=== PATIENT | female | born 1970 | race Caucasian/White ===

== ENCOUNTER → 2016-06-16 | Outpatient (REF) | payer MEDICARE, MEDICAID | END | disposition home or self-care (01) | LOC: M SFHCPLAZ 14:28 | PROVIDERS: ATTEND Internal Medicine Infectious Disease | DX: A49.02 Methicillin resistant Staphylococcus aureus infection, unspecified site (principal) | CPT/HCPCS: 87070; 87077; 87081; 87186; 87205; G0463 ==

== ENCOUNTER 2016-07-15 17:04 | Inpatient (IN) | payer MEDICARE, MEDICAID ==
[~2016-07-15] VITALS: Ht 149.9 cm; Wt 73.8 kg
[2016-07-15] MEDS ORDERED: NICOTINE 21MG/24HR 1 EA TRANSDERMAL As Ordered ONE (18:22)
[2016-07-15 19:07] LABS: AMPHETAMINES LEVEL URINE NEGATIVE (NEGATIVE); BENZODIAZEPINES URINE NEGATIVE (NEGATIVE); COCAINE METABOLITE URINE NEGATIVE (NEGATIVE); CONTROL LINE INT CTR LINE PRESENT; METHADONE URINE POSITIVE (NEGATIVE); OPIATES URINE NEGATIVE (NEGATIVE); TRICYCLIC ANTIDEPRESS URINE NEGATIVE (NEGATIVE)
[2016-07-15 19:18] LABS: MEAN CORPUSCULAR HEMOGLOBIN 26.5 pg (27.0-33.0); MEAN CORPUSCULAR HGB CONC 32.1 g/dl (32.0-36.5); MEAN CORPUSCULAR VOLUME 82.6 fl (80.0-96.0); WHITE BLOOD COUNT 12.4 K/mm3 (4.0-10.0)
[2016-07-15 19:23] LABS: ALBUMIN 3.8 GM/DL (3.2-5.2); ALBUMIN/GLOBULIN RATIO 1.12 (1.00-1.93); ALKALINE PHOSPHATASE 87 U/L (45-117); ALT/SGPT 30 U/L (12-78); ANION GAP 9 MEQ/L (8-16); AST/SGOT 15 U/L (15-37); BILIRUBIN,DIRECT 0.1 MG/DL (0.0-0.2); BILIRUBIN,TOTAL 0.4 MG/DL (0.2-1.0); BLOOD UREA NITROGEN 15 MG/DL (7-18); CALCIUM LEVEL 8.8 MG/DL (8.5-10.1); CARBON DIOXIDE LEVEL 25 MEQ/L (21-32); CHLORIDE LEVEL 108 MEQ/L (98-107); CREATININE FOR GFR 0.73 MG/DL (0.55-1.02); GLOMERULAR FILTRATION RATE > 60.0 (>58); GLUCOSE, FASTING 124 MG/DL (70-105); POTASSIUM SERUM 3.4 MEQ/L (3.5-5.1); SODIUM LEVEL 142 MEQ/L (136-145); TOTAL PROTEIN 7.2 GM/DL (6.4-8.2)
[2016-07-15 19:25] LABS: CONTROL LINE HCG INT CTR LINE PRESENT
[2016-07-15] MEDS ORDERED: METH5TA PO (19:55)
[2016-07-15] MEDS ORDERED: COLA100C PO (19:59)
[2016-07-15] MEDS ORDERED: VITA500T88 PO (19:59)
[2016-07-15] MEDS ORDERED: METO25TAB PO (19:59)
[2016-07-15] MEDS ORDERED: MELO7.5T6 PO (19:59)
[2016-07-15] MEDS ORDERED: SENN8.6T10 PO (19:59)
[2016-07-15] MEDS ORDERED: VITA200015 PO (19:59)
[2016-07-15] MEDS ORDERED: OXYB5TA PO (19:59)
[2016-07-15] MEDS ORDERED: ATOR40TA PO (19:59)
[2016-07-15] MEDS ORDERED: VITMTA PO (19:59)
[2016-07-15] MEDS ORDERED: OMEP40CA2 PO (19:59)
[2016-07-16] MEDS ORDERED: hydrOXYzine 50 MG TAB PO PRN (01:15)
[2016-07-16] MEDS ORDERED: traZODone 50 MG TAB PO PRN (01:15)
[2016-07-16] MEDS ORDERED: MOM 30ML SUSPENSION UDC PO PRN (01:15)
[2016-07-16] MEDS ORDERED: ACETAMINOPHEN TAB 650MG DOSE (2X325MG) PO PRN (01:15)
[2016-07-16] MEDS ORDERED: OMEPRAZOLE 20 MG CAP PO PRN (01:15)
[2016-07-16] MEDS ORDERED: MAALOX 30 ML SUSP *UDC PO PRN (01:15)
[2016-07-16] MEDS ORDERED: cloNIDine 0.2 MG TAB As Ordered ONE (01:26)
--- NOTE | 2016-07-16 01:33 | EDDOCDS ---
Physician Documentation [facility] Name: Ro Elizabeth Age: 45 yrs Sex: Female : 1970 Arrival Date: 07/15/2016 Time: 17:04 Bed RUST3 Private MD: Bismark Byrd Disposition: 07/15 17:55 Critical Care: Critical care not applicable. le Disposition: 07/15/16 20:27 Hospitalization ordered by Umair Gay for Inpatient Admission. Preliminary diagnosis is Bipolar disorder, current episode manic severe with psychotic features. - Bed requested for Admit. - Status is Inpatient Admission. mlc - Condition is Stable. - Problem is new. - Symptoms are unchanged. Historical: - Allergies: Augmentin (Swelling); - Home Meds: 1. Methadone 45 mg Oral once daily 2. atorvastatin 40 mg oral tab 1 tab once daily 3. meloxicam 7.5 mg oral tab 1 tab bid 4. metoprolol tartrate 25 mg Oral tab 1 tab 2 times per day (Last dose: Unknown) 5. omeprazole 40 mg Oral cpDR 1 cap prn 6. oxybutynin chloride 5 mg Oral tab 2 times per day 7. senna 8.6 mg oral cap 2 caps twice a day 8. Colace 100 mg oral cap 1 cap 2 times per day 9. Vitamin C 500 mg Oral tab daily 10. Vitamin D Oral 2000 unit daily 11. multivitamin Oral tab 1 tab daily - PMHx: Hypertension; Hypercholesterolemia; MRSA; Arthritis; - PSHx: ; cyst removed from left breast.; - Social history: Smoking status: Patient uses tobacco products, current every day smoker. No barriers to communication noted, The patient speaks fluent Nigerian. - Family history: Not pertinent. - : The pt / caregiver states he / she is not on anticoagulants. Home medication list is obtained from the patient. - Exposure Risk Screening:: None identified. Vital Signs: 17:06 BP 149 / 85 RA Sitting (auto/lg); Pulse 96; Resp 18; Temp 98.0(O); Pulse Ox 97% on R/A; rs6 Weight 76.2 kg / 167.99 lbs (M); Height 4 ft. 11 in. (149.86 cm) (R); Pain 6/10; 07/16 01:21 BP 186 / 104; Pulse 68; Resp 20; Temp 96.3; Pulse Ox 98% on R/A; Pain 0/10; mlc 07/15 17:06 Body Mass Index 33.93 (76.20 kg, 149.86 cm) rs6 MDM: 07/15 17:34 REGULAR DIET PLASTIC AMATO+DIET ordered. EDMS 18:04 Consult PFS/PSA/Supervisor Dairy Sanitation ordered. le 18:04 Consult PFS/PSA/Supervisor Dairy Sanitation: Patient's case requires discussion with on-call le Psychiatrist ordered. 18:04 PSA/PFS to call Nursing Softlines Supervisor, to enter patient data on [place] Safe Act if patient le involuntarily admitted or transferred for SI or HI ordered. 18:04 Confirm accurate psychiatric medication list and times of last dosage ordered. le 18:04 Detain Pt Until Medically/PFS Cleared ordered. le 18:04 Nicotine Patch 21 mg/24 hr 1 applic Transdermal once ordered. le 18:05 Acetaminophen Level Ordered. EDMS 18:05 Basic Metabolic Profile Ordered. EDMS 18:05 Complete Blood Count Ordered. EDMS 18:05 Drug Eval Toxicology ED Only Ordered. EDMS 18:05 Ethyl Alcohol (ethanol) Ordered. EDMS 18:05 Liver Profile Ordered. EDMS 18:05 Salicylate Level Ordered. EDMS 18:05 Thyroid Stimulating Hormone Ordered. EDMS 18:05 HCG,Serum Qualitative Ordered. EDMS 18:32 BED REQUEST+ADM ordered. EDMS 18:35 Financial registration complete. zo 18:39 [facility] [place] was scanned into [employer] and attached to record. zo 19:01 Consult PFS/PSA/Supervisor Dairy Sanitation complete. ms 19:01 Consult PFS/PSA/Supervisor Dairy Sanitation: Patient's case requires discussion with on-call ms Psychiatrist complete. 19:01 PSA/PFS to call Nursing Softlines Supervisor, to [place] data [place] if patient ms involuntarily admitted or transferred for SI or HI complete. 19:38 Acetaminophen Level Reviewed. le 19:38 Basic Metabolic Profile Reviewed. le 19:38 Complete Blood Count Reviewed. le 19:38 Drug Eval Toxicology ED Only Reviewed. le 19:38 Ethyl Alcohol (ethanol) Reviewed. le 19:38 Liver Profile Reviewed. le 19:38 Salicylate Level Reviewed. le 19:38 Thyroid Stimulating Hormone Reviewed. le 19:38 HCG,Serum Qualitative Reviewed. le 20:32 Admit to [facility]: ordered. EDMS 20:45 [facility] Legal paperwork was scanned into [employer] and attached to record. ms 22:32 T-Sheet-- Draft Copy was scanned into [employer] and attached to record. klr 07/16 01:22 REGULAR DIET ordered. EDMS 01:24 cloNIDine 0.2 mg PO once ordered. cs11 Administered Medications: 07/15 18:29 Drug: Nicotine 1 applic [nicotine 21 mg/24 hr daily transdermal patch (1 patches)] ld5 Route: Transdermal; Site: left upper arm; 07/16 01:10 Follow up: Response: No Adverse Reaction rw1 01:29 Drug: cloNIDine 0.2 mg [clonidine HCl 0.2 mg tablet (1 tabs)] Route: PO; [facility] Signatures: Dispatcher [employer] EDMS Roberto Jaye, PSA PSA ms Ezequiel, America Pandey, DIRECTOR PROCESS IMPROVEMENT Dyana Guevara RN RN Navdeep Adam, DO cs11 Anca Dao RN RN mlc Redder, Kathie klr Workman, Robert LPN rw1 Patricia Bang RN ld5 The chart was reviewed and I authenticate all verbal orders and agree with the evaluation and treatment provided.Corrections: (The following items were deleted from the chart) 07/15 17:29 17:23 Allergies: Augmentin (Swelling) [Inactive]; heidy moody Attachments: 18:39 [facility] [place] Agreement zo 22:32 T-Sheet-- Draft Copy klr MTDD
--- NOTE | 2016-07-16 01:33 | EDDOCDS ---
Nurse's Notes [facility] Name: Ro Elizabeth Age: 45 yrs Sex: Female : 1970 Arrival Date: 07/15/2016 Time: 17:04 Bed [facility]3 Private MD: Bismark Byrd Diagnosis: Bipolar disorder, current episode manic severe with psychotic features Presentation: 07/15 17:12 Presenting complaint: Presenting complaint: Patient states: they want to taper my jjr methadone and I want to stay on the same regimen, per [employer] PFS pt is delusional stating she is being taped/recorded. 17:20 Mental Health Triage Level: Level 2: recommendations from [facility] outpt. [facility] 17:26 Adult Sepsis Screening: The patient does not have new or worsening altered mentation. jjr Patient's respiratory rate is less than 22. Systolic blood pressure is greater than 100. Patient has a qSOFA score of 0- Negative Sepsis Screen. Suicide/Homicide risk assessment- The patient reports that he/she has a recent or current history of substance abuse. Status: Patient is not a career services officer or dependent. Transition of care: patient was received from [facility]. 17:26 Acuity: ROMÁN Level 3 r 17:26 Method Of Arrival: Walkin/Carried/Asstd jr Triage Assessment: 17:25 General: Appears in no apparent distress, Behavior is flight of ideas. Pain: Location: jjr thoracic area and lumbar area. HIV screening NA for this visit Offered previously. Historical: - Allergies: Augmentin (Swelling); - Home Meds: 1. Methadone 45 mg Oral once daily 2. atorvastatin 40 mg oral tab 1 tab once daily 3. meloxicam 7.5 mg oral tab 1 tab bid 4. metoprolol tartrate 25 mg Oral tab 1 tab 2 times per day (Last dose: Unknown) 5. omeprazole 40 mg Oral cpDR 1 cap prn 6. oxybutynin chloride 5 mg Oral tab 2 times per day 7. senna 8.6 mg oral cap 2 caps twice a day 8. Colace 100 mg oral cap 1 cap 2 times per day 9. Vitamin C 500 mg Oral tab daily 10. Vitamin D Oral 2000 unit daily 11. multivitamin Oral tab 1 tab daily - PMHx: Hypertension; Hypercholesterolemia; MRSA; Arthritis; - PSHx: ; cyst removed from left breast.; - Social history: Smoking status: Patient uses tobacco products, current every day smoker. No barriers to communication noted, The patient speaks fluent Botswanan. - Family history: Not pertinent. - : The pt / caregiver states he / she is not on anticoagulants. Home medication list is obtained from the patient. - Exposure Risk Screening:: None identified. Screenin/04 01:21 Screening information is obtained from the patient. Fall risk: No risks identified. mlc Assistance ADL's: requires no assistance with activities of daily living. Abuse/DV Screen: The patient / caregiver reports he/she is: not in a situation that causes fear, pain or injury. Nutritional screening: No deficits noted. Advance Directives: Currently, there is no health care proxy. home support is adequate. Assessment: 07/15 18:00 General: Pt standing at door staring out. When asked if pt needs anything, pt launches ld5 into speech about methadone detox and her MD sent her here for a detox program. Pt very talkative and difficult to get through to. 18:30 General: Pt out of room to ask what plan of care is. Security in to speak with pt at ld5 length about the process. Shortly after, pt out of room again to ask about plan. It was explained to pt again that blood work and urine had to be obtained and resulted prior to speaking with neonatal social worker. And at that time, pt would be given more information regarding POC. Pt continues to state "are you sending me to the [facility]? Just tell me if you're sending me there?" Safety maintained. Will continue to monitor. 19:00 General: Dinner tray provided. Pt hard to settle. Will continue to monitor. ld5 20:24 General: Appears in no apparent distress, comfortable, Behavior is appropriate for age, rw1 cooperative, pleasant. Pain: Denies pain. Neurological: Level of Consciousness is awake, alert, obeys commands, Oriented to person, place, time. Respiratory: Airway is patent Respiratory effort is even, unlabored. Derm: Skin is pink, warm & dry. normal. 21:18 Reassessment: Patient appears in no apparent distress at this time. awake resting on rw1 stretcher, safety maintained will monitor.. 22:29 Reassessment: Patient appears in no apparent distress at this time. awake resting on rw1 stretcher, safety maintained will monitor.. 07/16 01:21 General: Appears in no apparent distress, comfortable, Behavior is anxious, [facility] cooperative. Pain: Denies pain. Neurological: Level of Consciousness is awake, alert, Oriented to person, place, time. Respiratory: Airway is patent Respiratory effort is even, unlabored, Respiratory pattern is regular. Derm: Skin is pink, warm & dry. 01:29 Reassessment: pt medicated per order. [facility] Mental Health Eval: 07/15 19:45 Mental health consult is initiated at 19:15. Status: The patient is not a ms career services officer or dependent. [facility] Behavioral Health: The patient is not an established patient of [facility] Behavioral Health. Referral Information: Evaluation referral is generated by the patient's therapist Margarita. The patient was referred for evaluation because [facility] staff called stating pt. presented today for appointment ( Methadone clinic) and was manicy. Pt. left purse outside of treatment room because it had been bugged and also stated that people have been videotaping and recording her.. Subjective: The patients chief complaint is Pt. states she is on methadone and is concerned that she is not wanted in [place] anymore because she has been bothering people at [facility]. She reports she has been calling [facility] many times and states that they are mad at her. Pt. presents with rapid speech and flight of ideas. She reports she has been feeling depressed because she has no support system here in [place] and the only people she really knows are people with addiction issues. At [facility] today, pt stated that people had bugged her phone and cinema or theatre manager and left her purse outside of room so that no one could video or record her conversation. Pt. reports she has not been sleeping well or eating well. . Delusions are paranoid, Patient's mood is elevated, Hallucinations are denied. Pt. reports she lives by herself and at one pt. states it is good because she cannot be around anyone else because it would be bad for recovery. Pt. then states that she should not be by herself because she has no support system. Pt. states on occasion " assisted,institution and , oh my". Mental Health history: anxiety, depression, Mental Health Admissions: None. Current Outpatient Mental Health Services: Psychiatrist / Agency: Margarita. Therapist / Agency: [facility]. Current living environment is The patient currently lives alone. Patient presents to Emergency Department with the following symptoms within the past 2 weeks: anxiety, decreased appetite, labile mood, paranoia, poor concentration, sleep disturbance - insomnia. Substance abuse: Pt. states hx. of heroin, crack cocaine, alcohol, marijuana.. Mental status exam: Patients appearance is appropriate, Patient's behavior is cooperative, Speech is rapid. Affect is labile. Mood is anxious. Hallucinations are denied. Appetite is poor. Memory is fair. Energy level is normal. Content of thought is paranoid. paranoid Thought process is characterized by flight of ideas. Cognitive level is oriented to person, place, time and situation Patient's insight is fair. Judgement is fair. Rapport with interviewer is guarded. Suicidal Ideation is denied. Homicidal ideation is denied. 20:47 Disposition: Medically cleared for disposition by Navdeep Alexander DO Psychiatric Consult ms is performed by phone with Dr Umair Gay MD. [facility] Admission Criteria: The patient displays symptoms of severe psychiatric disorder resulting in disordered behavior and significant interference with his / her ability to maintain self care. Julieta. The patient's care requires a multi-modal treatment plan under close supervision and coordination due to the complexity and severity of the patient's symptoms. Legal Status: Patient's legal status will be Emergency admission: 9.39. [place] Safe Act: [place] Safe [place] is not applicable because the patient does not display any suicidal or homicidal ideations and does not pose a risk to self or others. DSM-V Differential Diagnosis: Unspecified Depressive Disorder (F32.9). 21:05 Insurance Pre-Certification: Not Required. ms Vital Signs: 17:06 BP 149 / 85 RA Sitting (auto/lg); Pulse 96; Resp 18; Temp 98.0(O); Pulse Ox 97% on R/A; rs6 Weight 76.2 kg (M); Height 4 ft. 11 in. (149.86 cm) (R); Pain 6/10; 0204 01:21 BP 186 / 104; Pulse 68; Resp 20; Temp 96.3; Pulse Ox 98% on R/A; Pain 0/10; mlc 07/15 17:06 Body Mass Index 33.93 (76.20 kg, 149.86 cm) rs6 Vitals: 07/15 17:06 Log In Time: July 15, 2016 at 17:06. rs6 ED Course: 17:06 Patient visited by Ava Godinez PCA. rs6 17:06 Bismark Byrd is Private Physician. rs6 17:06 Patient moved to Waiting rs6 17:09 Patient visited by Ava Godinez PCA. rs6 17:26 Patient moved to [facility] jjr 17:26 Triage Initiated jjr 17:33 Patient visited by Eyad Jimenez. dpm 17:51 America Hollis FNP is PHCP. le 17:55 Patient visited by America Hollis FNP. le 17:55 Patient visited by America Hollis FNP. le 18:04 Patient visited by Eyad Jimenez. dpm 18:26 Patient visited by Eyad Jimenez. dpm 18:39 [facility] Payment Agreement was scanned into [employer] and attached to record. zo 18:43 Patient visited by Eyad Jimenez. dpm 18:43 Pt greeted and oriented to ED. Patient advised of names of staff involved in care, dpm location of call davies, wait times and NPO status. Patient has correct armband on for positive identification. Placed in gown. Placed in psych safe attire. Security observing. Property removed, inventory done, secured in belongings bag- placed in locked locker. Placed in locker 9. secure belongings bag, Secure bag Number [id number], placed in ED safe. Prisca (ROSETTA) observed pt while changing. Psych Safety Check: Location: Psych Room. Visual Assessment: Cooperative. 19:00 Patient visited by Patricia Bang RN. ld5 19:01 Patient visited by Kian Ordonez. tr 19:15 Patient visited by Kian Ordonez. tr 19:29 Patient visited by Kian Ordonez. tr 19:44 Patient visited by Kian Ordonez. tr 19:59 Patient visited by Kian Ordonez. tr 20:00 Troy Crooks LPN is Primary Nurse. rw1 20:15 Patient visited by Troy Crooks LPN. rw1 20:26 Umair Gay MD is Referral Physician. le 20:27 Navdeep Alexander DO is Attending Physician. cs11 20:27 Umair Gay MD is Hospitalizing Provider. le 20:31 Patient visited by Kian Ordonez. tr 20:44 Patient visited by Kian Ordonez. tr 20:45 [facility] Legal paperwork was scanned into [employer] and attached to record. ms 21:00 Patient visited by Kian Ordonez. tr 21:16 Patient visited by Kian Ordonez. tr 21:29 Patient visited by Kian Ordonez. tr 21:46 Patient visited by Kian Ordonez. tr 22:01 Patient visited by Kian Ordonez. tr 22:15 Patient visited by Kian Ordonez. tr 22:30 Patient visited by Kian Ordonez. tr 22:32 T-Sheet-- Draft Copy was scanned into [employer] and attached to record. klr 22:49 Patient visited by Kian Ordonez. tr 23:02 Patient visited by Kian Ordonez. tr 23:36 Patient visited by Kian Ordonez. tr 23:45 Patient visited by Kian Ordonez. tr 23:58 Patient visited by Kian Ordonez. tr 07/16 00:14 Patient visited by Kian Ordonez. tr 00:48 Patient visited by Kian Ordonez. tr 00:59 Patient visited by Kian Ordonez. tr 01:16 Patient visited by Kian Ordonez. tr 01:21 The patient / caregiver is instructed regarding the plan of care and ED course. mlc 01:21 No IV's were initiated during this patient's visit. No procedures done that require mlc assistance. 01:28 Patient visited by Kian Ordonez. tr Administered Medications: 07/15 18:29 Drug: Nicotine 1 applic [nicotine 21 mg/24 hr daily transdermal patch (1 patches)] ld5 Route: Transdermal; Site: left upper arm; 07/16 01:10 Follow up: Response: No Adverse Reaction rw1 01:29 Drug: cloNIDine 0.2 mg [clonidine HCl 0.2 mg tablet (1 tabs)] Route: PO; mlc Attachments: 20:45 M[facility] Legal paperwork ms Order Results: Lab Order: Acetaminophen Level; SPEC'M 07/15/16 18:39 Test: ACETAMINOPHEN LEVEL; Value: < 2.0; Range: 10.0-30.0; Abnormal: Below low normal; Units: UG/ML; Status: F Lab Order: Basic Metabolic Profile; SPEC'M 07/15/16 18:39 Test: GLUCOSE, FASTING; Value: 124; Range: 70-105; Abnormal: Above high normal; Units: MG/DL; Status: F Test: BLOOD UREA NITROGEN; Value: 15; Range: 7-18; Units: MG/DL; Status: F Test: CREATININE FOR GFR; Value: 0.73; Range: 0.55-1.02; Units: MG/DL; Status: F Test: GLOMERULAR FILTRATION RATE; Value: > 60.0; Range: >58; Status: F Test: SODIUM LEVEL; Value: 142; Range: 136-145; Units: MEQ/L; Status: F Test: POTASSIUM SERUM; Value: 3.4; Range: 3.5-5.1; Abnormal: Below low normal; Units: MEQ/L; Status: F Test: CHLORIDE LEVEL; Value: 108; Range: 98-107; Abnormal: Above high normal; Units: MEQ/L; Status: F Test: CARBON DIOXIDE LEVEL; Value: 25; Range: 21-32; Units: MEQ/L; Status: F Test: ANION GAP; Value: 9; Range: 8-16; Units: MEQ/L; Status: F Test: CALCIUM LEVEL; Value: 8.8; Range: 8.5-10.1; Units: MG/DL; Status: F Test Note: ; Units are mL/min/1.73 m2 Chronic Kidney Disease Staging per NKF: Stage I & II GFR >=60 Normal to Mildly Decreased Stage III GFR 30-59 Moderately Decreased Stage IV GFR 15-29 Severely Decreased Stage V GFR <15 Very Little GFR Left ESRD GFR <15 on CYBER REVERSE ENGINEER Lab Order: Complete Blood Count; SPEC07/15/16 18:39 Test: WHITE BLOOD COUNT; Value: 12.4; Range: 4.0-10.0; Abnormal: Above high normal; Units: K/mm3; Status: F Test: RED BLOOD COUNT; Value: 4.82; Range: 4.00-5.40; Units: M/mm3; Status: F Test: HEMOGLOBIN; Value: 12.8; Range: 12.0-16.0; Units: g/dl; Status: F Test: HEMATOCRIT; Value: 39.9; Range: 36.0-47.0; Units: %; Status: F Test: MEAN CORPUSCULAR VOLUME; Value: 82.6; Range: 80.0-96.0; Units: fl; Status: F Test: MEAN CORPUSCULAR HEMOGLOBIN; Value: 26.5; Range: 27.0-33.0; Abnormal: Below low normal; Units: pg; Status: F Test: MEAN CORPUSCULAR HGB CONC; Value: 32.1; Range: 32.0-36.5; Units: g/dl; Status: F Test: RED CELL DISTRIBUTION WIDTH; Value: 15.0; Range: 11.5-14.5; Abnormal: Above high normal; Units: %; Status: F Test: PLATELET COUNT, AUTOMATED; Value: 291; Range: 150-450; Units: k/mm3; Status: F Lab Order: Drug Eval Toxicology ED Only; SPEC'M 07/15/16 18:39 Test: AMPHETAMINES LEVEL URINE; Value: NEGATIVE; Range: NEGATIVE; Status: F Test: BARBITURATES URINE; Value: NEGATIVE; Range: NEGATIVE; Status: F Test: BENZODIAZEPINES URINE; Value: NEGATIVE; Range: NEGATIVE; Status: F Test: CANNABINOIDS URINE; Value: NEGATIVE; Range: NEGATIVE; Status: F Test: COCAINE METABOLITE URINE; Value: NEGATIVE; Range: NEGATIVE; Status: F Test: METHADONE URINE; Value: POSITIVE; Range: NEGATIVE; Abnormal: Above high normal; Status: F Test: OPIATES URINE; Value: NEGATIVE; Range: NEGATIVE; Status: F Test: TRICYCLIC ANTIDEPRESS URINE; Value: NEGATIVE; Range: NEGATIVE; Status: F Test Note: ; ALL PRESUMPTIVE POSITIVE FINDINGS ARE UNCONFIRMED NORMAL VALUES THRESHOLD IN NG/ML AMPHETAMINES 1000 METHAMPHETAMINES 1000 BARBITURATES 300 BENZODIAZEPINES 300 CANNABINOIDS (THC) 50 COCAINE METABOLITE 300 METHADONE 300 OPIATES 300 PHENCYCLIDINE 25 TRICYCLIC ANTIDEPRESSANTS 1000 RESULTS ARE FOR MEDICAL PURPOSES ONLY. ALL URINE SPECIMENS WILL BE SAVED FOR 3 DAYS. IF CONFIRMATION OF A PRESUMPTIVE POSTIVE SCREEN RESULT IS DESIRED, CALL CHEMISTRY ([phone]) AND REQUEST URINE TO BE SENT TO REFERENCE LAB. FOR A LIST OF CLOSELY RELATED COMPOUNDS PLEASE CALL THE LAB. Lab Order: Ethyl Alcohol (ethanol); SPEC'M 07/15/16 18:39 Test: ETHYL ALCOHOL (ETHANOL); Value: 0.003; Range: 0.000-0.010; Units: %; Status: F Lab Order: Liver Profile; SPEC'M 07/15/16 18:39 Test: AST/SGOT; Value: 15; Range: 15-37; Units: U/L; Status: F Test: ALT/SGPT; Value: 30; Range: 12-78; Units: U/L; Status: F Test: ALKALINE PHOSPHATASE; Value: 87; Range: 45-117; Units: U/L; Status: F Test: BILIRUBIN,TOTAL; Value: 0.4; Range: 0.2-1.0; Units: MG/DL; Status: F Test: BILIRUBIN,DIRECT; Value: 0.1; Range: 0.0-0.2; Units: MG/DL; Status: F Test: TOTAL PROTEIN; Value: 7.2; Range: 6.4-8.2; Units: GM/DL; Status: F Test: ALBUMIN; Value: 3.8; Range: 3.2-5.2; Units: GM/DL; Status: F Test: ALBUMIN/GLOBULIN RATIO; Value: 1.12; Range: 1.00-1.93; Status: F Lab Order: Salicylate Level; SPEC' 07/15/16 18:39 Test: SALICYLATE LEVEL; Value: 5.6; Range: 5.0-30.0; Units: MG/DL; Status: F Lab Order: Thyroid Stimulating Hormone; SPEC' 07/15/16 18:39 Test: THYROID STIMULATING HORMONE; Value: 0.466; Range: 0.358-3.740; Units: uIU/ML; Status: F Lab Order: HCG,Serum Qualitative; SPEC' 07/15/16 18:39 Test: HCG, SERUM QUALITATIVE; Value: NEGATIVE; Range: NEGATIVE; Status: F Outcome: 20:26 Discharge ordered by Provider. le 20:27 Decision to Hospitalize by Provider. le 07/16 01:29 Discharge Assessment: Patient awake, alert and oriented x 3. No cognitive and/or mlc functional deficits noted. Patient verbalized understanding of disposition instructions. patient administered narcotics - no. The following High Risk Discharge criteria are identified: None. Admitted to Psych accompanied by tech, via wheelchair, with chart. No special radiology studies were completed. 01:30 Condition: good Condition: stable. Admission hand-off: Other: SKINNY Tomlin states pt can mlc come to floor at this time. . Property given to [facility] staff. 01:32 Patient left the ED. [facility] Signatures: Jaye Mejia, PSA PSA ms Mery, Kian tr Troy Crooks,OFFICER LIEUTENANT OFFICER LIEUTENANT rw1 Lauren Nieves Lisa, TIMEKEEPER SUPERVISOR TIMEKEEPER SUPERVISOR Dyana Cherry, RN RN jPatricia Zuniga RN RN ld5 Eyad Jimenez dpm Navdeep Alexander, DO cs11 Anca Dao RN RN Ava Degroot, TV PRODUCTION ASSISTANT TV PRODUCTION ASSISTANT rs6 Gabriella Salcedo Corrections: (The following items were deleted from the chart) 07/15 17:29 17:23 Allergies: Augmentin (Swelling) [Inactive]; heidy moody 17:38 17:12 Presenting complaint: heidy moody MTDD
[2016-07-16 01:42] VITALS: BP 159/96
[2016-07-16] MEDS: VITAMIN D 1,000 INTERNATIONAL UNITS TABLET PO SCH (08:16)
[2016-07-16] MEDS: ASCORBIC ACID 500 MG TAB PO SCH (08:16)
[2016-07-16] MEDS: MULTIVITAMINS/MINERALS THERAP 1 TAB PO SCH (08:16)
[2016-07-16] MEDS: MELOXICAM (MOBIC) 7.5 MG TAB PO SCH ×2 (08:16→22:45)
[2016-07-16] MEDS: oxyBUTYnin 5 MG TAB PO SCH ×2 (08:16→22:45)
[2016-07-16] MEDS: NICOTINE 21MG/24HR 1 EA TRANSDERMAL TD SCH (08:16)
[2016-07-16] MEDS: SENNA 8.6 MG TAB (SENOKOT) PO SCH ×2 (08:16→22:44)
[2016-07-16] MEDS: METOPROLOL TART 25 MG TABLET PO SCH ×2 (08:17→22:45)
[2016-07-16] MEDS: METHADONE 10 MG TAB (S0109) PO SCH (08:18)
[2016-07-16] MEDS: DIVALPROEX 250 MG TAB PO SCH ×2 (09:00→22:44)
[2016-07-16] MEDS: risperiDONE 2 MG TAB PO SCH ×2 (09:00→18:41)
[2016-07-16 18:00] VITALS: BP 113/61
[2016-07-16] MEDS ORDERED: QUEtiapine FUMARATE 100 MG TAB PO ONE (19:15)
--- NOTE | 2016-07-16 20:06 | MHHPE ---
DATE OF ADMISSION: 07/16/2016 LEGAL STATUS AT ADMISSION: 9.39 legal status. CHIEF COMPLAINT: "I don't think I'm on the right unit." HISTORY OF PRESENT ILLNESS: 45-year-old female with history of opioid dependency who was sent to our emergency department from her therapy at [facility] after she was found to be paranoid and manic. According to the chart, patient presented to her appointment at the methadone clinic at [facility] and she was manic. She was afraid that she was being videotaped and also she left her purse outside the treatment room because she believed the purse was bugged. Patient was making statements in which she believes that she is not wanted in [place] anymore because she is "bothering people." Patient had called [facility] many times before her appointment. She was displaying and flight of ideas. Patient has no support in the [facility]. Patient stated she has not been eating or sleeping well and it is documented that her mood is elevated. During the interview today, patient is unable to provide full history since she is paranoid and manic, has flight of ideas, is somewhat guarded, and jumps from subject to subject. She stated that she wants to be in a place where "I am safe." Patient has stated that she has been unable to sleep. She is highly anxious, is paranoid, with pressured speech. Patient, at this point, is an unreliable historian. PAST MEDICAL HISTORY: As stated by the chart, and the patient agreed, has been diagnosed with hypertension, hypercholesterolemia, arthritis, and methicillin-resistant Staphylococcus aureus (MRSA) status post section. PAST PSYCHIATRIC HISTORY: According to the chart, has past history of depression, anxiety, and polysubstance dependency. Has history of heroin, crack cocaine, alcohol, and marijuana. SUBSTANCE ABUSE HISTORY: As above. Patient is unable to provide full history, but reports that she is on methadone program at [facility] and, as stated above, has history of heroin, crack cocaine, alcohol, and marijuana abuse. SOCIAL HISTORY: Patient is unable to provide reliable information. She came to [facility] to be treated for her opioid dependency and has no support in [facility]. FAMILY HISTORY: Unknown and patient's information is not reliable. REVIEW OF SYSTEMS: Unable to obtain since patient is not reliable. PHYSICAL EXAMINATION: As per physician occupational therapist assistant. LABORATORY DATA AT ADMISSION: CBC showed white blood cells were 12.4, MCH of 26.5, RDW 15. CMP is unremarkable except low potassium of 3.4. test is negative. TSH within normal limits. Urine drug screen (UDS) is positive for methadone, the rest is negative. Blood alcohol level is negative. MENTAL STATUS EXAMINATION: Patient is wearing hospital pajamas. Patient is paranoid, somewhat guarded, and manic. Speech is pressured. Has fair eye contact. Mood is manic. Affect is labile, intense. Patient is oriented to time, place, person, and situation. Attention and concentration are impaired due to her manic episode and paranoia. Thought processes are tangential with flight of ideas. Does not appear to have auditory or visual hallucinations. Patient does have paranoid delusions. Patient is able to contract for safety and denies suicidal or homicidal ideation during the interview. Insight and judgment is poor. DIAGNOSES: AXIS I: Bipolar disorder, manic episode. Polysubstance dependency. AXIS II: Deferred. AXIS III: Hypertension, hypercholesterolemia, arthritis. INITIAL TREATMENT PLAN: Patient was admitted on a 9.39 legal status. Complete history could not be obtained because patient is manic and paranoid. With her permission, family will be contacted and data base will be expanded. Her medication regimen will be reviewed and changed accordingly. She will be provided with protected environment. She will be treated with individual, group, and milieu therapy. She will also receive supportive psychoeducation. Discharge planning will commence immediately. Length of stay will be between 5-7 days. Outpatient followup will be strongly recommended. The treatment plan will focus initially on iraj, altered thoughts, and substance abuse.
[2016-07-16] MEDS: QUEtiapine FUMARATE 100 MG TAB PO SCH (22:45)
[2016-07-16] MEDS: ATORVASTATIN 20 MG TAB PO SCH (22:45)
[2016-07-17 06:49] VITALS: BP 126/76
[2016-07-17 08:08] LABS: BASO % 0.4 % (0.0-1.0); EOS # 0.3 K/mm3 (0.0-0.50); EOS % 3.2 % (0.0-3.0); LARGE UNSTAINED CELL # 0.2 K/mm3 (0.0-0.4); LARGE UNSTAINED CELL % 1.9 % (0.0-4.0); LYMPH # 3.6 K/mm3 (1.5-4.5); LYMPH % 40.5 % (24.0-44.0); MEAN CORPUSCULAR HEMOGLOBIN 27.2 pg (27.0-33.0); MEAN CORPUSCULAR HGB CONC 33.1 g/dl (32.0-36.5); MEAN CORPUSCULAR VOLUME 82.3 fl (80.0-96.0); MONO # 0.4 K/mm3 (0.0-0.8); MONO % 4.4 % (0.0-5.0); NEUTROPHILS # 4.3 K/mm3 (1.8-7.7); NEUTROPHILS % 49.6 % (36.0-66.0); PLATELET COUNT, AUTOMATED 264 k/mm3 (150-450); RED CELL DISTRIBUTION WIDTH 15.5 % (11.5-14.5); WHITE BLOOD COUNT 8.6 K/mm3 (4.0-10.0)
[2016-07-17] MEDS: ASCORBIC ACID 500 MG TAB PO SCH ×2 (08:09→08:44)
[2016-07-17] MEDS: MELOXICAM (MOBIC) 7.5 MG TAB PO SCH ×3 (08:09→21:06)
[2016-07-17] MEDS: MULTIVITAMINS/MINERALS THERAP 1 TAB PO SCH ×2 (08:09→08:44)
[2016-07-17] MEDS: METOPROLOL TART 25 MG TABLET PO SCH ×3 (08:09→21:05)
[2016-07-17] MEDS: NICOTINE 21MG/24HR 1 EA TRANSDERMAL TD SCH (08:09)
[2016-07-17] MEDS: risperiDONE 2 MG TAB PO SCH ×3 (08:10→21:00)
[2016-07-17] MEDS: SENNA 8.6 MG TAB (SENOKOT) PO SCH ×3 (08:10→21:06)
[2016-07-17] MEDS: METHADONE 10 MG TAB (S0109) PO SCH (08:10)
[2016-07-17] MEDS: VITAMIN D 1,000 INTERNATIONAL UNITS TABLET PO SCH ×2 (08:10→08:45)
[2016-07-17 08:26] LABS: ANION GAP 6 MEQ/L (8-16); BLOOD UREA NITROGEN 10 MG/DL (7-18); CALCIUM LEVEL 8.8 MG/DL (8.5-10.1); CARBON DIOXIDE LEVEL 30 MEQ/L (21-32); CHLORIDE LEVEL 111 MEQ/L (98-107); CREATININE FOR GFR 0.79 MG/DL (0.55-1.02); GLOMERULAR FILTRATION RATE > 60.0 (>58); GLUCOSE, FASTING 94 MG/DL (70-105); SODIUM LEVEL 147 MEQ/L (136-145)
[2016-07-17] MEDS: oxyBUTYnin 5 MG TAB PO SCH ×2 (08:46→21:05)
[2016-07-17] MEDS: DIVALPROEX 250 MG TAB PO SCH ×2 (08:50→21:00)
[2016-07-17] MEDS ORDERED: ONDANSETRON 4 MG TAB (S0181) PO PRN (09:15)
--- NOTE | 2016-07-17 10:14 | HPE ---
DATE OF ADMISSION: 07/16/2016 HISTORY OF PRESENT ILLNESS: Please refer to the psychiatric history and evaluation for further details on this admission. This examination and history is intended for medical issues which may need treatment, followup or consultation on this 45-year-old female. ALLERGIES: - CODEINE - PROPOXYPHENE SOCIAL HISTORY: She is single. ETOH - none greater than 6 months. Smokes - 1/2 to 1 pack of cigarettes per day. Recreational drug use - she has been a heroin addict. She was in [facility]. She relapsed once on 05/18/2016. She has had none since. PAST MEDICAL HISTORY: 1. Hypercholesterolemia. 2. Hypertension. 3. Coronary artery disease. 4. History of gastroesophageal reflux disease. 5. History of arthritis. 6. History of methicillin-resistant Staphylococcus aureus (MRSA). 7. Breast cyst years ago. PRIMARY CARE PROVIDER: Dr. Byrd at [facility]. IRB COMPLIANCE COORDINATOR: Dr. Gordon. PAST SURGICAL HISTORY: 1. section. 2. Cyst removed from left breast. LABORATORY STUDIES: WBC 12.4, hemoglobin 12.8, hematocrit 39.9 and platelets 29. Sodium 142, potassium 3.4, chloride 108, CO2 20. BUN and creatinine 15 and 0.73. Urine was positive for methadone. HOME MEDICATIONS: - vitamin C 500 mg by mouth daily - Lipitor 40 mg by mouth at bedtime - vitamin D 2000 units by mouth daily - Colace 100 mg by mouth twice a day - meloxicam 7.5 mg by mouth twice a day - methadone 45 mg by mouth daily - metoprolol tartrate 25 mg by mouth twice a day - multivitamin one by mouth daily - omeprazole 20 mg by mouth daily - oxybutynin 10 mg by mouth twice a day - senna laxative 8.6 mg two by mouth twice a day REVIEW OF SYSTEMS: No complaints of headache. No blurred or double vision. No fever. No chills. No tinnitus. No hoarseness. No difficulty swallowing. No lightheadedness. No vertigo. Cardiovascular: No complaints of chest pain, shortness of breath, palpitations, or edema. Respiratory: No chronic cough. No sputum production. No hemoptysis. No orthopnea. No wheeze. GI: No nausea, vomiting or diarrhea. No hematochezia. No melena. No change in appetite or bowel habits. : No hematuria, dysuria or frequency. Musculoskeletal: No joint redness or swelling. Endocrine: No polyuria, polydipsia or polyphagia. Hematologic: No history of anemia. Neurologic: No history of seizures. No paresthesia or paralysis. Psychologic: See psychiatric history and physical. PHYSICAL EXAMINATION: 45-year-old obese female in no acute distress. Blood pressure 113/61. Pulse 81. Respirations 16. The patient is alert and oriented times three. Pupils equal and react to light. Extraocular movements intact. Cornea and sclera clear. Conjunctiva normal. No facial asymmetry. Pharynx, tongue and gums pink and moist. Tongue is midline. Neck is supple, without lymphadenopathy. No thyromegaly. No goiter. Carotids 2+, without bruit. Chest clear to auscultation, without wheeze or retraction. Heart is regular. Grade 1/6 murmur. No gallop. Abdomen benign. Bowel sounds positive. Genitourinary ()/Rectal: Not done. Extremities show equal strength. Full range of motion. No cyanosis, clubbing or edema. Peripheral pulses equal and palpable bilaterally. Skin is warm and dry. IMPRESSION AND PLAN: 1. Psychiatric. Plan per psychiatry. Continue every 2 weeks. Patient received her shot today. 2. Hypertension. Continue metoprolol. 3. Hypercholesterolemia. Continue atorvastatin and diet. 4. Constipation. Continue Colace and senna. 5. Gastroesophageal reflux disease. Continue omeprazole. 6. Patient is a recovering heroin addict, currently on methadone. Decrease as instructed by her outpatient addictions physician.
[2016-07-17 18:00] VITALS: BP 132/75
--- NOTE | 2016-07-17 19:47 | IPN ---
DATE: SUBJECTIVE: "Why are you doing this to me" OBJECTIVE: The patient continues paranoid, delusional, manic, with pressured speech. At times, she is impulsive but can be redirected. The patient is refusing to take Risperdal and Depakote. She was started at a low dosage. She accepts to take Seroquel and the methadone that has been prescribed at the methadone clinic. The patient has very little insight. MENTAL STATUS EXAMINATION: The patient is dressed in [facility]. Has poor eye contact. Speech is pressured and fast. Mood is manic. Affect is congruent with mood. The patient continues to have paranoid delusions. No evidence of hallucinations. Memory, attention and concentration are affected by her manic episode. Insight and judgment are poor. ASSESSMENT: 1. Bipolar disorder. 2. Substance dependency. PLAN: 1. Continue Risperdal 2 mg by mouth twice a day. 2. Continue Depakote 250 mg by mouth twice a day. 3. Continue Seroquel 100 mg by mouth at bedtime. 4. Continue methadone 45 mg by mouth daily. 5. Continue medication management, individual and group therapy.
[2016-07-17] MEDS: QUEtiapine FUMARATE 100 MG TAB PO SCH ×2 (21:00→22:41)
[2016-07-17] MEDS: ATORVASTATIN 20 MG TAB PO SCH (21:06)
--- NOTE | 2016-07-18 02:32 | EDDOCDS ---
Physician Documentation [facility] Name: Ro Elizabeth Age: 45 yrs Sex: Female : 1970 Arrival Date: 07/15/2016 Time: 17:04 Bed [facility] Private MD: Bismark Byrd Disposition: 07/15 17:55 Critical Care: Critical care not applicable. le Disposition: 07/15/16 20:27 Hospitalization ordered by Umair Gay for Inpatient Admission. Preliminary diagnosis is Bipolar disorder, current episode manic severe with psychotic features. - Bed requested for Admit. - Status is Inpatient Admission. mlc - Condition is Stable. - Problem is new. - Symptoms are unchanged. Historical: - Allergies: Augmentin (Swelling); - Home Meds: 1. Methadone 45 mg Oral once daily 2. atorvastatin 40 mg oral tab 1 tab once daily 3. meloxicam 7.5 mg oral tab 1 tab bid 4. metoprolol tartrate 25 mg Oral tab 1 tab 2 times per day (Last dose: Unknown) 5. omeprazole 40 mg Oral cpDR 1 cap prn 6. oxybutynin chloride 5 mg Oral tab 2 times per day 7. senna 8.6 mg oral cap 2 caps twice a day 8. Colace 100 mg oral cap 1 cap 2 times per day 9. Vitamin C 500 mg Oral tab daily 10. Vitamin D Oral 2000 unit daily 11. multivitamin Oral tab 1 tab daily - PMHx: Hypertension; Hypercholesterolemia; MRSA; Arthritis; - PSHx: ; cyst removed from left breast.; - Social history: Smoking status: Patient uses tobacco products, current every day smoker. No barriers to communication noted, The patient speaks fluent [place]. - Family history: Not pertinent. - : The pt / caregiver states he / she is not on anticoagulants. Home medication list is obtained from the patient. - Exposure Risk Screening:: None identified. Vital Signs: 17:06 BP 149 / 85 RA Sitting (auto/lg); Pulse 96; Resp 18; Temp 98.0(O); Pulse Ox 97% on R/A; rs6 Weight 76.2 kg / 167.99 lbs (M); Height 4 ft. 11 in. (149.86 cm) (R); Pain 6/10; 07/16 01:21 BP 186 / 104; Pulse 68; Resp 20; Temp 96.3; Pulse Ox 98% on R/A; Pain 0/10; mlc 07/15 17:06 Body Mass Index 33.93 (76.20 kg, 149.86 cm) rs6 MDM: 07/15 17:34 REGULAR DIET PLASTIC AMATO+DIET ordered. EDMS 18:04 Consult PFS/PSA/Sand Sifter ordered. le 18:04 Consult PFS/PSA/Sand Sifter: Patient's case requires discussion with on-call le Psychiatrist ordered. 18:04 PSA/PFS to call Nursing Pickling Tank Operator, to enter patient data on [place] Safe [place] if patient le involuntarily admitted or transferred for SI or HI ordered. 18:04 Confirm accurate psychiatric medication list and times of last dosage ordered. le 18:04 Detain Pt Until Medically/PFS Cleared ordered. le 18:04 Nicotine Patch 21 mg/24 hr 1 applic Transdermal once ordered. le 18:05 Acetaminophen Level Ordered. EDMS 18:05 Basic Metabolic Profile Ordered. EDMS 18:05 Complete Blood Count Ordered. EDMS 18:05 Drug Eval Toxicology ED Only Ordered. EDMS 18:05 Ethyl Alcohol (ethanol) Ordered. EDMS 18:05 Liver Profile Ordered. EDMS 18:05 Salicylate Level Ordered. EDMS 18:05 Thyroid Stimulating Hormone Ordered. EDMS 18:05 HCG,Serum Qualitative Ordered. EDMS 18:32 BED REQUEST+ADM ordered. EDMS 18:35 Financial registration complete. zo 18:39 [facility] [place] Payment Agreement was scanned into [employer] and attached to record. zo 19:01 Consult PFS/PSA/Sand Sifter complete. ms 19:01 Consult PFS/PSA/Sand Sifter: Patient's case requires discussion with on-call ms Psychiatrist complete. 19:01 PSA/PFS to call Nursing Pickling Tank Operator, to enter [place] data [place] if patient ms involuntarily admitted or transferred for SI or HI complete. 19:38 Acetaminophen Level Reviewed. le 19:38 Basic Metabolic Profile Reviewed. le 19:38 Complete Blood Count Reviewed. le 19:38 Drug Eval Toxicology ED Only Reviewed. le 19:38 Ethyl Alcohol (ethanol) Reviewed. le 19:38 Liver Profile Reviewed. le 19:38 Salicylate Level Reviewed. le 19:38 Thyroid Stimulating Hormone Reviewed. le 19:38 HCG,Serum Qualitative Reviewed. le 20:32 Admit to [facility]: ordered. EDMS 20:45 [facility] Legal paperwork was scanned into [employer] and attached to record. ms 22:32 T-Sheet-- Draft Copy was scanned into [employer] and attached to record. klr 07/16 01:22 REGULAR DIET ordered. EDMS 01:24 cloNIDine 0.2 mg PO once ordered. cs11 Administered Medications: 07/15 18:29 Drug: Nicotine 1 applic [nicotine 21 mg/24 hr daily transdermal patch (1 patches)] ld5 Route: Transdermal; Site: left upper arm; 07/16 01:10 Follow up: Response: No Adverse Reaction rw1 01:29 Drug: cloNIDine 0.2 mg [clonidine HCl 0.2 mg tablet (1 tabs)] Route: PO; [facility] [place] Signatures: Dispatcher [employer] EDMS Roberto Jaye, PSA PSA ms Ezequiel, America Pandey, THERMOSTATIC CONTROLS SUPERVISOR Dyana Guevara RN RN Navdeep Adam, DO cs11 Anca Dao RN RN mlc Redder, Kathie klr Workman, Robert LPN rw1 Patricia Bang RN ld5 The chart was reviewed and I authenticate all verbal orders and agree with the evaluation and treatment provided.Corrections: (The following items were deleted from the chart) 07/15 17:29 17:23 Allergies: Augmentin (Swelling) [Inactive]; heidy moody Attachments: 18:39 [facility] Payment Agreement zo 22:32 T-Sheet-- Draft Copy klr Chart Complete MTDD
--- NOTE | 2016-07-18 02:33 | EDDOCDS ---
Physician Documentation [facility] Name: Ro Elizabeth Age: 45 yrs Sex: Female : 1970 Arrival Date: 07/15/2016 Time: 17:04 Bed [facility] Private MD: Bismark Byrd Disposition: 07/15 17:55 Critical Care: Critical care not applicable. le Disposition: 07/15/16 20:27 Hospitalization ordered by Umair Gay for Inpatient Admission. Preliminary diagnosis is Bipolar disorder, current episode manic severe with psychotic features. - Bed requested for Admit. - Status is Inpatient Admission. mlc - Condition is Stable. - Problem is new. - Symptoms are unchanged. Historical: - Allergies: Augmentin (Swelling); - Home Meds: 1. Methadone 45 mg Oral once daily 2. atorvastatin 40 mg oral tab 1 tab once daily 3. meloxicam 7.5 mg oral tab 1 tab bid 4. metoprolol tartrate 25 mg Oral tab 1 tab 2 times per day (Last dose: Unknown) 5. omeprazole 40 mg Oral cpDR 1 cap prn 6. oxybutynin chloride 5 mg Oral tab 2 times per day 7. senna 8.6 mg oral cap 2 caps twice a day 8. Colace 100 mg oral cap 1 cap 2 times per day 9. Vitamin C 500 mg Oral tab daily 10. Vitamin D Oral 2000 unit daily 11. multivitamin Oral tab 1 tab daily - PMHx: Hypertension; Hypercholesterolemia; MRSA; Arthritis; - PSHx: ; cyst removed from left breast.; - Social history: Smoking status: Patient uses tobacco products, current every day smoker. No barriers to communication noted, The patient speaks fluent Maldivian. - Family history: Not pertinent. - : The pt / caregiver states he / she is not on anticoagulants. Home medication list is obtained from the patient. - Exposure Risk Screening:: None identified. Vital Signs: 17:06 BP 149 / 85 RA Sitting (auto/lg); Pulse 96; Resp 18; Temp 98.0(O); Pulse Ox 97% on R/A; rs6 Weight 76.2 kg / 167.99 lbs (M); Height 4 ft. 11 in. (149.86 cm) (R); Pain 6/10; 07/16 01:21 BP 186 / 104; Pulse 68; Resp 20; Temp 96.3; Pulse Ox 98% on R/A; Pain 0/10; mlc 07/15 17:06 Body Mass Index 33.93 (76.20 kg, 149.86 cm) rs6 MDM: 07/15 17:34 REGULAR DIET PLASTIC AMATO+DIET ordered. EDMS 18:04 Consult PFS/PSA/Finance Manager ordered. le 18:04 Consult PFS/PSA/Finance Manager: Patient's case requires discussion with on-call le Psychiatrist ordered. 18:04 PSA/PFS to call Nursing Fur Mixer, to enter [place] data [place] if patient le involuntarily admitted or transferred for SI or HI ordered. 18:04 Confirm accurate psychiatric medication list and times of last dosage ordered. le 18:04 Detain Pt Until Medically/PFS Cleared ordered. le 18:04 Nicotine Patch 21 mg/24 hr 1 applic Transdermal once ordered. le 18:05 Acetaminophen Level Ordered. EDMS 18:05 Basic Metabolic Profile Ordered. EDMS 18:05 Complete Blood Count Ordered. EDMS 18:05 Drug Eval Toxicology ED Only Ordered. EDMS 18:05 Ethyl Alcohol (ethanol) Ordered. EDMS 18:05 Liver Profile Ordered. EDMS 18:05 Salicylate Level Ordered. EDMS 18:05 Thyroid Stimulating Hormone Ordered. EDMS 18:05 HCG,Serum Qualitative Ordered. EDMS 18:32 BED REQUEST+ADM ordered. EDMS 18:35 Financial registration complete. zo 18:39 [facility] [place] Payment Agreement was scanned into [employer] and attached to record. zo 19:01 Consult PFS/PSA/Finance Manager complete. ms 19:01 Consult PFS/PSA/Finance Manager: Patient's case requires discussion with on-call ms Psychiatrist complete. 19:01 PSA/PFS to call Nursing Fur Mixer, to [place] if patient ms involuntarily admitted or transferred for SI or HI complete. 19:38 Acetaminophen Level Reviewed. le 19:38 Basic Metabolic Profile Reviewed. le 19:38 Complete Blood Count Reviewed. le 19:38 Drug Eval Toxicology ED Only Reviewed. le 19:38 Ethyl Alcohol (ethanol) Reviewed. le 19:38 Liver Profile Reviewed. le 19:38 Salicylate Level Reviewed. le 19:38 Thyroid Stimulating Hormone Reviewed. le 19:38 HCG,Serum Qualitative Reviewed. le 20:32 Admit to [facility]: ordered. EDMS 20:45 [facility] Legal paperwork was scanned into [employer] and attached to record. ms 22:32 T-Sheet-- Draft Copy was scanned into [employer] and attached to record. klr 07/16 01:22 REGULAR DIET ordered. EDMS 01:24 cloNIDine 0.2 mg PO once ordered. cs11 Administered Medications: 07/15 18:29 Drug: Nicotine 1 applic [nicotine 21 mg/24 hr daily transdermal patch (1 patches)] ld5 Route: Transdermal; Site: left upper arm; 07/16 01:10 Follow up: Response: No Adverse Reaction rw1 01:29 Drug: cloNIDine 0.2 mg [clonidine HCl 0.2 mg tablet (1 tabs)] Route: PO; [facility] [place] Signatures: Dispatcher [employer] EDMS Roberto Jaye, PSA PSA ms Ezequiel, America Pandey, BINDING FOLDER MACHINE Dyana Guevara RN RN Navdeep Adam, DO cs11 Anca Dao RN RN mlc Redder, Kathie klr Workman, Robert LPN rw1 Patricia Bang RN ld5 The chart was reviewed and I authenticate all verbal orders and agree with the evaluation and treatment provided.Corrections: (The following items were deleted from the chart) 07/15 17:29 17:23 Allergies: Augmentin (Swelling) [Inactive]; heidy moody Attachments: 18:39 [facility] Payment Agreement zo 22:32 T-Sheet-- Draft Copy klr Chart Complete MTDD
--- NOTE | 2016-07-18 02:33 | EDDOCDS ---
Nurse's Notes [facility] Name: Ro Elizabeth Age: 45 yrs Sex: Female : 1970 Arrival Date: 07/15/2016 Time: 17:04 Bed [facility] Private MD: Bismark Byrd Diagnosis: Bipolar disorder, current episode manic severe with psychotic features Presentation: 07/15 17:12 Presenting complaint: Presenting complaint: Patient states: they want to taper my jjr methadone and I want to stay on the same regimen, per [facility] PFS pt is delusional stating she is being taped/recorded. 17:20 Mental Health Triage Level: Level 2: recommendations from [facility] outpt. [facility] 17:26 Adult Sepsis Screening: The patient does not have new or worsening altered mentation. jjr Patient's respiratory rate is less than 22. Systolic blood pressure is greater than 100. Patient has a qSOFA score of 0- Negative Sepsis Screen. Suicide/Homicide risk assessment- The patient reports that he/she has a recent or current history of substance abuse. Status: Patient is not a professional services consultant or dependent. Transition of care: patient was received from [facility]. 17:26 Acuity: ROMÁN Level 3 r 17:26 Method Of Arrival: Walkin/Carried/Asstd jr Triage Assessment: 17:25 General: Appears in no apparent distress, Behavior is flight of ideas. Pain: Location: jjr thoracic area and lumbar area. HIV screening NA for this visit Offered previously. Historical: - Allergies: Augmentin (Swelling); - Home Meds: 1. Methadone 45 mg Oral once daily 2. atorvastatin 40 mg oral tab 1 tab once daily 3. meloxicam 7.5 mg oral tab 1 tab bid 4. metoprolol tartrate 25 mg Oral tab 1 tab 2 times per day (Last dose: Unknown) 5. omeprazole 40 mg Oral cpDR 1 cap prn 6. oxybutynin chloride 5 mg Oral tab 2 times per day 7. senna 8.6 mg oral cap 2 caps twice a day 8. Colace 100 mg oral cap 1 cap 2 times per day 9. Vitamin C 500 mg Oral tab daily 10. Vitamin D Oral 2000 unit daily 11. multivitamin Oral tab 1 tab daily - PMHx: Hypertension; Hypercholesterolemia; MRSA; Arthritis; - PSHx: ; cyst removed from left breast.; - Social history: Smoking status: Patient uses tobacco products, current every day smoker. No barriers to communication noted, The patient speaks fluent [place]. - Family history: Not pertinent. - : The pt / caregiver states he / she is not on anticoagulants. Home medication list is obtained from the patient. - Exposure Risk Screening:: None identified. Screenin/04 01:21 Screening information is obtained from the patient. Fall risk: No risks identified. mlc Assistance ADL's: requires no assistance with activities of daily living. Abuse/DV Screen: The patient / caregiver reports he/she is: not in a situation that causes fear, pain or injury. Nutritional screening: No deficits noted. Advance Directives: Currently, there is no health care proxy. home support is adequate. Assessment: 07/15 18:00 General: Pt standing at door staring out. When asked if pt needs anything, pt launches ld5 into speech about methadone detox and her MD sent her here for a detox program. Pt very talkative and difficult to get through to. 18:30 General: Pt out of room to ask what plan of care is. Security in to speak with pt at ld5 length about the process. Shortly after, pt out of room again to ask about plan. It was explained to pt again that blood work and urine had to be obtained and resulted prior to speaking with social science analyst. And at that time, pt would be given more information regarding POC. Pt continues to state "are you sending me to the [facility]? Just tell me if you're sending me there?" Safety maintained. Will continue to monitor. 19:00 General: Dinner tray provided. Pt hard to settle. Will continue to monitor. ld5 20:24 General: Appears in no apparent distress, comfortable, Behavior is appropriate for age, rw1 cooperative, pleasant. Pain: Denies pain. Neurological: Level of Consciousness is awake, alert, obeys commands, Oriented to person, place, time. Respiratory: Airway is patent Respiratory effort is even, unlabored. Derm: Skin is pink, warm & dry. normal. 21:18 Reassessment: Patient appears in no apparent distress at this time. awake resting on rw1 stretcher, safety maintained will monitor.. 22:29 Reassessment: Patient appears in no apparent distress at this time. awake resting on rw1 stretcher, safety maintained will monitor.. 07/16 01:21 General: Appears in no apparent distress, comfortable, Behavior is anxious, [place] cooperative. Pain: Denies pain. Neurological: Level of Consciousness is awake, alert, Oriented to person, place, time. Respiratory: Airway is patent Respiratory effort is even, unlabored, Respiratory pattern is regular. Derm: Skin is pink, warm & dry. 01:29 Reassessment: pt medicated per order. [place] Mental Health Eval: 07/15 19:45 Mental health consult is initiated at 19:15. Status: The patient is not a ms professional services consultant or dependent. [facility] Behavioral Health: The patient is not an established patient of [facility] Behavioral [facility]. Referral Information: Evaluation referral is generated by the patient's therapist Margarita. The patient was referred for evaluation because [facility] staff called stating pt. presented today for appointment ( Methadone clinic) and was manicy. Pt. left purse outside of treatment room because it had been bugged and also stated that people have been videotaping and recording her.. Subjective: The patients chief complaint is Pt. states she is on methadone and is concerned that she is not wanted in [place] anymore because she has been bothering people at [facility]. She reports she has been calling [facility] many times and states that they are mad at her. Pt. presents with rapid speech and flight of ideas. She reports she has been feeling depressed because she has no support system here in [place] and the only people she really knows are people with addiction issues. At [facility] today, pt stated that people had bugged her phone and patient access manager and left her purse outside of room so that no one could video or record her conversation. Pt. reports she has not been sleeping well or eating well. . Delusions are paranoid, Patient's mood is elevated, Hallucinations are denied. Pt. reports she lives by herself and at one pt. states it is good because she cannot be around anyone else because it would be bad for recovery. Pt. then states that she should not be by herself because she has no support system. Pt. states on occasion " nursing home,institution and , oh my". Mental Health history: anxiety, depression, Mental Health Admissions: None. Current Outpatient Mental Health Services: Psychiatrist / Agency: Margarita. Therapist / Agency: [facility]. Current living environment is The patient currently lives alone. Patient presents to Emergency Department with the following symptoms within the past 2 weeks: anxiety, decreased appetite, labile mood, paranoia, poor concentration, sleep disturbance - insomnia. Substance abuse: Pt. states hx. of heroin, crack cocaine, alcohol, marijuana.. Mental status exam: Patients appearance is appropriate, Patient's behavior is cooperative, Speech is rapid. Affect is labile. Mood is anxious. Hallucinations are denied. Appetite is poor. Memory is fair. Energy level is normal. Content of thought is paranoid. paranoid Thought process is characterized by flight of ideas. Cognitive level is oriented to person, place, time and situation Patient's insight is fair. Judgement is fair. Rapport with interviewer is guarded. Suicidal Ideation is denied. Homicidal ideation is denied. 20:47 Disposition: Medically cleared for disposition by Navdeep Alexander DO Psychiatric Consult ms is performed by phone with Dr Umair Gay MD. [facility] Admission Criteria: The patient displays symptoms of severe psychiatric disorder resulting in disordered behavior and significant interference with his / her ability to maintain self care. Julieta. The patient's care requires a multi-modal treatment plan under close supervision and coordination due to the complexity and severity of the patient's symptoms. Legal Status: Patient's legal status will be Emergency admission: 9.39. [place] Safe Act: [place] Safe Act is not applicable because the patient does not display any suicidal or homicidal ideations and does not pose a risk to self or others. DSM-V Differential Diagnosis: Unspecified Depressive Disorder (F32.9). 21:05 Insurance Pre-Certification: Not Required. ms Vital Signs: 17:06 BP 149 / 85 RA Sitting (auto/lg); Pulse 96; Resp 18; Temp 98.0(O); Pulse Ox 97% on R/A; rs6 Weight 76.2 kg (M); Height 4 ft. 11 in. (149.86 cm) (R); Pain 6/10; 0204 01:21 BP 186 / 104; Pulse 68; Resp 20; Temp 96.3; Pulse Ox 98% on R/A; Pain 0/10; mlc 07/15 17:06 Body Mass Index 33.93 (76.20 kg, 149.86 cm) rs6 Vitals: 07/15 17:06 Log In Time: July 15, 2016 at 17:06. rs6 ED Course: 17:06 Patient visited by Ava Godinez PCA. rs6 17:06 Bismark Byrd is Private Physician. rs6 17:06 Patient moved to Waiting rs6 17:09 Patient visited by Ava Godinez PCA. rs6 17:26 Patient moved to [facility] jjr 17:26 Triage Initiated jjr 17:33 Patient visited by Eyad Jimenez. dpm 17:51 America Hollis FNP is PHCP. le 17:55 Patient visited by America Hollis FNP. le 17:55 Patient visited by America Hollis FNP. le 18:04 Patient visited by Eyad Jimenez. dpm 18:26 Patient visited by Eyad Jimenez. dpm 18:39 [facility] Payment Agreement was scanned into [employer] and attached to record. zo 18:43 Patient visited by Eyad Jimenez. dpm 18:43 Pt greeted and oriented to ED. Patient advised of names of staff involved in care, dpm location of call davies, wait times and NPO status. Patient has correct armband on for positive identification. Placed in gown. Placed in psych safe attire. Security observing. Property removed, inventory done, secured in belongings bag- placed in locked locker. Placed in locker 9. secure belongings bag, Secure bag Number [id number], placed in ED safe. Prisca (ROSETTA) observed pt while changing. Psych Safety Check: Location: Psych Room. Visual Assessment: Cooperative. 19:00 Patient visited by Patricia Bang RN. ld5 19:01 Patient visited by Kian Ordonez. tr 19:15 Patient visited by Kian Ordonez. tr 19:29 Patient visited by Kian Ordonez. tr 19:44 Patient visited by Kian Ordonez. tr 19:59 Patient visited by Kian Ordonez. tr 20:00 Troy Crooks LPN is Primary Nurse. rw1 20:15 Patient visited by Troy Crooks LPN. rw1 20:26 Umair Gay MD is Referral Physician. le 20:27 Navdeep Alexander DO is Attending Physician. cs11 20:27 Umair Gay MD is Hospitalizing Provider. le 20:31 Patient visited by Kian Ordonez. tr 20:44 Patient visited by iKan Ordonez. tr 20:45 [facility] Legal paperwork was scanned into [employer] and attached to record. ms 21:00 Patient visited by Kian Ordonez. tr 21:16 Patient visited by Kian Ordonez. tr 21:29 Patient visited by Kian Ordonez. tr 21:46 Patient visited by Kian Ordonez. tr 22:01 Patient visited by Kian Ordonez. tr 22:15 Patient visited by Kian Ordonez. tr 22:30 Patient visited by Kian Ordonez. tr 22:32 T-Sheet-- Draft Copy was scanned into [employer] and attached to record. klr 22:49 Patient visited by Kian Ordonez. tr 23:02 Patient visited by Kian Ordonez. tr 23:36 Patient visited by Kian Ordonez. tr 23:45 Patient visited by Kian Ordonez. tr 23:58 Patient visited by Kian Ordonez. tr 07/16 00:14 Patient visited by Kian Ordonez. tr 00:48 Patient visited by Kian Ordonez. tr 00:59 Patient visited by Kian Ordonez. tr 01:16 Patient visited by Kian Ordonez. tr 01:21 The patient / caregiver is instructed regarding the plan of care and ED course. mlc 01:21 No IV's were initiated during this patient's visit. No procedures done that require mlc assistance. 01:28 Patient visited by Kian Ordonez. tr Administered Medications: 07/15 18:29 Drug: Nicotine 1 applic [nicotine 21 mg/24 hr daily transdermal patch (1 patches)] ld5 Route: Transdermal; Site: left upper arm; 07/16 01:10 Follow up: Response: No Adverse Reaction rw1 01:29 Drug: cloNIDine 0.2 mg [clonidine HCl 0.2 mg tablet (1 tabs)] Route: PO; mlc Attachments: 20:45 MHE Legal paperwork ms Order Results: Lab Order: Acetaminophen Level; SPEC'M 07/15/16 18:39 Test: ACETAMINOPHEN LEVEL; Value: < 2.0; Range: 10.0-30.0; Abnormal: Below low normal; Units: UG/ML; Status: F Lab Order: Basic Metabolic Profile; SPEC'M 07/15/16 18:39 Test: GLUCOSE, FASTING; Value: 124; Range: 70-105; Abnormal: Above high normal; Units: MG/DL; Status: F Test: BLOOD UREA NITROGEN; Value: 15; Range: 7-18; Units: MG/DL; Status: F Test: CREATININE FOR GFR; Value: 0.73; Range: 0.55-1.02; Units: MG/DL; Status: F Test: GLOMERULAR FILTRATION RATE; Value: > 60.0; Range: >58; Status: F Test: SODIUM LEVEL; Value: 142; Range: 136-145; Units: MEQ/L; Status: F Test: POTASSIUM SERUM; Value: 3.4; Range: 3.5-5.1; Abnormal: Below low normal; Units: MEQ/L; Status: F Test: CHLORIDE LEVEL; Value: 108; Range: 98-107; Abnormal: Above high normal; Units: MEQ/L; Status: F Test: CARBON DIOXIDE LEVEL; Value: 25; Range: 21-32; Units: MEQ/L; Status: F Test: ANION GAP; Value: 9; Range: 8-16; Units: MEQ/L; Status: F Test: CALCIUM LEVEL; Value: 8.8; Range: 8.5-10.1; Units: MG/DL; Status: F Test Note: ; Units are mL/min/1.73 m2 Chronic Kidney Disease Staging per NKF: Stage I & II GFR >=60 Normal to Mildly Decreased Stage III GFR 30-59 Moderately Decreased Stage IV GFR 15-29 Severely Decreased Stage V GFR <15 Very Little GFR Left ESRD GFR <15 on CADDY/CADDIE SUPERVISOR Lab Order: Complete Blood Count; SPEC07/15/16 18:39 Test: WHITE BLOOD COUNT; Value: 12.4; Range: 4.0-10.0; Abnormal: Above high normal; Units: K/mm3; Status: F Test: RED BLOOD COUNT; Value: 4.82; Range: 4.00-5.40; Units: M/mm3; Status: F Test: HEMOGLOBIN; Value: 12.8; Range: 12.0-16.0; Units: g/dl; Status: F Test: HEMATOCRIT; Value: 39.9; Range: 36.0-47.0; Units: %; Status: F Test: MEAN CORPUSCULAR VOLUME; Value: 82.6; Range: 80.0-96.0; Units: fl; Status: F Test: MEAN CORPUSCULAR HEMOGLOBIN; Value: 26.5; Range: 27.0-33.0; Abnormal: Below low normal; Units: pg; Status: F Test: MEAN CORPUSCULAR HGB CONC; Value: 32.1; Range: 32.0-36.5; Units: g/dl; Status: F Test: RED CELL DISTRIBUTION WIDTH; Value: 15.0; Range: 11.5-14.5; Abnormal: Above high normal; Units: %; Status: F Test: PLATELET COUNT, AUTOMATED; Value: 291; Range: 150-450; Units: k/mm3; Status: F Lab Order: Drug Eval Toxicology ED Only; SPEC'M 07/15/16 18:39 Test: AMPHETAMINES LEVEL URINE; Value: NEGATIVE; Range: NEGATIVE; Status: F Test: BARBITURATES URINE; Value: NEGATIVE; Range: NEGATIVE; Status: F Test: BENZODIAZEPINES URINE; Value: NEGATIVE; Range: NEGATIVE; Status: F Test: CANNABINOIDS URINE; Value: NEGATIVE; Range: NEGATIVE; Status: F Test: COCAINE METABOLITE URINE; Value: NEGATIVE; Range: NEGATIVE; Status: F Test: METHADONE URINE; Value: POSITIVE; Range: NEGATIVE; Abnormal: Above high normal; Status: F Test: OPIATES URINE; Value: NEGATIVE; Range: NEGATIVE; Status: F Test: TRICYCLIC ANTIDEPRESS URINE; Value: NEGATIVE; Range: NEGATIVE; Status: F Test Note: ; ALL PRESUMPTIVE POSITIVE FINDINGS ARE UNCONFIRMED NORMAL VALUES THRESHOLD IN NG/ML AMPHETAMINES 1000 METHAMPHETAMINES 1000 BARBITURATES 300 BENZODIAZEPINES 300 CANNABINOIDS (THC) 50 COCAINE METABOLITE 300 METHADONE 300 OPIATES 300 PHENCYCLIDINE 25 TRICYCLIC ANTIDEPRESSANTS 1000 RESULTS ARE FOR MEDICAL PURPOSES ONLY. ALL URINE SPECIMENS WILL BE SAVED FOR 3 DAYS. IF CONFIRMATION OF A PRESUMPTIVE POSTIVE SCREEN RESULT IS DESIRED, CALL CHEMISTRY ([phone]) AND REQUEST URINE TO BE SENT TO REFERENCE LAB. FOR A LIST OF CLOSELY RELATED COMPOUNDS PLEASE CALL THE LAB. Lab Order: Ethyl Alcohol (ethanol); SPEC'M 07/15/16 18:39 Test: ETHYL ALCOHOL (ETHANOL); Value: 0.003; Range: 0.000-0.010; Units: %; Status: F Lab Order: Liver Profile; SPEC'M 07/15/16 18:39 Test: AST/SGOT; Value: 15; Range: 15-37; Units: U/L; Status: F Test: ALT/SGPT; Value: 30; Range: 12-78; Units: U/L; Status: F Test: ALKALINE PHOSPHATASE; Value: 87; Range: 45-117; Units: U/L; Status: F Test: BILIRUBIN,TOTAL; Value: 0.4; Range: 0.2-1.0; Units: MG/DL; Status: F Test: BILIRUBIN,DIRECT; Value: 0.1; Range: 0.0-0.2; Units: MG/DL; Status: F Test: TOTAL PROTEIN; Value: 7.2; Range: 6.4-8.2; Units: GM/DL; Status: F Test: ALBUMIN; Value: 3.8; Range: 3.2-5.2; Units: GM/DL; Status: F Test: ALBUMIN/GLOBULIN RATIO; Value: 1.12; Range: 1.00-1.93; Status: F Lab Order: Salicylate Level; SPEC' 07/15/16 18:39 Test: SALICYLATE LEVEL; Value: 5.6; Range: 5.0-30.0; Units: MG/DL; Status: F Lab Order: Thyroid Stimulating Hormone; SPEC' 07/15/16 18:39 Test: THYROID STIMULATING HORMONE; Value: 0.466; Range: 0.358-3.740; Units: uIU/ML; Status: F Lab Order: HCG,Serum Qualitative; SPEC' 07/15/16 18:39 Test: HCG, SERUM QUALITATIVE; Value: NEGATIVE; Range: NEGATIVE; Status: F Outcome: 20:26 Discharge ordered by Provider. le 20:27 Decision to Hospitalize by Provider. le 07/16 01:29 Discharge Assessment: Patient awake, alert and oriented x 3. No cognitive and/or mlc functional deficits noted. Patient verbalized understanding of disposition instructions. patient administered narcotics - no. The following High Risk Discharge criteria are identified: None. Admitted to Psych accompanied by tech, via wheelchair, with chart. No special radiology studies were completed. 01:30 Condition: good Condition: stable. Admission hand-off: Other: SKINNY Tomlin states pt can mlc come to floor at this time. . Property given to [facility] staff. 01:32 Patient left the ED. [place] Signatures: Jaye Mejia, PSA PSA ms Mery, Kian tr Troy Crooks,PUBLIC HEALTH DIETITIAN PUBLIC HEALTH DIETITIAN rw1 Lauren Nieves Lisa, EVENT SERVICES MANAGER EVENT SERVICES MANAGER Dyana Cherry, RN RN jPatricia Zuniga RN RN ld5 Eyad Jimenez dpm Navdeep Alexander, DO cs11 Anca Dao RN RN Ava Degroot, POWER NUT RUNNER OPERATOR POWER NUT RUNNER OPERATOR rs6 Gabriella Salcedo Corrections: (The following items were deleted from the chart) 07/15 17:29 17:23 Allergies: Augmentin (Swelling) [Inactive]; heidy moody 17:38 17:12 Presenting complaint: heidy moody Chart Complete MTDD
[2016-07-18 06:39] VITALS: BP 159/85
[2016-07-18] MEDS: NICOTINE 21MG/24HR 1 EA TRANSDERMAL TD SCH (08:06)
[2016-07-18] MEDS: MULTIVITAMINS/MINERALS THERAP 1 TAB PO SCH (08:06)
[2016-07-18] MEDS: METOPROLOL TART 25 MG TABLET PO SCH ×2 (08:07→20:45)
[2016-07-18] MEDS: oxyBUTYnin 5 MG TAB PO SCH ×2 (08:07→20:45)
[2016-07-18] MEDS: ASCORBIC ACID 500 MG TAB PO SCH (08:07)
[2016-07-18] MEDS: VITAMIN D 1,000 INTERNATIONAL UNITS TABLET PO SCH (08:07)
[2016-07-18] MEDS: MELOXICAM (MOBIC) 7.5 MG TAB PO SCH ×2 (08:07→20:45)
[2016-07-18] MEDS: SENNA 8.6 MG TAB (SENOKOT) PO SCH ×2 (08:07→20:44)
[2016-07-18] MEDS: METHADONE 10 MG TAB (S0109) PO SCH (08:09)
[2016-07-18] MEDS: risperiDONE 2 MG TAB PO SCH ×2 (08:12→20:48)
[2016-07-18] MEDS: DIVALPROEX 250 MG TAB PO SCH ×2 (08:12→20:48)
--- NOTE | 2016-07-18 18:07 | IPNPDOC ---
[facility] Progress Note Progress Note DATE OF SERVICE: 07/18/16 Today this provider is taking over patient's care; this is my first contact with patient. Subjective: Patient reports ongoing feeling that she needs to get out of [place] as she is not wanted. Today patient expressed no paranoid ideations of being surveilled or being in danger. She is not anxious, agitated, or manic in demeanor or manner. She is not rapid in speech but is circumstantial in TP. Her thought content focuses on entering an inpatient [facility]. She reports fair sleep on current regimen. She reports decreased efficacy of Seroquel and request another sleep aid as she's experiencing intolerable weight gain on Seroquel. Patient otherwise is without issue. She denied SI/HI and AH/VH. Objective: VITAL SIGNS: See below. NEW TEST RESULTS: None CURRENT MEDICATIONS: See below. MENTAL STATUS EXAMINATION: Patient is a 45 year-old female who appears her stated age. Patient calm and cooperative in behavior. She is in NAD. Speech: Is RRR and spontaneous. Language skills are intact. Thought processes: circumstantial and tangential at times; Thought content: paranoia that she must leave the city of [place] as she is not wanted here; Description of abnormal or psychotic thoughts: today patient denies auditory hallucinations and visual hallucinations, mild paranoia expressed, no IOR, thought blocking, disorganized thought noted; Judgment: Poor to Fair; Insight: Poor; Orientation to time, place and person. Recent and remote memory: Immediate, short-term and long-term memory is intact. Attention span and concentration: Good Language: Normal. Fund of knowledge: Fair Mood: dysthymic Affect: depressed. SI denies. HI denies Assessment: Bipolar 1 disorder most recent episode manic with psychotic features Opioid use d/o, severe in partial remission Cannabis use d/o, severe in partial remission Cocaine use d/o, severe in partial remission Plan: ----- -Continue Risperdal at 2mg po BID for psychosis and mood stabilization as med is showing effectiveness. -D/C Seroquel as patient reports decreased efficacy on insomnia and patient reports intolerable s/e of excessive weight gain. -Increase Depakote from 250mg po BID to 250mg po qam and 500mg po qhs for mood stabilization. -Patient gives informed consent to start Trazodone 100mg po qhs PRN intractable insomnia. Estimated date of discharge: 07/22/16 TIME SPENT: 30 minutes. Vital Signs Vital Signs Date Time Temp Pulse Resp B/P Pulse Ox O2 Delivery O2 Flow Rate FiO2 07/18/16 08:09 18 07/18/16 08:07 82 159/85 07/18/16 06:39 96.7 07/16/16 01:42 97 Room Air Current Medications Current Medications Medications (Trade) Dose Ordered Sig/Nathan Route PRN Reason Start Time Stop Time Status Last Admin Dose Admin Acetaminophen (Tylenol Tab) 650 mg Q6HP PRN PO HEADACHE or DISCOMFORT 07/16/16 01:15 08/15/16 01:14 Al Hydrox/Mg Hydrox/Simethicone (Mylanta) 30 ml Q4HP PRN PO HEARTBURN/INDIGESTION 07/16/16 01:15 08/15/16 01:14 Ascorbic Acid (Vitamin C) 500 mg DAILY PO 07/16/16 09:00 08/15/16 08:59 07/18/16 08:07 Atorvastatin Calcium (Lipitor) 40 mg DAILY@21 PO 07/16/16 21:00 08/15/16 20:59 07/17/16 21:06 Divalproex Sodium (Depakote) 250 mg BID PO 07/16/16 09:00 08/15/16 08:59 07/16/16 22:44 Home Med (Med Rec Complete!) ASDIRECTED XX 07/15/16 20:00 07/15/16 20:09 DC Hydroxyzine HCl (Atarax) 50 mg Q6HP PRN PO ANXIETY 07/16/16 01:15 08/15/16 01:14 Magnesium Hydroxide (Milk Of Magnesia) 30 ml DAILYPRN PRN PO CONSTIPATION 07/16/16 01:15 08/15/16 01:14 Meloxicam (Mobic) 7.5 mg BID PO 07/16/16 09:00 08/15/16 08:59 07/18/16 08:07 Methadone HCl (Dolophine) 45 mg DAILY PO 07/16/16 09:00 07/23/16 08:59 07/18/16 08:09 Metoprolol Tartrate (Lopressor) 25 mg BID PO 07/16/16 09:00 08/15/16 08:59 07/18/16 08:07 Multivitamins (Theragram-M) 1 tab DAILY PO 07/16/16 09:00 08/15/16 08:59 07/18/16 08:06 Nicotine (Nicoderm Cq 21mg) 1 patch DAILY TD 07/16/16 09:00 08/15/16 08:59 07/18/16 08:06 Omeprazole (PriLOSEC) 40 mg DAILYPRN PRN PO HEARTBURN 07/16/16 01:15 08/15/16 01:14 Ondansetron HCl (Zofran) 4 mg Q6HP PRN PO NAUSEA OR VOMITING 07/17/16 09:15 08/16/16 09:14 Oxybutynin Chloride (Ditropan) 5 mg BID PO 07/16/16 09:00 08/15/16 08:59 07/18/16 08:07 Quetiapine Fumarate (SEROquel) 100 mg QHS PO 07/16/16 21:00 08/15/16 20:59 07/17/16 22:41 Risperidone (RisperDAL) 2 mg BID PO 07/16/16 09:00 08/15/16 08:59 07/16/16 18:41 Senna (Senokot) 2 tab BID PO 07/16/16 09:00 08/15/16 08:59 07/18/16 08:07 Trazodone HCl (Desyrel) 100 mg QHSP PRN PO INSOMNIA 07/16/16 01:15 07/16/16 10:01 DC Vitamin D (Vitamin D) 2,000 units DAILY PO 07/16/16 09:00 08/15/16 08:59 07/18/16 08:07 Allergies Coded Allergies: Codeine (Unverified Adverse Reaction, Mild, N/V,SWELLING,ITCH,SWEATS, ) Propoxyphene (Unverified Adverse Reaction, Mild, N/V,SWELLING,ITCH,SWEATS , 07/15/16) BERHANE BOWSER MD Jul 18, 2016 18:07 BERHANE BOWSER MD Jul 18, 2016 18:07
[2016-07-18 18:17] VITALS: BP 120/86
[2016-07-18] MEDS: ATORVASTATIN 20 MG TAB PO SCH (20:45)
[2016-07-18] MEDS: QUEtiapine FUMARATE 100 MG TAB PO SCH (21:28)
[2016-07-19 06:24] VITALS: BP 141/81
[2016-07-19] MEDS: NICOTINE 21MG/24HR 1 EA TRANSDERMAL TD SCH (08:39)
[2016-07-19] MEDS: SENNA 8.6 MG TAB (SENOKOT) PO SCH ×2 (08:40→21:07)
[2016-07-19] MEDS: METHADONE 10 MG TAB (S0109) PO SCH (08:40)
[2016-07-19] MEDS: ASCORBIC ACID 500 MG TAB PO SCH (08:40)
[2016-07-19] MEDS: VITAMIN D 1,000 INTERNATIONAL UNITS TABLET PO SCH (08:40)
[2016-07-19] MEDS: MULTIVITAMINS/MINERALS THERAP 1 TAB PO SCH (08:40)
[2016-07-19] MEDS: oxyBUTYnin 5 MG TAB PO SCH ×2 (08:40→21:06)
[2016-07-19] MEDS: METOPROLOL TART 25 MG TABLET PO SCH ×2 (08:41→21:07)
[2016-07-19] MEDS: MELOXICAM (MOBIC) 7.5 MG TAB PO SCH ×2 (08:42→21:08)
[2016-07-19] MEDS: DIVALPROEX 250 MG TAB PO SCH (08:44)
[2016-07-19] MEDS: risperiDONE 2 MG TAB PO SCH ×2 (08:45→21:00)
[2016-07-19] MEDS: DIVALPROEX 500 MG TAB PO SCH (21:00)
[2016-07-19] MEDS: ATORVASTATIN 20 MG TAB PO SCH (21:07)
[2016-07-19 21:51] VITALS: BP 130/80
[2016-07-19] MEDS: traZODone 100 MG TAB PO PRN (22:36)
--- NOTE | 2016-07-19 23:17 | IPNPDOC ---
[facility] Progress Note Progress Note DATE OF SERVICE: 07/19/16 Subjective: Patient reports ongoing feeling that she is no longer wanted in [facility]. She though does not endorse thoughts that she is being surveilled or that her belongings are bugged. Today patient expressed no paranoid ideations of being in danger. She is not anxious, agitated, or manic in demeanor or manner. She reports desire to be referred to [facility] methadone program in [facility] if she is not allowed to return to the [facility] program. She is appropriate in rate of speech, and does not demonstrate racing thought. She is no longer interested in an inpatient [facility], but does request a referral for an outpatient program. She reports fair sleep. She shows no signs of iraj or psychosis. Of note it is documented that she is medication compliant. Her intensely manic and psychotic presentation and quick resolution of symptoms points to possible substance-induced etiology. Patient otherwise is without issue. She denied SI/ HI and AH/VH. Objective: VITAL SIGNS: See below. NEW TEST RESULTS: None CURRENT MEDICATIONS: See below. MENTAL STATUS EXAMINATION: Patient is a 45 year-old female who appears her stated age. Patient calm and cooperative in behavior. She is in NAD. Speech: Is RRR and spontaneous. Language skills are intact. Thought processes: Mostly linear, circumstantial at times Thought content: Ongoing but receding expressed paranoid ideations; Description of abnormal or psychotic thoughts: today patient denies auditory hallucinations and visual hallucinations , mild paranoia expressed, no IOR, thought blocking, disorganized thought noted ; Judgment: Fair; Insight: Fair; Orientation to time, place and person. Recent and remote memory: Immediate, short-term and long-term memory is intact. Attention span and concentration: Good Language: Normal. Fund of knowledge: Fair Mood: Good Affect: Mildly anxious. SI denies. HI denies Assessment: Bipolar 1 disorder most recent episode manic with psychotic features Rule out substance-induced psychotic disorder Opioid use d/o, severe in partial remission Cannabis use d/o, severe in partial remission Cocaine use d/o, severe in partial remission Plan: ----- -Continue Risperdal at 2mg po BID for psychosis and mood stabilization. -D/C Seroquel as patient reports decreased efficacy on insomnia and patient reports intolerable s/e of excessive weight gain. -Continue Depakote at 250mg po qam and 500mg po qhs for mood stabilization. -Continue Trazodone 100mg po qhs PRN intractable insomnia. Estimated date of discharge: 07/21/16 TIME SPENT: 30 minutes. Vital Signs Vital Signs Date Time Temp Pulse Resp B/P Pulse Ox O2 Delivery O2 Flow Rate FiO2 07/19/16 21:51 97.0 64 16 130/80 07/16/16 01:42 97 Room Air Current Medications Current Medications Medications (Trade) Dose Ordered Sig/Nathan Route PRN Reason Start Time Stop Time Status Last Admin Dose Admin Acetaminophen (Tylenol Tab) 650 mg Q6HP PRN PO HEADACHE or DISCOMFORT 07/16/16 01:15 08/15/16 01:14 Al Hydrox/Mg Hydrox/Simethicone (Mylanta) 30 ml Q4HP PRN PO HEARTBURN/INDIGESTION 07/16/16 01:15 08/15/16 01:14 Ascorbic Acid (Vitamin C) 500 mg DAILY PO 07/16/16 09:00 08/15/16 08:59 07/19/16 08:40 Atorvastatin Calcium (Lipitor) 40 mg DAILY@21 PO 07/16/16 21:00 08/15/16 20:59 07/19/16 21:07 Divalproex Sodium (Depakote) 250 mg BID PO 07/16/16 09:00 07/19/16 06:11 DC 07/16/16 22:44 Divalproex Sodium (Depakote) 250 mg QAM PO 07/19/16 09:00 08/18/16 08:59 Divalproex Sodium (Depakote) 500 mg QHS PO 07/19/16 21:00 08/18/16 20:59 Home Med (Med Rec Complete!) ASDIRECTED XX 07/15/16 20:00 07/15/16 20:09 DC Hydroxyzine HCl (Atarax) 50 mg Q6HP PRN PO ANXIETY 07/16/16 01:15 08/15/16 01:14 Magnesium Hydroxide (Milk Of Magnesia) 30 ml DAILYPRN PRN PO CONSTIPATION 07/16/16 01:15 08/15/16 01:14 Meloxicam (Mobic) 7.5 mg BID PO 07/16/16 09:00 08/15/16 08:59 07/19/16 21:08 Methadone HCl (Dolophine) 45 mg DAILY PO 07/16/16 09:00 07/23/16 08:59 07/19/16 08:40 Metoprolol Tartrate (Lopressor) 25 mg BID PO 07/16/16 09:00 08/15/16 08:59 07/19/16 21:07 Multivitamins (Theragram-M) 1 tab DAILY PO 07/16/16 09:00 08/15/16 08:59 07/19/16 08:40 Nicotine (Nicoderm Cq 21mg) 1 patch DAILY TD 07/16/16 09:00 08/15/16 08:59 07/19/16 08:39 Omeprazole (PriLOSEC) 40 mg DAILYPRN PRN PO HEARTBURN 07/16/16 01:15 08/15/16 01:14 07/19/16 21:20 Ondansetron HCl (Zofran) 4 mg Q6HP PRN PO NAUSEA OR VOMITING 07/17/16 09:15 08/16/16 09:14 07/19/16 10:25 Oxybutynin Chloride (Ditropan) 5 mg BID PO 07/16/16 09:00 08/15/16 08:59 07/19/16 21:06 Quetiapine Fumarate (SEROquel) 100 mg QHS PO 07/16/16 21:00 07/19/16 06:11 DC 07/18/16 21:28 Risperidone (RisperDAL) 2 mg BID PO 07/16/16 09:00 08/15/16 08:59 07/16/16 18:41 Senna (Senokot) 2 tab BID PO 07/16/16 09:00 08/15/16 08:59 07/19/16 21:07 Trazodone HCl (Desyrel) 100 mg QHSP PRN PO INSOMNIA 07/16/16 01:15 07/16/16 10:01 DC Trazodone HCl (Desyrel) 100 mg QHSP PRN PO INSOMNIA 07/19/16 06:15 08/18/16 06:14 07/19/16 22:36 Vitamin D (Vitamin D) 2,000 units DAILY PO 07/16/16 09:00 08/15/16 08:59 07/19/16 08:40 Allergies Coded Allergies: Codeine (Unverified Adverse Reaction, Mild, N/V,SWELLING,ITCH,SWEATS, ) Propoxyphene (Unverified Adverse Reaction, Mild, N/V,SWELLING,ITCH,SWEATS , 07/15/16) BERHANE BOWSER MD Jul 19, 2016 23:17 , 07/15/16) BERHANE BOWSER MD Jul 19, 2016 23:17
[2016-07-20 06:37] VITALS: BP 148/81
[2016-07-20] MEDS: risperiDONE 2 MG TAB PO SCH ×2 (08:25→21:00)
[2016-07-20] MEDS: DIVALPROEX 250 MG TAB PO SCH (08:25)
[2016-07-20] MEDS: oxyBUTYnin 5 MG TAB PO SCH ×2 (08:31→21:02)
[2016-07-20] MEDS: MULTIVITAMINS/MINERALS THERAP 1 TAB PO SCH (08:31)
[2016-07-20] MEDS: NICOTINE 21MG/24HR 1 EA TRANSDERMAL TD SCH (08:31)
[2016-07-20] MEDS: MELOXICAM (MOBIC) 7.5 MG TAB PO SCH ×2 (08:32→21:03)
[2016-07-20] MEDS: SENNA 8.6 MG TAB (SENOKOT) PO SCH ×2 (08:32→21:02)
[2016-07-20] MEDS: VITAMIN D 1,000 INTERNATIONAL UNITS TABLET PO SCH (08:32)
[2016-07-20] MEDS: ASCORBIC ACID 500 MG TAB PO SCH (08:32)
[2016-07-20] MEDS: METOPROLOL TART 25 MG TABLET PO SCH ×2 (08:33→21:02)
[2016-07-20] MEDS: METHADONE 10 MG TAB (S0109) PO SCH (08:33)
--- NOTE | 2016-07-20 09:02 | IPNPDOC ---
[facility] Progress Note Progress Note DATE OF SERVICE: 07/20/16 Subjective: Today patient reports her mood as "good". She is brighter in affect, calm and cooperative in behavior. Today patient expressed no paranoid or persecutory ideations. She is not anxious, agitated, or manic in demeanor or manner. Of note it is documented that she is medication compliant. Her intensely manic and psychotic presentation and quick resolution of symptoms points to possible substance-induced etiology. Patient otherwise is without issue. She reports feeling comfortable with discharge to her home. She was informed that she can return to [facility] for methadone management and mental health care. She denied SI/HI and AH/VH. Objective: VITAL SIGNS: See below. NEW TEST RESULTS: None CURRENT MEDICATIONS: See below. MENTAL STATUS EXAMINATION: Patient is a 45 year-old female who appears her stated age. Patient calm and cooperative in behavior. She is in NAD. Speech: Is RRR and spontaneous. Language skills are intact. Thought processes: Mostly linear; Thought content: Ongoing but receding expressed paranoid ideations; Description of abnormal or psychotic thoughts: today patient denies auditory hallucinations and visual hallucinations, mild paranoia expressed, no IOR, thought blocking, disorganized thought noted; Judgment: Fair ; Insight: Fair; Orientation to time, place and person. Recent and remote memory : Immediate, short-term and long-term memory is intact. Attention span and concentration: Good Language: Normal. Fund of knowledge: Fair Mood: Good Affect : Mildly anxious. SI denies. HI denies Assessment: Bipolar 1 disorder most recent episode manic with psychotic features Rule out substance-induced psychotic disorder Opioid use d/o, severe in partial remission Cannabis use d/o, severe in partial remission Cocaine use d/o, severe in partial remission Plan: ----- -Continue Risperdal at 2mg po BID for psychosis and mood stabilization. -D/C Seroquel as patient reports decreased efficacy on insomnia and patient reports intolerable s/e of excessive weight gain. -Continue Depakote at 250mg po qam and 500mg po qhs for mood stabilization. -Continue Trazodone 100mg po qhs PRN intractable insomnia. TIME SPENT: [30] minutes. Vital Signs Vital Signs Date Time Temp Pulse Resp B/P Pulse Ox O2 Delivery O2 Flow Rate FiO2 07/20/16 08:33 44 141/67 07/20/16 08:33 16 07/20/16 06:37 96.5 07/16/16 01:42 97 Room Air Current Medications Current Medications Acetaminophen (Tylenol Tab) 650 mg Q6HP PRN PO HEADACHE or DISCOMFORT; Start at 01:15; Stop 08/15/16 at 01:14 Al Hydrox/Mg Hydrox/Simethicone (Mylanta) 30 ml Q4HP PRN PO HEARTBURN/ INDIGESTION; Start 07/16/16 at 01:15; Stop 08/15/16 at 01:14 Ascorbic Acid (Vitamin C) 500 mg DAILY PO Last administered on 07/20/16 08:32; Start 07/16/16 at 09:00; Stop 08/15/16 at 08:59 Atorvastatin Calcium (Lipitor) 40 mg DAILY@21 PO Last administered on 07/19/16 21:07; Start 07/16/16 at 21:00; Stop 08/15/16 at 20:59 Divalproex Sodium (Depakote) 250 mg BID PO Last administered on 07/16/16 22:44 ; Start 07/16/16 at 09:00; Stop 07/19/16 at 06:11; Status DC Divalproex Sodium (Depakote) 250 mg QAM PO ; Start 07/19/16 at 09:00; Stop at 08:59 Divalproex Sodium (Depakote) 500 mg QHS PO ; Start 07/19/16 at 21:00; Stop at 20:59 Home Med (Med Rec Complete!) ASDIRECTED XX ; Start 07/15/16 at 20:00; Stop at 20:09; Status DC Hydroxyzine HCl (Atarax) 50 mg Q6HP PRN PO ANXIETY; Start 07/16/16 at 01:15; Stop 08/15/16 at 01:14 Magnesium Hydroxide (Milk Of Magnesia) 30 ml DAILYPRN PRN PO CONSTIPATION; Start 07/16/16 at 01:15; Stop 08/15/16 at 01:14 Meloxicam (Mobic) 7.5 mg BID PO Last administered on 07/20/16 08:32; Start 07/16 at 09:00; Stop 08/15/16 at 08:59 Methadone HCl (Dolophine) 45 mg DAILY PO Last administered on 07/20/16 08:33; Start 07/16/16 at 09:00; Stop 07/23/16 at 08:59 Metoprolol Tartrate (Lopressor) 25 mg BID PO Last administered on 07/20/16 08: 33; Start 07/16/16 at 09:00; Stop 08/15/16 at 08:59 Multivitamins (Theragram-M) 1 tab DAILY PO Last administered on 07/20/16 08:31 ; Start 07/16/16 at 09:00; Stop 08/15/16 at 08:59 Nicotine (Nicoderm Cq 21mg) 1 patch DAILY TD Last administered on 07/20/16 08: 31; Start 07/16/16 at 09:00; Stop 08/15/16 at 08:59 Omeprazole (PriLOSEC) 40 mg DAILYPRN PRN PO HEARTBURN Last administered on 21:20; Start 07/16/16 at 01:15; Stop 08/15/16 at 01:14 Ondansetron HCl (Zofran) 4 mg Q6HP PRN PO NAUSEA OR VOMITING Last administered on 07/19/16 10:25; Start 07/17/16 at 09:15; Stop 08/16/16 at 09:14 Oxybutynin Chloride (Ditropan) 5 mg BID PO Last administered on 07/20/16 08:31 ; Start 07/16/16 at 09:00; Stop 08/15/16 at 08:59 Quetiapine Fumarate (SEROquel) 100 mg QHS PO Last administered on 07/18/16 21: 28; Start 07/16/16 at 21:00; Stop 07/19/16 at 06:11; Status DC Risperidone (RisperDAL) 2 mg BID PO Last administered on 07/16/16 18:41; Start 07/16/16 at 09:00; Stop 08/15/16 at 08:59 Senna (Senokot) 2 tab BID PO Last administered on 07/20/16 08:32; Start at 09:00; Stop 08/15/16 at 08:59 Trazodone HCl (Desyrel) 100 mg QHSP PRN PO INSOMNIA; Start 07/16/16 at 01:15; Stop 07/16/16 at 10:01; Status DC Trazodone HCl (Desyrel) 100 mg QHSP PRN PO INSOMNIA Last administered on 22:36; Start 07/19/16 at 06:15; Stop 08/18/16 at 06:14 Vitamin D (Vitamin D) 2,000 units DAILY PO Last administered on 07/20/16 08:32 ; Start 07/16/16 at 09:00; Stop 08/15/16 at 08:59 Allergies Coded Allergies: Codeine (Unverified Adverse Reaction, Mild, N/V,SWELLING,ITCH,SWEATS, ) Propoxyphene (Unverified Adverse Reaction, Mild, N/V,SWELLING,ITCH,SWEATS , 07/15/16) BERHANE BOWSER MD Jul 20, 2016 09:02
[2016-07-20 18:03] VITALS: BP 113/57
[2016-07-20] MEDS: DIVALPROEX 500 MG TAB PO SCH (21:00)
[2016-07-20] MEDS: ATORVASTATIN 20 MG TAB PO SCH (21:02)
[2016-07-20] MEDS: traZODone 100 MG TAB PO PRN (23:34)
[2016-07-21 06:00] VITALS: BP 152/72
[2016-07-21] MEDS: SENNA 8.6 MG TAB (SENOKOT) PO SCH (08:32)
[2016-07-21] MEDS: VITAMIN D 1,000 INTERNATIONAL UNITS TABLET PO SCH (08:32)
[2016-07-21] MEDS: MELOXICAM (MOBIC) 7.5 MG TAB PO SCH (08:32)
[2016-07-21] MEDS: ASCORBIC ACID 500 MG TAB PO SCH (08:32)
[2016-07-21] MEDS: METHADONE 10 MG TAB (S0109) PO SCH (08:32)
[2016-07-21 08:33] VITALS: BP 114/62
[2016-07-21] MEDS: oxyBUTYnin 5 MG TAB PO SCH (08:33)
[2016-07-21] MEDS: MULTIVITAMINS/MINERALS THERAP 1 TAB PO SCH (08:33)
[2016-07-21] MEDS: METOPROLOL TART 25 MG TABLET PO SCH (08:33)
[2016-07-21] MEDS: DIVALPROEX 250 MG TAB PO SCH (08:34)
[2016-07-21] MEDS: NICOTINE 21MG/24HR 1 EA TRANSDERMAL TD SCH (08:35)
[2016-07-21] MEDS: risperiDONE 2 MG TAB PO SCH (08:35)
--- NOTE | 2016-07-21 10:14 | DS.PDOC ---
[facility] Discharge Summary Discharge Summary DATE OF ADMISSION: Jul 16, 2016 at 01:42 Date of discharge: 07/21/2016 DISCHARGE DIAGNOSES: Bipolar 1 disorder most recent episode manic with psychotic features Rule out substance-induced psychotic disorder Opioid use d/o, severe in partial remission Cannabis use d/o, severe in partial remission Cocaine use d/o, severe in partial remission REASON FOR ADMISSION: HISTORY OF THE PRESENT ILLNESS: HOSPITALIZATION COURSE: Patient admitted to the inpatient mental health unit. Patient presented manic expressing multiple paranoid and persecutory ideations. Over her short admission, patient's iraj quickly resolved and the intrusiveness , frequency, and intensity of her prior expressed delusions receded and resolved . On day of discharge, patient is brighter in affect, calm and cooperative in behavior.Patient expressed no paranoid or persecutory ideations. She is not anxious, agitated, or manic in demeanor or manner. Of note it is documented that she is not medication compliant. Her intensely manic and psychotic presentation and quick resolution of symptoms points to possible substance-induced etiology. Patient otherwise is without issue. She reports feeling comfortable with discharge to her home. She was informed that she can return to [facility] for methadone management and mental health care. She denied SI/ HI and AH/VH. Sleep and appetite returned within normal limits. Outpatient mental healthcare, methadone management, and PCP follow-up appointments made by workforce planner.] MENTAL STATUS EXAMINATION on discharge: Patient is a 45 year-old female who appears her stated age. Patient calm and cooperative in behavior. She is in NAD. Speech: Is RRR and spontaneous. Language skills are intact. Thought processes: Mostly linear; Thought content: Ongoing but receding expressed paranoid ideations; Description of abnormal or psychotic thoughts: today patient denies auditory hallucinations and visual hallucinations, mild paranoia expressed, no IOR, thought blocking, disorganized thought noted; Judgment: Fair ; Insight: Fair; Orientation to time, place and person. Recent and remote memory : Immediate, short-term and long-term memory is intact. Attention span and concentration: Good Language: Normal. Fund of knowledge: Fair Mood: Good Affect : Mildly anxious. SI denies. HI denies Consultants: None Labs: Please see below MEDICATIONS ON DISCHARGE: -Risperdal at 2mg po BID for psychosis and mood stabilization. -Depakote at 250mg po qam and 500mg po qhs for mood stabilization. -Trazodone 100mg po qhs PRN intractable insomnia. PLAN/FOLLOWUP ARRANGEMENTS: Patient has mental health care, methadone management , and PCP follow-up appointments. Appointments arranged by workforce planner. The amount of time spent in the coordination of care for this patient was approximately 40 minutes. Vital Signs Vital Sign - Last 24 Hours 07/20/16 07/20/16 07/21/16 07/21/16 18:03 21:02 06:00 08:32 Temp 96.4 97.6 Pulse 60 64 Resp 18 16 16 B/P 113/57 130/75 152/72 07/21/16 08:33 Pulse 60 B/P 114/62 Medications Scheduled (Depakote) 500 Mg Tab #7 500 MG PO QHS mood stabilization Ascorbic Acid (Vitamin C) 500 Mg Tab 500 MG PO DAILY supplement (Reported) Atorvastatin Calcium (Atorvastatin Calcium) 40 Mg Tab 40 MG PO QHS lipids ( Reported) Cholecalciferol (Vitamin D) 2,000 Unit Tab 2,000 UNIT PO DAILY supplement ( Reported) Divalproex Sodium (Depakote) 250 Mg Tab #7 250 MG PO QAM mood stabilization Meloxicam (Meloxicam) 7.5 Mg Tab 7.5 MG PO BID pain (Reported) Methadone HCl (Methadone HCl) 5 Mg Tab 45 MG PO DAILY opioid use disorder ( Reported) UNABLE TO VERIFY DOSE Metoprolol Tartrate (Metoprolol Tartrate) 25 Mg Tab 25 MG PO BID Hypertension ( Reported) Multivitamins *[facility] STOCKED* (Thera M Plus *[facility] STOCKED*) 1 Tab Tab 1 TAB PO DAILY supplement (Reported) Nicotine (Nicotine Transdermal Syst) 21 Mg/24 Hr Dis #14 1 PATCH TD DAILY SMOKING CESSATION Oxybutynin Chloride (Oxybutynin Chloride) 5 Mg Tab 5 MG PO BID over active bladder (Reported) Risperidone (Risperdal) 2 Mg Tab #14 2 MG PO BID thought disorder Senna (Senna Lax) 8.6 Mg Tab 2 TAB PO BID bowel care (Reported) Scheduled PRN Omeprazole (Omeprazole) 40 Mg Cap 40 MG PO DAILY PRN PRN HEARTBURN/INDIGESTION ( Reported) Trazodone HCl (Trazodone HCl) 100 Mg Tab #7 100 MG PO QHSP PRN PRN INSOMNIA Allergies Coded Allergies: Codeine (Unverified Adverse Reaction, Mild, N/V,SWELLING,ITCH,SWEATS, ) Propoxyphene (Unverified Adverse Reaction, Mild, N/V,SWELLING,ITCH,SWEATS , 07/15/16) BERHANE BOWSER MD Jul 21, 2016 10:14 07/21/16 08:33 Pulse 60 B/P 114/62 Medications Scheduled (Depakote) 500 Mg Tab #7 500 MG PO QHS mood stabilization Ascorbic Acid (Vitamin C) 500 Mg Tab 500 MG PO DAILY supplement (Reported) Atorvastatin Calcium (Atorvastatin Calcium) 40 Mg Tab 40 MG PO QHS lipids ( Reported) Cholecalciferol (Vitamin D) 2,000 Unit Tab 2,000 UNIT PO DAILY supplement ( Reported) Divalproex Sodium (Depakote) 250 Mg Tab #7 250 MG PO QAM mood stabilization Meloxicam (Meloxicam) 7.5 Mg Tab 7.5 MG PO BID pain (Reported) Methadone HCl (Methadone HCl) 5 Mg Tab 45 MG PO DAILY opioid use disorder ( Reported) UNABLE TO VERIFY DOSE Metoprolol Tartrate (Metoprolol Tartrate) 25 Mg Tab 25 MG PO BID Hypertension ( Reported) Multivitamins *[facility] STOCKED* (Thera M Plus *[facility] STOCKED*) 1 Tab Tab 1 TAB PO DAILY supplement (Reported) Nicotine (Nicotine Transdermal Syst) 21 Mg/24 Hr Dis #14 1 PATCH TD DAILY SMOKING CESSATION Oxybutynin Chloride (Oxybutynin Chloride) 5 Mg Tab 5 MG PO BID over active bladder (Reported) Risperidone (Risperdal) 2 Mg Tab #14 2 MG PO BID thought disorder Senna (Senna Lax) 8.6 Mg Tab 2 TAB PO BID bowel care (Reported) Scheduled PRN Omeprazole (Omeprazole) 40 Mg Cap 40 MG PO DAILY PRN PRN HEARTBURN/INDIGESTION ( Reported) Trazodone HCl (Trazodone HCl) 100 Mg Tab #7 100 MG PO QHSP PRN PRN INSOMNIA Allergies Coded Allergies: Codeine (Unverified Adverse Reaction, Mild, N/V,SWELLING,ITCH,SWEATS, ) Propoxyphene (Unverified Adverse Reaction, Mild, N/V,SWELLING,ITCH,SWEATS , 07/15/16) BERHANE BOWSER MD Jul 21, 2016 10:14
[2016-07-21] MEDS ORDERED: NICO21PAT TD (10:21)
[2016-07-21] MEDS ORDERED: RISP2TAB30 PO (10:50)
[2016-07-21] MEDS ORDERED: DEPA250T32 PO (10:50)
[2016-07-21] MEDS ORDERED: TRAZ10TA PO (10:50)
[2016-07-21] MEDS ORDERED: DEPA1TAB3 PO (10:50)
== END 2016-07-21 12:00 | disposition home or self-care (01) | DRG 885 ==
LOC: M ED 17:04 → M PSY 07-16 01:42
PROVIDERS: ADMIT Psychiatry & Neurology Psychiatry; ATTEND Psychiatry & Neurology Psychiatry
DX: F31.2 Bipolar disorder, current episode manic severe with psychotic features (principal); F11.21 Opioid dependence, in remission; F12.21 Cannabis dependence, in remission; F14.21 Cocaine dependence, in remission; F19.159 Other psychoactive substance abuse with psychoactive substance-induced psychotic disorder, unspecified; K21.9 Gastro-esophageal reflux disease without esophagitis; I25.10 Atherosclerotic heart disease of native coronary artery without angina pectoris; I10 Essential (primary) hypertension; K59.00 Constipation, unspecified; F17.210 Nicotine dependence, cigarettes, uncomplicated; E78.00 Pure hypercholesterolemia, unspecified; Z91.14 Patient's other noncompliance with medication regimen; Z79.899 Other long term (current) drug therapy; Z88.5 Allergy status to narcotic agent; Z88.8 Allergy status to other drugs, medicaments and biological substances; Z86.14 Personal history of Methicillin resistant Staphylococcus aureus infection

== ENCOUNTER 2016-08-24 15:07 | Inpatient (IN) | payer MEDICARE, MEDICAID ==
[~2016-08-24] VITALS: Ht 149.9 cm; Wt 79.1 kg
[~2016-08-24 15:07] MED LIST: ATOR40TA PO; COLA100C PO; DEPA1TAB3 PO; DEPA250T32 PO; MELO7.5T6 PO; METH5TA PO; METO25TAB PO; NICO21PAT TD; OMEP40CA2 PO; OXYB5TA PO; RISP2TAB30 PO; SENN8.6T10 PO; TRAZ10TA PO; VITA200015 PO; VITA500T88 PO; VITMTA PO
[2016-08-24] MEDS ORDERED: DIPH12.527 PO (15:34)
[2016-08-24 16:59] LABS: MEAN CORPUSCULAR HEMOGLOBIN 27.5 pg (27.0-33.0); MEAN CORPUSCULAR HGB CONC 33.3 g/dl (32.0-36.5); MEAN CORPUSCULAR VOLUME 82.6 fl (80.0-96.0); RED CELL DISTRIBUTION WIDTH 14.1 % (11.5-14.5); WHITE BLOOD COUNT 13.8 K/mm3 (4.0-10.0)
[2016-08-24 17:31] LABS: CONTROL LINE HCG INT CTR LINE PRESENT
[2016-08-24 17:34] LABS: METHADONE URINE POSITIVE (NEGATIVE)
[2016-08-24 17:43] LABS: ALBUMIN 3.9 GM/DL (3.2-5.2); ALBUMIN/GLOBULIN RATIO 1.11 (1.00-1.93); ALKALINE PHOSPHATASE 76 U/L (45-117); ALT/SGPT 19 U/L (12-78); ANION GAP 8 MEQ/L (8-16); AST/SGOT 14 U/L (15-37); BILIRUBIN,DIRECT 0.1 MG/DL (0.0-0.2); BILIRUBIN,TOTAL 0.5 MG/DL (0.2-1.0); BLOOD UREA NITROGEN 7 MG/DL (7-18); CALCIUM LEVEL 8.3 MG/DL (8.5-10.1); CARBON DIOXIDE LEVEL 26 MEQ/L (21-32); CHLORIDE LEVEL 105 MEQ/L (98-107); CREATININE FOR GFR 0.75 MG/DL (0.55-1.02); GLOMERULAR FILTRATION RATE > 60.0 (>58); GLUCOSE, FASTING 101 MG/DL (70-105); POTASSIUM SERUM 3.6 MEQ/L (3.5-5.1); SODIUM LEVEL 139 MEQ/L (136-145); TOTAL PROTEIN 7.4 GM/DL (6.4-8.2)
[2016-08-24] MEDS ORDERED: OXYB5TA PO (19:06)
[2016-08-24] MEDS ORDERED: METH5TA PO (19:06)
[2016-08-24] MEDS ORDERED: ATOR40TA PO (19:06)
[2016-08-24] MEDS ORDERED: DOCU100C PO (19:06)
[2016-08-24] MEDS ORDERED: TRAZ100T4 PO (19:06)
[2016-08-24] MEDS ORDERED: MIRA33504 PO (19:06)
[2016-08-24] MEDS ORDERED: ACETAMINOPHEN TAB 650MG DOSE (2X325MG) PO PRN (21:45)
[2016-08-24] MEDS ORDERED: MAALOX 30 ML SUSP *UDC PO PRN (21:45)
[2016-08-24] MEDS ORDERED: MOM 30ML SUSPENSION UDC PO PRN (21:45)
[2016-08-24] MEDS: METOPROLOL TART 25 MG TABLET PO SCH (22:14)
[2016-08-24] MEDS: SENNA 8.6 MG TAB (SENOKOT) PO SCH (22:14)
[2016-08-24] MEDS: MELOXICAM (MOBIC) 7.5 MG TAB PO SCH (22:14)
[2016-08-24] MEDS: QUEtiapine FUMARATE 100 MG TAB PO SCH (22:14)
[2016-08-24] MEDS: DIVALPROEX 500 MG TAB PO SCH (22:14)
[2016-08-24] MEDS: ATORVASTATIN 20 MG TAB PO SCH (22:14)
[2016-08-24] MEDS: NICOTINE 21MG/24HR 1 EA TRANSDERMAL TD SCH (22:18)
[2016-08-24] MEDS: oxyBUTYnin 5 MG TAB PO SCH (22:33)
[2016-08-25 04:12] VITALS: BP 152/98
[2016-08-25 06:23] VITALS: BP 156/86
[2016-08-25] MEDS: MELOXICAM (MOBIC) 7.5 MG TAB PO SCH ×2 (08:13→20:40)
[2016-08-25] MEDS: NICOTINE 21MG/24HR 1 EA TRANSDERMAL TD SCH (08:13)
[2016-08-25] MEDS: DIVALPROEX 250 MG TAB PO SCH (08:14)
[2016-08-25] MEDS: SENNA 8.6 MG TAB (SENOKOT) PO SCH ×2 (08:14→20:40)
[2016-08-25] MEDS: oxyBUTYnin 5 MG TAB PO SCH ×2 (08:14→20:40)
[2016-08-25] MEDS: ASCORBIC ACID 250 MG TAB PO SCH (08:14)
[2016-08-25] MEDS: MULTIVITAMINS/MINERALS THERAP 1 TAB PO SCH (08:14)
[2016-08-25] MEDS: METHADONE 5 MG TAB (S0109) PO SCH (08:16)
[2016-08-25] MEDS: METOPROLOL TART 25 MG TABLET PO SCH ×2 (08:16→20:43)
[2016-08-25] MEDS: VITAMIN D 1,000 INTERNATIONAL UNITS TABLET PO SCH (08:16)
--- NOTE | 2016-08-25 11:19 | HPEPDOC ---
Medical History and Physical Date of Admission Aug 24, 2016 at 18:20 History and Physical PCP: Dr Byrd ATTENDING: Dr. Travis Napier HPI: 45yoF admitted to [facility] for unspecified mood disorder, being medically examined today. No acute medical complaints today. Denies any fevers, chills, weakness, fatigue, MCGRATH, CP, SOB, cough, palpitations, abdominal pain, N/V/D or changes in bowel or bladder habits. PMHx: Anxiety Depression Hyperlipidemia Hypertension GERD Osteoarthritis left knee History of MRSA Edentulous History of hepatitis C. S/P treatment with Dr Mauricio. Polysubstance use Tobacco use Chronic constipation OAB Insomnia PSHX: Left breast cyst removal Left groin cyst removal SOCHX: Resides in: [facility] Marital Status: Single Kids: 1 Employment: Unemployed Tobacco use: One pack per day ETOH: Denies Illicit Drugs: History of heroin, crack cocaine. IV Drug Use: History of heroin on the currently attending [facility] methadone program. Tattoos done unprofessionally: Denies FAMHX: Mother: Alive, depression, anxiety, bladder/bowel Ca. Father: Alive, cirrhosis, alcoholism. Siblings: 2 brothers Alive, anxiety, depression, alcoholism Children: Alive, well Unexpected deaths due to medical reasons: 1 sister suicide. ROS: As noted in HPI, otherwise 11pt ROS of systems reviewed and remarkable only for LMP unknown. PE: GEN: 45yoF, appears stated age. Well-nourished, well developed. No acute distress. Alert and oriented x 3. Pleasant, interactive. HEENT: Normocephalic, atraumatic. Pupils are equal, round, and reactive to light. Extraocular movements are intact. No nystagmus appreciated. Sclera are nonicteric. Conjunctiva without injection. Nose midline. Nasal turbinates without bogginess. EACs both patent BL. TMs both visualized and hernadez with good cone of light, no bulging or erythema. No facial asymmetry. Moist mucous membranes. edentulous. Pharynx pink and moist, no cobblestoning. Neck supple, trachea midline. No lymphadenopathy or thyromegaly appreciated. CHEST: Regular rate and rhythm, +S1, +S2 LUNGS: Clear to auscultation bilaterally. No wheezes, rales, or rhonchi. Breathing appears symmetric and easy. Patient is speaking in full sentences. No accessory muscle use. ABD: Round, soft, non-tender, non-distended. +Bowel sounds throughout. No rebound or guarding. No costovertebral angle tenderness. EXT: Pulses 2+ bilaterally dorsalis pedis and radial. No lower extremity edema appreciated. SKIN: [place], dry, warm. Capillary refill <2sec. No rashes. NEURO: Alert and oriented x 3. Cranial nerves III-XII are intact. No focal deficits appreciated. EKG: pending. A&P: 45yoF admitted to [facility] for unspecified mood disorder 1. Psych. Plan per Psychiatry. Obtain baseline EKG to assure the safety of psychiatric medications as they can prolong the QT interval. 2. Nicotine dependence. Patch available. 3. Hyperlipidemia. Continue Lipitor 40 mg daily 4. Follow up with PCP on discharge. 5. H/O Substance use. Per psychiatry. 6. Hypertension. Continue Lopressor 25 mg by mouth twice a day. 7. Osteoarthritis. Continue Mobic 7.5 mg by mouth twice a day. 8. Overactive bladder. Continue Ditropan 5 mg by mouth twice a day. 9. Chronic constipation. Continue senna 2 tablets by mouth twice a day. Vital Signs Vital Signs Label Value Date Time Patient Temperature 99.1 degrees F 08/25/16 0623 Temperature Source Tympanic 08/25/16 0623 Pulse 69 08/25/16 0623 Respiratory Rate 20 bpm 08/25/16 0623 Blood Pressure Assessment 156/86 (109) 08/25/16 0623 Laboratory Data Labs 24H Laboratory Tests 2 08/24/16 16:47: Acetaminophen Level 2.7L, Aspartate Amino Transf (AST/SGOT) 14L, Alanine Aminotransferase (ALT/SGPT) 19, Alkaline Phosphatase 76, Total Bilirubin 0.5, Direct Bilirubin 0.1, Albumin 3.9, Albumin/Globulin Ratio 1.11, Anion Gap 8, Calcium Level 8.3L, Ethyl Alcohol Level 0.003, Glomerular Filtration Rate > 60.0 , Human Chorionic Gonadotropin, Qual NEGATIVE, Salicylates Level 5.3, Thyroid Stimulating Hormone (TSH) 0.524, Total Protein 7.4, Urine Amphetamines Screen NEGATIVE, Urine Benzodiazepines Screen NEGATIVE, Urine Opiates Screen NEGATIVE, Urine Barbiturates Screen NEGATIVE, Urine Cannabinoids Screen NEGATIVE, Urine Cocaine Metabolite Screen NEGATIVE, Urine Methadone Screen POSITIVEH, Urine Phencyclidine Screen NEGATIVE CBC/BMP Laboratory Tests 08/24/16 16:46 Red Blood Count 5.14, Mean Corpuscular Volume 82.6, Mean Corpuscular Hemoglobin 27.5, Mean Corpuscular Hemoglobin Concent 33.3, Red Cell Distribution Width 14.1 08/24/16 16:47 Home Medications Scheduled Atorvastatin Calcium (Atorvastatin Calcium) 40 Mg Tab 40 MG PO DAILY Docusate Sodium (Docusate Sodium) 100 Mg Cap 100 MG PO BID Methadone HCl (Methadone HCl) 5 Mg Tab 40 MG PO DAILY PATIENT RECEIVES FROM METHADONE CLINIC, UNABLE TO VERIFY DOSE Oxybutynin Chloride (Oxybutynin Chloride) 5 Mg Tab 10 MG PO BID Polyethylene Glycol (Miralax) 1 Pow Pow 17 GM PO BID Scheduled PRN Trazodone HCl (Trazodone HCl) 100 Mg Tab 100 MG PO QHS PRN PRN SLEEP Allergies Coded Allergies: Codeine (Unverified Adverse Reaction, Mild, N/V,SWELLING,ITCH,SWEATS, ) Propoxyphene (Unverified Adverse Reaction, Mild, N/V,SWELLING,ITCH,SWEATS , 07/15/16) Hilda Hernandez Aug 25, 2016 11:19
[2016-08-25 18:00] VITALS: BP 163/80
--- NOTE | 2016-08-25 18:27 | HPEPDOC ---
[facility] History & Physical History and Physical DATE OF ADMISSION: Aug 24, 2016 at 18:20 LEGAL STATUS AT ADMISSION: 9.39 CHIEF COMPLAINT: "I can't believe what they did to me". HISTORY OF THE PRESENT ILLNESS: Patient is a 45-year-old woman, who was brought under and I'm 9.41 pickup order from her counselor's office [facility]. She was noted by her counselor to endorse passive suicidality and was subsequently brought to the emergency room for evaluation. In the emergency room she appeared fairly paranoid and felt that she was going to be "sent to detention for what she did" she additionally made allusions to some form of trauma with a "ceramic worker and his ". She was difficult to assess in the emergency room but was subsequently transferred to inpatient psychiatry. When the patient was met with she was fairly paranoid and it was difficult to get much information out of her. She appeared to consistently allude to some form of trauma relating to a pastern and his . However, when asked more specifically she stated she was uncomfortable and did not want to speak about it. She spoke at length that she felt as though there is people in [place] were out to do her harm and that she "couldn't control all [place]" and therefore was unsafe. She then wanting to a diatribe about wanting a hysterectomy and demanding her discharge. After some empathic listening the patient appeared more calm but ultimately to this provider being a resident physician she stated that she wanted to see only the attending physician Dr. Franks. The patient was seen earlier in the day when this provider was doing the medication information group where she appeared very paranoid about her health information and was very focused on discussing nursing staff and noticed the patient was stating that she hadn't been seen in "days" by provider. Although, she been noted to arrive the previous evening. The rest of this note was primarily derived from previous records in the chart from a July 16 admission for similar presenting problem. PAST PSYCHIATRIC HISTORY: Prior Psychiatric Disorder: Previously diagnosed as bipolar with manic episodes additionally,there appears to be mentions of depression and anxiety before this diagnosis in July 16. Outpatient Treatment: She currently sees a psychiatrist and a therapist [facility]. Suicidal/Self injurious: Per records mention of suicidal attempts or gestures in the past per the notes. Psychotropic Medication History: She appears to been tried on Depakote and a number of neuroleptics. ALLERGIES: Please see below. HOME MEDICATIONS: Per record as follows: Most recent documentation of the patient's outpatient regimen was Risperdal, Depakote and trazodone please see below for medication reconciliation PAST MEDICAL/SURGICAL HISTORY: 1. Hyperlipidemia 2. Urinary incontinence. FAMILY PSYCHIATRIC HISTORY: Unknown but patient states that her father was an alcoholic. SOCIAL HISTORY: The patient does not elaborate in great detail her current social situation but describes that she currently has no social support system here in [place]. She suggests that her biological family is not present but that she has some form adopted family. She describes the aforementioned trauma in the HPI. Is unclear she's currently employed. She describes that she currently lives alone. SUBSTANCE ABUSE HISTORY: Patient appears to be treated at [facility] substance abuse treatment for opioid dependence and appears to have been on 40 mg of methadone for quite some time. Her urine tox screen doesn't reveal any other drugs LEGAL HISTORY: Unknown. Vital Signs Date Time Temp Pulse Resp B/P Pulse Ox O2 Delivery O2 Flow Rate FiO2 08/24/16 15:23 98.5 72 16 200/105 96 Room Air LABORATORY DATA: Please see below. REVIEW OF SYSTEMS: Unable to obtain a full and complete review of symptoms due to her severely paranoid state MENTAL STATUS EXAMINATION: Patient is a 45-year old female, who is very guarded and somewhat agitated, in a chair. Speech: Is pressured, and rapid in rate, volume, and articulation, and is incoherent at times Language skills are appear grossly intact. Thought processes: Tangential and disorganized. Thought content: Perseverates on her paranoid thoughts that multitude of people are out to harm her. Abstract reasoning, and computation: Impaired. Description of associations: Loose and tangential. Description of abnormal or psychotic thoughts: Does not make any threats to herself or others. Does not appear to be responding to internal stimuli. Judgment: Poor. Insight: Poor. Orientation to alert and oriented 3. Recent and remote memory: able to assess Attention span and concentration: Poor. Language: Normal. Fund of knowledge: Fair. Mood: "How you think I feel". Affect: Dysphoric and labile. DIAGNOSES: 1. Unspecified psychotic disorder 2. History of bipolar 1 disorder. 3. Opioid Use disorder, severe, on maintenance treatment. ASSESSMENT: A 45-year-old woman with a history of substance abuse who presents for the second time in a few weeks with what appears to be an episode of paranoia associated with grandiosity and dysphoria. PROBLEM LIST: 1. Psychosis. 2. Suicidal ideation 3. Julieta. INITIAL TREATMENT PLAN: 1. Patient was admitted on a 9.39 legal status. 2. Complete history was obtained. 3. With patients permission, family will be contacted and database will be expanded. 4. Patients medication regimen will be reviewed and changed accordingly. 5. Patient will be provided with protected environment. 6. Patient will be treated with individual, group, and milieu therapies. 7. Patient will receive supportive psych-education. 8. Discharge planning will commence immediately. 9. Outpatient follow-up treatment will be strongly recommended. 10. The initial treatment plan will focus initially on: * Depression. * Risk for suicide. * Substance abuse. 11. Resume patient's home reconciled medications including methadone, atorvastatin, oxybutynin and others. Will consider placing the patient on a neuroleptic. ESTIMATED LENGTH OF STAY: 5-7 DAYS. TIME SPENT COUNSELING AND COORDINATING INITIAL CARE: 30 minutes. Medications Scheduled Atorvastatin Calcium (Atorvastatin Calcium) 40 Mg Tab 40 MG PO DAILY (Reported ) Docusate Sodium (Docusate Sodium) 100 Mg Cap 100 MG PO BID (Reported) Methadone HCl (Methadone HCl) 5 Mg Tab 40 MG PO DAILY (Reported) PATIENT RECEIVES FROM METHADONE CLINIC, UNABLE TO VERIFY DOSE Oxybutynin Chloride (Oxybutynin Chloride) 5 Mg Tab 10 MG PO BID (Reported) Polyethylene Glycol (Miralax) 1 Pow Pow 17 GM PO BID (Reported) Scheduled PRN Trazodone HCl (Trazodone HCl) 100 Mg Tab 100 MG PO QHS PRN PRN SLEEP (Reported) Allergies Coded Allergies: Codeine (Unverified Adverse Reaction, Mild, N/V,SWELLING,ITCH,SWEATS, ) Propoxyphene (Unverified Adverse Reaction, Mild, N/V,SWELLING,ITCH,SWEATS , 07/15/16) GME ATTESTATION My preceptor for this patient encounter was physically present in the building during the encounter and was fully available. As needed, all aspects of the patient interview, examination, medical decision making process, and medical care plan development were reviewed and approved by the preceptor. Preceptor is aware and concurs with the plan as stated in the body of this note and will attest to such by his/her cosignature. ELVI LIVE DO Aug 25, 2016 18:27 ELVI LIVE DO Aug 25, 2016 18:27
--- NOTE | 2016-08-25 18:44 | ECGEPIP ---
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
[2016-08-25] MEDS: ATORVASTATIN 20 MG TAB PO SCH (20:39)
[2016-08-25] MEDS: DIVALPROEX 500 MG TAB PO SCH (20:40)
[2016-08-25] MEDS: QUEtiapine FUMARATE 100 MG TAB PO SCH (20:40)
[2016-08-26] MEDS: traZODone 50 MG TAB PO PRN (01:29)
[2016-08-26 06:21] VITALS: BP 137/84
[2016-08-26] MEDS: NICOTINE 21MG/24HR 1 EA TRANSDERMAL TD SCH (08:32)
[2016-08-26] MEDS: VITAMIN D 1,000 INTERNATIONAL UNITS TABLET PO SCH (08:34)
[2016-08-26] MEDS: oxyBUTYnin 5 MG TAB PO SCH ×2 (08:34→21:16)
[2016-08-26] MEDS: DIVALPROEX 250 MG TAB PO SCH (08:34)
[2016-08-26] MEDS: METOPROLOL TART 25 MG TABLET PO SCH ×2 (08:34→21:15)
[2016-08-26] MEDS: SENNA 8.6 MG TAB (SENOKOT) PO SCH ×2 (08:34→21:16)
[2016-08-26] MEDS: MULTIVITAMINS/MINERALS THERAP 1 TAB PO SCH (08:34)
[2016-08-26] MEDS: METHADONE 5 MG TAB (S0109) PO SCH (08:35)
[2016-08-26] MEDS: MELOXICAM (MOBIC) 7.5 MG TAB PO SCH ×2 (08:35→21:16)
[2016-08-26] MEDS: ASCORBIC ACID 250 MG TAB PO SCH (08:35)
--- NOTE | 2016-08-26 17:27 | IPNPDOC ---
[facility] Progress Note Progress Note DATE OF SERVICE: 08/26/16 HISTORY: The patient was attempted to be met with today. However, she primarily desires to speak only to the attending. The attending reported that during our conversation he felt as though she was not paranoid and that she was logical about her wishes to change her current situation. She reportedly embraced a want move to [place]. She appeared yesterday to be fairly paranoid and bizarre. She reportedly spoke of difficulty finding Alcoholics Anonymous and support groups in the local [facility]. She has been noted to be somewhat guarded and suspicious with many staff members. She appears to attending groups fairly regularly and is generally amenable upon approach. VITAL SIGNS: See below. NEW TEST RESULTS: None. CURRENT MEDICATIONS: See below. MENTAL STATUS EXAMINATION: Patient is a 45-year old female, who is guarded and suspicious. Speech: Is spontaneous and fluid. Language skills are intact. Thought processes including: Coherent. Thought content: Appears to have some guarded thoughts. Description of associations: Somewhat loose. Description of abnormal or psychotic thoughts: Did not make any threats towards herself or others on the shannon. Did not appear to be responding to internal stimuli. Judgment: Limited. Insight: Limited. Orientation to alert and oriented 3. Recent and remote memory: Appears grossly intact. Attention span and concentration: Good Language: Normal. Fund of knowledge: Adequate. Mood: "Fine". Affect: Guarded and suspicious. DIAGNOSES: 1. Unspecified psychotic disorder. 2. History of depression and anxiety. 3. Opioid use disorder, severe, on maintenance treatment. ASSESSMENT: 45-year-old woman who presented with paranoid ideation and reported thoughts of self-harm. She appears resolved significantly after the restart of her home medications and a fashion that appears to suggest possible intoxication with an exotic substance abuse such as spike or spice. She reportedly has no history prior to this episode of manic episodes or bipolar disorder. MANAGEMENT PLAN: 1. Continue home medications as below 2. Continue inpatient admission for observation to ensure that the patient's paranoia and psychosis have resolved sufficiently that she is safe as an outpatient TIME SPENT: 10 minutes. Vital Signs Vital Signs Date Time Temp Pulse Resp B/P Pulse Ox O2 Delivery O2 Flow Rate FiO2 08/26/16 08:35 16 08/26/16 08:34 69 137/94 08/26/16 06:21 97.1 08/25/16 14:58 Room Air 08/24/16 19:39 98 Current Medications Current Medications Acetaminophen (Tylenol Tab) 650 mg Q6HP PRN PO HEADACHE or DISCOMFORT; Start at 21:45; Stop 09/23/16 at 21:44 Al Hydrox/Mg Hydrox/Simethicone (Mylanta) 30 ml Q4HP PRN PO HEARTBURN/ INDIGESTION; Start 08/24/16 at 21:45; Stop 09/23/16 at 21:44 Ascorbic Acid (Vitamin C) 500 mg DAILY PO Last administered on 08/26/16 08:35 ; Start 08/25/16 at 09:00; Stop 09/24/16 at 08:59 Atorvastatin Calcium (Lipitor) 40 mg QHS PO Last administered on 08/25/16 20: 39; Start 08/24/16 at 21:00; Stop 09/23/16 at 20:59 Divalproex Sodium (Depakote) 250 mg DAILY PO Last administered on 08/26/16 08: 34; Start 08/25/16 at 09:00; Stop 09/24/16 at 08:59 Divalproex Sodium (Depakote) 500 mg QHS PO Last administered on 08/25/16 20:40 ; Start 08/24/16 at 21:00; Stop 09/23/16 at 20:59 Home Med (Med Rec Complete!) ASDIRECTED XX ; Start 08/24/16 at 19:15; Stop at 19:26; Status DC Magnesium Hydroxide (Milk Of Magnesia) 30 ml DAILYPRN PRN PO CONSTIPATION; Start 08/24/16 at 21:45; Stop 09/23/16 at 21:44 Meloxicam (Mobic) 7.5 mg BID PO Last administered on 08/26/16 08:35; Start at 21:00; Stop 09/23/16 at 20:59 Methadone HCl (Dolophine) 45 mg DAILY PO Last administered on 08/26/16 08:35; Start 08/25/16 at 09:00; Stop 09/01/16 at 08:59 Metoprolol Tartrate (Lopressor) 25 mg BID PO Last administered on 08/26/16 08: 34; Start 08/24/16 at 21:00; Stop 09/23/16 at 20:59 Multivitamins (Theragram-M) 1 tab DAILY PO Last administered on 08/26/16 08:34 ; Start 08/25/16 at 09:00; Stop 09/24/16 at 08:59 Nicotine (Nicoderm Cq 21mg) 1 patch DAILY TD Last administered on 08/26/16 08: 32; Start 08/24/16 at 09:00; Stop 09/23/16 at 08:59 Oxybutynin Chloride (Ditropan) 5 mg BID PO Last administered on 08/26/16 08:34 ; Start 08/24/16 at 21:00; Stop 09/23/16 at 20:59 Quetiapine Fumarate (SEROquel) 100 mg QHS PO Last administered on 08/25/16 20: 40; Start 08/24/16 at 21:00; Stop 09/23/16 at 20:59 Senna (Senokot) 2 tab BID PO Last administered on 08/26/16 08:34; Start at 21:00; Stop 09/23/16 at 20:59 Trazodone HCl (Desyrel) 100 mg QHSP PRN PO INSOMNIA Last administered on 01:29; Start 08/24/16 at 21:45; Stop 09/23/16 at 21:44 Vitamin D (Vitamin D) 2,000 units DAILY PO Last administered on 08/26/16 08:34 ; Start 08/25/16 at 09:00; Stop 09/24/16 at 08:59 Allergies Coded Allergies: Codeine (Unverified Adverse Reaction, Mild, N/V,SWELLING,ITCH,SWEATS, ) Propoxyphene (Unverified Adverse Reaction, Mild, N/V,SWELLING,ITCH,SWEATS , 07/15/16) GME ATTESTATION My preceptor for this patient encounter was physically present in the building during the encounter and was fully available. As needed, all aspects of the patient interview, examination, medical decision making process, and medical care plan development were reviewed and approved by the preceptor. Preceptor is aware and concurs with the plan as stated in the body of this note and will attest to such by his/her cosignature. ELVI LIVE DO Aug 26, 2016 17:27
[2016-08-26 18:00] VITALS: BP 125/76
[2016-08-26] MEDS ORDERED: MIRALAX *UNIT DOSE* 17GM PACKET PO ONE (21:00)
[2016-08-26] MEDS: ATORVASTATIN 20 MG TAB PO SCH (21:16)
[2016-08-26] MEDS: DIVALPROEX 500 MG TAB PO SCH (21:16)
[2016-08-26] MEDS: QUEtiapine FUMARATE 100 MG TAB PO SCH (21:16)
[2016-08-27 06:34] VITALS: BP 135/58
[2016-08-27] MEDS: DIVALPROEX 250 MG TAB PO SCH (08:39)
[2016-08-27] MEDS: MULTIVITAMINS/MINERALS THERAP 1 TAB PO SCH (08:39)
[2016-08-27] MEDS: NICOTINE 21MG/24HR 1 EA TRANSDERMAL TD SCH (08:39)
[2016-08-27] MEDS: SENNA 8.6 MG TAB (SENOKOT) PO SCH ×2 (08:40→21:08)
[2016-08-27] MEDS: oxyBUTYnin 5 MG TAB PO SCH ×2 (08:40→21:08)
[2016-08-27] MEDS: METHADONE 5 MG TAB (S0109) PO SCH (08:40)
[2016-08-27] MEDS: MELOXICAM (MOBIC) 7.5 MG TAB PO SCH ×2 (08:40→21:08)
[2016-08-27] MEDS: METOPROLOL TART 25 MG TABLET PO SCH ×2 (08:41→21:44)
[2016-08-27] MEDS: VITAMIN D 1,000 INTERNATIONAL UNITS TABLET PO SCH (08:41)
[2016-08-27] MEDS: ASCORBIC ACID 250 MG TAB PO SCH (08:41)
[2016-08-27] MEDS: MIRALAX *UNIT DOSE* 17GM PACKET PO SCH (08:44)
[2016-08-27 18:00] VITALS: BP 143/73
[2016-08-27] MEDS: DIVALPROEX 500 MG TAB PO SCH (21:00)
[2016-08-27] MEDS: QUEtiapine FUMARATE 100 MG TAB PO SCH (21:08)
[2016-08-27] MEDS: traZODone 50 MG TAB PO PRN (21:34)
[2016-08-27] MEDS: ATORVASTATIN 20 MG TAB PO SCH (21:34)
[2016-08-28 06:42] VITALS: BP 131/82
[2016-08-28] MEDS: SENNA 8.6 MG TAB (SENOKOT) PO SCH ×2 (08:49→21:15)
[2016-08-28] MEDS: VITAMIN D 1,000 INTERNATIONAL UNITS TABLET PO SCH (08:49)
[2016-08-28] MEDS: DIVALPROEX 250 MG TAB PO SCH (08:49)
[2016-08-28] MEDS: MULTIVITAMINS/MINERALS THERAP 1 TAB PO SCH (08:49)
[2016-08-28] MEDS: NICOTINE 21MG/24HR 1 EA TRANSDERMAL TD SCH (08:49)
[2016-08-28] MEDS: oxyBUTYnin 5 MG TAB PO SCH ×2 (08:50→21:15)
[2016-08-28] MEDS: MELOXICAM (MOBIC) 7.5 MG TAB PO SCH ×2 (08:50→21:14)
[2016-08-28] MEDS: ASCORBIC ACID 250 MG TAB PO SCH (08:50)
[2016-08-28] MEDS: METOPROLOL TART 25 MG TABLET PO SCH ×2 (08:50→21:15)
[2016-08-28] MEDS: METHADONE 5 MG TAB (S0109) PO SCH (08:51)
[2016-08-28] MEDS: MIRALAX *UNIT DOSE* 17GM PACKET PO SCH (08:53)
--- NOTE | 2016-08-28 15:30 | IPN ---
DATE: 08/27/2016 Ro Elizabeth was seen by me and staff. I reviewed the notes and her statements today differed in some respects from those the previous day. At that particular time, she was guarded and suspicious with staff members and previous to that she had not been able to give details about certain events that occurred with her purler and his . However, today the patient met with us and her first statement was that she wanted a hysterectomy. She wanted it arranged during this visit. She stated she did not want any more kids. She states her 24-year-old son does not talk to her. She stated she was here because she had asked a friend in her support group for a gun. She states she goes to [facility] and she states the problem she is having with her recovery program is that she cannot get a sponsor and that it is "all the same people." In a very loosely associated confusing manner, it appeared that she felt she could not make statements without ending up here in the hospital. Staff reported her previous hospitalization included and involved significant degrees of paranoia, thinking that the staff was going to put her in care home or asking the staff to kill herself as well as references to a viral website which she again spoke about today. She stated she felt she was recovering alone. She went into some detail concerning her purler and her purler's . She states that her purler gave her a card and told her that she would be spending 25 years in care home. She also stated that he told her that she was running a prostitution ring. Her purler is named Clint. She stated that her purler's , who is also in recovery, put her on this viral website named "[email or web address]." She states the purler's also had been in care home. She denies hallucinations but she is delusional and thought disordered with loose associations and circumferential thinking. She still has some suicidal ideation. She has no homicidal ideation. She is fully oriented. Her memory is unclear on certain events. Her affect is anxious. Her mood is anxious. Her speech is rapid and somewhat thought disordered. Her eye contact is good. Her appearance is normal. Her judgment is poor. This patient is significantly paranoid, both presently and certainly by history, and she is under the treatment of Dr. Franks. I will increase her Seroquel today to 200 nightly but it is most likely that she will need an evaluation of neuroleptics for her paranoia. Previously she had been on Risperdal. IMPRESSION: 1. Paranoid disorder. 2. Polysubstance abuse.
[2016-08-28 18:00] VITALS: BP 134/79
[2016-08-28] MEDS: traZODone 50 MG TAB PO PRN (21:14)
[2016-08-28] MEDS: ATORVASTATIN 20 MG TAB PO SCH (21:15)
[2016-08-28] MEDS: DIVALPROEX 500 MG TAB PO SCH (21:15)
[2016-08-28] MEDS: QUEtiapine FUMARATE 100 MG TAB PO SCH (21:15)
--- NOTE | 2016-08-29 02:43 | IPN ---
DATE: 08/28/2016 Ms. Elizabeth was in good spirits today, but had numerous requests. She is wanting to change to Suboxone and the unit will have to get a release of information so that we can speak to her Dr. Álvarez. The patient requested shoes. The patient continues to repeat her request for hysterectomy to be setup. She requested phone numbers. She does not want to speak with her public transit bus driver and his . She has no medical concerns as of today. Her appearance was pleasant. Her eye contact was good. She did not today express any particular delusional material. She did not demonstrate any loose associations. Today, she did not express any hallucinations. Her judgment seemed reasonable today. She had no suicidal or homicidal ideation. She was fully oriented. With that being said, we did not question her in great detail about her reason for admissions, which was presented to us yesterday in a rather paranoid thought disorder manner. She stated that she has not been using her medication as prescribed and stated her previous therapist had told her she could stop her medication, which apparently she did. She is concerned that she is feeling too sedated, though she did not appear sedated, but she will be followed for that. She is presently on 750 mg of Depakote, split into 500 mg at 9 and 250 mg in the day and 200 mg of Seroquel at night. IMPRESSION: 1. Psychotic disorder. 2. Polysubstance dependence. MTDD
[2016-08-29 06:28] VITALS: BP 121/67
[2016-08-29] MEDS: MIRALAX *UNIT DOSE* 17GM PACKET PO SCH (09:00)
[2016-08-29] MEDS: SENNA 8.6 MG TAB (SENOKOT) PO SCH ×2 (09:14→20:55)
[2016-08-29] MEDS: VITAMIN D 1,000 INTERNATIONAL UNITS TABLET PO SCH (09:14)
[2016-08-29] MEDS: MELOXICAM (MOBIC) 7.5 MG TAB PO SCH ×2 (09:14→20:55)
[2016-08-29] MEDS: MULTIVITAMINS/MINERALS THERAP 1 TAB PO SCH (09:14)
[2016-08-29] MEDS: oxyBUTYnin 5 MG TAB PO SCH ×2 (09:15→20:55)
[2016-08-29] MEDS: NICOTINE 21MG/24HR 1 EA TRANSDERMAL TD SCH (09:15)
[2016-08-29] MEDS: ASCORBIC ACID 250 MG TAB PO SCH (09:15)
[2016-08-29] MEDS: METOPROLOL TART 25 MG TABLET PO SCH ×2 (09:15→20:54)
[2016-08-29] MEDS: DIVALPROEX 250 MG TAB PO SCH (09:15)
[2016-08-29] MEDS: METHADONE 5 MG TAB (S0109) PO SCH (09:16)
[2016-08-29] MEDS ORDERED: traZODone 50 MG TAB PO PRN (12:00)
[2016-08-29 18:00] VITALS: BP 134/69
--- NOTE | 2016-08-29 18:53 | IPNPDOC ---
[facility] Progress Note Progress Note DATE OF SERVICE: 08/29/16 HISTORY: The patient is met with today in her room. She additionally was seen in group today. She is able to use the group to help work through her feelings of distrust, paranoia and overall difficulties coping with a poor social support structure. She received a great amount of help from the group members and processing her emotional difficulties. She described that she was worried about going home and wanted to be switched to Suboxone as she was unhappy with her care [facility]. Reportedly she is called [facility] several times stating that she does not want her services. It was discussed with her that if she wanted to change to an new outpatient provider that that might not be possible during inpatient stay and that she might have to return to her outpatient methadone provider in order to continue to receive it. She continued to perseverate greatly on her worries of continue methadone prescribing. She was informed that methadone be unlikely to be prescribed when she leaves and she would have to have an appointment the next day in order to receive her methadone dosage. She described difficulties with meeting the requirements the [facility] program. Otherwise, the patient has been noted to be social at times and has attended groups. She has not manifested disruptive behavior on the shannon. VITAL SIGNS: See below. NEW TEST RESULTS: None. CURRENT MEDICATIONS: See below. MENTAL STATUS EXAMINATION: Patient is a 45-year old female, who is cooperative with fair hygiene. Speech: Is spontaneous and fluid with mild pressured speech. Language skills are intact. Thought processes including: Coherent. Thought content: Perseveration on methadone and Suboxone. Abstract reasoning, and computation: Intact. Description of associations: Mildly loose. Description of abnormal or psychotic thoughts: Denies any suicidal or homicidal ideation. Denies any auditory or visual hallucinations. Does not appear to be responding to internal stimuli. Does not endorse any overtly bizarre paranoid ideation. Judgment: Limited. Insight: Limited. Orientation to alert and oriented 3. Recent and remote memory: Grossly intact. Attention span and concentration: Good. Language: Normal. Fund of knowledge: Adequate. Mood: "Worried". Affect: Anxious and constricted. DIAGNOSES: 1. Unspecified psychotic disorder. 2. Unspecified depressive disorder. 3. Opioid use disorder, severe, on maintenance treatment. ASSESSMENT: A 45-year-old one with a history of depression and anxiety whom presents in a paranoid and somewhat psychotic state. She appears to be gaining more insight as time goes on and she is from her outpatient setting. 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 However, these particular drugs are unable to be tested at this time. She appears to have resolved quite quickly without any large interventions to her medication regiment. She has a noted history of noncompliance as an outpatient MANAGEMENT PLAN: 1. Continue medications as below, there had been some titration of her Seroquel and trazodone to lower doses per the attending physician. 2. Continue inpatient stay with the prospect of discharge tomorrow as she will need to be discharged the day before her outpatient appointment [facility] in order to avoid opioid withdrawal TIME SPENT: 30 minutes. Vital Signs Vital Signs Date Time Temp Pulse Resp B/P Pulse Ox O2 Delivery O2 Flow Rate FiO2 08/29/16 11:58 Room Air 08/29/16 09:16 16 08/29/16 09:15 60 123/71 08/29/16 06:28 96.5 08/28/16 06:42 97 Current Medications Current Medications Acetaminophen (Tylenol Tab) 650 mg Q6HP PRN PO HEADACHE or DISCOMFORT; Start at 21:45; Stop 09/23/16 at 21:44 Al Hydrox/Mg Hydrox/Simethicone (Mylanta) 30 ml Q4HP PRN PO HEARTBURN/ INDIGESTION; Start 08/24/16 at 21:45; Stop 09/23/16 at 21:44 Ascorbic Acid (Vitamin C) 500 mg DAILY PO Last administered on 08/29/16 09:15 ; Start 08/25/16 at 09:00; Stop 09/24/16 at 08:59 Atorvastatin Calcium (Lipitor) 40 mg QHS PO Last administered on 08/28/16 21: 15; Start 08/24/16 at 21:00; Stop 09/23/16 at 20:59 Divalproex Sodium (Depakote) 250 mg DAILY PO Last administered on 08/29/16 09: 15; Start 08/25/16 at 09:00; Stop 09/24/16 at 08:59 Divalproex Sodium (Depakote) 500 mg QHS PO Last administered on 08/28/16 21:15 ; Start 08/24/16 at 21:00; Stop 09/23/16 at 20:59 Home Med (Med Rec Complete!) ASDIRECTED XX ; Start 08/24/16 at 19:15; Stop at 19:26; Status DC Magnesium Hydroxide (Milk Of Magnesia) 30 ml DAILYPRN PRN PO CONSTIPATION; Start 08/24/16 at 21:45; Stop 09/23/16 at 21:44 Meloxicam (Mobic) 7.5 mg BID PO Last administered on 08/29/16 09:14; Start at 21:00; Stop 09/23/16 at 20:59 Methadone HCl (Dolophine) 45 mg DAILY PO Last administered on 08/29/16 09:16; Start 08/25/16 at 09:00; Stop 09/01/16 at 08:59 Metoprolol Tartrate (Lopressor) 25 mg BID PO Last administered on 08/29/16 09: 15; Start 08/24/16 at 21:00; Stop 09/23/16 at 20:59 Multivitamins (Theragram-M) 1 tab DAILY PO Last administered on 08/29/16 09:14 ; Start 08/25/16 at 09:00; Stop 09/24/16 at 08:59 Nicotine (Nicoderm Cq 21mg) 1 patch DAILY TD Last administered on 08/29/16 09: 15; Start 08/24/16 at 09:00; Stop 09/23/16 at 08:59 Oxybutynin Chloride (Ditropan) 5 mg BID PO Last administered on 08/29/16 09:15 ; Start 08/24/16 at 21:00; Stop 09/23/16 at 20:59 Polyethylene Glycol (Miralax) 1 pkt DAILY PO ; Start 08/27/16 at 09:00; Stop at 08:59 Quetiapine Fumarate (SEROquel) 100 mg QHS PO Last administered on 08/26/16 21: 16; Start 08/24/16 at 21:00; Stop 08/27/16 at 10:45; Status DC Quetiapine Fumarate (SEROquel) 150 mg QHS PO ; Start 08/29/16 at 21:00; Stop 4/ 19/17 at 20:59 Quetiapine Fumarate (SEROquel) 200 mg QHS PO Last administered on 08/28/16 21: 15; Start 08/27/16 at 21:00; Stop 08/29/16 at 11:54; Status DC Senna (Senokot) 2 tab BID PO Last administered on 08/29/16 09:14; Start at 21:00; Stop 09/23/16 at 20:59 Trazodone HCl (Desyrel) 50 mg QHSP PRN PO INSOMNIA; Start 08/29/16 at 12:00; Stop 09/28/16 at 11:59 Trazodone HCl (Desyrel) 100 mg QHSP PRN PO INSOMNIA Last administered on 21:14; Start 08/24/16 at 21:45; Stop 08/29/16 at 11:54; Status DC Vitamin D (Vitamin D) 2,000 units DAILY PO Last administered on 08/29/16 09:14 ; Start 08/25/16 at 09:00; Stop 09/24/16 at 08:59 Allergies Coded Allergies: Codeine (Unverified Adverse Reaction, Mild, N/V,SWELLING,ITCH,SWEATS, ) Propoxyphene (Unverified Adverse Reaction, Mild, N/V,SWELLING,ITCH,SWEATS , 07/15/16) GME ATTESTATION My preceptor for this patient encounter was physically present in the building during the encounter and was fully available. As needed, all aspects of the patient interview, examination, medical decision making process, and medical care plan development were reviewed and approved by the preceptor. Preceptor is aware and concurs with the plan as stated in the body of this note and will attest to such by his/her cosignature. ELVI LIVE DO Aug 29, 2016 18:52
[2016-08-29] MEDS: ATORVASTATIN 20 MG TAB PO SCH (20:55)
[2016-08-29] MEDS: DIVALPROEX 500 MG TAB PO SCH (20:55)
[2016-08-29] MEDS ORDERED: QUEtiapine FUMARATE 50 MG TAB PO SCH (21:00)
[2016-08-30 06:28] VITALS: BP 162/88
[2016-08-30] MEDS ORDERED: NICO21PAT TD (08:27)
[2016-08-30] MEDS: MIRALAX *UNIT DOSE* 17GM PACKET PO SCH (09:00)
[2016-08-30] MEDS: NICOTINE 21MG/24HR 1 EA TRANSDERMAL TD SCH (09:00)
[2016-08-30] MEDS: oxyBUTYnin 5 MG TAB PO SCH (09:36)
[2016-08-30] MEDS: SENNA 8.6 MG TAB (SENOKOT) PO SCH (09:36)
[2016-08-30] MEDS: VITAMIN D 1,000 INTERNATIONAL UNITS TABLET PO SCH (09:36)
[2016-08-30] MEDS: DIVALPROEX 250 MG TAB PO SCH (09:36)
[2016-08-30] MEDS: MELOXICAM (MOBIC) 7.5 MG TAB PO SCH (09:36)
[2016-08-30] MEDS: MULTIVITAMINS/MINERALS THERAP 1 TAB PO SCH (09:36)
[2016-08-30] MEDS: ASCORBIC ACID 250 MG TAB PO SCH (09:36)
[2016-08-30 09:38] VITALS: BP 135/80
[2016-08-30] MEDS: METHADONE 5 MG TAB (S0109) PO SCH (09:38)
[2016-08-30] MEDS: METOPROLOL TART 25 MG TABLET PO SCH (09:38)
[2016-08-30] MEDS ORDERED: MULT1TAB10 PO (13:32)
[2016-08-30] MEDS ORDERED: VITA500C24 PO (13:32)
[2016-08-30] MEDS ORDERED: VITA200015 PO (13:35)
[2016-08-30] MEDS ORDERED: SENO8.6T2 PO (13:35)
[2016-08-30] MEDS ORDERED: QUET5TAB PO (14:00)
[2016-08-30] MEDS ORDERED: TRAZO50TA PO (14:00)
[2016-08-30] MEDS ORDERED: MOBI7.5T10 PO (14:04)
[2016-08-30] MEDS ORDERED: DEPA1TAB3 PO (14:04)
[2016-08-30] MEDS ORDERED: ditropan PO (14:04)
[2016-08-30] MEDS ORDERED: DEPA250T32 PO (14:04)
--- NOTE | 2016-08-30 18:30 | DS.PDOC ---
[facility] Discharge Summary Discharge Summary DATE OF ADMISSION: Aug 24, 2016 at 18:20 DATE OF DISCHARGE: Aug 30, 2016 at 14:00 DISCHARGE DIAGNOSES: 1. Unspecified psychosis, concern for substance-induced. 2. Unspecified depression. 3. Opioid use disorder, severe, on maintenance treatment. REASON FOR ADMISSION: Patient was admitted due to concerns that she was suicidal during an counseling appointment at [facility]. When she presented she appeared to be fairly paranoid and distorted. She had little memory of first of her interactions during that day. However, over time she appeared to gain more insight. She presented previously in a fairly distorted state but subsequently resolved. CONSULTANTS INVOLVED: None TREATMENT AND PROGRESS ON THE UNIT : The patient was admitted from the emergency room to the inpatient psychiatric unit. When she was first met with she appeared be fairly paranoid and bizarre. However, over the next evening she appeared to stabilize quite a bit and was noted to be much more amenable and logical. She then after vehemently requesting discharge. To want to stay and engaged in group therapy. She appeared to get some benefit out of the group therapy her home medications were primarily continue without any alterations. Towards the end of her stay her Seroquel and trazodone were lowered slightly as she was noting heavy sedation. She did want to speak about attempted to switch her methadone to Suboxone. However, she was told that the methadone taper likely need to be done as an outpatient and that Suboxone makes started as an inpatient be unreasonable. She was amenable to returning to [facility] in order to continue her methadone taper despite having reservations about continuing with [facility]. She described that she was interested in going to another [facility] and moving out of [facility] as she felt as though a voice teacher and his were speaking poorly of her and that this gave her great distress. This paranoid thought did appear to continue during her admission despite overall improvement. DISCHARGE ASSESSMENT: A 45-year-old female with no history of bipolar disorder who presents for the second time in several months with an episode of paranoia and distortion. She appears to spontaneously resolved with resumption of her home medications. Concern for substance-induced such as exotic stimulants could be a concern as the patient is regularly urine tested due to her methadone treatment. The patient appears to be primarily interested in changing to Suboxone rather than methadone. MENTAL STATUS EXAMINATION: General: Well groomed well kempt Speech: Spontaneous and fluid Thought processes: Linear and logical Thought content: Some worry about methadone maintenance Abstract reasoning, and computation: Intact Description of associations: Intact Description of abnormal or psychotic thoughts:Denies any suicidal or homicidal ideation. Denies any auditory or visual hallucinations. Does not appear to be responding to internal stimuli. Does not appear to be endorsing any bizarre or paranoid ideation.. Judgment: Fair Insight: Poor Orientation: Alert and orientated 3 Recent and remote memory: Grossly intact Attention span and concentration: Intact Fund of knowledge: Adequate Mood: "Better" Affect: Euthymic with a full range PLAN/FOLLOWUP ARRANGEMENTS: The patient was arranged to follow-up at [facility] for methadone maintenance and she was arranged have an appointment the next day in order to receive her dose of methadone. She additionally do not requesting refills her medications as she felt as though the policy of seven-day prescriptions with 4 refills was too expensive for her. She described that she would attempt to see her family nurse practitioner in order to receive month- long prescriptions. The amount of time spent in the coordination of care for this patient was approximately 30 minutes. Vital Signs Vital Sign - Last 24 Hours 08/29/16 08/30/16 08/30/16 08/30/16 20:54 06:28 09:38 09:38 Temp 98.2 Pulse 65 65 78 Resp 18 18 B/P 165/91 162/88 135/80 Medications Scheduled (Depakote) 500 Mg Tab 500 MG PO QHS MOOD (Reported) ([ditropan]) 5 MG PO BID bladder spasms (Reported) Ascorbic Acid (Vitamin C) 500 Mg Cap 500 MG PO DAILY Supplement (Reported) Atorvastatin Calcium (Atorvastatin Calcium) 40 Mg Tab 40 MG PO DAILY cholesterol (Reported) Cholecalciferol (Vitamin D) 2,000 Unit Tab 2,000 UNIT PO DAILY supplement ( Reported) Divalproex Sodium (Depakote) 250 Mg Tab 250 MG PO DAILY MOOD (Reported) Meloxicam (Mobic) 7.5 Mg Tab #30 7.5 MG PO BID PAIN (Reported) WITH FOOD Methadone HCl (Methadone HCl) 5 Mg Tab 40 MG PO DAILY Addiction (Reported) Multivitamins (Multivitamin Adults) 1 Tab Tab 1 TAB PO DAILY Supplement ( Reported) Nicotine (Nicotine Transdermal Syst) 21 Mg/24 Hr Dis #14 1 PATCH TD DAILY SMOKING CESSATION Polyethylene Glycol (Miralax) 1 Pow Pow 17 GM PO BID constipation (Reported) Quetiapine Fumerate (Quetiapine Fumarate) 50 Mg Tab #21 150 MG PO QHS bipolar insomnia Senna (Senokot) 8.6 Mg Tab 2 TAB PO BID Constipation (Reported) Scheduled PRN Trazodone HCl (Trazodone HCl) 50 Mg Tab #7 50 MG PO QHSP PRN PRN INSOMNIA Allergies Coded Allergies: Codeine (Unverified Adverse Reaction, Mild, N/V,SWELLING,ITCH,SWEATS, ) Propoxyphene (Unverified Adverse Reaction, Mild, N/V,SWELLING,ITCH,SWEATS , 07/15/16) GME ATTESTATION My preceptor for this patient encounter was physically present in the building during the encounter and was fully available. As needed, all aspects of the patient interview, examination, medical decision making process, and medical care plan development were reviewed and approved by the preceptor. Preceptor is aware and concurs with the plan as stated in the body of this note and will attest to such by his/her cosignature. ELVI LIVE DO Aug 30, 2016 18:30
== END 2016-08-30 14:00 | disposition home or self-care (01) | DRG 885 ==
LOC: M ED 16:38 → M ED INP 18:20 → M PSY 20:10
PROVIDERS: ADMIT Psychiatry & Neurology Child & Adolescent Psychiatry; ATTEND Internal Medicine Addiction Medicine
DX: F29 Unspecified psychosis not due to a substance or known physiological condition (principal); F11.259 Opioid dependence with opioid-induced psychotic disorder, unspecified; F32.9 Major depressive disorder, single episode, unspecified; E78.5 Hyperlipidemia, unspecified; I10 Essential (primary) hypertension; K21.9 Gastro-esophageal reflux disease without esophagitis; M17.11 Unilateral primary osteoarthritis, right knee; N32.81 Overactive bladder; F17.210 Nicotine dependence, cigarettes, uncomplicated; K59.00 Constipation, unspecified; G47.00 Insomnia, unspecified; Z86.14 Personal history of Methicillin resistant Staphylococcus aureus infection; Z81.8 Family history of other mental and behavioral disorders; Z81.1 Family history of alcohol abuse and dependence; Z88.8 Allergy status to other drugs, medicaments and biological substances; Z88.5 Allergy status to narcotic agent; Z79.899 Other long term (current) drug therapy

== ENCOUNTER 2016-10-03 12:09 | Inpatient (IN) | payer MEDICARE, MEDICAID ==
[~2016-10-03] VITALS: Ht 157.5 cm; Wt 76.5 kg
[2016-10-03] VITALS (21 sets, daily range): BP systolic 120–209; BP diastolic 73–104; O2SAT 97
[~2016-10-03 12:09] MED LIST changes: -COLA100C PO; +COLA100C3 PO; +DIPH12.527 PO; +DOCU100C PO; +MIRA33504 PO; +MOBI7.5T10 PO; +MULT1TAB10 PO; +QUET5TAB PO; +SENO8.6T2 PO; +TRAZ100T4 PO; +TRAZO50TA PO; +VITA500C24 PO; +ditropan PO
[2016-10-03] MEDS ORDERED: NS 1,000 ML IV ONE (12:15)
[2016-10-03] MEDS ORDERED: METO12TA PO (12:28)
[2016-10-03] MEDS ORDERED: NIGH25TA11 PO (12:28)
[2016-10-03] MEDS ORDERED: COLA100C3 PO ×2 (12:28→15:18)
[2016-10-03] MEDS ORDERED: ONDA1TAB15 PO (12:28)
[2016-10-03] MEDS ORDERED: OMEP40CA2 PO ×2 (12:28→15:18)
[2016-10-03] MEDS ORDERED: VALA500T PO (12:28)
[2016-10-03] MEDS ORDERED: NALOXONE INJ 2 MG/2 ML SYRINGE (J2310) ONE (12:30)
[2016-10-03 12:39] LABS: ABG BASE EXCESS 3.4 (-2.0-2.0); ABG HCO3 27.6 MEQ/L (22.0-26.0); ABG PARTIAL PRESSURE CO2 40.5 mmHg (35.0-45.0); ABG STANDARD HCO3 27.4 MEQ/L (22.0-26.0); ABG TOTAL CO2 28.8 MEQ/L (22.0-29.0); ABG pH (ARTERIAL) 7.451 UNITS (7.350-7.450)
[2016-10-03] MEDS ORDERED: GLUCAGON FOR INJ 1 MG VIAL (J1610) IM STA (13:09)
[2016-10-03 13:51] LABS: METHADONE URINE POSITIVE (NEGATIVE)
[2016-10-03 14:25] LABS: CONTROL LINE HCG INT CTR LINE PRESENT
[2016-10-03 14:29] LABS: BASO % 0.7 % (0.0-1.0); EOS # 0.4 K/mm3 (0.0-0.50); EOS % 6.3 % (0.0-3.0); LARGE UNSTAINED CELL # 0.2 K/mm3 (0.0-0.4); LARGE UNSTAINED CELL % 3.1 % (0.0-4.0); LYMPH # 2.9 K/mm3 (1.5-4.5); LYMPH % 46.8 % (24.0-44.0); MEAN CORPUSCULAR HGB CONC 33.5 g/dl (32.0-36.5); MEAN CORPUSCULAR VOLUME 83.6 fl (80.0-96.0); MONO # 0.3 K/mm3 (0.0-0.8); MONO % 4.8 % (0.0-5.0); NEUTROPHILS # 2.2 K/mm3 (1.8-7.7); NEUTROPHILS % 38.4 % (36.0-66.0); PLATELET COUNT, AUTOMATED 191 k/mm3 (150-450); RED CELL DISTRIBUTION WIDTH 13.9 % (11.5-14.5); WHITE BLOOD COUNT 5.7 K/mm3 (4.0-10.0)
[2016-10-03 14:41] LABS: ALBUMIN 3.2 GM/DL (3.2-5.2); ALBUMIN/GLOBULIN RATIO 0.97 (1.00-1.93); ALKALINE PHOSPHATASE 56 U/L (45-117); ALT/SGPT 19 U/L (12-78); ANION GAP 10 MEQ/L (8-16); AST/SGOT 13 U/L (15-37); BILIRUBIN,DIRECT < 0.1 MG/DL (0.0-0.2); BILIRUBIN,TOTAL 0.3 MG/DL (0.2-1.0); BLOOD UREA NITROGEN 16 MG/DL (7-18); CARBON DIOXIDE LEVEL 25 MEQ/L (21-32); CHLORIDE LEVEL 111 MEQ/L (98-107); GLOMERULAR FILTRATION RATE > 60.0 (>58); GLUCOSE, FASTING 108 MG/DL (70-105); POTASSIUM SERUM 3.2 MEQ/L (3.5-5.1); SODIUM LEVEL 146 MEQ/L (136-145); TOTAL PROTEIN 6.5 GM/DL (6.4-8.2)
[2016-10-03] MEDS ORDERED: PROPOFOL 1,000 MG in APPROPRIATE DILUENT 1 EA IV SCH (15:15)
[2016-10-03] MEDS ORDERED: DIVA500T3 PO (15:18)
[2016-10-03] MEDS ORDERED: DIPH50CA PO (15:18)
[2016-10-03] MEDS ORDERED: TRAZ50TA4 PO (15:18)
[2016-10-03] MEDS ORDERED: OXYB5TA PO (15:18)
[2016-10-03] MEDS ORDERED: ZOFR20TA PO (15:18)
[2016-10-03] MEDS ORDERED: METO25TAB PO (15:18)
[2016-10-03] MEDS ORDERED: SERO50TA PO (15:18)
[2016-10-03] MEDS ORDERED: ATOR40TA PO (15:18)
[2016-10-03] MEDS ORDERED: DIVA250T PO (15:18)
[2016-10-03] MEDS ORDERED: MELO7.5T6 PO (15:18)
[2016-10-03] MEDS ORDERED: PATIENT COMMENT (15:21)
--- NOTE | 2016-10-03 15:51 | REP ---
CHEST: AP view of the chest is performed. An endotracheal tube is seen with the tip in the right mainstem bronchus. There is volume loss of the left lung. The study is otherwise unremarkable. Signed by Brian Reyes MD 10/03/2016 08:12 P
--- NOTE | 2016-10-03 15:53 | REP ---
PORTABLE CHEST: AP portable view of the chest is performed and compared to prior exam this same day. Endotracheal tube is seen. The tip is in the right mainstem bronchus, slightly more proximal to its position on the prior study earlier today. There is better ventilation of the left lung. No infiltrate is seen. Cardiomediastinal silhouette is otherwise unremarkable. Signed by Brian Reyes MD 10/03/2016 08:12 P
[2016-10-03] MEDS ORDERED: SUCCINYLCHOLINE INJ 200 MG/10 ML VIAL (J0330) IV STA (16:00)
[2016-10-03] MEDS ORDERED: CHARCOAL ACTIVATED LIQUID 25 GM/120 ML BTL NG ONE (16:00)
[2016-10-03] MEDS ORDERED: LIDOCAINE 2% INJ 100 MG/5 ML SYRINGE IV STA (16:00)
[2016-10-03] MEDS ORDERED: ETOMIDATE INJ 20MG/10ML VIAL IV STA (16:00)
[2016-10-03] MEDS: NS 1,000 ML IV SCH ×3 (16:02→21:00)
[2016-10-03] MEDS: IPRATROPIUM 0.5MG/ALBUTEROL 2.5MG INH SOL UD 3ML (DUONEB)(J7620) NEB SCH ×2 (16:46→19:32)
[2016-10-03 16:49] LABS: ABG BASE EXCESS -0.3 (-2.0-2.0); ABG HCO3 23.1 MEQ/L (22.0-26.0); ABG PARTIAL PRESSURE CO2 33.9 mmHg (35.0-45.0); ABG PARTIAL PRESSURE O2 107.4 mmHg (75.0-100.0); ABG STANDARD HCO3 24.2 MEQ/L (22.0-26.0); ABG TOTAL CO2 24.1 MEQ/L (22.0-29.0); ABG pH (ARTERIAL) 7.451 UNITS (7.350-7.450)
[2016-10-03] MEDS ORDERED: LACTULOSE 20 GM/30 ML SYRUP UD PR ONE (17:00)
--- NOTE | 2016-10-03 17:30 | HPE ---
DATE OF ADMISSION: 10/03/2016 The patient is a 45-year-old female presenting to the emergency room (ER) for overdose. She is found in the ER intubated with history of overdose on Depakote. 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 Upon arrival patient was brought in by EMS. Lethargic on arrival. Blood gas was pH 7.451, CO2 40.5, HCO3 27.6, O2 sat 96.3%. Patient was intubated in the ER and orogastric tube was inserted. Poison control was contacted. The patient is currently intubated and unable to provide history at this time. History is obtained from past medical history records. PAST MEDICAL HISTORY: From previous records includes, unobtainable from patient: 1. Anxiety. 2. Depression. 3. Hyperlipidemia. 4. Hypertension. 5. Gastroesophageal reflux disease (GERD). 6. Osteoarthritis. 7. History of hepatitis C. 8. Tobacco use. 9. Polysubstance abuse. PAST SURGICAL HISTORY: Obtained from past history, unobtainable from patient: 1. (C) section. 2. Cyst removal. SOCIAL HISTORY: According to past records, the patient is single and lives in [place]. She smokes a pack of cigarettes a day. FAMILY HISTORY: Unobtainable. REVIEW OF SYSTEMS: Unobtainable. MEDICATIONS: Vitamin C, atorvastatin, vitamin D, Depakote, diphenhydramine, Colace, multivitamin, Mobic, methadone, metoprolol, nicotine, omeprazole, ondansetron, MiraLAX, quetiapine, Senokot, trazodone, valacyclovir, and Ditropan. PHYSICAL EXAMINATION: VITAL SIGNS: On admission, temperature 95.6, pulse 58, respiratory rate 16, blood pressure 101/58, pulse oximetry 94%. GENERAL: The patient is a 45-year-old female that is currently intubated. Comatose. Unresponsive to painful stimuli. HEENT: Normocephalic, atraumatic. Moist mucous membranes. Trachea is midline. Patient is currently intubated. Cuff is inflated. CHEST: Regular rate and rhythm. Normal S1, S2. No clicks, rubs, gallops, or murmurs. PMI is nondisplaced. LUNGS: Clear to auscultation bilaterally. No wheezes, rales, or rhonchi. No dull ness to percussion. ABDOMEN: Round, soft, nondistended. Bowel sounds heard to auscultation. No mass or hernia. No hepatosplenomegaly. EXTREMITIES: Radial pulse 2/4. No cyanosis, clubbing or edema. SKIN: Bruise left upper extremity. No rashes or jaundice Neurologic: no myoclonus or posturing.no seizure activity, no purposeful movements however patient did receive propofoL (turned off 2 hours ago). Pupils are reactive to light. EKG shows sinus rhythm. LABORATORY DATA: Blood gas shows pH 7.451, pCO2 33.9, bicarbonate 23.1, O2 saturation 97.8. Ammonia 200. Sodium 146, potassium 3.2, chloride 111, CO2 25, BUN 16, creatinine 0.70, fasting glucose 108. White blood cell count 5.7, hemoglobin 13.3, hematocrit 39.8, platelets 191. Initial chest radiograph shows intubation tube in right mainstem bronchus. Following chest radiograph shows intubation tube pulled back with ventilation to both lungs, unremarkable. TOXICOLOGY: The patient is positive for urine methadone, urine benzodiazepines, and valproic acid level of 480. ASSESSMENT AND PLAN: 1. Respiratory failure from drug overdose. The patient is currently at high risk for liver failure due to overdose on Depakote, currently checking laboratories for ammonia level and liver function tests. The patient is currently intubated. The patient is being prescribed L-Carnitine to help prevent liver damage from Depakote and also currently giving the patient activated charcoal per recommendation from Poison Control. L-Carnitine is being given 6 grams IV and then will be given 1.2 grams IV every four hours. Activated charcoal is currently being given every four hours 25 grams per poison controls' recommendations. Other medications are potentially implicated with this overdose, besides the valproic acid. Therefore in addition, ammonia and liver profile will be checked daily as well as EKG. Due to high ammonia level of 200, the patient is being started on lactulose suppositories. Fluids are currently potassium chloride at 100 mL per hour. Patient will receive a central line to help facilitate medications delivery. Time spent on patient care was roughly one hour. My preceptor for this patient encounter was Dr. Yann Deluca. The preceptor was physically present in the room during the encounter and was fully available as needed. All aspects of the patient interview, examination, medical decision making process, and medical care plan development were reviewed and approved by the preceptor. The preceptor is aware and concurs with the plan as stated in the body of this note and will attest to such by his/her co-signature. I,Yann Deluca, was resent at the bedside to provide this patient with critical care. I adjusted mechanical ventilation and provided recommendations as to medical therapy. She had access to a number of medications. The greatest concern is that of Depakote given the elevated level. Therapy has been provided as above along with activated charcoal. We will continue to closely monitor cardiac and neurologic status. Patient is at high risk for seizure and liver failure. Edited: connor 10/10/2016 0720 MTDD
[2016-10-03] MEDS: KCL 10MEQ IN 100ML SWI (KRUN) 10 MEQ in APPROPRIATE DILUENT 1 EA IV SCH ×4 (18:00→19:59)
[2016-10-03] MEDS ORDERED: METAL LOCK LOOP XX ONE (18:31)
[2016-10-03] MEDS: CHLORHEXIDINE GLUCONATE 0.12 % 15ML UDC (PERIDEX ORAL RINSE) MT SCH (19:59)
[2016-10-03] MEDS: CHARCOAL ACTIVATED LIQUID 25 GM/120 ML BTL NG SCH (19:59)
[2016-10-03] MEDS ORDERED: LEVOCARNITINE IV ONE (20:00)
[2016-10-03] MEDS ORDERED: NS IV ONE (20:00)
--- NOTE | 2016-10-03 20:39 | ECGEPIP ---
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
--- NOTE | 2016-10-03 21:01 | REP ---
PORTABLE CHEST: AP portable view of the chest is performed. Comparison made with prior exams of the same day. Endotracheal tube is in good position. Nasogastric tube traverses into the stomach. Right central venous catheter is seen with the tip in the superior vena cava. I suspect mild patchy atelectasis or infiltrate in the left lung base in the retrocardiac region. Cardiac silhouette is mildly prominent. Signed by Brian Reyes MD 10/04/2016 05:22 P
[2016-10-03] MEDS ORDERED: GLUCAGON FOR INJ 1 MG VIAL (J1610) IV STA (22:20)
[2016-10-04] VITALS (31 sets, daily range): BP systolic 134–201; BP diastolic 63–95; O2SAT 98
[2016-10-04] MEDS: CHARCOAL ACTIVATED LIQUID 25 GM/120 ML BTL NG SCH ×3 (00:56→08:05)
[2016-10-04] MEDS: NS IV SCH ×3 (01:02→08:45)
[2016-10-04] MEDS: LEVOCARNITINE IV SCH ×3 (01:02→08:45)
[2016-10-04] MEDS: MIDAZOLAM INJ 2 MG/2 ML VIAL (J2250) IV PRN ×5 (01:52→20:14)
[2016-10-04] MEDS ORDERED: GLUCAGON FOR INJ 1 MG VIAL (J1610) IV STA (03:32)
[2016-10-04] MEDS: METOCLOPRAMIDE INJ 10MG/2ML VIAL (J2765) IV SCH ×4 (04:12→22:24)
[2016-10-04] MEDS: NITROGLYCERIN 2% OINT 1 GM *U/D* PKT TOP SCH ×4 (04:13→22:24)
[2016-10-04] MEDS ORDERED: SODIUM CHLORIDE 0.9% INJ 10 ML SYR IV PRN (04:45)
[2016-10-04] MEDS ORDERED: SLF 3 ML SYR IV PRN (04:45)
[2016-10-04] MEDS: SLF 3 ML SYR IV SCH ×3 (05:21→22:00)
[2016-10-04] MEDS: SODIUM CHLORIDE 0.9% INJ 10 ML SYR IV SCH ×3 (05:21→22:00)
[2016-10-04 05:37] LABS: ABG PARTIAL PRESSURE CO2 27.4 mmHg (35.0-45.0); ABG PARTIAL PRESSURE O2 77.4 mmHg (75.0-100.0); ABG STANDARD HCO3 23.6 MEQ/L (22.0-26.0); ABG TOTAL CO2 21.8 MEQ/L (22.0-29.0); ABG pH (ARTERIAL) 7.502 UNITS (7.350-7.450)
--- NOTE | 2016-10-04 05:42 | RO ---
DATE OF PROCEDURE: 10/03/2016 PREOPERATIVE DIAGNOSIS: Lack of venous access. POSTOPERATIVE DIAGNOSIS: Lack of venous access. PROCEDURE PERFORMED: Urgent central line placement via right subclavian site. SURGEON: Travis Barlow DO MANAGER PERFORMANCE IMPROVEMENT: ANESTHESIA: DESCRIPTION OF PROCEDURE NOTE: The patient was seen in the intensive care unit, critically ill, intubated, mechanically ventilated with insufficient venous access for life-saving medications. The skin overlying the right subclavian vein was prepped with Chloraprep, draped in sterile fashion. A 25-gauge needle was used to raise a skin wheal with 1% lidocaine. Thereafter, a 17-gauge introducer needle was placed in through the skin and into the right subclavian venous system. A vascular tip guidewire was advanced. The needle was removed out through the skin. A small incision was made adjacent to the guidewire and a triple-lumen catheter placed over the guidewire to a distance of 16 cm. The catheter was sewn in place. A sterile dressing was applied, and a postprocedural chest x-ray is pending. There were no apparent complications.
[2016-10-04 05:47] LABS: MEAN CORPUSCULAR HEMOGLOBIN 28.6 pg (27.0-33.0); MEAN CORPUSCULAR HGB CONC 34.3 g/dl (32.0-36.5); MEAN CORPUSCULAR VOLUME 83.3 fl (80.0-96.0); RED CELL DISTRIBUTION WIDTH 14.2 % (11.5-14.5); WHITE BLOOD COUNT 13.5 K/mm3 (4.0-10.0)
[2016-10-04 06:15] LABS: ALBUMIN/GLOBULIN RATIO 1.03 (1.00-1.93); ALKALINE PHOSPHATASE 51 U/L (45-117); ALT/SGPT 17 U/L (12-78); ANION GAP 8 MEQ/L (8-16); AST/SGOT 12 U/L (15-37); BILIRUBIN,DIRECT 0.1 MG/DL (0.0-0.2); BILIRUBIN,TOTAL 0.4 MG/DL (0.2-1.0); BLOOD UREA NITROGEN 9 MG/DL (7-18); CARBON DIOXIDE LEVEL 24 MEQ/L (21-32); CHLORIDE LEVEL 113 MEQ/L (98-107); CREATININE FOR GFR 0.71 MG/DL (0.55-1.02); GLOMERULAR FILTRATION RATE > 60.0 (>58); GLUCOSE, FASTING 133 MG/DL (70-105); SODIUM LEVEL 145 MEQ/L (136-145); TOTAL PROTEIN 5.9 GM/DL (6.4-8.2)
[2016-10-04] MEDS: NS 1,000 ML IV SCH ×2 (06:44→17:12)
[2016-10-04] MEDS: IPRATROPIUM 0.5MG/ALBUTEROL 2.5MG INH SOL UD 3ML (DUONEB)(J7620) NEB SCH ×4 (07:40→19:20)
[2016-10-04] MEDS: CHLORHEXIDINE GLUCONATE 0.12 % 15ML UDC (PERIDEX ORAL RINSE) MT SCH ×2 (08:04→20:13)
[2016-10-04] MEDS: PANTOPRAZOLE 40MG INJ (PROTONIX) (C9113) IV SCH (08:06)
[2016-10-04] MEDS: ENOXAPARIN 40 MG/0.4 ML SYRINGE (J1650) SC SCH (08:06)
[2016-10-04] MEDS ORDERED: ETOMIDATE INJ 20MG/10ML VIAL ONE (08:16)
[2016-10-04] MEDS ORDERED: SUCCINYLCHOLINE 100 MG/5 ML SYRINGE (J0330) ONE (08:16)
[2016-10-04] MEDS ORDERED: LIDOCAINE 2% INJ 100 MG/5 ML SYRINGE ONE (08:16)
--- NOTE | 2016-10-04 09:13 | ECGEPIP ---
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
--- NOTE | 2016-10-04 09:24 | REP ---
Portable chest: Comparisons 10/03/2016. The endotracheal tube remains in satisfactory location with the tip at the level of the aortic arch, unchanged. The nasogastric tube terminates in the abdominal left upper quadrant satisfactory location, unchanged. The right subclavian central venous catheter terminates in the right atrium in satisfactory location, unchanged. Lung willis are clear. Cardiac size is magnified by portable positioning. The hazel, mediastinum, and bony thorax are unremarkable. Signed by Brian Kong MD 10/04/2016 09:15 A
--- NOTE | 2016-10-04 11:02 | CCN ---
DATE: 10/04/2016 CRITICAL CARE NOTE The patient is seen in the intensive care unit intubated, mechanically ventilated, critically ill. Through the night, her heart rate became quite slow, but responded to Glucagon. We have continued activated charcoal, lactulose and levocarnitine for Depakote. At bedside, she is ill appearing. Endotracheal tube is in good position, as is an orogastric tube. Pupils respond to light. Oral mucosa is pink. Neck is supple. No meningismus. Heart sounds are regular, without appreciable murmur. Her breath sounds are mildly diminished in the bases. Otherwise clear. Abdomen is soft. Bowel sounds right lower quadrant. Extremities with no significant edema. Diagnostic Studies: Chest imaging shows tubes and lines in good position. Her sodium is 145, potassium 3.0, chloride 113, CO2 24, BUN 9, creatinine 0.71, glucose 133. White cell count is 13.5, hemoglobin 11.6, hematocrit 33.9 and platelet count 191,000. AST is 12, ALT 17, albumin 3, ammonia down to 35. Depakote level is down from 480 to 69. Arterial blood gases were performed on mechanical ventilatory support with pH of 7.50, pCO2 27, pO2 77. The primary problem requiring critical attention is polysubstance overdose. Depakote levels are improving, as is the serum ammonia. Will discontinue levocarnitine, charcoal and lactulose. Beta durga overdose is suspected as a portion of the problem and episodes of bradycardia have required Glucagon injection. Will continue close monitoring. Respiratory failure. Will continue with mechanical ventilatory support. Change mode to IMV and reduce sedation. Toxic metabolic encephalopathy. The patient is less impaired today, but encephalopathy persist, likely related to polysubstance overdose. Deep vein thrombosis (DVT) prophylaxis is being addressed with subcutaneous heparin. Ulcer prophylaxis is being addressed with Protonix. Glycemic control is acceptable. Will continue close monitoring of fingersticks. The patient's condition remains critical. Prognosis is guarded. Intensive care unit care (ICU) care is appropriate. 1 hour and 15 minutes was spent in the provision of bedside critical care, exclusive of procedure time.
[2016-10-04] MEDS: PROPOFOL 1,000 MG in APPROPRIATE DILUENT 1 EA IV SCH ×3 (12:35→23:47)
[2016-10-04 16:05] LABS: ABG BASE EXCESS -3.3 (-2.0-2.0); ABG HCO3 19.4 MEQ/L (22.0-26.0); ABG PARTIAL PRESSURE CO2 27.8 mmHg (35.0-45.0); ABG PARTIAL PRESSURE O2 74.2 mmHg (75.0-100.0); ABG STANDARD HCO3 21.7 MEQ/L (22.0-26.0); ABG TOTAL CO2 20.2 MEQ/L (22.0-29.0); ABG pH (ARTERIAL) 7.461 UNITS (7.350-7.450)
[2016-10-04 16:39] LABS: ALBUMIN 2.9 GM/DL (3.2-5.2); ANION GAP 8 MEQ/L (8-16); BLOOD UREA NITROGEN 8 MG/DL (7-18); CALCIUM LEVEL 7.3 MG/DL (8.5-10.1); CARBON DIOXIDE LEVEL 25 MEQ/L (21-32); CHLORIDE LEVEL 113 MEQ/L (98-107); CREATININE FOR GFR 0.63 MG/DL (0.55-1.02); GLOMERULAR FILTRATION RATE > 60.0 (>58); GLUCOSE, FASTING 96 MG/DL (70-105); PHOSPHORUS LEVEL 3.3 MG/DL (2.5-4.9); POTASSIUM SERUM 2.9 MEQ/L (3.5-5.1); SODIUM LEVEL 146 MEQ/L (136-145)
[2016-10-04] MEDS: KCL 20MEQ IN D5/0.45NS 1000ML 1,000 ML IV SCH (17:33)
[2016-10-04] MEDS ORDERED: SODIUM CHLORIDE 0.9% 1000 ML IV ONE (18:00)
[2016-10-04] MEDS ORDERED: NS 500 ML IV ONE (18:15)
[2016-10-05] VITALS (20 sets, daily range): BP systolic 137–197; BP diastolic 70–110; O2SAT 98
[2016-10-05] MEDS: KCL 20MEQ IN D5/0.45NS 1000ML 1,000 ML IV SCH ×2 (03:30→14:03)
[2016-10-05] MEDS: PROPOFOL 1,000 MG in APPROPRIATE DILUENT 1 EA IV SCH (04:08)
[2016-10-05] MEDS: METOCLOPRAMIDE INJ 10MG/2ML VIAL (J2765) IV SCH ×3 (04:26→15:55)
[2016-10-05] MEDS: NITROGLYCERIN 2% OINT 1 GM *U/D* PKT TOP SCH ×4 (04:27→21:24)
[2016-10-05 05:48] LABS: ABG BASE EXCESS 1.7 (-2.0-2.0); ABG HCO3 23.7 MEQ/L (22.0-26.0); ABG PARTIAL PRESSURE CO2 29.5 mmHg (35.0-45.0); ABG PARTIAL PRESSURE O2 92.5 mmHg (75.0-100.0); ABG TOTAL CO2 24.6 MEQ/L (22.0-29.0); ABG pH (ARTERIAL) 7.523 UNITS (7.350-7.450)
[2016-10-05] MEDS: SODIUM CHLORIDE 0.9% INJ 10 ML SYR IV SCH ×3 (06:07→21:24)
[2016-10-05 06:22] LABS: MEAN CORPUSCULAR HEMOGLOBIN 27.7 pg (27.0-33.0); MEAN CORPUSCULAR HGB CONC 33.2 g/dl (32.0-36.5); MEAN CORPUSCULAR VOLUME 83.3 fl (80.0-96.0); RED CELL DISTRIBUTION WIDTH 14.2 % (11.5-14.5); WHITE BLOOD COUNT 9.8 K/mm3 (4.0-10.0)
[2016-10-05 06:43] LABS: ALBUMIN 2.9 GM/DL (3.2-5.2); ALKALINE PHOSPHATASE 50 U/L (45-117); ALT/SGPT 15 U/L (12-78); ANION GAP 9 MEQ/L (8-16); AST/SGOT 9 U/L (15-37); BILIRUBIN,DIRECT 0.1 MG/DL (0.0-0.2); BILIRUBIN,TOTAL 0.4 MG/DL (0.2-1.0); BLOOD UREA NITROGEN 4 MG/DL (7-18); CALCIUM LEVEL 7.7 MG/DL (8.5-10.1); CARBON DIOXIDE LEVEL 26 MEQ/L (21-32); CHLORIDE LEVEL 108 MEQ/L (98-107); CREATININE FOR GFR 0.55 MG/DL (0.55-1.02); GLOMERULAR FILTRATION RATE > 60.0 (>58); GLUCOSE, FASTING 136 MG/DL (70-105); POTASSIUM SERUM 3.3 MEQ/L (3.5-5.1); SODIUM LEVEL 143 MEQ/L (136-145); TOTAL PROTEIN 5.8 GM/DL (6.4-8.2)
[2016-10-05] MEDS: IPRATROPIUM 0.5MG/ALBUTEROL 2.5MG INH SOL UD 3ML (DUONEB)(J7620) NEB SCH ×3 (07:04→15:19)
--- NOTE | 2016-10-05 07:18 | ECGEPIP ---
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
--- NOTE | 2016-10-05 07:32 | ECGEPIP ---
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
[2016-10-05] MEDS: ENOXAPARIN 40 MG/0.4 ML SYRINGE (J1650) SC SCH (08:39)
[2016-10-05] MEDS: PANTOPRAZOLE 40MG INJ (PROTONIX) (C9113) IV SCH (08:39)
--- NOTE | 2016-10-05 09:24 | REP ---
Portable chest, single AP view, the patient semi upright: Comparison is 10/04/2016. The taken to remains in satisfactory location, terminating at the level of the aortic arch. The nasogastric remain in satisfactory location, terminating in the abdominal left upper quadrant. The right subclavian central venous catheter remains in satisfactory location, terminating in the superior vena cava. Lung willis are clear. Cardiac size is magnified by AP positioning. Impression: There is no interval change. Signed by Brian Kong MD 10/05/2016 09:15 A
--- NOTE | 2016-10-05 10:49 | CCN ---
DATE OF SERVICE: 10/05/2016 The patient is seen in the intensive care unit intubated, mechanically ventilated, critically ill. Through the night, we were able to wean her sedation. She is more responsive this morning. Temperature is 99, maximum temperature (Tmax) over the past 24 hours 100.9, pulse rate 86, respirations 25, blood pressure 189/93. Intake and output (I and O) for the past 24 hours 3565 in, 1830 out. She is awake and responsive, following commands. Oral mucosa is pink. Endotracheal tube and nasogastric tubes are in good position. Neck is supple. Heart sounds regular without appreciable murmur. Breath sounds diminished but clear, mildly coarse in the bases. Abdomen is soft. Bowel sounds right lower quadrant. Extremities: Show no significant edema. DIAGNOSTIC STUDIES: Chest imaging was reviewed. There are no new infiltrates. Endotracheal tube (ET) tube is in good position. Sodium is 143, potassium 3.3, chloride 108, CO2 26, BUN 4, creatinine 0.5, glucose 136. White cell count is 9.8, hemoglobin 11.3, hematocrit 33.9, platelet count 164. pH 7.52, PCO2 is 29, pO2 92. Valproic acid is down to 36. Ammonia is down to 21, AST is 9, ALT 15. The primary problem requiring critical attention is acute respiratory failure. Will check ventilator mechanics and wean and extubate today. Multisubstance overdose. Levels are improving. We will consult psychiatry to address her psychiatric conditions. Fluid and electrolytes are improved today. Will continue with intravenous (IV) fluids until she is able to take orally. Deep venous thrombosis (DVT) and ulcer prophylaxis are in place. Glycemic control is acceptable. The patient's condition remains critical. 58 minutes was spent in the provision of bedside critical care and coordination, exclusive of procedure time.
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
[2016-10-06] VITALS (8 sets, daily range): BP systolic 147–181; BP diastolic 70–99
[2016-10-06] MEDS: KCL 20MEQ IN D5/0.45NS 1000ML 1,000 ML IV SCH ×2 (00:06→08:31)
[2016-10-06] MEDS: NITROGLYCERIN 2% OINT 1 GM *U/D* PKT TOP SCH ×5 (04:32→21:21)
[2016-10-06 05:26] LABS: MEAN CORPUSCULAR HEMOGLOBIN 27.6 pg (27.0-33.0); MEAN CORPUSCULAR HGB CONC 33.4 g/dl (32.0-36.5); MEAN CORPUSCULAR VOLUME 82.7 fl (80.0-96.0); RED CELL DISTRIBUTION WIDTH 13.9 % (11.5-14.5); WHITE BLOOD COUNT 9.5 K/mm3 (4.0-10.0)
[2016-10-06 05:35] LABS: ALBUMIN 2.9 GM/DL (3.2-5.2); ALBUMIN/GLOBULIN RATIO 0.91 (1.00-1.93); ALKALINE PHOSPHATASE 51 U/L (45-117); ALT/SGPT 16 U/L (12-78); ANION GAP 8 MEQ/L (8-16); AST/SGOT 9 U/L (15-37); BILIRUBIN,DIRECT 0.2 MG/DL (0.0-0.2); BILIRUBIN,TOTAL 0.5 MG/DL (0.2-1.0); BLOOD UREA NITROGEN 3 MG/DL (7-18); CALCIUM LEVEL 7.7 MG/DL (8.5-10.1); CARBON DIOXIDE LEVEL 29 MEQ/L (21-32); CHLORIDE LEVEL 108 MEQ/L (98-107); CREATININE FOR GFR 0.45 MG/DL (0.55-1.02); GLOMERULAR FILTRATION RATE > 60.0 (>58); GLUCOSE, FASTING 121 MG/DL (70-105); POTASSIUM SERUM 3.2 MEQ/L (3.5-5.1); SODIUM LEVEL 145 MEQ/L (136-145); TOTAL PROTEIN 6.1 GM/DL (6.4-8.2)
[2016-10-06] MEDS: SODIUM CHLORIDE 0.9% INJ 10 ML SYR IV SCH (06:35)
[2016-10-06] MEDS: ENOXAPARIN 40 MG/0.4 ML SYRINGE (J1650) SC SCH (08:50)
--- NOTE | 2016-10-06 12:50 | IPNPDOC ---
[facility] Progress Note Progress Note DATE OF SERVICE: 10/06/16 HISTORY: The patient is met with today in her room with the sitter present. She described that she felt that this provider "lied" but was unable to describe any specifics in regards to this. She then asked where she would be going. She described she wanted a "mental health video editing intern", but when told as to why she would want one she was unable to describe. Her thoughts appeared to be rambling and disorganized. Feels that this provider is lying about his name, but is unable to recollect what this provider is other than the name provided ( ). VITAL SIGNS: See below. NEW TEST RESULTS: see below, hypocalcemia remains CURRENT MEDICATIONS: See below. MENTAL STATUS EXAMINATION: GEN: Disheveled Speech: monotone and more sparse than yesterday Language skills are impaired Thought processes including: disorganized Thought content: paranoid thoughts. Abstract reasoning, and computation: impaired. Description of associations: loose Description of abnormal or psychotic thoughts: refuses to answer most questions on specifics Judgment: poor Insight: poor Orientation: Alert, orientated x2, unable to test finer cognition Recent and remote memory: impaired, some confabulation Attention span and concentration: impaired Language: poor Fund of knowledge: poor Mood: "fine". Affect: flat. DIAGNOSES: 1. Encephalopathy 2. polysubstance use disorder, serve ASSESSMENT: Some improvement, however, still suffering from delirium from OD of Depakote Recs: 1. Delirium -1:1 sitter for wandering and safety -Haldol for agitation, anxiety - Hypocalcemia not yet resolved, can cause metabolic delirium -not yet at base line mental state as observed by this provider from previous admission 2. Polysubstance use -patient suspected to be using exotic intoxicants in the past, could form the nedus for overdose -EEG would rule out complex intoxication (ie spike/spice/karom induced metabolic encephalopathy), could be useful in this situation as a normal EEG would sensitive for this condition. 3. Revisit -planned revisit tomorrow to monitor progress -patient refuses to answer questions, if this is maintained in the absence of delirium, at baseline mental state then an admission could be warranted, however she is currently not yet in a state to determine this. TIME SPENT: 15 minutes. Vital Signs Vital Signs Date Time Temp Pulse Resp B/P (MAP) Pulse Ox O2 Delivery O2 Flow Rate FiO2 10/06/16 09:00 72 162/92 (115) 10/06/16 08:00 98.9 18 Room Air 10/06/16 06:00 94 10/05/16 12:00 1.0 10/05/16 10:00 28 Laboratory Data 24H Labs Laboratory Tests 2 10/05/16 17:49: Bedside Glucose (Misc Panel) 150H 10/06/16 05:11: Anion Gap 8, Glomerular Filtration Rate > 60.0, Blood Urea Nitrogen 3L, Creatinine 0.45L, Sodium Level 145, Potassium Level 3.2L, Chloride Level 108H, Carbon Dioxide Level 29, Calcium Level 7.7L, Aspartate Amino Transf (AST/SGOT) 9L, Alanine Aminotransferase (ALT/SGPT) 16, Alkaline Phosphatase 51, Total Bilirubin 0.5, Direct Bilirubin 0.2, Total Protein 6.1L, Albumin 2.9L, Ammonia 22, Albumin/Globulin Ratio 0.91L CBC/BMP Laboratory Tests 10/06/16 05:11 Red Blood Count 4.13, Mean Corpuscular Volume 82.7, Mean Corpuscular Hemoglobin 27.6, Mean Corpuscular Hemoglobin Concent 33.4, Red Cell Distribution Width 13.9 , Calcium Level 7.7 L, Aspartate Amino Transf (AST/SGOT) 9 L, Alanine Aminotransferase (ALT/SGPT) 16, Alkaline Phosphatase 51, Total Bilirubin 0.5, Direct Bilirubin 0.2, Total Protein 6.1 L, Albumin 2.9 L Current Medications Current Medications Albuterol/ Ipratropium (Duoneb (Ipr 0.5mg/Alb 2.5mg)) 3 ml RQID NEB Last administered on 10/05/16 15:19; Start 10/03/16 at 16:00; Stop 10/05/16 at 19:37 ; Status DC Charcoal (Actidose-Aqua) 25 gm Q4H NG Last administered on 10/04/16 08:05; Start 10/03/16 at 20:00; Stop 10/04/16 at 08:48; Status DC Chlorhexidine Gluconate (Peridex Oral Rinse) SWAB/BRUSH ORAL CAVITY BID MT Last administered on 10/04/16 20:13; Start 10/03/16 at 21:00; Stop 10/05/16 at 08:37; Status DC Enoxaparin Sodium (Lovenox) 40 mg DAILY SC Last administered on 10/06/16 08:50 ; Start 10/04/16 at 09:00; Stop 10/09/16 at 08:59 Etomidate (Amidate) 20 mg STAT STAT IV Last administered on 10/03/16 14:53; Start 10/03/16 at 16:00; Stop 10/03/16 at 16:03; Status DC Glucagon (Glucagon) 1 mg STAT STAT IM Last administered on 10/03/16 13:09; Start 10/03/16 at 13:09; Stop 10/03/16 at 13:10; Status DC Glucagon (Glucagon) 5 mg STAT STAT IV Last administered on 10/03/16 23:07; Start 10/03/16 at 22:20; Stop 10/03/16 at 22:21; Status DC Glucagon (Glucagon) 5 mg STAT STAT IV Last administered on 10/04/16 04:14; Start 10/04/16 at 03:32; Stop 10/04/16 at 03:36; Status DC Heparin Sodium (Heparin Lock Flush 10units/ml) 10 units ASDIRECTED PRN IV SEE LABEL COMMENTS; Start 10/04/16 at 04:45; Stop 10/06/16 at 11:33; Status DC Heparin Sodium (Heparin Lock Flush 10units/ml) 10 units HLF IV Last administered on 10/06/16 06:34; Start 10/04/16 at 06:00; Stop 10/06/16 at 11:33 ; Status DC Home Med (Med Rec Complete!) ASDIRECTED XX ; Start 10/03/16 at 15:30; Stop at 15:30; Status DC Levocarnitine 1200 mg/Sodium Chloride 256 ml @ 512 mls/hr Q4H IV Last administered on 10/04/16 04:12; Start 10/04/16 at 00:00; Stop 10/04/16 at 08:50 ; Status DC Lidocaine HCl (Lidocaine 2% Iv Syringe) 5 ml STAT STAT IV Last administered on 10/03/16 14:52; Start 10/03/16 at 16:00; Stop 10/03/16 at 16:03; Status DC Metoclopramide HCl (REGLAN INJection) 5 mg Q6H IV Last administered on 15:55; Start 10/04/16 at 04:00; Stop 10/05/16 at 19:37; Status DC Midazolam HCl (Versed) 2 mg Q15MP PRN IV ANXIETY Last administered on 20:14; Start 10/03/16 at 19:45; Stop 10/05/16 at 08:37; Status DC Nitroglycerin (Nitrobid 2%) 1 INCH FIRST DOSE NOW H... Q6H TOP Last administered on 10/06/16 08:51; Start 10/04/16 at 04:00; Stop 11/03/16 at 03:59 Pantoprazole Sodium (Protonix) 40 mg DAILY IV Last administered on 10/05/16 08 :39; Start 10/04/16 at 09:00; Stop 10/05/16 at 19:37; Status DC Potassium Chloride 10 meq/ IV Miscellaneous Supplies 100 ml @ 100 mls/hr 1T@18, 19 IV Last administered on 10/03/16 19:59; Start 10/03/16 at 18:00; Stop 10/03 at 23:59; Status DC Potassium Chloride/Dextrose/ Sod Cl 1,000 ml @ 100 mls/hr Q10H IV Last administered on 10/06/16 08:31; Start 10/04/16 at 17:30; Stop 10/06/16 at 11:33 ; Status DC Propofol 1000 mg/ IV Miscellaneous Supplies 100 ml @ 11.86 mls/ hr Q8H26M IV Last administered on 10/03/16 15:17; Start 10/03/16 at 15:15; Stop 10/03/16 at 16:20; Status DC Propofol 1000 mg/ IV Miscellaneous Supplies 100 ml @ 0 mls/hr Q0M IV Last administered on 10/04/16 23:47; Start 10/03/16 at 16:04; Stop 10/05/16 at 08:37 ; Status DC Sodium Chloride 1,000 ml @ 100 mls/hr Q10H IV Last administered on 10/03/16 18:45; Start 10/03/16 at 15:30; Stop 10/03/16 at 19:52; Status DC Sodium Chloride 1,000 ml @ 100 mls/hr Q10H IV Last administered on 10/04/16 17:12; Start 10/03/16 at 21:00; Stop 10/04/16 at 17:18; Status DC Sodium Chloride (Saline Lock Flush) 2 ml ASDIRECTED PRN IV SEE LABEL COMMENTS; Start 10/04/16 at 04:45; Stop 11/03/16 at 04:44; Status Cancel Sodium Chloride (Saline Lock Flush) 2 ml SLF IV Last administered on 10/04/16 14:19; Start 10/04/16 at 06:00; Stop 10/05/16 at 05:50; Status DC Sodium Chloride (Saline Lock Flush) 10 ml ASDIRECTED PRN IV SEE LABEL COMMENTS ; Start 10/04/16 at 04:45; Stop 10/06/16 at 11:33; Status DC Sodium Chloride (Saline Lock Flush) 10 ml SLF IV Last administered on 06:35; Start 10/04/16 at 06:00; Stop 10/06/16 at 11:33; Status DC Succinylcholine Chloride (Quelicin) 100 mg STAT STAT IV Last administered on 14:55; Start 10/03/16 at 16:00; Stop 10/03/16 at 16:03; Status DC Allergies Coded Allergies: Codeine (Unverified Adverse Reaction, Mild, N/V,SWELLING,ITCH,SWEATS, 2) Propoxyphene (Unverified Adverse Reaction, Mild, N/V,SWELLING,ITCH,SWEATS , 07/15/16) GME ATTESTATION My preceptor for this patient encounter was physically present in the building during the encounter and was fully available. As needed, all aspects of the patient interview, examination, medical decision making process, and medical care plan development were reviewed and approved by the preceptor. Preceptor is aware and concurs with the plan as stated in the body of this note and will attest to such by his/her cosignature. ELVI LIVE DO Oct 06, 2016 12:50
[2016-10-06] MEDS: HALOPERIDOL 2 MG TAB PO PRN ×2 (18:20→22:26)
[2016-10-06] MEDS ORDERED: traZODone 50 MG TAB PO SCH (21:00)
[2016-10-06] MEDS: METHADONE 10 MG TAB (S0109) PO SCH (21:20)
[2016-10-06] MEDS: CHLORASEPTIC SPRAY MT PRN (22:23)
[2016-10-07] MEDS: CHLORASEPTIC SPRAY MT PRN (02:09)
[2016-10-07] MEDS: METHADONE 10 MG TAB (S0109) PO SCH ×2 (05:02→13:13)
[2016-10-07] MEDS: NITROGLYCERIN 2% OINT 1 GM *U/D* PKT TOP SCH (05:07)
[2016-10-07 06:00] VITALS: BP 158/92
[2016-10-07 06:25] LABS: MEAN CORPUSCULAR HEMOGLOBIN 29.9 pg (27.0-33.0); MEAN CORPUSCULAR HGB CONC 34.9 g/dl (32.0-36.5); MEAN CORPUSCULAR VOLUME 85.7 fl (80.0-96.0); RED CELL DISTRIBUTION WIDTH 14.1 % (11.5-14.5); WHITE BLOOD COUNT 9.5 K/mm3 (4.0-10.0)
[2016-10-07 06:49] LABS: ALBUMIN 2.9 GM/DL (3.2-5.2); ALBUMIN/GLOBULIN RATIO 0.94 (1.00-1.93); ALKALINE PHOSPHATASE 50 U/L (45-117); ALT/SGPT 23 U/L (12-78); ANION GAP 9 MEQ/L (8-16); AST/SGOT 17 U/L (15-37); BILIRUBIN,DIRECT 0.1 MG/DL (0.0-0.2); BILIRUBIN,TOTAL 0.3 MG/DL (0.2-1.0); BLOOD UREA NITROGEN 10 MG/DL (7-18); CALCIUM LEVEL 8.4 MG/DL (8.5-10.1); CARBON DIOXIDE LEVEL 27 MEQ/L (21-32); CHLORIDE LEVEL 109 MEQ/L (98-107); CREATININE FOR GFR 0.53 MG/DL (0.55-1.02); GLOMERULAR FILTRATION RATE > 60.0 (>58); GLUCOSE, FASTING 112 MG/DL (70-105); POTASSIUM SERUM 3.5 MEQ/L (3.5-5.1); SODIUM LEVEL 145 MEQ/L (136-145)
[2016-10-07] MEDS ORDERED: DOXYCYCLINE HYCLATE 100 MG TAB PO SCH (09:00)
[2016-10-07] MEDS ORDERED: METOPROLOL TART 25 MG TABLET PO SCH (09:00)
[2016-10-07 09:10] VITALS: BP 158/92
[2016-10-07] MEDS: ENOXAPARIN 40 MG/0.4 ML SYRINGE (J1650) SC SCH (09:15)
[2016-10-07] MEDS ORDERED: ONDANSETRON 4 MG TAB (S0181) PO PRN (12:00)
[2016-10-07] MEDS ORDERED: ONDANSETRON 4 MG TAB (S0181) PO SCH (12:00)
--- NOTE | 2016-10-07 12:17 | IPNPDOC ---
[facility] Progress Note Progress Note DATE OF SERVICE: 10/07/16 HISTORY: Patient is seen again today, she is more cognitively clear but remains severely paranoid. In the first interaction when her provider described a medical issue that she needed to have addressed she lashed out and stated she didn't want anyone to "know anything". When told that information needed to be shared among team members she continued to verbally lash out. She was informed that she had the right not to speak to the psychiatry team but then we would have to proceed from assumption in the chart. She then spoke more but was fairly odd and bizarre describing that she had in fact taken an overdose of Depakote but had done it because she felt that her it security consultant was going to place a "federal charge" for prostitution. She appeared to be unamenable to any logical discourse and subsequently ended the interview after she felt that any gentle discussion about her thought process was "mind games". VITAL SIGNS: See below. NEW TEST RESULTS: labs appear to be normalizing CURRENT MEDICATIONS: See below. MENTAL STATUS EXAMINATION: Patient is a disheveled, but dressed in a sweater Speech: Is rambling, pressured . Language skills are poor, with neologisms Thought processes including: perseveration on paranoid delusions Thought content: filled with a sense of paranoid about all aspects of her care, and feels that she is going to be imprisoned for wrong doing. Abstract reasoning, and computation: impaired, concrete thinking Description of associations: loose Description of abnormal or psychotic thoughts: paranoid delusions of being arrested and prosecuted Judgment: poor Insight: poor Orientation: appears to be alert and aware of her surroundings but doesn't wish to answer any "mind games" Recent and remote memory: more intact, remembers how she came to the hospital and the events of the last few days Attention span and concentration: improved, she is able to hold a conversation and focus on it well enough to relay a decent amount of information Language: normal Fund of knowledge: poor Mood: "I don't like you". Affect: tearful, dysthymic DIAGNOSES: 1. Unspecified psychotic disorder Rule of drug induced with concerns in the past of Kartom use 2. Polysubstance use disorder, severe, in controlled setting ASSESSMENT: more cognitively clear but appears to be suffering from severe paranoia, she is not stable psychaitrically to be returned home and will need inpatient care for further eval and management Recs 1. DCS completed, no beds on [facility] at this time, PFS for floor alerted to look for bed placement 2. Methadone can be continued as the cognitive clearing appears to be progressing despite its use at this time. 3. Haldol for Anxiety and agitation, benzos of limited value 4. Please do not resume home psychiatric medications, especially Depakote given the effects on her liver, she still appears per lab work to have low synthetic ability. 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 5. Agree with Dr. Salas check of prolactin, in the light of antipsychotic outpatient medicines (Seroquel). Communicated recs to Dr. Salas TIME SPENT: 30 minutes. Vital Signs Vital Signs Date Time Temp Pulse Resp B/P (MAP) Pulse Ox O2 Delivery O2 Flow Rate FiO2 10/07/16 09:10 61 158/92 10/07/16 06:00 97.3 19 96 Room Air 10/05/16 12:00 1.0 10/05/16 10:00 28 Laboratory Data 24H Labs Laboratory Tests 2 10/07/16 06:06: Anion Gap 9, Glomerular Filtration Rate > 60.0, Blood Urea Nitrogen 10#, Creatinine 0.53L, Sodium Level 145, Potassium Level 3.5, Chloride Level 109H, Carbon Dioxide Level 27, Calcium Level 8.4L, Aspartate Amino Transf (AST/SGOT) 17, Alanine Aminotransferase (ALT/SGPT) 23, Alkaline Phosphatase 50, Total Bilirubin 0.3, Direct Bilirubin 0.1, Total Protein 6.0L, Albumin 2.9L, Ammonia 34H, Albumin/Globulin Ratio 0.94L, Hepatitis C Antibody Index > 11.0H, HIV Antigen/Antibody Combo Qual NEGATIVE CBC/BMP Laboratory Tests 10/07/16 06:06 Red Blood Count 3.94 L, Mean Corpuscular Volume 85.7, Mean Corpuscular Hemoglobin 29.9, Mean Corpuscular Hemoglobin Concent 34.9, Red Cell Distribution Width 14.1, Calcium Level 8.4 L, Aspartate Amino Transf (AST/SGOT) 17, Alanine Aminotransferase (ALT/SGPT) 23, Alkaline Phosphatase 50, Total Bilirubin 0.3, Direct Bilirubin 0.1, Total Protein 6.0 L, Albumin 2.9 L Current Medications Current Medications Albuterol/ Ipratropium (Duoneb (Ipr 0.5mg/Alb 2.5mg)) 3 ml RQID NEB Last administered on 10/05/16 15:19; Start 10/03/16 at 16:00; Stop 10/05/16 at 19:37 ; Status DC Charcoal (Actidose-Aqua) 25 gm Q4H NG Last administered on 10/04/16 08:05; Start 10/03/16 at 20:00; Stop 10/04/16 at 08:48; Status DC Chlorhexidine Gluconate (Peridex Oral Rinse) SWAB/BRUSH ORAL CAVITY BID MT Last administered on 10/04/16 20:13; Start 10/03/16 at 21:00; Stop 10/05/16 at 08:37; Status DC Doxycycline Hyclate (Vibramycin) 100 mg BID PO ; Start 10/07/16 at 09:00; Stop 10/14/16 at 08:59 Enoxaparin Sodium (Lovenox) 40 mg DAILY SC Last administered on 10/07/16 09:15 ; Start 10/04/16 at 09:00; Stop 10/09/16 at 08:59 Etomidate (Amidate) 20 mg STAT STAT IV Last administered on 10/03/16 14:53; Start 10/03/16 at 16:00; Stop 10/03/16 at 16:03; Status DC Glucagon (Glucagon) 1 mg STAT STAT IM Last administered on 10/03/16 13:09; Start 10/03/16 at 13:09; Stop 10/03/16 at 13:10; Status DC Glucagon (Glucagon) 5 mg STAT STAT IV Last administered on 10/03/16 23:07; Start 10/03/16 at 22:20; Stop 10/03/16 at 22:21; Status DC Glucagon (Glucagon) 5 mg STAT STAT IV Last administered on 10/04/16 04:14; Start 10/04/16 at 03:32; Stop 10/04/16 at 03:36; Status DC Haloperidol (Haldol) 2 mg Q4HP PRN PO AGITATION Last administered on 10/06/16 22:26; Start 10/06/16 at 17:00; Stop 11/05/16 at 16:59 Heparin Sodium (Heparin Lock Flush 10units/ml) 10 units ASDIRECTED PRN IV SEE LABEL COMMENTS; Start 10/04/16 at 04:45; Stop 10/06/16 at 11:33; Status DC Heparin Sodium (Heparin Lock Flush 10units/ml) 10 units HLF IV Last administered on 10/06/16 06:34; Start 10/04/16 at 06:00; Stop 10/06/16 at 11:33 ; Status DC Home Med (Med Rec Complete!) ASDIRECTED XX ; Start 10/03/16 at 15:30; Stop at 15:30; Status DC Levocarnitine 1200 mg/Sodium Chloride 256 ml @ 512 mls/hr Q4H IV Last administered on 10/04/16 04:12; Start 10/04/16 at 00:00; Stop 10/04/16 at 08:50 ; Status DC Lidocaine HCl (Lidocaine 2% Iv Syringe) 5 ml STAT STAT IV Last administered on 10/03/16 14:52; Start 10/03/16 at 16:00; Stop 10/03/16 at 16:03; Status DC Methadone HCl (Dolophine) 10 mg Q8H PO Last administered on 10/07/16 05:02; Start 10/06/16 at 22:00; Stop 10/13/16 at 21:59 Metoclopramide HCl (REGLAN INJection) 5 mg Q6H IV Last administered on 15:55; Start 10/04/16 at 04:00; Stop 10/05/16 at 19:37; Status DC Metoprolol Tartrate (Lopressor) 25 mg BID PO Last administered on 10/07/16 09: 10; Start 10/07/16 at 09:00; Stop 11/06/16 at 08:59 Midazolam HCl (Versed) 2 mg Q15MP PRN IV ANXIETY Last administered on 20:14; Start 10/03/16 at 19:45; Stop 10/05/16 at 08:37; Status DC Nitroglycerin (Nitrobid 2%) 1 INCH FIRST DOSE NOW H... Q6H TOP Last administered on 10/07/16 05:07; Start 10/04/16 at 04:00; Stop 10/07/16 at 05:35 ; Status DC Ondansetron HCl (Zofran) 4 mg Q6H PO ; Start 10/07/16 at 12:00; Stop 10/07/16 at 12:01; Status DC Ondansetron HCl (Zofran) 4 mg Q6HP PRN PO NAUSEA; Start 10/07/16 at 12:00; Stop 11/06/16 at 11:59 Pantoprazole Sodium (Protonix) 40 mg DAILY IV Last administered on 10/05/16 08 :39; Start 10/04/16 at 09:00; Stop 10/05/16 at 19:37; Status DC Phenol (Chloraseptic (Cepacol)) 5 spray Q2HP PRN MT SORE THROAT Last administered on 10/07/16 02:09; Start 10/06/16 at 21:00; Stop 11/05/16 at 20:59 Potassium Chloride 10 meq/ IV Miscellaneous Supplies 100 ml @ 100 mls/hr 1T@18, 19 IV Last administered on 10/03/16 19:59; Start 10/03/16 at 18:00; Stop 10/03 at 23:59; Status DC Potassium Chloride/Dextrose/ Sod Cl 1,000 ml @ 100 mls/hr Q10H IV Last administered on 10/06/16 08:31; Start 10/04/16 at 17:30; Stop 10/06/16 at 11:33 ; Status DC Propofol 1000 mg/ IV Miscellaneous Supplies 100 ml @ 11.86 mls/ hr Q8H26M IV Last administered on 10/03/16 15:17; Start 10/03/16 at 15:15; Stop 10/03/16 at 16:20; Status DC Propofol 1000 mg/ IV Miscellaneous Supplies 100 ml @ 0 mls/hr Q0M IV Last administered on 10/04/16 23:47; Start 10/03/16 at 16:04; Stop 10/05/16 at 08:37 ; Status DC Sodium Chloride 1,000 ml @ 100 mls/hr Q10H IV Last administered on 10/03/16 18:45; Start 10/03/16 at 15:30; Stop 10/03/16 at 19:52; Status DC Sodium Chloride 1,000 ml @ 100 mls/hr Q10H IV Last administered on 10/04/16 17:12; Start 10/03/16 at 21:00; Stop 10/04/16 at 17:18; Status DC Sodium Chloride (Saline Lock Flush) 2 ml ASDIRECTED PRN IV SEE LABEL COMMENTS; Start 10/04/16 at 04:45; Stop 11/03/16 at 04:44; Status Cancel Sodium Chloride (Saline Lock Flush) 2 ml SLF IV Last administered on 10/04/16 14:19; Start 10/04/16 at 06:00; Stop 10/05/16 at 05:50; Status DC Sodium Chloride (Saline Lock Flush) 10 ml ASDIRECTED PRN IV SEE LABEL COMMENTS ; Start 10/04/16 at 04:45; Stop 10/06/16 at 11:33; Status DC Sodium Chloride (Saline Lock Flush) 10 ml SLF IV Last administered on 06:35; Start 10/04/16 at 06:00; Stop 10/06/16 at 11:33; Status DC Succinylcholine Chloride (Quelicin) 100 mg STAT STAT IV Last administered on 14:55; Start 10/03/16 at 16:00; Stop 10/03/16 at 16:03; Status DC Trazodone HCl (Desyrel) 50 mg QHS PO Last administered on 10/07/16 00:31; Start 10/06/16 at 21:00; Stop 11/05/16 at 20:59 Allergies Coded Allergies: Codeine (Unverified Adverse Reaction, Mild, N/V,SWELLING,ITCH,SWEATS, ) Propoxyphene (Unverified Adverse Reaction, Mild, N/V,SWELLING,ITCH,SWEATS , 07/15/16) GME ATTESTATION My preceptor for this patient encounter was physically present in the building during the encounter and was fully available. As needed, all aspects of the patient interview, examination, medical decision making process, and medical care plan development were reviewed and approved by the preceptor. Preceptor is aware and concurs with the plan as stated in the body of this note and will attest to such by his/her cosignature. ELVI LIVE DO Oct 07, 2016 12:17
[2016-10-07] MEDS ORDERED: DOXY10CA PO (13:43)
[2016-10-07] MEDS ORDERED: CHLORSP MT (13:43)
--- NOTE | 2016-10-07 14:10 | DSES ---
DATE OF ADMISSION: 10/03/2016 DATE OF DISCHARGE: PRIMARY CARE PROVIDER: None listed. CONSULTANTS: Dr. Perez and Dr. Barlow PROCEDURES: None. COMPLICATIONS: None. ADMISSION/DISCHARGE DIAGNOSES: 1. Acute respiratory failure secondary to intentional drug overdose. 2. Intentional drug overdose with suicide attempt. 3. Anxiety and depression. 4. Polysubstance abuse. 5. Tobacco use. 6. History of hepatitis C. 7. Gastroesophageal reflux disease (GERD). 8. Hypertension. 9. Hyperlipidemia. 10. Osteoarthritis. BRIEF HOSPITAL COURSE: 45-year-old female who presented to the emergency department on 10/03/2016 for acute intentional overdose. She was intubated in the emergency department and had been noted to have overdosed intentionally on Depakote. 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 She was brought in by emergency medical services (EMS). She was lethargic on arrival. She was not able to protect her airway and was intubated. Orogastric tube was inserted and Poison Control was contacted. The patient, after 48 to 72 hours, was able to be weaned off of the ventilator. She was evaluated by psychiatry, who recommended monitoring her on the medical floor for another 24 hours due to her metabolic encephalopathy and if she was medically cleared at that point they would like to have her transferred to inpatient mental health unit. For further information regarding intake physical, laboratories, diagnostics refer to the history and physical, as well as consultation notes by psychiatry. Today, she does appear to be at baseline, although she does have some paranoia that is noted and some anxiety and slight agitation. OBJECTIVE: Temperature 97.3, pulse 61, respiratory rate 19, blood pressure 150/92, SpO2 is 96% on room air. GENERAL: The patient appears to be in no acute distress. She is alert. She does appear to be anxious. She does have some flight of ideas. HEENT: Unremarkable. LUNGS: Clear. HEART: Regular rate and rhythm. She is complaining of some bilateral nipple discharge and is able to produce minimal amount of some darkish material. She does have a history of methicillin resistant Staphylococcus aureus (MRSA) infection in the past that she states that she has seen Dr. Mauricio for. Otherwise, no visible lesions. ABDOMEN: Unremarkable. EXTREMITIES: Lower extremities with no edema and no calf tenderness. LABORATORY DATA: White count is 9.5, hemoglobin is 11.8, platelets 249,000. Sodium is 145, potassium 3.5, chloride 109, bicarbonate 27, anion gap 9, BUN 10, creatinine 0.53, glucose 112, total bilirubin 0.3, direct bilirubin 0.1, AST 17, ALT 23, alkaline phosphatase 50, albumin 2.9, PTH 36.8, and prolactin level was 22. TSH on arrival was 0.502. Urine culture is negative. Her last chest x-ray on 10/05/2016 did not show any cardiopulmonary process. 12-lead EKG done on 10/05/2016 showed sinus rhythm. Nonspecific T wave abnormality. No significant change from prior tracings. DISCHARGE CONDITION: Good. DISPOSITION: Discharge to inpatient mental health unit. DISCHARGE MEDICATIONS: - doxycycline 100 mg twice a day for 7 days for nipple irritation and possible skin infection - Phenol for sore throat - Lipitor 40 mg daily - Colace 100 mg twice a day - Meloxicam 7.5 mg twice a day - methadone 40 mg daily and 25 mg twice a day for chronic pain syndrome - omeprazole 40 mg twice a day - Zofran ODT 4 mg every 4 hours as needed for nausea - oxybutynin chloride 10 mg twice a day - trazodone 50 mg at night DISCHARGE INSTRUCTIONS: Discharge to inpatient mental health unit. Continue with activity as tolerated, regular diet. We will have her complete 7 days of doxycycline due to the nipple discharge, which she may have a secondary skin infection. This should cover for MRSA as well. She should followup outpatient with her primary care provider and should have a mammogram at some point as well. We will defer antipsychotics to psychiatry; however, I do wonder if some of her nipple drainage may be secondary to dopaminergic effects of her psychotropic drugs. At any rate, she will need outpatient followup as outlined, as well as psychiatric followup. Discharge took 35 minutes.
== END 2016-10-07 14:25 | DRG 917 ==
LOC: EDUNIT# 12:09 → EDBD 12:09 → M ED 13:17 → M ED INP 16:04 → M ICU 17:50 → M MSPAV 10-06 11:31
PROVIDERS: ADMIT Internal Medicine Pulmonary Disease; ATTEND Hospitalist
PROC: 5A1945Z Respiratory Ventilation, 24-96 Consecutive Hours (ICD-10-PCS; principal; 2016-10-03)
PROC: 02HV33Z Insertion of Infusion Device into Superior Vena Cava, Percutaneous Approach (ICD-10-PCS; 2016-10-03)
DX: T42.6X2A Poisoning by other antiepileptic and sedative-hypnotic drugs, intentional self-harm, initial encounter (principal); G93.41 Metabolic encephalopathy; J96.01 Acute respiratory failure with hypoxia; K21.9 Gastro-esophageal reflux disease without esophagitis; I10 Essential (primary) hypertension; E78.5 Hyperlipidemia, unspecified; E55.9 Vitamin D deficiency, unspecified; F29 Unspecified psychosis not due to a substance or known physiological condition; M19.90 Unspecified osteoarthritis, unspecified site; F19.14 Other psychoactive substance abuse with psychoactive substance-induced mood disorder; F41.9 Anxiety disorder, unspecified; F17.210 Nicotine dependence, cigarettes, uncomplicated; F32.9 Major depressive disorder, single episode, unspecified; Z91.5 Personal history of self-harm; Z86.14 Personal history of Methicillin resistant Staphylococcus aureus infection; Z79.899 Other long term (current) drug therapy

== ENCOUNTER 2016-10-07 14:50 | Inpatient (IN) | payer MEDICARE, MEDICAID ==
[~2016-10-07] VITALS: Ht 152.4 cm; Wt 77.2 kg
[2016-10-07] MEDS: NICOTINE 21MG/24HR 1 EA TRANSDERMAL TD SCH ×2 (09:00→18:44)
[~2016-10-07 14:50] MED LIST changes: +CHLORSP MT; +DIPH50CA PO; +DIVA250T PO; +DIVA500T3 PO; +DOXY10CA PO; +METO12TA PO; +NIGH25TA11 PO; +ONDA1TAB15 PO; +PATIENT COMMENT; +SERO50TA PO; +TRAZ50TA4 PO; +VALA500T PO; +ZOFR20TA PO
[2016-10-07 15:13] VITALS: BP 141/68
[2016-10-07] MEDS: clonazePAM 1 MG TAB PO SCH ×2 (16:00→20:13)
[2016-10-07] MEDS ORDERED: traZODone 50 MG TAB PO PRN (16:30)
[2016-10-07] MEDS ORDERED: MOM 30ML SUSPENSION UDC PO PRN (16:30)
[2016-10-07] MEDS ORDERED: CHLORASEPTIC SPRAY MT PRN (16:30)
[2016-10-07] MEDS ORDERED: MAALOX 30 ML SUSP *UDC PO PRN (16:30)
[2016-10-07] MEDS: MELOXICAM (MOBIC) 7.5 MG TAB PO SCH (20:09)
[2016-10-07] MEDS: DOXYCYCLINE HYCLATE 100 MG TAB PO SCH (20:09)
[2016-10-07] MEDS: METOPROLOL TART 25 MG TABLET PO SCH (20:12)
[2016-10-07] MEDS: DOCUSATE SODIUM 100 MG CAP PO SCH (20:12)
[2016-10-07] MEDS: QUEtiapine FUMARATE **XR** 200MG TABLET PO SCH (20:12)
[2016-10-07] MEDS: oxyBUTYnin 5 MG TAB PO SCH (20:13)
[2016-10-07] MEDS: OMEPRAZOLE 20 MG CAP PO SCH (20:13)
[2016-10-07] MEDS: traZODone 50 MG TAB PO PRN (20:18)
[2016-10-08 06:29] VITALS: BP 141/68
[2016-10-08] MEDS: DOCUSATE SODIUM 100 MG CAP PO SCH ×2 (07:51→21:29)
[2016-10-08] MEDS: ATORVASTATIN 20 MG TAB PO SCH (07:51)
[2016-10-08] MEDS: NICOTINE 21MG/24HR 1 EA TRANSDERMAL TD SCH (07:51)
[2016-10-08] MEDS: MELOXICAM (MOBIC) 7.5 MG TAB PO SCH ×2 (07:52→21:28)
[2016-10-08] MEDS: OMEPRAZOLE 20 MG CAP PO SCH ×2 (07:52→21:29)
[2016-10-08] MEDS: clonazePAM 1 MG TAB PO SCH ×3 (07:52→21:28)
[2016-10-08] MEDS: METOPROLOL TART 25 MG TABLET PO SCH ×2 (07:52→21:28)
[2016-10-08] MEDS: oxyBUTYnin 5 MG TAB PO SCH ×2 (07:52→21:28)
[2016-10-08] MEDS: DOXYCYCLINE HYCLATE 100 MG TAB PO SCH ×2 (07:52→21:29)
[2016-10-08] MEDS ORDERED: METHADONE 10 MG TAB (S0109) PO SCH (09:00)
[2016-10-08] MEDS ORDERED: HALOPERIDOL 10 MG TAB PO STA (09:20)
[2016-10-08] MEDS ORDERED: diphenhydrAMINE 50 MG CAP PO STA (09:20)
[2016-10-08] MEDS ORDERED: LORazepam 2 MG TAB PO STA (09:20)
[2016-10-08] MEDS ORDERED: HALOPERIDOL 5 MG TAB PO STA (10:37)
--- NOTE | 2016-10-08 15:05 | MHHPE ---
DATE OF ADMISSION: 10/07/2016 Information comes from previous admission and the patient. On 10/07/2016, the patient tells me that she overdosed on Depakote. She had bee on the medical floor. She stated, "You guys are trying to make me believe the system." The patient states, "I should have stayed on Klonopin, I should have stayed with Dr. Dye. I have to get money so I can see Dr. Dye." "My nerves are so bad, heroin is bad for me, methadone is bad for me. I do best on Klonopin, Seroquel, and trazodone." "Dr. العراقي in the past put me on Depakote." History from previous admission: This 45-year-old woman was brought from her counselor's office in [facility] on 08/14/2016 endorsing passive suicidality and was brought to the emergency room for evaluation. In the emergency room, she appeared fairly paranoid and felt that she was going to be sent to [facility] for what she did. She additionally made allusions to some form of trauma with a die maker bench stamping and his . She was difficult to assess in the emergency room, but was subsequently transferred to inpatient psychiatry. When the patient was met with, she was fairly paranoid. It was difficult to get much information out of her. She continued to allude to trauma relating to a die maker bench stamping and his . However, when asked more specifically, she stated that she was uncomfortable and did not want speak about it. She spoke at length that she felt that there were people in [place] who were out to do her harm and that she could not control all of [place] and therefore was unsafe. She went into a diatribe about wanting a hysterectomy and demanding her discharge. After some listening, the patient appeared more calm, but ultimately she only wanted to see Dr. Franks, her attending physician, rather than the resident physician. PAST PSYCHIATRIC HISTORY: Previously diagnosed with bipolar disorder with manic episodes. Mentions depression and anxiety. Outpatient treatment: Presently was seeing a therapist at [facility] and was in rehabilitation. Injurious behavior per record. Mention of suicide attempts with gestures in the past per notes. PAST MEDICATION HISTORY: The patient was tried on Depakote and other neuroleptics. Home medications in the past have also been Risperdal, Depakote and trazodone. PAST MEDICAL HISTORY: Hyperlipidemia and urinary incontinence. FAMILY PSYCHIATRIC HISTORY: Unknown. SOCIAL HISTORY: She does not elaborate about her current social situation. SUBSTANCE ABUSE HISTORY: The patient appears to be treated in [facility]. Progress notes from my contact with the patient of 08/28/2016 and 08/29/2016 stated the following: At that particular time, the patient was guarded and suspicious with staff members and was unable to give details about certain events that occurred between her die maker bench stamping and his . I met with her and her first statement was that she wanted a hysterectomy. She wanted it arranged during this visit. She stated that she did not want any more kids. She stated that she had a 24-year-old son who did not talk to her. She stated she was here because she asked a friend in a support group for a gun. This was again a note from 08/27/2016. In a very loosely associated and confusing manner she made significant statements of paranoia, thinking the staff was going to put her care home and asked the staff to kill herself, as well as references to viral website. She went into her story about her die maker bench stamping and her die maker bench stamping's with her die maker bench stamping having told her that she would be spending 25 years in care home and that he told her that she was a running a prostitution ring. Please refer to note of 08/27/2016. At that time, I stated that the patient was significantly paranoid and was under the treatment of Dr. Franks. I increased her Seroquel to 200 and noted that she had previously been on Risperdal. On 08/29/2016, she was in good spirits but had numerous requests. On that date she did not seem to be expressing any hallucinations or delusions. Discharge note at that time by Dr. Davis stated that the patient was on Seroquel 150 mg, Senokot, polyethylene glycol, nicotine, multivitamin, methadone 40 mg, Depakote 250 mg daily and 500 mg at night. At that time, her discharge assessment was that she was a 45-year-old female with an episode of paranoia and distortion and some concern that substance abuse could be a concern. At that time, the patient was interested in changing to Suboxone rather than methadone. DIAGNOSIS: Bipolar disorder with psychotic features.
[2016-10-08 18:00] VITALS: BP 148/71
[2016-10-08] MEDS: ONDANSETRON 4 MG TAB (S0181) PO PRN (21:27)
[2016-10-08] MEDS: QUEtiapine FUMARATE **XR** 200MG TABLET PO SCH (21:29)
[2016-10-08] MEDS: traZODone 50 MG TAB PO PRN (22:40)
[2016-10-09] MEDS: ONDANSETRON 4 MG TAB (S0181) PO PRN ×2 (02:01→15:25)
[2016-10-09] MEDS: HALOPERIDOL 2 MG TAB PO PRN (02:01)
[2016-10-09] MEDS ORDERED: LORazepam 1 MG TAB PO ONE (02:45)
[2016-10-09 06:58] VITALS: BP 182/92
[2016-10-09] MEDS: DOXYCYCLINE HYCLATE 100 MG TAB PO SCH ×2 (08:35→20:35)
[2016-10-09] MEDS: DOCUSATE SODIUM 100 MG CAP PO SCH ×2 (08:35→20:34)
[2016-10-09] MEDS: oxyBUTYnin 5 MG TAB PO SCH ×2 (08:35→20:34)
[2016-10-09] MEDS: clonazePAM 1 MG TAB PO SCH ×3 (08:35→20:34)
[2016-10-09] MEDS: METOPROLOL TART 25 MG TABLET PO SCH ×2 (08:40→20:35)
[2016-10-09] MEDS: ATORVASTATIN 20 MG TAB PO SCH (08:41)
[2016-10-09] MEDS: OMEPRAZOLE 20 MG CAP PO SCH ×2 (08:41→20:34)
[2016-10-09] MEDS: NICOTINE 21MG/24HR 1 EA TRANSDERMAL TD SCH (08:41)
[2016-10-09] MEDS: MELOXICAM (MOBIC) 7.5 MG TAB PO SCH ×2 (08:41→20:35)
[2016-10-09] MEDS ORDERED: QUEtiapine FUMARATE 200 MG TAB PO SCH (09:00)
--- NOTE | 2016-10-09 09:08 | IPN ---
DATE: 10/08/2016 Ro Elizabeth was extremely agitated today with staff and patients. Became explosive and irritable and required to be coded and placed in a separate room. She was given a stat dose of Haldol 10 mg orally at 9:20 and an addition 5 mg at 10:37. She was given 2 mg of lorazepam. Her explosiveness appeared irrational and paranoid. Speech was loud. Thought process was illogical. No loose associations. Apparent paranoid psychotic thoughts. Poor judgment and insight. Fully oriented. Recent and remote memory intact. Attention and concentration fair. No disturbance of language. Full fund of knowledge. Mood explosive. Affect congruent. Diagnosis: Schizophrenia/ Drug Abuse MTDD
[2016-10-09] MEDS: QUEtiapine FUMARATE 50 MG TAB PO SCH (15:24)
[2016-10-09 18:00] VITALS: BP 171/103
--- NOTE | 2016-10-09 19:03 | IPN ---
DATE: 10/09/2016 Ro Elizabeth was in conflict with other patients yesterday, name-calling and aggression, and had to be placed in her own room. She is presently on a one-to-one. She received lorazepam 1 mg, Haldol 5 mg and Benadryl 50 mg. I have increased her Seroquel to 150 mg three times a day and 200 mg at night. She is presently denying hallucinations, delusions, obsessions, compulsions or phobias. She has apologized for her behavior yesterday, and is presently denying any hallucinations, delusions, obsessions, compulsions and phobias. Her speech is somewhat rapid. Thought processes seems logical at this time. There are no loose associations. Judgment and insight somewhat improved over yesterday. She is fully oriented. Recent and remote memory intact. Attention and concentration are normal. No disturbances of language. Full fund of knowledge. Mood is fair. Affect is neutral. The patient is requesting to get out of her room. Based on yesterday's behavior and difficulties, I will discuss this with nursing staff. IMPRESSION: Bipolar disorder with psychotic features.
[2016-10-09] MEDS: QUEtiapine FUMARATE **XR** 200MG TABLET PO SCH (20:34)
[2016-10-09] MEDS: traZODone 50 MG TAB PO PRN (20:36)
[2016-10-10 06:21] VITALS: BP 155/97
[2016-10-10] MEDS: HALOPERIDOL 2 MG TAB PO PRN (06:34)
[2016-10-10] MEDS: ACETAMINOPHEN TAB 650MG DOSE (2X325MG) PO PRN (06:35)
--- NOTE | 2016-10-10 08:34 | HPE ---
DATE OF ADMISSION: 10/07/2016 HISTORY OF PRESENT ILLNESS: Please refer to the psychiatric history and evaluation for further details on this admission. This examination and history is intended for medical issues which may need treatment, followup or consultation on this 45-year-old female who was transferred from the ICU after having been treated and stabilized for an overdose of Depakote requiring intubation. SOCIAL HISTORY: She is single. She lives in [place]. She smokes one pack of cigarettes per day. ETOH - None. Illicit drugs: She has a history of use of heroin and crack cocaine. She has attended the [facility] methadone program. PAST MEDICAL HISTORY: Anxiety. Depression. Hyperlipidemia. Hypertension. Gastroesophageal reflux disease. Arthritis. History of methicillin resistant Staphylococcus aureus (MRSA). History of hepatitis C, status post treatment with Dr. Mauricio. Polysubstance abuse. Tobacco use. Chronic constipation. Overactive bladder. Insomnia. Chronic back pain. PAST SURGICAL HISTORY: . Left breast cyst removal. Left groin cyst removal. FAMILY HISTORY: Noncontributory. REVIEW OF SYSTEMS: No complaint of headache. No blurred or double vision. No fever. No chills. No tinnitus. No hoarseness. She is complained of some slight sore throat. No difficulty swallowing. Breast, no masses. Cardiovascular: No complaints of chest pain, shortness of breath, palpitations or edema. Respiratory: No cough. No sputum production. No hemoptysis. No orthopnea. No wheeze. GI: She has a history of gastroesophageal reflux disease, currently stable. History of hepatitis C. No complaints of abdominal pain. No hematochezia. No melena. No change in appetite or bowel habits. : No hematuria, dysuria or frequency. Musculoskeletal: She has a history of chronic back pain. No joint redness or swelling. Endocrine: She has a history of hyperlipidemia. No polyuria, polydipsia or polyphagia. Hematological: No history of anemia. Neurological: No history of anxiety. She has a history of suicidal ideation. PHYSICAL EXAMINATION: 45-year-old cooperative female in no acute distress. Vital signs stable. Height 60 inches, weight 77.2 kilograms, body mass index (BMI) 33.2. Blood pressure 150/87, pulse 70, respirations 20, temperature 98.8. The patient is alert and oriented times three, agitated. Upset over being in the hospital still. Pupils equal and reactive to light. Extraocular movements intact. Pharynx, tongue, and gums pink and moist. Tongue is midline. Neck is supple, without lymphadenopathy. No thyromegaly. No goiter Chest has decreased breath sounds, especially on the left. Heart is regular without murmur or gallop. Abdomen is soft, nontender. No masses, pulsations or bruits. No organomegaly. Bowel sounds positive. /Rectal: Not done. Extremities show cyanosis, clubbing or edema. Some slight bruising at the antecubital area left antecubital space. Peripheral pulses equal and palpable bilaterally. Skin is warm and dry. IMPRESSION AND PLAN: 1. Psychiatric - plan per psychiatry. 2. Will continue her metoprolol. 3. Methadone clinic as an outpatient. 4. Gastroesophageal reflux disease: Continue omeprazole. 5. Continue followup with primary care for following her cholesterol. Jerrell the wardsperson was present during the examination. DEREK
[2016-10-10] MEDS: NICOTINE 21MG/24HR 1 EA TRANSDERMAL TD SCH (09:00)
[2016-10-10] MEDS: QUEtiapine FUMARATE 50 MG TAB PO SCH (09:22)
[2016-10-10] MEDS: oxyBUTYnin 5 MG TAB PO SCH ×2 (09:22→20:59)
[2016-10-10] MEDS: DOCUSATE SODIUM 100 MG CAP PO SCH ×2 (09:22→20:57)
[2016-10-10] MEDS: DOXYCYCLINE HYCLATE 100 MG TAB PO SCH ×2 (09:22→20:53)
[2016-10-10] MEDS: OMEPRAZOLE 20 MG CAP PO SCH ×2 (09:23→20:53)
[2016-10-10] MEDS: clonazePAM 1 MG TAB PO SCH ×3 (09:23→20:57)
[2016-10-10] MEDS: ATORVASTATIN 20 MG TAB PO SCH (09:23)
[2016-10-10] MEDS: MELOXICAM (MOBIC) 7.5 MG TAB PO SCH ×2 (09:23→20:55)
[2016-10-10] MEDS: METOPROLOL TART 25 MG TABLET PO SCH ×2 (09:24→20:56)
[2016-10-10] MEDS: LISINOPRIL 5 MG TAB PO SCH (09:25)
--- NOTE | 2016-10-10 14:36 | IPNPDOC ---
[facility] Progress Note Progress Note DATE OF SERVICE: 10/10/16 HISTORY: Day 4 of admission. Pt has been assigned to blurb writer's care. VITAL SIGNS: See below. NEW TEST RESULTS: toxicology screen, other labs CURRENT MEDICATIONS: See below. MENTAL STATUS EXAMINATION: Patient is a 45-year old female, who appears younger than given age. Pt is verbally overproductive, dressed in hospital attire, hygiene is good. Speech: Is intrusive, loud, hostile at times. Spontaneous for sure. Language skills are intact Thought processes including: no obsessions, compulsions or hallucinations. However it appears the pt is very delusional regarding the behavior of her health club manager and his . She is tangential and circumstantial. Thought content: "My health club manager has told me there is a warrant out for my arrest for running a prostitution ring. They have put naked photos of me on the internet. My life is ruined".Abstract reasoning, and computation: good. Description of associations: fair. Description of abnormal or psychotic thoughts: "they have accused me of illegal taping and wire tapping, they have told everyone I'm Schizophrenic. They have accused me of bringing in heroine". Judgment:poor Insight: poor Orientation: well oriented in all spheres. Recent and remote memory: good. Attention span and concentration: fair, pt got up and went to the phone right in the middle of our conversation Fund of knowledge: full. Mood:angry Affect: hyper. DIAGNOSES: 1. substance induced mood disorder 2. r/o schizophrenia. 3. r/o bipolar disorder ASSESSMENT:Pt is on the methadone program at [facility] for opiate abuse. She was admitted on a very high dose of clonazepam 3mg tid. She asked to have her seroquel changed to only nighttime dosing as she is too groggy during the day time. She states she woul dlike a little methadone at bedtime as she is withdrawing from it and it makes her cranky and uncomfortable. She states she wants to resume suboxone with Dr. Montero rather than return to [facility]. She says the health club manager's works at [facility]. She also claims the health club manager works for the [employer] department. She also requested discharge as it is the beginning of the month and she has things to do. then she states she is moving as the [employer] is across the street and she salmeron snot feel comfortable living there any longer. Pt admits to loss of interest in many things she once enjoyed. MANAGEMENT PLAN: Clonazepam was reduced from 3 mg tid to 1 mg tid but pt was very dissatisfied with that much of reduction. Agreed to make Clonazepam 2 mg tid available for her which made her more at ease. also added 1 dose of Methadone at hs as she requested and will evaluate that tomorrow. Pt will be scheduled for outpatient follow up upon leaving the unit. TIME SPENT: 30 minutes. Vital Signs Vital Signs Date Time Temp Pulse Resp B/P (MAP) Pulse Ox O2 Delivery O2 Flow Rate FiO2 10/10/16 09:24 70 140/90 10/10/16 06:21 98.2 16 Room Air 10/07/16 15:13 93 Current Medications Current Medications Acetaminophen (Tylenol Tab) 650 mg Q6HP PRN PO PAIN / FEVER Last administered on 10/10/16 06:35; Start 10/10/16 at 05:15; Stop 11/09/16 at 05:14 Al Hydrox/Mg Hydrox/Simethicone (Mylanta) 30 ml Q4HP PRN PO HEARTBURN/ INDIGESTION; Start 10/07/16 at 16:30; Stop 11/06/16 at 16:29 Atorvastatin Calcium (Lipitor) 40 mg DAILY PO Last administered on 10/10/16 09: 23; Start 10/08/16 at 09:00; Stop 11/07/16 at 08:59 Clonazepam (KlonoPIN) 1 mg TID PO ; Start 10/10/16 at 16:00; Stop 10/17/16 at 15: 59 Clonazepam (KlonoPIN) 2 mg TID PO Last administered on 10/07/16 20:13; Start 10/07/16 at 16:00; Stop 10/08/16 at 07:39; Status DC Clonazepam (KlonoPIN) 3 mg TID PO Last administered on 10/10/16 09:23; Start at 09:00; Stop 10/10/16 at 12:20; Status DC Diphenhydramine HCl (Benadryl) 50 mg STAT STAT PO Last administered on 09:31; Start 10/08/16 at 09:20; Stop 10/08/16 at 09:22; Status DC Docusate Sodium (Colace) 100 mg BID PO Last administered on 10/10/16 09:22; Start 10/07/16 at 21:00; Stop 11/06/16 at 20:59 Doxycycline Hyclate (Vibramycin) 100 mg BID PO Last administered on 10/10/16 09 :22; Start 10/07/16 at 21:00; Stop 10/13/16 at 21:01 Haloperidol (Haldol) 2 mg Q6HP PRN PO AGITATION Last administered on 10/10/16 06:34; Start 10/07/16 at 16:30; Stop 11/06/16 at 16:29 Haloperidol (Haldol) 5 mg STAT STAT PO Last administered on 10/08/16 11:00; Start 10/08/16 at 10:37; Stop 10/08/16 at 10:38; Status DC Haloperidol (Haldol) 10 mg STAT STAT PO Last administered on 10/08/16 09:31; Start 10/08/16 at 09:20; Stop 10/08/16 at 09:22; Status DC Lisinopril (Prinivil) 5 mg DAILY PO Last administered on 10/10/16 09:25; Start 10/10/16 at 09:00; Stop 11/09/16 at 08:59 Lorazepam (Ativan) 2 mg STAT STAT PO Last administered on 10/08/16 09:31; Start 10/08/16 at 09:20; Stop 10/08/16 at 09:22; Status DC Magnesium Hydroxide (Milk Of Magnesia) 30 ml DAILYPRN PRN PO CONSTIPATION; Start 10/07/16 at 16:30; Stop 11/06/16 at 16:29 Meloxicam (Mobic) 7.5 mg BID PO Last administered on 10/10/16 09:23; Start at 21:00; Stop 11/06/16 at 20:59 Methadone HCl (Dolophine) 40 mg DAILY PO ; Start 10/08/16 at 09:00; Stop at 08:59; Status Cancel Metoprolol Tartrate (Lopressor) 25 mg BID PO Last administered on 10/10/16 09: 24; Start 10/07/16 at 21:00; Stop 11/06/16 at 20:59 Nicotine (Nicoderm Cq 21mg) 1 patch DAILY TD Last administered on 10/09/16 08: 41; Start 10/07/16 at 09:00; Stop 11/06/16 at 08:59 Omeprazole (PriLOSEC) 40 mg BID PO Last administered on 10/10/16 09:23; Start 10/07/16 at 21:00; Stop 11/06/16 at 20:59 Ondansetron HCl (Zofran) 4 mg Q4HP PRN PO NAUSEA Last administered on 15:25; Start 10/07/16 at 16:45; Stop 11/06/16 at 16:44 Oxybutynin Chloride (Ditropan) 10 mg BID PO Last administered on 10/10/16 09:22 ; Start 10/07/16 at 21:00; Stop 11/06/16 at 20:59 Phenol (Chloraseptic (Cepacol)) 5 spray Q2HP PRN MT SORE THROAT; Start at 16:30; Stop 10/14/16 at 16:29 Quetiapine Fumarate (SEROquel XR) 200 mg QHS PO Last administered on 20:34; Start 10/07/16 at 21:00; Stop 10/10/16 at 12:01; Status DC Quetiapine Fumarate (SEROquel XR) 300 mg QHS PO ; Start 10/10/16 at 21:00; Stop 11/09/16 at 20:59 Quetiapine Fumarate (SEROquel) 150 mg BID@0900,1500 PO Last administered on 08:41; Start 10/09/16 at 09:00; Stop 10/09/16 at 14:35; Status DC Quetiapine Fumarate (SEROquel) 150 mg BID@0900,1500 PO Last administered on 10/10 09:22; Start 10/09/16 at 15:00; Stop 10/10/16 at 12:01; Status DC Trazodone HCl (Desyrel) 50 mg QHSP PRN PO INSOMNIA; Start 10/07/16 at 16:30; Stop 10/07/16 at 17:57; Status DC Trazodone HCl (Desyrel) 100 mg QHSP PRN PO INSOMNIA Last administered on t 20:36; Start 10/07/16 at 18:00; Stop 11/06/16 at 17:59 Allergies Coded Allergies: Codeine (Unverified Adverse Reaction, Mild, N/V,SWELLING,ITCH,SWEATS, ) Propoxyphene (Unverified Adverse Reaction, Mild, N/V,SWELLING,ITCH,SWEATS , 07/15/16) Jaye Davenport October 10, 2016 14:36
[2016-10-10] MEDS ORDERED: clonazePAM 1 MG TAB PO SCH (16:00)
[2016-10-10 18:00] VITALS: BP 136/88
[2016-10-10] MEDS: traZODone 50 MG TAB PO PRN (20:57)
[2016-10-10] MEDS: QUEtiapine 300 MG XR TABLET(SEROQUEL XR) PO SCH (20:57)
[2016-10-10] MEDS ORDERED: METHADONE 10 MG TAB (S0109) PO ONE (21:00)
[2016-10-11 06:16] VITALS: BP 138/78
[2016-10-11] MEDS: DOCUSATE SODIUM 100 MG CAP PO SCH ×2 (08:23→20:16)
[2016-10-11] MEDS: ATORVASTATIN 20 MG TAB PO SCH (08:24)
[2016-10-11] MEDS: OMEPRAZOLE 20 MG CAP PO SCH ×2 (08:24→20:17)
[2016-10-11] MEDS: LISINOPRIL 5 MG TAB PO SCH (08:24)
[2016-10-11] MEDS: clonazePAM 1 MG TAB PO SCH ×3 (08:24→20:18)
[2016-10-11] MEDS: MELOXICAM (MOBIC) 7.5 MG TAB PO SCH ×2 (08:24→20:17)
[2016-10-11] MEDS: METOPROLOL TART 25 MG TABLET PO SCH ×2 (08:24→20:18)
[2016-10-11] MEDS: DOXYCYCLINE HYCLATE 100 MG TAB PO SCH ×2 (08:24→20:17)
[2016-10-11] MEDS: NICOTINE 21MG/24HR 1 EA TRANSDERMAL TD SCH (08:25)
[2016-10-11] MEDS: oxyBUTYnin 5 MG TAB PO SCH ×2 (08:25→20:18)
[2016-10-11] MEDS ORDERED: HALOPERIDOL 10 MG TAB PO STA (13:56)
[2016-10-11] MEDS ORDERED: LORazepam 2 MG/ML VIAL (J2060) IM STA (13:59)
[2016-10-11] MEDS ORDERED: diphenhydrAMINE INJ 50MG/ML VIAL (J1200) IM ONE (14:00)
[2016-10-11] MEDS ORDERED: HALOPERIDOL 5 MG/ML VIAL (J1630) IM PRN (14:00)
--- NOTE | 2016-10-11 14:51 | IPNPDOC ---
[facility] Progress Note Progress Note DATE OF SERVICE: 10/11/16 HISTORY: . VITAL SIGNS: See below. NEW TEST RESULTS: . CURRENT MEDICATIONS: See below. MENTAL STATUS EXAMINATION: Patient is a 45-year old female, who is wearing hospital garb, hygiene is acceptable, loud and anxious. Speech: Is cursing Language skills are intact Thought processes including: fear, suspicion, delusions Thought content: asking God to take her, demand discharge, asking for more medication. Abstract reasoning, and computation: poor Description of associations: uncooperative Description of abnormal or psychotic thoughts: sexual preoccupations at time, making obscene comments and remarks, does not appear to be reality based, delusions regarding treatment, statements of suicide, threats to harm to others. Judgment: poor Insight: poor Orientation: to person, place and situation Recent and remote memory: impaired Attention span and concentration: impaired Fund of knowledge: impaired Mood: hostile, angry. Affect: agitated, aggressive, anxious DIAGNOSES: 1. substance induce mood disorder 2. r/o schizophrenia 3. r/o bipolar disorder I ASSESSMENT:met with pt in the morning who reported feeling much better after receiving methadone last night. Stated she did not want anymore methadone. Explained it was a one time order. pt stated she would go to treatment but is worried about getting clothes from her apartment. Options discussed to facilitate this. Nothing satisfied her. pt became very agitated and agressive iin the afternoon, threatening to harm self and others. demanding to leave. Yelling at staff. requested an injection in the afternoon to help her calm down which was administered. Pt remains very tangential, thoughts are scattered and illogical. does not make sense some of the time. crying and asking God to take her. Says she does not have the will to fight it anymore. MANAGEMENT PLAN: Transfer to [facility] not possible due to insurance. May be able to transfer her to [facility]. trying to get information regarding the clonazepam taper for them to accept her. their med nurse is to call us back. In the mean time pt required/requested IM Haldol,ativan and benadryl for calming. TIME SPENT: 40 minutes. Vital Signs Vital Signs Date Time Temp Pulse Resp B/P (MAP) Pulse Ox O2 Delivery O2 Flow Rate FiO2 10/11/16 08:24 125/78 10/11/16 08:24 89 5/2/17 06:16 97.8 18 Room Air 10/07/16 15:13 93 Current Medications Current Medications Acetaminophen (Tylenol Tab) 650 mg Q6HP PRN PO PAIN / FEVER Last administered on 10/10/16 06:35; Start 10/10/16 at 05:15; Stop 11/09/16 at 05:14 Al Hydrox/Mg Hydrox/Simethicone (Mylanta) 30 ml Q4HP PRN PO HEARTBURN/ INDIGESTION; Start 10/07/16 at 16:30; Stop 11/06/16 at 16:29 Atorvastatin Calcium (Lipitor) 40 mg DAILY PO Last administered on 10/11/16 08: 24; Start 10/08/16 at 09:00; Stop 11/07/16 at 08:59 Clonazepam (KlonoPIN) 1 mg TID PO Last administered on 10/10/16 15:50; Start at 16:00; Stop 10/10/16 at 16:00; Status DC Clonazepam (KlonoPIN) 2 mg TID PO Last administered on 10/07/16 20:13; Start 10/07/16 at 16:00; Stop 10/08/16 at 07:39; Status DC Clonazepam (KlonoPIN) 2 mg TID PO Last administered on 10/11/16 08:24; Start at 16:00; Stop 10/17/16 at 15:59 Clonazepam (KlonoPIN) 3 mg TID PO Last administered on 10/10/16 09:23; Start at 09:00; Stop 10/10/16 at 12:20; Status DC Diphenhydramine HCl (Benadryl) 50 mg STAT STAT PO Last administered on 09:31; Start 10/08/16 at 09:20; Stop 10/08/16 at 09:22; Status DC Docusate Sodium (Colace) 100 mg BID PO Last administered on 10/11/16 08:23; Start 10/07/16 at 21:00; Stop 11/06/16 at 20:59 Doxycycline Hyclate (Vibramycin) 100 mg BID PO Last administered on 10/11/16 08 :24; Start 10/07/16 at 21:00; Stop 10/13/16 at 21:01 Haloperidol (Haldol) 2 mg Q6HP PRN PO AGITATION Last administered on 10/10/16 06:34; Start 10/07/16 at 16:30; Stop 11/06/16 at 16:29 Haloperidol (Haldol) 5 mg STAT STAT PO Last administered on 10/08/16 11:00; Start 10/08/16 at 10:37; Stop 10/08/16 at 10:38; Status DC Haloperidol (Haldol) 10 mg Q8HP PRN IM AGITATION Last administered on 10/11/16 14:18; Start 10/11/16 at 14:00; Stop 10/11/16 at 14:36; Status DC Haloperidol (Haldol) 10 mg STAT STAT PO Last administered on 10/08/16 09:31; Start 10/08/16 at 09:20; Stop 10/08/16 at 09:22; Status DC Haloperidol (Haldol) 10 mg STAT STAT PO ; Start 10/11/16 at 13:56; Stop 10/11/16 at 13:59; Status DC Lisinopril (Prinivil) 5 mg DAILY PO Last administered on 10/11/16 08:24; Start 10/10/16 at 09:00; Stop 11/09/16 at 08:59 Lorazepam (Ativan) 2 mg STAT STAT IM Last administered on 10/11/16 14:18; Start 10/11/16 at 13:59; Stop 10/11/16 at 14:00; Status DC Lorazepam (Ativan) 2 mg STAT STAT PO Last administered on 10/08/16 09:31; Start 10/08/16 at 09:20; Stop 10/08/16 at 09:22; Status DC Magnesium Hydroxide (Milk Of Magnesia) 30 ml DAILYPRN PRN PO CONSTIPATION; Start 10/07/16 at 16:30; Stop 11/06/16 at 16:29 Meloxicam (Mobic) 7.5 mg BID PO Last administered on 10/11/16 08:24; Start at 21:00; Stop 11/06/16 at 20:59 Methadone HCl (Dolophine) 40 mg DAILY PO ; Start 10/08/16 at 09:00; Stop at 08:59; Status Cancel Metoprolol Tartrate (Lopressor) 25 mg BID PO Last administered on 10/11/16 08: 24; Start 10/07/16 at 21:00; Stop 11/06/16 at 20:59 Nicotine (Nicoderm Cq 21mg) 1 patch DAILY TD Last administered on 10/11/16 08: 25; Start 10/07/16 at 09:00; Stop 11/06/16 at 08:59 Omeprazole (PriLOSEC) 40 mg BID PO Last administered on 10/11/16 08:24; Start 10/07/16 at 21:00; Stop 11/06/16 at 20:59 Ondansetron HCl (Zofran) 4 mg Q4HP PRN PO NAUSEA Last administered on 15:25; Start 10/07/16 at 16:45; Stop 11/06/16 at 16:44 Oxybutynin Chloride (Ditropan) 10 mg BID PO Last administered on 10/11/16 08:25 ; Start 10/07/16 at 21:00; Stop 11/06/16 at 20:59 Phenol (Chloraseptic (Cepacol)) 5 spray Q2HP PRN MT SORE THROAT Last administered on 10/10/16 20:58; Start 10/07/16 at 16:30; Stop 10/14/16 at 16:29 Quetiapine Fumarate (SEROquel XR) 200 mg QHS PO Last administered on 20:34; Start 10/07/16 at 21:00; Stop 10/10/16 at 12:01; Status DC Quetiapine Fumarate (SEROquel XR) 300 mg QHS PO Last administered on 20:57; Start 10/10/16 at 21:00; Stop 11/09/16 at 20:59 Quetiapine Fumarate (SEROquel) 150 mg BID@0900,1500 PO Last administered on 08:41; Start 10/09/16 at 09:00; Stop 10/09/16 at 14:35; Status DC Quetiapine Fumarate (SEROquel) 150 mg BID@0900,1500 PO Last administered on 10/10 09:22; Start 10/09/16 at 15:00; Stop 10/10/16 at 12:01; Status DC Trazodone HCl (Desyrel) 50 mg QHSP PRN PO INSOMNIA; Start 10/07/16 at 16:30; Stop 10/07/16 at 17:57; Status DC Trazodone HCl (Desyrel) 100 mg QHSP PRN PO INSOMNIA Last administered on 20:57; Start 10/07/16 at 18:00; Stop 11/06/16 at 17:59 Allergies Coded Allergies: Codeine (Unverified Adverse Reaction, Mild, N/V,SWELLING,ITCH,SWEATS, ) Propoxyphene (Unverified Adverse Reaction, Mild, N/V,SWELLING,ITCH,SWEATS , 07/15/16) Jaye Davenport October 11, 2016 14:51
[2016-10-11 18:00] VITALS: BP 128/88
[2016-10-11] MEDS: traZODone 50 MG TAB PO PRN (20:16)
[2016-10-11] MEDS: QUEtiapine 300 MG XR TABLET(SEROQUEL XR) PO SCH (20:17)
[2016-10-12] MEDS: ONDANSETRON 4 MG TAB (S0181) PO PRN (00:11)
[2016-10-12] MEDS: ACETAMINOPHEN TAB 650MG DOSE (2X325MG) PO PRN (04:31)
[2016-10-12 06:26] VITALS: BP 148/92
[2016-10-12] MEDS: DOXYCYCLINE HYCLATE 100 MG TAB PO SCH ×2 (08:31→20:53)
[2016-10-12] MEDS: MELOXICAM (MOBIC) 7.5 MG TAB PO SCH ×2 (08:31→20:53)
[2016-10-12] MEDS: clonazePAM 1 MG TAB PO SCH ×3 (08:31→20:53)
[2016-10-12] MEDS: OMEPRAZOLE 20 MG CAP PO SCH ×2 (08:31→20:56)
[2016-10-12] MEDS: oxyBUTYnin 5 MG TAB PO SCH ×2 (08:31→20:57)
[2016-10-12] MEDS: ATORVASTATIN 20 MG TAB PO SCH (08:31)
[2016-10-12] MEDS: METOPROLOL TART 25 MG TABLET PO SCH ×2 (08:31→20:53)
[2016-10-12] MEDS: DOCUSATE SODIUM 100 MG CAP PO SCH ×2 (08:31→20:52)
[2016-10-12] MEDS: METHADONE 10 MG TAB (S0109) PO SCH ×2 (08:32→20:52)
[2016-10-12] MEDS: LISINOPRIL 5 MG TAB PO SCH (08:33)
[2016-10-12] MEDS: NICOTINE 21MG/24HR 1 EA TRANSDERMAL TD SCH (08:33)
--- NOTE | 2016-10-12 12:03 | IPNPDOC ---
[facility] Progress Note Progress Note DATE OF SERVICE: 10/12/16 HISTORY: Day 4 of admission VITAL SIGNS: See below. NEW TEST RESULTS: CURRENT MEDICATIONS: See below. MENTAL STATUS EXAMINATION: Patient is a 45-year old female, who is being treated for depression following an overdose on depakote. Dressed in hospital attire, appears tired, limited eye contact. Speech: Is fluent, spontaneous. Language skills are good Thought processes including: goal directed Thought content: "I could kiss you" Abstract reasoning, and computation: fair. Description of associations: good. Description of abnormal or psychotic thoughts: . Judgment: poor Insight:fair. Orientation: well oriented in all spheres. Recent and remote memory: impaired Attention span and concentration: limited Fund of knowledge: impaired Mood: "tired" Affect: congruent DIAGNOSES: 1. substance induced mood disorder 2. r/o schizophrenia 3. r/o bipolar disorder 4. nicotine dependence 5. sedative, hypnotic and opiate dependence ASSESSMENT:Pt reports poor sleep last night despite IM injections and other meds. C/o back pain as well. Pt states she needs to pay her rent today. She is willing to attend treatment program in [place] at [facility] for methadone maintenance. Was informed they anticipate having a bed next week. MANAGEMENT PLAN: allow pt to attend groups today. She agrees to be calm and to follow the rules so she is not disturbing others. She agrees not to threaten staff. Awaiting work for [facility] about need for BNZ taper. Pt is willing to undergo this if necessary for admission. Pt was prescribed Methadone 10 mg bid today per her request. yesterday she told us she did not want anymore. Attempted to address labs (low H& H and elevated WBC's). Was told nothing would be done about it at these levels. Will continue to monitor. TIME SPENT: 30 minutes. Vital Signs Vital Signs Date Time Temp Pulse Resp B/P (MAP) Pulse Ox O2 Delivery O2 Flow Rate FiO2 10/12/16 08:32 16 10/12/16 08:31 124 129/83 10/12/16 06:26 99.7 Room Air 10/07/16 15:13 93 Current Medications Current Medications Acetaminophen (Tylenol Tab) 650 mg Q6HP PRN PO PAIN / FEVER Last administered on 10/12/16t 04:31; Start 10/10/16 at 05:15; Stop 11/09/16 at 05:14 Al Hydrox/Mg Hydrox/Simethicone (Mylanta) 30 ml Q4HP PRN PO HEARTBURN/ INDIGESTION; Start 10/07/16 at 16:30; Stop 11/06/16 at 16:29 Atorvastatin Calcium (Lipitor) 40 mg DAILY PO Last administered on 10/12/16 08: 31; Start 10/08/16 at 09:00; Stop 11/07/16 at 08:59 Clonazepam (KlonoPIN) 1 mg TID PO Last administered on 10/10/16 15:50; Start at 16:00; Stop 10/10/16 at 16:00; Status DC Clonazepam (KlonoPIN) 2 mg TID PO Last administered on 10/07/16 20:13; Start 10/07/16 at 16:00; Stop 10/08/16 at 07:39; Status DC Clonazepam (KlonoPIN) 2 mg TID PO Last administered on 10/12/16 08:31; Start at 16:00; Stop 10/17/16 at 15:59 Clonazepam (KlonoPIN) 3 mg TID PO Last administered on 10/10/16 09:23; Start at 09:00; Stop 10/10/16 at 12:20; Status DC Diphenhydramine HCl (Benadryl) 50 mg STAT STAT PO Last administered on 09:31; Start 10/08/16 at 09:20; Stop 10/08/16 at 09:22; Status DC Docusate Sodium (Colace) 100 mg BID PO Last administered on 10/12/16 08:31; Start 10/07/16 at 21:00; Stop 11/06/16 at 20:59 Doxycycline Hyclate (Vibramycin) 100 mg BID PO Last administered on 10/12/16 08 :31; Start 10/07/16 at 21:00; Stop 10/13/16 at 21:01 Haloperidol (Haldol) 2 mg Q6HP PRN PO AGITATION Last administered on 10/10/16 06:34; Start 10/07/16 at 16:30; Stop 11/06/16 at 16:29 Haloperidol (Haldol) 5 mg STAT STAT PO Last administered on 10/08/16 11:00; Start 10/08/16 at 10:37; Stop 10/08/16 at 10:38; Status DC Haloperidol (Haldol) 10 mg Q8HP PRN IM AGITATION Last administered on 10/11/16 14:18; Start 10/11/16 at 14:00; Stop 10/11/16 at 14:36; Status DC Haloperidol (Haldol) 10 mg STAT STAT PO Last administered on 10/08/16 09:31; Start 10/08/16 at 09:20; Stop 10/08/16 at 09:22; Status DC Haloperidol (Haldol) 10 mg STAT STAT PO ; Start 10/11/16 at 13:56; Stop 10/11/16 at 13:59; Status DC Lisinopril (Prinivil) 5 mg DAILY PO Last administered on 10/12/16 08:33; Start 10/10/16 at 09:00; Stop 11/09/16 at 08:59 Lorazepam (Ativan) 2 mg STAT STAT IM Last administered on 10/11/16 14:18; Start 10/11/16 at 13:59; Stop 10/11/16 at 14:00; Status DC Lorazepam (Ativan) 2 mg STAT STAT PO Last administered on 10/08/16 09:31; Start 10/08/16 at 09:20; Stop 10/08/16 at 09:22; Status DC Magnesium Hydroxide (Milk Of Magnesia) 30 ml DAILYPRN PRN PO CONSTIPATION; Start 10/07/16 at 16:30; Stop 11/06/16 at 16:29 Meloxicam (Mobic) 7.5 mg BID PO Last administered on 10/12/16 08:31; Start at 21:00; Stop 11/06/16 at 20:59 Methadone HCl (Dolophine) 10 mg BID PO Last administered on 10/12/16 08:32; Start 10/12/16 at 09:00; Stop 10/19/16 at 08:59 Methadone HCl (Dolophine) 40 mg DAILY PO ; Start 10/08/16 at 09:00; Stop at 08:59; Status Cancel Metoprolol Tartrate (Lopressor) 25 mg BID PO Last administered on 10/12/16 08: 31; Start 10/07/16 at 21:00; Stop 11/06/16 at 20:59 Nicotine (Nicoderm Cq 21mg) 1 patch DAILY TD Last administered on 10/12/16 08: 33; Start 10/07/16 at 09:00; Stop 11/06/16 at 08:59 Omeprazole (PriLOSEC) 40 mg BID PO Last administered on 10/12/16 08:31; Start 10/07/16 at 21:00; Stop 11/06/16 at 20:59 Ondansetron HCl (Zofran) 4 mg Q4HP PRN PO NAUSEA Last administered on 10/12/16 00:11; Start 10/07/16 at 16:45; Stop 11/06/16 at 16:44 Oxybutynin Chloride (Ditropan) 10 mg BID PO Last administered on 10/12/16 08:31 ; Start 10/07/16 at 21:00; Stop 11/06/16 at 20:59 Phenol (Chloraseptic (Cepacol)) 5 spray Q2HP PRN MT SORE THROAT Last administered on 10/10/16 20:58; Start 10/07/16 at 16:30; Stop 10/14/16 at 16:29 Quetiapine Fumarate (SEROquel XR) 200 mg QHS PO Last administered on 20:34; Start 10/07/16 at 21:00; Stop 10/10/16 at 12:01; Status DC Quetiapine Fumarate (SEROquel XR) 300 mg QHS PO Last administered on 20:17; Start 10/10/16 at 21:00; Stop 11/09/16 at 20:59 Quetiapine Fumarate (SEROquel) 150 mg BID@0900,1500 PO Last administered on 08:41; Start 10/09/16 at 09:00; Stop 10/09/16 at 14:35; Status DC Quetiapine Fumarate (SEROquel) 150 mg BID@0900,1500 PO Last administered on 10/10 09:22; Start 10/09/16 at 15:00; Stop 10/10/16 at 12:01; Status DC Trazodone HCl (Desyrel) 50 mg QHSP PRN PO INSOMNIA; Start 10/07/16 at 16:30; Stop 10/07/16 at 17:57; Status DC Trazodone HCl (Desyrel) 100 mg QHSP PRN PO INSOMNIA Last administered on t 20:16; Start 10/07/16 at 18:00; Stop 11/06/16 at 17:59 Allergies Coded Allergies: Codeine (Unverified Adverse Reaction, Mild, N/V,SWELLING,ITCH,SWEATS, ) Propoxyphene (Unverified Adverse Reaction, Mild, N/V,SWELLING,ITCH,SWEATS , 07/15/16) Jaye Davenport October 12, 2016 12:03
[2016-10-12] MEDS ORDERED: HALOPERIDOL 5 MG/ML VIAL (J1630) IM ONE (14:00)
[2016-10-12 18:00] VITALS: BP 103/70
[2016-10-12] MEDS: traZODone 50 MG TAB PO PRN (20:53)
[2016-10-12] MEDS: QUEtiapine 300 MG XR TABLET(SEROQUEL XR) PO SCH (20:57)
[2016-10-13 06:38] VITALS: BP 118/63
[2016-10-13 07:14] LABS: MEAN CORPUSCULAR HGB CONC 35.1 g/dl (32.0-36.5); MEAN CORPUSCULAR VOLUME 82.8 fl (80.0-96.0); RED CELL DISTRIBUTION WIDTH 14.2 % (11.5-14.5); WHITE BLOOD COUNT 10.6 K/mm3 (4.0-10.0)
[2016-10-13 07:28] LABS: ANION GAP 9 MEQ/L (8-16); BLOOD UREA NITROGEN 29 MG/DL (7-18); CALCIUM LEVEL 8.3 MG/DL (8.5-10.1); CARBON DIOXIDE LEVEL 26 MEQ/L (21-32); CHLORIDE LEVEL 104 MEQ/L (98-107); CREATININE FOR GFR 0.68 MG/DL (0.55-1.02); GLOMERULAR FILTRATION RATE > 60.0 (>58); GLUCOSE, FASTING 102 MG/DL (70-105); POTASSIUM SERUM 3.7 MEQ/L (3.5-5.1); SODIUM LEVEL 139 MEQ/L (136-145)
[2016-10-13] MEDS: oxyBUTYnin 5 MG TAB PO SCH ×2 (09:49→20:44)
[2016-10-13] MEDS: ATORVASTATIN 20 MG TAB PO SCH (09:49)
[2016-10-13] MEDS: OMEPRAZOLE 20 MG CAP PO SCH ×2 (09:49→20:41)
[2016-10-13] MEDS: METOPROLOL TART 25 MG TABLET PO SCH ×2 (09:49→20:43)
[2016-10-13] MEDS: MELOXICAM (MOBIC) 7.5 MG TAB PO SCH ×2 (09:49→20:41)
[2016-10-13] MEDS: DOXYCYCLINE HYCLATE 100 MG TAB PO SCH ×2 (09:49→20:44)
[2016-10-13] MEDS: LISINOPRIL 5 MG TAB PO SCH (09:49)
[2016-10-13] MEDS: NICOTINE 21MG/24HR 1 EA TRANSDERMAL TD SCH (09:50)
[2016-10-13] MEDS: DOCUSATE SODIUM 100 MG CAP PO SCH ×2 (09:50→20:44)
[2016-10-13] MEDS: clonazePAM 1 MG TAB PO SCH ×2 (09:50→20:43)
[2016-10-13] MEDS: METHADONE 10 MG TAB (S0109) PO SCH (09:50)
--- NOTE | 2016-10-13 17:03 | IPNPDOC ---
[facility] Progress Note Progress Note DATE OF SERVICE: 10/13/16 HISTORY: Day 5 of admission VITAL SIGNS: See below. NEW TEST RESULTS: na CURRENT MEDICATIONS: See below. MENTAL STATUS EXAMINATION: Patient is a 45 year old female, who is wearing hospital pj's, sweater, good hygiene and good eye contact. Speech: Is rapid, slightly pressured and loud. Language skills are intact Thought processes including: preoccupations with persecutory delusions regarding color stripper and his Thought content: discharge, money, new treatment facility. Abstract reasoning, and computation: fair. Description of associations: good. Description of abnormal or psychotic thoughts: delusions and grandiosity are present at times. denies hallucinations, denies suicidal thoughts. Judgment: fair Insight: good Orientation: well oriented with help Recent and remote memory: impaired by delusions Attention span and concentration: fair Fund of knowledge: impaired Mood: anxious Affect: congruent DIAGNOSES: 1. substance induced mood disorder with iraj and psychosis 2. sedative, hypnotic and opiate abuse 3. r/o bipolar disorder ASSESSMENT:Ro is anticipating discharge tomorrow to prepare for her admission to the inpatient program with [facility] for suboxone treatment. She has been willing to stop methadone and to taper off clonazepam. She remains hyperverbal, with delusions of persecution by her cheondoism. She is a very likeable person who hopes that this time she will be successful with her substance abuse treatment. She has a supportive Aunt in [facility] and has frequent contact with her and her mother. Ro has been dealing with methadone withdrawal and benzo tapering this admission. She is very worried about her debit card and paying her bills so she does not get evicted. She believes her card is home. We are discharging her so she can attend to these things while she waits for a bed at [facility]. She knows it will be hard but she feels she can remain free of illict substances and BNZ while she is between treatment facilities. She knows the transportation number to transport her to [facility] when she is contacted for admission. MANAGEMENT PLAN: monitor ongoing taper off clonazepam, monitor response to depakote, ensure safety, provide support. Discharge planned for tomorrow. She is fragile but feels she can do what needs to be done and still get admitted hopefully next week (mid week) in [place]. Her family is aware of her plans. TIME SPENT: 15 minutes. Vital Signs Vital Signs Date Time Temp Pulse Resp B/P (MAP) Pulse Ox O2 Delivery O2 Flow Rate FiO2 10/13/16 09:50 18 10/13/16 09:49 135/80 10/13/16 09:49 80 10/13/16 06:38 96.9 10/12/16 06:26 Room Air 10/07/16 15:13 93 Laboratory Data 24H Labs Laboratory Tests 2 10/13/16 06:46: Anion Gap 9, Glomerular Filtration Rate > 60.0, Blood Urea Nitrogen 29H, Creatinine 0.68, Sodium Level 139, Potassium Level 3.7, Chloride Level 104, Carbon Dioxide Level 26, Calcium Level 8.3L CBC/BMP Laboratory Tests 10/13/16 06:46 Red Blood Count 4.23, Mean Corpuscular Volume 82.8, Mean Corpuscular Hemoglobin 29.0, Mean Corpuscular Hemoglobin Concent 35.1, Red Cell Distribution Width 14.2 , Calcium Level 8.3 L Current Medications Current Medications Acetaminophen (Tylenol Tab) 650 mg Q6HP PRN PO PAIN / FEVER Last administered on 10/12/16 04:31; Start 10/10/16 at 05:15; Stop 11/09/16 at 05:14 Al Hydrox/Mg Hydrox/Simethicone (Mylanta) 30 ml Q4HP PRN PO HEARTBURN/ INDIGESTION; Start 10/07/16 at 16:30; Stop 11/06/16 at 16:29 Atorvastatin Calcium (Lipitor) 40 mg DAILY PO Last administered on 10/13/16 09: 49; Start 10/08/16 at 09:00; Stop 11/07/16 at 08:59 Clonazepam (KlonoPIN) 1 mg BID PO ; Start 10/13/16 at 21:00; Stop 10/14/16 at 20: 59 Clonazepam (KlonoPIN) 1 mg TID PO Last administered on 10/10/16 15:50; Start at 16:00; Stop 10/10/16 at 16:00; Status DC Clonazepam (KlonoPIN) 2 mg TID PO Last administered on 10/07/16 20:13; Start 10/07/16 at 16:00; Stop 10/08/16 at 07:39; Status DC Clonazepam (KlonoPIN) 2 mg TID PO Last administered on 10/13/16 09:50; Start at 16:00; Stop 10/13/16 at 10:31; Status DC Clonazepam (KlonoPIN) 3 mg TID PO Last administered on 10/10/16 09:23; Start at 09:00; Stop 10/10/16 at 12:20; Status DC Diphenhydramine HCl (Benadryl) 50 mg STAT STAT PO Last administered on 09:31; Start 10/08/16 at 09:20; Stop 10/08/16 at 09:22; Status DC Docusate Sodium (Colace) 100 mg BID PO Last administered on 10/13/16 09:50; Start 10/07/16 at 21:00; Stop 11/06/16 at 20:59 Doxycycline Hyclate (Vibramycin) 100 mg BID PO Last administered on 10/13/16 09 :49; Start 10/07/16 at 21:00; Stop 10/13/16 at 21:01 Haloperidol (Haldol) 2 mg Q6HP PRN PO AGITATION Last administered on 10/10/16 06:34; Start 10/07/16 at 16:30; Stop 11/06/16 at 16:29 Haloperidol (Haldol) 5 mg STAT STAT PO Last administered on 10/08/16 11:00; Start 10/08/16 at 10:37; Stop 10/08/16 at 10:38; Status DC Haloperidol (Haldol) 10 mg Q8HP PRN IM AGITATION Last administered on 10/11/16 14:18; Start 10/11/16 at 14:00; Stop 10/11/16 at 14:36; Status DC Haloperidol (Haldol) 10 mg STAT STAT PO Last administered on 10/08/16 09:31; Start 10/08/16 at 09:20; Stop 10/08/16 at 09:22; Status DC Haloperidol (Haldol) 10 mg STAT STAT PO ; Start 10/11/16 at 13:56; Stop 10/11/16 at 13:59; Status DC Lisinopril (Prinivil) 5 mg DAILY PO Last administered on 10/13/16 09:49; Start 10/10/16 at 09:00; Stop 11/09/16 at 08:59 Lorazepam (Ativan) 2 mg STAT STAT IM Last administered on 10/11/16 14:18; Start 10/11/16 at 13:59; Stop 10/11/16 at 14:00; Status DC Lorazepam (Ativan) 2 mg STAT STAT PO Last administered on 10/08/16 09:31; Start 10/08/16 at 09:20; Stop 10/08/16 at 09:22; Status DC Magnesium Hydroxide (Milk Of Magnesia) 30 ml DAILYPRN PRN PO CONSTIPATION; Start 10/07/16 at 16:30; Stop 11/06/16 at 16:29 Meloxicam (Mobic) 7.5 mg BID PO Last administered on 10/13/16 09:49; Start at 21:00; Stop 11/06/16 at 20:59 Methadone HCl (Dolophine) 10 mg BID PO Last administered on 10/13/16 09:50; Start 10/12/16 at 09:00; Stop 10/13/16 at 10:32; Status DC Methadone HCl (Dolophine) 40 mg DAILY PO ; Start 10/08/16 at 09:00; Stop at 08:59; Status Cancel Metoprolol Tartrate (Lopressor) 25 mg BID PO Last administered on 10/13/16 09: 49; Start 10/07/16 at 21:00; Stop 11/06/16 at 20:59 Nicotine (Nicoderm Cq 21mg) 1 patch DAILY TD Last administered on 10/13/16 09: 50; Start 10/07/16 at 09:00; Stop 11/06/16 at 08:59 Omeprazole (PriLOSEC) 40 mg BID PO Last administered on 10/13/16 09:49; Start 10/07/16 at 21:00; Stop 11/06/16 at 20:59 Ondansetron HCl (Zofran) 4 mg Q4HP PRN PO NAUSEA Last administered on 10/12/16 00:11; Start 10/07/16 at 16:45; Stop 11/06/16 at 16:44 Oxybutynin Chloride (Ditropan) 10 mg BID PO Last administered on 10/13/16 09:49 ; Start 10/07/16 at 21:00; Stop 11/06/16 at 20:59 Phenol (Chloraseptic (Cepacol)) 5 spray Q2HP PRN MT SORE THROAT Last administered on 10/10/16 20:58; Start 10/07/16 at 16:30; Stop 10/14/16 at 16:29 Quetiapine Fumarate (SEROquel XR) 200 mg QHS PO Last administered on 20:34; Start 10/07/16 at 21:00; Stop 10/10/16 at 12:01; Status DC Quetiapine Fumarate (SEROquel XR) 300 mg QHS PO Last administered on 20:57; Start 10/10/16 at 21:00; Stop 11/09/16 at 20:59 Quetiapine Fumarate (SEROquel) 150 mg BID@0900,1500 PO Last administered on 08:41; Start 10/09/16 at 09:00; Stop 10/09/16 at 14:35; Status DC Quetiapine Fumarate (SEROquel) 150 mg BID@0900,1500 PO Last administered on 10/10 09:22; Start 10/09/16 at 15:00; Stop 10/10/16 at 12:01; Status DC Trazodone HCl (Desyrel) 50 mg QHSP PRN PO INSOMNIA; Start 10/07/16 at 16:30; Stop 10/07/16 at 17:57; Status DC Trazodone HCl (Desyrel) 100 mg QHSP PRN PO INSOMNIA Last administered on 20:53; Start 10/07/16 at 18:00; Stop 11/06/16 at 17:59 Allergies Coded Allergies: Codeine (Unverified Adverse Reaction, Mild, N/V,SWELLING,ITCH,SWEATS, 2) Propoxyphene (Unverified Adverse Reaction, Mild, N/V,SWELLING,ITCH,SWEATS , 07/15/16) Jaye Davenport October 13, 2016 17:03
[2016-10-13 18:00] VITALS: BP 114/62
[2016-10-13] MEDS: QUEtiapine 300 MG XR TABLET(SEROQUEL XR) PO SCH (20:43)
[2016-10-14 06:32] VITALS: BP 121/59
[2016-10-14 08:52] VITALS: BP 126/74
[2016-10-14] MEDS: LISINOPRIL 5 MG TAB PO SCH (08:52)
[2016-10-14] MEDS: clonazePAM 1 MG TAB PO SCH (08:52)
[2016-10-14] MEDS: NICOTINE 21MG/24HR 1 EA TRANSDERMAL TD SCH (08:53)
[2016-10-14] MEDS: ATORVASTATIN 20 MG TAB PO SCH (08:53)
[2016-10-14] MEDS: MELOXICAM (MOBIC) 7.5 MG TAB PO SCH (08:53)
[2016-10-14] MEDS: OMEPRAZOLE 20 MG CAP PO SCH (08:53)
[2016-10-14] MEDS: METOPROLOL TART 25 MG TABLET PO SCH (08:53)
[2016-10-14] MEDS: oxyBUTYnin 5 MG TAB PO SCH (08:53)
[2016-10-14] MEDS: DOCUSATE SODIUM 100 MG CAP PO SCH (08:53)
[2016-10-14] MEDS ORDERED: EFFE75CA75 PO (09:13)
[2016-10-14] MEDS ORDERED: QUET30XR PO (09:13)
[2016-10-14] MEDS ORDERED: TRAZO50TA PO (09:13)
--- NOTE | 2016-10-14 14:09 | MHDSPDOC ---
[facility] Discharge Summary Discharge Summary DATE OF ADMISSION: Oct 07, 2016 at 14:50 DATE OF DISCHARGE: October 14, 2016 at 10:00 DISCHARGE DIAGNOSES: 1. substance induced mood disorder 2. r/o bipolar I disorder REASON FOR ADMISSION: Pt overdosed on Depakote one of her prescribed outpatient medications. She had persecutory delusions regarding the mailhouse operator at her confucianist and his . She claimed he was part of the police force and had accused her of running a prostitution ring. She stated the was affiliated with [facility] where pt participates in the methadone tx program. She stated both people were telling the hinduism that she was "schizophrenic". She was admitted with paranoia, suspicion and impaired perceptions. She spent 4 days in ICU to recover from the Depakote overdose. The medical staff was very suspicious that the patient had used Kardom or some other synthetic or exotic medication that does not appear on urine drug testing because her mental status was so far from baseline and very bizarre. She was incoherent in her expression of thought and very illogical when she arrived on the [facility]. She denies psychotic processes of auditory or visual hallucinations. She denied the use of drugs or synthetic drugs stating that her drug of choice was heroin or cocaine and she had not done either of these drugs in 6 months. Pt had been treated on the [facility] in the past and was in outpatient mental health treatment with Dr. Escamilla previously. She carries a diagnosis of Bipolar I disorder with psychotic symptoms. Most recently she has been treated at [facility] for opiate addiction and prescribed methadone which has helped her remain drug free. She lives alone in an apartment across from the [employer] where the mailhouse operator and work that she is complaining about. She made many different allegations about them. She has a Aunt in [place] who is supportive. She is estranged from her 24 yo son. Her mother has contact with her and lives locally. She has friends in the community. Pt has not worked for several years and receives SSDI and medicaid. On the unit her Seroquel XR was adjusted to 300 mg and she took trazodone prn for insomnia. She had difficulty coming off the methadone so several doses were made available to her for comfort. She was on a very high dose of clonazepam on admission which was deemed unsafe for her. She agreed to a gradual taper. Discharge planning was instrumental in finding an inpatient treatment program for her which was at the patients request. She wants to be drug free but is afraid of her ability to be successful with this. She was encouraged to try and she was put on the list at the [facility] in [place]. Pt needs clean clothes and to pay her bills before going away for treatment. Even though she is not fully stable she was permitted to leave to prepare for long-term tx. Her discharge meds are effexor er 75 mg once daily, seroquel xr 300 mg at hs and trazodone 50 mg prn for insomnia. She will only receive a 7 day supply of medication at a time. She is to participate in a phone screening interview with the [facility] at 1 p.m. today. Her friend is picking her up and taking her to her house to make sure Ro is safe over the weekend. Ro will also be able to go to her apartment to get her debit card, laundry and other essentials. CONSULTANTS INVOLVED: na TREATMENT AND PROGRESS ON THE UNIT : Pt was treated for manic-like symptoms, alcides , foi and mood stabilization while on the unit. Her thought process became clearer and she was much more coherent and logical at discharge. She was not fully stable and the preference would have been to do a bed to bed transfer to the [facility] but the patient insisted she had to go home first. Her main concern appeared to be paying her rent and other bills and getting clothes for herself. She gave her word she would not use drugs while out of the hospital. Pt cannot be relied upon to tell the truth based on her history. HOSPITAL COURSE: in order for Ms. Elizabeth to be accepted at the [facility], she has to be benzo free and methadone free. She agreed to not taking any more methadone on the unit and she had a quick taper off of clonazepam. She tolerated it but was still highly anxious, verbally over-productive with pressured speech. Initially pt was highly agitated, uncooperative and assaultive on the unit requiring agitation medications and 1:1 observation after becoming hostile and threatening to others. After one night of methadone she was more composed but still needed IM agitation meds on a second day when she insisted it was the only way she would calm down. IM meds were effective and pt did not require any further injections. She was held back from groups on Monday because her participation over the weekend was very disruptive to the other pts and the staff trying to maintain order in the group. On Monday she was better and was permitted to participate and no further c/o disruption were heard. Pt mood was labile at times especially when thoughts were centered on past experiences. She demonstrated a range of affect. DISCHARGE ASSESSMENT: Pt states she is prepared to attend the suboxone program at [facility] in [place]. Says she is looking forward to it. Intends to remain with a friend over the weekend for her own safety and security. She is expecting the [facility] to call her this afternoon. She knows the transportation number for medicaid so she can arrange her ride to [place]. Her discharge meds were sent to her pharmacy. Effexor was not started on the unit but pt had taken it before and agreed to taking 75 mg as an outpt along with the seroquel xr. MENTAL STATUS EXAMINATION ON DISCHARGE: Patient is a 45-year old female, who is dressed in street clothes waiting for her staff to help with discharge. She is anxious but in control. Responds well to redirection. Speech is spontaneous Language skills are good. Thought processes including: improving, no IOR or FOI, continues to believe the mailhouse operator and his mean her harm. Thought content: "I am de-saved and Artemio is de-glorified" because of what she believes happened to her. Abstract reasoning, and computation: good. Description of associations: good Description of abnormal or psychotic thoughts: denies both si and hi. Persecutory delusions persist but are not as prominent. Judgment: fair Insight:fair. Orientation to person, place, time and situation. Recent and remote memory: impaired in some areas. intact in others. Attention span and concentration: varies Fund of knowledge: full. Mood: anxious Affect: congruent MEDICATIONS ON DISCHARGE: - effexor er for depression/anxiety - seroquel XR for depression, improved thought process, mood stabilization - trazodone for insomnia. PLAN/FOLLOWUP ARRANGEMENTS: Participate in phone call with [facility] at 1 p.m. today, arrange for transportation to [place] when notified a bed is ready, complete the treatment program and resume outpatient treatment at [facility] mental health services with . Dr. Montero can provide suboxone treatment if pt returns to [place]. Pt is unsure she will remain in [place]. She has talked about moving to [place] or [place]. The amount of time spent in the coordination of care for this patient was approximately 30 minutes. Vital Signs/I&Os Vital Signs Date Time Temp Pulse Resp B/P (MAP) Pulse Ox O2 Delivery O2 Flow Rate FiO2 10/14/16 08:53 88 10/14/16 08:52 126/74 10/14/16 06:32 98.8 18 10/12/16 06:26 Room Air Medications Scheduled Atorvastatin Calcium (Atorvastatin Calcium) 40 Mg Tab, 40 MG PO DAILY, (Reported ) Docusate Sodium (Colace) 100 Mg Cap, 100 MG PO BID, (Reported) Doxycycline Hyclate (Doxycycline Hyclate) 100 Mg Tab, 100 MG PO BID for 7 Days Meloxicam (Meloxicam) 7.5 Mg Tab, 7.5 MG PO BID, (Reported) Metoprolol Tartrate (Metoprolol Tartrate) 25 Mg Tab, 25 MG PO BID, (Reported) Omeprazole (Omeprazole) 40 Mg Cap, 40 MG PO BID, (Reported) Oxybutynin Chloride (Oxybutynin Chloride) 5 Mg Tab, 10 MG PO BID, (Reported) Quetiapine Fumarate (Seroquel Xr) 300 Mg Mario, 300 MG PO QHS for MOOD for 7 Days, #7 take with dinner in the evening. Venlafaxine Hydrochloride (Effexor Xr) 75 Mg Cap, 75 MG PO DAILY for DEPRESSION for 7 Days Scheduled PRN Ondansetron HCl (Zofran) 4 Mg Tab, 4 MG PO Q4H PRN for NAUSEA OR VOMITING, ( Reported) Phenol (Sore Throat [place]) 1.4 % Spr, 5 SPRAY MT Q2HP PRN for SORE THROAT for 7 Days Trazodone HCl (Trazodone HCl) 50 Mg Tab, 100 MG PO QHSP PRN for INSOMNIA for 7 Days, #7 don't take if you don't need it for sleep Miscellaneous Medications [Patient Comment] , (Reported) UNABLE TO SPEAK TO PATIENT ABOUT HER MEDICATIONS, HAD A BAG OF MEDICATIONS WITH HER, MED REC COMPILED BASED ON BOTTLES Allergies Coded Allergies: Codeine (Unverified Adverse Reaction, Mild, N/V,SWELLING,ITCH,SWEATS, ) Propoxyphene (Unverified Adverse Reaction, Mild, N/V,SWELLING,ITCH,SWEATS , 07/15/16) Jaye Davenport October 14, 2016 14:09
== END 2016-10-14 10:00 | disposition home or self-care (01) | DRG 897 ==
LOC: M PSY 14:50
PROVIDERS: ADMIT Psychiatry & Neurology Psychiatry; ATTEND Psychiatry & Neurology Child & Adolescent Psychiatry
DX: F13.259 Sedative, hypnotic or anxiolytic dependence with sedative, hypnotic or anxiolytic-induced psychotic disorder, unspecified (principal); F31.5 Bipolar disorder, current episode depressed, severe, with psychotic features; F11.20 Opioid dependence, uncomplicated; F17.210 Nicotine dependence, cigarettes, uncomplicated; E78.5 Hyperlipidemia, unspecified; I10 Essential (primary) hypertension; K21.9 Gastro-esophageal reflux disease without esophagitis; K59.00 Constipation, unspecified; N32.81 Overactive bladder; G47.00 Insomnia, unspecified; M54.5 Low back pain; Z91.5 Personal history of self-harm

== ENCOUNTER 2016-11-30 23:56 | Inpatient (IN) | payer MEDICARE, MEDICAID ==
[~2016-11-30] VITALS: Ht 149.9 cm; Wt 88.6 kg
[~2016-11-30 23:56] MED LIST changes: -ATOR40TA PO; +ATOR40TA75 PO; -COLA100C3 PO; +COLA100C5 PO; -DOCU100C PO; +DOCU100C16 PO; +DOXY100T2 PO; -DOXY10CA PO; +EFFE75CA75 PO; -MELO7.5T6 PO; +MELO7.5T7 PO; -METO12TA PO; +METO1TAB87 PO; +METO25TA4 PO; -METO25TAB PO; +MOBI4TAB PO; -MOBI7.5T10 PO; -ONDA1TAB15 PO; +ONDA4TAB5 PO; -OXYB5TA PO; +OXYB5TAB10 PO; +QUET30XR PO; -RISP2TAB30 PO; +RISP2TAB32 PO; +SENN1TAB10 PO; -SENN8.6T10 PO; -SENO8.6T2 PO; +SENO8.6T5 PO; +TRAZ-136 PO; -TRAZ100T4 PO; +TRAZ50TA11 PO; -TRAZ50TA4 PO; -VALA500T PO; +VALA500T2 PO
[2016-12-01] MEDS ORDERED: TRIA1CR TOP (00:12)
[2016-12-01] MEDS ORDERED: DEPA250T32 PO (01:23)
[2016-12-01] MEDS ORDERED: ATOR1TAB19 PO (01:23)
[2016-12-01] MEDS ORDERED: TRAZ50TA11 PO (01:23)
[2016-12-01] MEDS ORDERED: CLON-412 PO (01:23)
[2016-12-01] MEDS ORDERED: QUET1TAB10 PO (01:23)
[2016-12-01] MEDS ORDERED: DEPA1TAB3 PO (01:23)
[2016-12-01] MEDS ORDERED: TRIA25CR TOP (01:23)
[2016-12-01] MEDS ORDERED: METO-346 PO (01:23)
[2016-12-01] MEDS ORDERED: MIRA33504 PO (01:23)
[2016-12-01 01:41] LABS: MEAN CORPUSCULAR HEMOGLOBIN 28.7 pg (27.0-33.0); MEAN CORPUSCULAR HGB CONC 32.6 g/dl (32.0-36.5); MEAN CORPUSCULAR VOLUME 87.9 fl (80.0-96.0); RED CELL DISTRIBUTION WIDTH 14.5 % (11.5-14.5); WHITE BLOOD COUNT 11.5 K/mm3 (4.0-10.0)
[2016-12-01 01:57] LABS: METHADONE URINE POSITIVE (NEGATIVE)
[2016-12-01 02:09] LABS: ALBUMIN 3.4 GM/DL (3.2-5.2); ALBUMIN/GLOBULIN RATIO 0.94 (1.00-1.93); ALKALINE PHOSPHATASE 65 U/L (45-117); ALT/SGPT 31 U/L (12-78); ANION GAP 8 MEQ/L (8-16); AST/SGOT 29 U/L (15-37); BILIRUBIN,DIRECT 0.1 MG/DL (0.0-0.2); BILIRUBIN,TOTAL 0.5 MG/DL (0.2-1.0); BLOOD UREA NITROGEN 18 MG/DL (7-18); CALCIUM LEVEL 8.6 MG/DL (8.5-10.1); CARBON DIOXIDE LEVEL 25 MEQ/L (21-32); CHLORIDE LEVEL 107 MEQ/L (98-107); GLOMERULAR FILTRATION RATE > 60.0 (>58); GLUCOSE, FASTING 104 MG/DL (70-105); POTASSIUM SERUM 3.7 MEQ/L (3.5-5.1); SODIUM LEVEL 140 MEQ/L (136-145)
[2016-12-01] MEDS ORDERED: MAALOX 30 ML SUSP *UDC PO PRN (03:30)
[2016-12-01] MEDS ORDERED: MOM 30ML SUSPENSION UDC PO PRN (03:30)
[2016-12-01] MEDS ORDERED: QUEtiapine FUMARATE 100 MG TAB PO PRN (03:30)
[2016-12-01 04:47] VITALS: BP 138/78
--- NOTE | 2016-12-01 09:38 | HPEPDOC ---
Medical History and Physical Date of Admission Dec 01, 2016 at 03:27 History and Physical PCP: Dr Byrd ATTENDING: Dr. Travis Napier HPI: 45yoF admitted to [facility] for unspecified depressive disorder being medically examined today. Patient is very anxious during exam and has a difficult time providing history. She is trying to find her dentures. She states she was cleaning with Clorox and has a rash on her hands bilaterally related to allergy. She usually uses triamcinolone cream for this. Denies any fevers, chills, weakness, fatigue, MCGRATH, CP, SOB, cough, palpitations, abdominal pain, N/V /D or changes in bowel or bladder habits. PMHx: Anxiety Depression Hyperlipidemia Hypertension GERD Osteoarthritis left knee History of MRSA Edentulous History of hepatitis C. S/P treatment with Dr Mauriico. Polysubstance use Tobacco use Chronic constipation OAB Insomnia PSHX: Left breast cyst removal Left groin cyst removal SOCHX: Resides in: [facility] Marital Status: Single Kids: 1 Employment: Unemployed Tobacco use: One pack per day ETOH: Denies Illicit Drugs: History of heroin, crack cocaine. IV Drug Use: History of heroin on the currently attending [facility] methadone program. Tattoos done unprofessionally: Denies FAMHX: Mother: Alive, depression, anxiety, bladder/bowel Ca. Father: Alive, cirrhosis, alcoholism. Siblings: 2 brothers Alive, anxiety, depression, alcoholism Children: Alive, well Unexpected deaths due to medical reasons: 1 sister suicide. ROS: As noted in HPI, otherwise 11pt ROS of systems reviewed and remarkable only for LMP 11/29/16. PE: GEN: 45yoF, appears stated age. Well-nourished, well developed. No acute distress. Alert and oriented x 3. Pleasant, interactive. HEENT: Normocephalic, atraumatic. Pupils are equal, round, and reactive to light. Extraocular movements are intact. No nystagmus appreciated. Sclera are nonicteric. Conjunctiva without injection. Nose midline. Nasal turbinates without bogginess. EACs both patent BL. TMs both visualized and hernadez with good cone of light, no bulging or erythema. No facial asymmetry. Moist mucous membranes. edentulous. Pharynx pink and moist, no cobblestoning. Neck supple, trachea midline. No lymphadenopathy or thyromegaly appreciated. CHEST: Regular rate and rhythm, +S1, +S2 LUNGS: Clear to auscultation bilaterally. No wheezes, rales, or rhonchi. Breathing appears symmetric and easy. Patient is speaking in full sentences. No accessory muscle use. ABD: Round, soft, non-tender, non-distended. +Bowel sounds throughout. No rebound or guarding. No costovertebral angle tenderness. EXT: Pulses 2+ bilaterally dorsalis pedis and radial. No lower extremity edema appreciated. SKIN: [place], dry, warm. Capillary refill <2sec. mild erythematous rash is noted on the hands bilaterally. NEURO: Alert and oriented x 3. Cranial nerves III-XII are intact. No focal deficits appreciated. EKG: pending. A&P: 45yoF admitted to [facility] for unspecified depressive disorder 1. Psych. Plan per Psychiatry. Obtain baseline EKG to assure the safety of psychiatric medications as they can prolong the QT interval. 2. Nicotine dependence. Patch available. 3. Hyperlipidemia. Continue Lipitor 10 mg daily 4. Follow up with PCP on discharge. 5. H/O Substance use. Per psychiatry. 6. Hypertension. Continue Lopressor 25 mg by mouth twice a day. 7. Osteoarthritis. Continue Mobic 7.5 mg by mouth twice a day. 8. Overactive bladder. Continue Ditropan 5 mg by mouth twice a day. 9. Chronic constipation. Continue MiraLAX daily as needed. 10. Allergic dermatitis. Apply triamcinolone cream to hands bilaterally twice a day as needed. 11. Leukocytosis. Patient is asymptomatic. Afebrile. Recheck CBC. 12. GERD. Continue Prilosec 40 mg daily. 13. Radha BABB present throughout exam. Vital Signs Vital Signs Date Time Temp Pulse Resp B/P (MAP) Pulse Ox O2 Delivery O2 Flow Rate FiO2 12/01/16 04:47 97.4 69 18 138/78 (98) 12/01/16 02:14 97 Room Air Laboratory Data Labs 24H Laboratory Tests 2 12/01/16 00:04: Urine Amphetamines Screen NEGATIVE, Urine Benzodiazepines Screen NEGATIVE, Urine Opiates Screen NEGATIVE, Urine Methadone Screen POSITIVEH, Urine Barbiturates Screen NEGATIVE, Urine Phencyclidine Screen NEGATIVE, Urine Cocaine Metabolite Screen NEGATIVE, Urine Cannabinoids Screen NEGATIVE 12/01/16 01:26: Anion Gap 8, Glomerular Filtration Rate > 60.0, Calcium Level 8.6, Aspartate Amino Transf (AST/SGOT) 29, Alanine Aminotransferase (ALT/SGPT) 31, Alkaline Phosphatase 65, Total Bilirubin 0.5, Direct Bilirubin 0.1, Total Protein 7.0, Albumin 3.4, Albumin/Globulin Ratio 0.94L, Thyroid Stimulating Hormone (TSH) 1.070, Salicylates Level 3.1L, Acetaminophen Level < 2.0L, Ethyl Alcohol Level < 0.003 CBC/BMP Laboratory Tests 12/01/16 01:26 Red Blood Count 4.34, Mean Corpuscular Volume 87.9, Mean Corpuscular Hemoglobin 28.7, Mean Corpuscular Hemoglobin Concent 32.6, Red Cell Distribution Width 14.5 Home Medications Scheduled (Depakote) 500 Mg Tab, 1,000 MG PO QHS Atorvastatin Calcium (Atorvastatin Calcium) 10 Mg Tab, 10 MG PO QHS Clonidine Hydrochloride (Clonidine HCl) 0.1 Mg Tab, 0.1 MG PO BID Divalproex Sodium (Depakote) 250 Mg Tab, 250 MG PO DAILY Meloxicam (Meloxicam) 7.5 Mg Tab, 7.5 MG PO BID Metoprolol Tartrate (Metoprolol Tartrate) 12.5 Mg Halftab, 12.5 MG PO BID Omeprazole (Omeprazole) 40 Mg Cap, 40 MG PO BID Oxybutynin Chloride (Oxybutynin Chloride) 5 Mg Tab, 5 MG PO BID Quetiapine Fumerate (Quetiapine Fumarate) 300 Mg Tab, 300 MG PO QHS Trazodone HCl (Trazodone HCl) 50 Mg Tab, 50 MG PO QHS Triamcinolone Acet (Triamcinolone Acetonide 0.1% Crm) 1 Dose/15 Gm Cr, 1 UNIT TOP BID Triamcinolone Acet (Triamcinolone Acetonide 0.025% Crm) 1 Dose/80 Gm Cream, 1 DOSE TOP BID PLACES ON HANDS AND FEET Venlafaxine Hydrochloride (Effexor Xr) 75 Mg Cap, 75 MG PO DAILY for DEPRESSION Scheduled PRN Polyethylene Glycol (Miralax) 1 Pow Pow, 17 GM PO DAILY PRN for CONSTIPATION Trazodone HCl (Trazodone HCl) 50 Mg Tab, 100 MG PO QHSP PRN for INSOMNIA don't take if you don't need it for sleep Miscellaneous Medications [Patient Comment] UNABLE TO SPEAK TO PATIENT ABOUT HER MEDICATIONS, HAD A BAG OF MEDICATIONS WITH HER, MED REC COMPILED BASED ON BOTTLES Allergies Coded Allergies: Codeine (Unverified Adverse Reaction, Mild, N/V,SWELLING,ITCH,SWEATS, ) Propoxyphene (Unverified Adverse Reaction, Mild, N/V,SWELLING,ITCH,SWEATS , 07/15/16) Hilda Hernandez Dec 01, 2016 09:38
[2016-12-01 10:15] LABS: CONTROL LINE HCG INT CTR LINE PRESENT
[2016-12-01] MEDS: MELOXICAM (MOBIC) 7.5 MG TAB PO SCH ×2 (10:52→21:00)
[2016-12-01] MEDS: OMEPRAZOLE 20 MG CAP PO SCH ×2 (10:52→21:00)
[2016-12-01] MEDS: oxyBUTYnin 5 MG TAB PO SCH ×2 (10:54→21:00)
[2016-12-01] MEDS: METOPROLOL TART 12.5 MG PER 1/2 TAB PO SCH ×2 (10:54→21:01)
[2016-12-01] MEDS: TRIAMCINOLONE ACETONIDE 0.025 % 80 GM CREAM TOP PRN ×2 (14:41→21:02)
[2016-12-01 18:00] VITALS: BP 118/71
[2016-12-01] MEDS ORDERED: OLANZapine ORAL DISINTEGRATING TAB 5MG PO PRN (18:00)
[2016-12-01] MEDS ORDERED: traZODone 50 MG TAB PO PRN (19:45)
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
[2016-12-01] MEDS: DIVALPROEX 500MG *ER* TAB PO SCH (21:00)
[2016-12-01] MEDS: ATORVASTATIN 10 MG TAB PO SCH (21:00)
[2016-12-01] MEDS: QUEtiapine FUMARATE 100 MG TAB PO SCH (21:01)
--- NOTE | 2016-12-02 00:47 | ECGEPIP ---
Stationary ECG Study [facility] Test Date: 2016-12-01 Pat Name: МАРИЯ CALVILLO Department: Room: [place] [address] Gender: F Corporate Development Officer: KATERINA : 1970 Requested By: Hilda Hernandez Order Number: [id number] Reading MD: Gonzalo Lewis Measurements Intervals [place] Rate: 70 P: 11 OR: 160 QRS: 38 QRSD: 94 T: 41 QT: 366 QTc: 395 Interpretive Statements SINUS RHYTHM MINIMAL ST ELEVATION NOTED, SECONDARY TO EARLY REPOLARIZATION LAST TRACING ON 10/05/2016 AT 7:33:10, NO SIGNIFICANT CHANGES Electronically Signed On 12-02-2016 0:47:18 EDT by Gonzalo Lewis
[2016-12-02] MEDS: OLANZapine ORAL DISINTEGRATING TAB 5MG PO PRN ×4 (02:36→21:09)
[2016-12-02 06:40] VITALS: BP 173/86
[2016-12-02 07:46] LABS: MEAN CORPUSCULAR HEMOGLOBIN 29.6 pg (27.0-33.0); RED CELL DISTRIBUTION WIDTH 14.7 % (11.5-14.5); WHITE BLOOD COUNT 7.4 K/mm3 (4.0-10.0)
[2016-12-02] MEDS: DIVALPROEX 500MG *ER* TAB PO SCH ×2 (08:44→21:08)
[2016-12-02] MEDS: oxyBUTYnin 5 MG TAB PO SCH ×2 (08:44→21:08)
[2016-12-02] MEDS: OMEPRAZOLE 20 MG CAP PO SCH ×2 (08:44→21:09)
[2016-12-02] MEDS: MELOXICAM (MOBIC) 7.5 MG TAB PO SCH ×2 (08:44→21:08)
[2016-12-02] MEDS: TRIAMCINOLONE ACETONIDE 0.025 % 80 GM CREAM TOP PRN (08:44)
[2016-12-02] MEDS: METOPROLOL TART 12.5 MG PER 1/2 TAB PO SCH ×2 (08:49→21:10)
--- NOTE | 2016-12-02 09:10 | MHIPNPDOC ---
[facility] Progress Note Progress Note DATE OF SERVICE: 12/02/16 HISTORY OF THE PRESENT ILLNESS: Patient is a 45-year-old female who indicated admission she was recently discharged from 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 Patient was discharged last month from [facility] inpatient treatment, has had multiple other psychiatric admissions, notes she was also hospitalized at [facility], [place] since last [facility] hospitalization. New Media Strategist met with patient today to assess treatment progress on inpatient unit. Patient is engageable, states she slept well last night, contrary to EMR, informs service writer her medications are "screwed up," notes she was prescribed Haldol PRN during recent [facility] hospitalization, however, notes she also experienced "restless legs" while taking Haldol. Patient was reminded she has PRN medication available to her and was informed by clonidine has been added to address symptoms of anxiety/elevated blood pressure/symptoms of withdrawal should she be experiencing them, patient is suspected of recent kratom abuse. Patient states she is taking her medication, she denies medication side effects and is aware that fundraising coordinator continues to attempt to get discharge information from [facility]. Patient endorses symptoms of anxiety and depression, denies suicidal and homicidal ideation, denies auditory or visual hallucinations, and denies urge to engage in self-injurious behavior. Patient continues to experience delusional thinking and paranoia, remains tangential, makes reference to believing her air traffic supervisor is attempting to have her arrested for running a prostitution ring, that she is being watched, and that unit staff are trying to deceive her. Patient is able however, to focus on discussion pertaining to discharge. Patient expresses clear desire to be discharged to a [facility] program, verbalizes awareness that she needs inpatient treatment for both mental health and substance abuse issues. Patient indicates she is eating and states her energy level is stable. Patient denies experiencing physical pain at time of interaction and presents with no signs of acute distress. VITALS: See below NEW TEST RESULTS: 12/02/16 lab results indicated low RBC, Hgb, HCT, and elevated RDW MEDICAL/SURGICAL HISTORY: Hyperlipidemia, hypertension, GERD, osteoarthritis left knee, history of MRSA, edentulous, history of hep C, status post treatment , chronic constipation, OAB, eczema to hands. Patient denies history of seizure or head injury. Surgical history includes , left breast cyst removal, left groin cyst removal. Labs on admission indicated low AGR and elevated WBCs, leukocytosis, patient is afebrile and asymptomatic, PA is aware. HCG negative UDS positive for methadone 12/01/16 EKG sinus rhythm minimal ST elevation noted, secondary to early repolarization last tracing on 10/05/16, no significant changes Head CT pending Depakote level pending MENTAL STATUS EXAMINATION: General appearance: Patient is a 45-year old female, who is irritable but cooperative, makes limited eye contact, appears less disheveled, is dressed in hospital clothing, ambulates with steady gait, and appears stated age. Speech: Pressured, rapid, tangential, coherent. Thought processes: Logical at times, illogical at other times, tangential, paranoid, perseverative, disorganized. Thought content: Irrational at times, logical at times, tangential, paranoid, persecutory delusions, is tangential, distorted Abstract reasoning and computation: Impaired. Description of associations: Intact at times, at other times loose, tangential. Description of abnormal or psychotic thoughts: Denies suicidal or homicidal ideation, denies auditory or visual hallucinations, may be responding to internal stimuli, endorses bizarre and paranoid ideation, denies preoccupation with violence. Judgment: Poor. Insight: Poor. Orientation: A and O 3. Recent and remote memory: Impaired. Attention span and concentration: Impaired. Fund of knowledge: Requires further evaluation. Mood: "Well, okay, I guess." Patient appears anxious, somewhat depressed, irritable, mood lability noted Affect: Blunted DIAGNOSES: Unspecified psychosis disorder, opioid use disorder, polysubstance use disorder, rule out bipolar disorder with psychotic features, mixed, rule out substance-induced mood disorder, rule out borderline personality disorder ASSESSMENT: Patient is adjusting to unit, has been able to maintain behavioral control, is visible and has been able to attend groups without being disruptive , is generally cooperative. At time of admission patient denied medication noncompliance, however, was evasive and provided contradictory information regarding her medications and how often she was taking them. Patient has been restarted on medication regimen verified by RN for medication reconciliation purposes. tissue coordinator continues to attempt to access treatment information from [facility], the last inpatient treatment entity, and [facility], the last place patient states she received outpatient treatment. Patient denies medication side effects, is aware she has Zydis and clonidine PRNs available to her if needed. Patient continues to express desire and motivation for entering inpatient [facility] treatment program. Patient denies current suicidal or homicidal ideation and is able to verbalize awareness of how to access supportive services on unit if needed. Will monitor patient's response to medication regimen restart and will evaluate need for dosing adjustments. Will continue to evaluate patient safety, resolution of suicidal ideation, paranoia, and delusional thinking, mood lability, and discharge/ transfer readiness. tissue coordinator will continue to pursue information from recent providers for continuity care. Patient states today when prepared for discharge she would like to transfer to an inpatient [facility] program. MANAGEMENT PLAN: Continue Seroquel 300 mg po q hs and evaluate change to XR/ dose increase. Continue Depakote ER 500 mg po BID and evaluate dose increased post follow-up lab work scheduled for 12/07/15. Continue trazodone 50 mg po q hs PRN insomnia, Zydis 5 mg po q 4 hours PRN anxiety/agitation. Initiate clonidine 0.1 mg po q 8 hours PRN increased B/P/withdrawal symptoms Depakote level ordered for 12/02/16, Depakote level and liver profile ordered for 12/06/[address] ordered to rule out organic cause to alteration in mental status Maintain safety precautions Patient to attend groups and participate in unit programming to develop coping strategies Engage patient in discharge planning process and arrange meeting with support system to ensure safe discharge planning when appropriate Patient to follow up with PCM upon discharge TIME SPENT: 35 minutes Vital Signs Vital Signs Date Time Temp Pulse Resp B/P (MAP) Pulse Ox O2 Delivery O2 Flow Rate FiO2 12/02/16 08:49 76 173/86 12/02/16 06:40 98.2 18 12/01/16 02:14 97 Room Air Laboratory Data CBC/BMP Laboratory Tests 12/02/16 07:22 Red Blood Count 3.91 L, Mean Corpuscular Volume 87.0, Mean Corpuscular Hemoglobin 29.6, Mean Corpuscular Hemoglobin Concent 34.0, Red Cell Distribution Width 14.7 H Current Medications Current Medications Acetaminophen (Tylenol Tab) 650 mg Q6HP PRN PO HEADACHE or DISCOMFORT; Start at 03:30; Stop 12/31/16 at 03:29 Al Hydrox/Mg Hydrox/Simethicone (Mylanta) 30 ml Q4HP PRN PO HEARTBURN/ INDIGESTION; Start 12/01/16 at 03:30; Stop 12/31/16 at 03:29 Atorvastatin Calcium (Lipitor) 10 mg QHS PO Last administered on 12/01/16 21: 00; Start 12/01/16 at 21:00; Stop 12/31/16 at 20:59 Divalproex Sodium (Depakote Er) 500 mg BID PO Last administered on 12/02/16 08 :44; Start 12/01/16 at 21:00; Stop 12/31/16 at 20:59 Home Med (Med Rec Complete!) ASDIRECTED XX ; Start 12/01/16 at 01:30; Stop at 01:36; Status DC Magnesium Hydroxide (Milk Of Magnesia) 30 ml DAILYPRN PRN PO CONSTIPATION; Start 12/01/16 at 03:30; Stop 12/31/16 at 03:29 Meloxicam (Mobic) 7.5 mg BID PO Last administered on 12/02/16 08:44; Start at 09:00; Stop 12/31/16 at 08:59 Metoprolol Tartrate (Lopressor) 12.5 mg BID PO Last administered on 12/02/16 08:49; Start 12/01/16 at 09:00; Stop 12/31/16 at 08:59 Olanzapine (ZyPREXA ZYDIS) 5 mg Q4HP PRN PO ANXIETY/AGITATION Last administered on 12/02/16 08:44; Start 12/01/16 at 19:45; Stop 12/31/16 at 19:44 Olanzapine (ZyPREXA ZYDIS) 10 mg Q4HP PRN PO ANXIETY/AGITATION; Start 12/01 at 18:00; Stop 12/01/16 at 19:38; Status DC Omeprazole (PriLOSEC) 40 mg BID PO Last administered on 12/02/16 08:44; Start 12/01/16 at 09:00; Stop 12/31/16 at 08:59 Oxybutynin Chloride (Ditropan) 5 mg BID PO Last administered on 12/02/16 08:44 ; Start 12/01/16 at 09:00; Stop 12/31/16 at 08:59 Polyethylene Glycol (Miralax) 1 pkt DAILY PRN PO CONSTIPATION; Start 12/01/16 at 09:00; Stop 12/31/16 at 08:59 Quetiapine Fumarate (SEROquel) 100 mg QHSP PRN PO INSOMNIA; Start 12/01/16 at 03:30; Stop 12/01/16 at 19:19; Status DC Quetiapine Fumarate (SEROquel) 300 mg QHS PO Last administered on 12/01/16 21: 01; Start 12/01/16 at 21:00; Stop 12/31/16 at 03:29 Trazodone HCl (Desyrel) 50 mg QHSP PRN PO INSOMNIA Last administered on 21:00; Start 12/01/16 at 19:45; Stop 12/31/16 at 19:44 Triamcinolone Acetonide (Kenalog 0.025% Cream) 1 dose BID PRN TOP REDNESS/ IRRITATION Last administered on 12/02/16 08:44; Start 12/01/16 at 09:00; Stop 12/31/16 at 08:59 Allergies Coded Allergies: Codeine (Unverified Adverse Reaction, Mild, N/V,SWELLING,ITCH,SWEATS, 2/) Propoxyphene (Unverified Adverse Reaction, Mild, N/V,SWELLING,ITCH,SWEATS , 2/08/26) Chichi Schultz Dec 02, 2016 09:10
[2016-12-02] MEDS: cloNIDine 0.1 MG TAB PO PRN (11:50)
--- NOTE | 2016-12-02 12:27 | REP ---
REASON: Altered mental status. PRIORS: 01/03/2009 which was normal. TECHNIQUE: 4.5 mm contiguous transaxial sections were obtained from the skull base to the cerebral convexities with thin cuts through the posterior fossa without the administration of intravenous contrast. FINDINGS: The ventricles and sulci are consistent with the patient's age. There are no extra-axial fluid collections. There is no mass effect. The deep cerebral white matter is consistent with the patient's age. The orbital and petrous structures , cerebellopontine angles, and posterior fossa are unremarkable. The sella turcica, cavernous, and paracavernous structures are essentially unremarkable. The visualized portions of the paranasal sinuses and mastoid air cells are clear. Images of the skull base show no gross abnormality. IMPRESSION: Essentially unremarkable CT examination of the brain. Signed by Tavo Archuleta DO 12/02/2016 01:42 P
[2016-12-02 13:04] VITALS: BP 164/89
[2016-12-02 18:00] VITALS: BP 128/76
[2016-12-02] MEDS: ATORVASTATIN 10 MG TAB PO SCH (21:08)
[2016-12-02] MEDS: QUEtiapine FUMARATE 100 MG TAB PO SCH (21:09)
[2016-12-03 06:00] VITALS: BP 131/65
[2016-12-03] MEDS: DIVALPROEX 500MG *ER* TAB PO SCH ×2 (08:57→20:33)
[2016-12-03] MEDS: oxyBUTYnin 5 MG TAB PO SCH ×2 (08:58→20:39)
[2016-12-03] MEDS: OMEPRAZOLE 20 MG CAP PO SCH ×2 (08:58→20:33)
[2016-12-03] MEDS: cloNIDine 0.1 MG TAB PO PRN (08:58)
[2016-12-03] MEDS: MELOXICAM (MOBIC) 7.5 MG TAB PO SCH ×2 (08:58→20:33)
[2016-12-03] MEDS: METOPROLOL TART 12.5 MG PER 1/2 TAB PO SCH ×2 (08:59→20:39)
[2016-12-03] MEDS: TRIAMCINOLONE ACETONIDE 0.025 % 80 GM CREAM TOP PRN ×2 (08:59→20:29)
[2016-12-03 09:02] VITALS: BP 156/91
[2016-12-03] MEDS: OLANZapine ORAL DISINTEGRATING TAB 5MG PO PRN ×2 (09:12→20:35)
[2016-12-03 18:00] VITALS: BP 151/83
[2016-12-03] MEDS: QUEtiapine FUMARATE 100 MG TAB PO SCH (20:33)
[2016-12-03] MEDS: ATORVASTATIN 10 MG TAB PO SCH (20:33)
[2016-12-03] MEDS: MIRALAX *UNIT DOSE* 17GM PACKET PO PRN (20:58)
[2016-12-04 06:00] VITALS: BP 142/90
[2016-12-04] MEDS: oxyBUTYnin 5 MG TAB PO SCH ×2 (08:30→21:01)
[2016-12-04] MEDS: OMEPRAZOLE 20 MG CAP PO SCH ×2 (08:30→21:00)
[2016-12-04] MEDS: DIVALPROEX 500MG *ER* TAB PO SCH ×2 (08:30→21:01)
[2016-12-04] MEDS: MELOXICAM (MOBIC) 7.5 MG TAB PO SCH ×2 (08:30→21:01)
[2016-12-04] MEDS: MIRALAX *UNIT DOSE* 17GM PACKET PO PRN ×2 (08:30→21:09)
[2016-12-04] MEDS: METOPROLOL TART 12.5 MG PER 1/2 TAB PO SCH ×2 (08:31→21:05)
[2016-12-04] MEDS: TRIAMCINOLONE ACETONIDE 0.025 % 80 GM CREAM TOP PRN (08:31)
[2016-12-04] MEDS: OLANZapine ORAL DISINTEGRATING TAB 5MG PO PRN ×2 (08:31→21:09)
--- NOTE | 2016-12-04 11:00 | IPN ---
DATE: 12/03/2016 Evaluated 45-year-old female with longstanding history of psychiatric hospitalizations. She has a diagnosis of unspecified psychotic disorder, opioid use disorder, polysubstance use disorder, rule out bipolar disorder with psychotic features, mixed, rule out substance-induced mood disorder, rule out borderline personality disorder. SUBJECTIVE: The patient says that she came to the emergency room at [facility] because she was having suicidal ideations. She reports feeling very anxious and depressed, although she denies suicidal ideation. She states that she wishes that her medications were more effective. She mentioned that she had recently met with her security control assessor who told her that she was probably going to be arrested after she left the hospital. She reports this causes her a lot of anxiety and she is trying to block those thoughts away but it is not possible for her to forget that she might be arrested. MENTAL STATUS EXAMINATION: The patient was alert, oriented times three, cooperative with interview, with good eye contact and dressed in hospital clothes. Her speech was normal. Her thought process was linear, logical mostly all the time. 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 Abstract reasoning and computation are poor because the patient cannot really concentrate at this time due to altered mental status. Description of associations: They are not loose but she is tangential. Description of abnormal or psychotic thoughts: She denies suicidal or homicidal ideation. Denies auditory or visual hallucination. She reports that she is going to go to halfway and this medical writer is not sure if these are delusions or if this is based on reality. About a month ago when this medical writer and a colleague went to evaluate her on the medical floor, she also endorsed that upon discharge she was going to be arrested. Although at that time, she said that she was going to be arrested for a different reason, not for running a prostitution ring. Her insight and judgment are very poor. Her recent and remote memory are impaired due to her altered mental status. Her fund of knowledge is poor at this time. Her mood is "I think I could be better." Affect is constricted. The patient is still stable, seems to be very anxious and preoccupied about being arrested. She has had multiple hospitalizations at [facility] and she continues to return after she has been discharged, mostly because she has medication compliance problems and because of her polysubstance use disorder. MANAGEMENT PLAN: She will continue taking Seroquel 300 mg by mouth at bedtime. She will continue on Depakote ER 500 mg by mouth twice a day. We will continue on trazodone 50 mg by mouth at bedtime as needed for insomnia, Zydis 5 mg by mouth every four hours as needed for anxiety and agitation. She will continue on clonidine 0.1 mg by mouth every eight hours as needed for withdrawals. The patient is still unstable and delusional. We will follow her up closely tomorrow 12/04/2016 and we will adjust medications if needed.
[2016-12-04] MEDS: cloNIDine 0.1 MG TAB PO PRN (14:59)
[2016-12-04] MEDS: ATORVASTATIN 10 MG TAB PO SCH (21:00)
[2016-12-04] MEDS: QUEtiapine FUMARATE 100 MG TAB PO SCH (21:01)
[2016-12-05 06:32] VITALS: BP 144/92
[2016-12-05] MEDS: oxyBUTYnin 5 MG TAB PO SCH ×2 (08:29→20:58)
[2016-12-05] MEDS: OMEPRAZOLE 20 MG CAP PO SCH ×2 (08:29→20:58)
[2016-12-05] MEDS: DIVALPROEX 500MG *ER* TAB PO SCH ×2 (08:30→20:57)
[2016-12-05] MEDS: MELOXICAM (MOBIC) 7.5 MG TAB PO SCH ×2 (08:30→20:58)
[2016-12-05] MEDS: METOPROLOL TART 12.5 MG PER 1/2 TAB PO SCH ×2 (08:30→20:58)
--- NOTE | 2016-12-05 09:02 | MHIPNPDOC ---
[facility] Progress Note Progress Note DATE OF SERVICE: 12/05/16 HISTORY OF THE PRESENT ILLNESS: Patient is a 45-year-old female who indicated admission she was recently discharged from [facility], indicates she brought herself to the emergency room due to experiencing suicidal ideation , paranoia, delusional thinking and racing thoughts. While in the emergency room patient expressed suicidal ideation stating "I know it's coming," though she denied having plan or intent. Patient was discharged last month from [facility] inpatient treatment, has had multiple other psychiatric admissions, notes she was also hospitalized at [facility] since last [facility] hospitalization. Diesel Retrofit Installer met with patient today to assess treatment progress on inpatient unit. Patient is more engageable today, less paranoid and tangential. Patient rates current anxiety level of 2/10, depression/10, states she is feeling "better, calmer, " denies suicidal and homicidal ideation, denies auditory or visual hallucinations, denies urge to engage in self-injurious behavior. Patient indicates she feels her thinking is "clear," remains fixated on police the melt room operator is attempting to have her arrested but is more easily redirected. Patient has been utilizing clonidine approximately 1 time per day PRN to address symptoms of anxiety/elevated blood pressure/symptoms of withdrawal, notes medication is effective. Patient appears to be beginning to respond well to Depakote and Seroquel restart, indicates she is medication compliant and denies medication side effects. Patient states today she is willing to sign an SIMON's for [facility] and [facility]. Patient remains able to focus well on discharge, today makes request to meet with contract administration coordinator for assistance in completion of paperwork for [employer] housing, reiterates today she would like to discharge to a [facility] program, continues to verbalize insight with regard to need for inpatient treatment for both mental health and substance abuse issues. Patient describes sleep as "better and good," indicates she is eating well, states her energy level is stable, and exhibits improvement to energy level and concentration and focus. Patient denies experiencing physical pain at time of interaction and presents with no signs of acute distress. VITALS: See below NEW TEST RESULTS: 12/02/16 lab results indicated low RBC, Hgb, HCT, and elevated RDW MEDICAL/SURGICAL HISTORY: Hyperlipidemia, hypertension, GERD, osteoarthritis left knee, history of MRSA, edentulous, history of hep C, status post treatment , chronic constipation, OAB, eczema to hands. Patient denies history of seizure or head injury. Surgical history includes , left breast cyst removal, left groin cyst removal. Labs on admission indicated low AGR and elevated WBCs, leukocytosis, patient is afebrile and asymptomatic, PA is aware. HCG negative UDS positive for methadone, suspected use of kratom 12/01/16 EKG sinus rhythm minimal ST elevation noted, secondary to early repolarization last tracing on 10/05/16, no significant changes. Clinical consultation sought, follow-up with outpatient provider 12/02/[address]able CT examination of the brain. 12/02/16 Depakote level 56.8 MENTAL STATUS EXAMINATION: General appearance: Patient is a 45-year old female, who is noticeably less irritable today, cooperative, makes improved eye contact, displays adequate personal hygiene and is dressed in own clothing, ambulates with steady gait, and appears stated age. Speech: Noticeably less pressured, normal volume, normal rhythm less tangential , more spontaneous, coherent. Thought processes: Predominantly logical, less tangential, less paranoid, less disorganized Thought content: Predominantly rational, remains irrational at times, less tangential and less paranoid, maintains persecutory delusions, fixated on police the melt room operator is attempting to have her arrested Abstract reasoning and computation: Impaired, some improvement noted. Description of associations: Intact at times, at other times loose, noticeably less tangential tangential. Description of abnormal or psychotic thoughts: Denies suicidal or homicidal ideation, denies auditory or visual hallucinations, may be responding to internal stimuli, endorses bizarre and paranoid ideation, denies preoccupation with violence. Judgment: Poor, some improvement noted Insight: Poor, some improvement noted Orientation: A and O 3. Recent and remote memory: Impaired. Attention span and concentration: Impaired. Fund of knowledge: Impaired. Mood: "Well, okay, I guess." Patient appears anxious, somewhat depressed, irritable, mood lability noted Affect: Blunted but brightens at times, congruent with mood DIAGNOSES: Unspecified psychotic disorder, opioid use disorder, polysubstance use disorder, rule out bipolar disorder with psychotic features, mixed, rule out substance-induced mood disorder, rule out borderline personality disorder ASSESSMENT: Patient is adjusting to unit, has been able to maintain behavioral control, is visible and has been able to attend groups without being disruptive , is generally cooperative. At time of admission patient denied medication noncompliance, however, was evasive and provided contradictory information regarding her medications and how often she was taking them. Patient has been restarted on medication regimen verified by RN for medication reconciliation purposes, appears to be responding positively, and denies medication side effects. release coordinator continues to attempt to access treatment information from [facility], the last inpatient treatment entity, and [facility], the last place patient states she received outpatient treatment. Patient has declined to sign an ROIs, indicates today she is willing to zhang permission to communicate with previous providers. Patient denies medication side effects, continues to utilize Zydia and clonidine PRNs with good effect. Patient continues to express desire and motivation for entering inpatient [facility] treatment program. Patient denies current suicidal or homicidal ideation and is able to verbalize awareness of how to access supportive services on unit if needed. Will continue to monitor patient's response to medication regimen restart and will monitor need for dosing adjustments. Will continue to evaluate patient safety, resolution of suicidal ideation, paranoia, and delusional thinking, mood lability, and discharge/transfer readiness. release coordinator will continue to pursue information from recent providers for continuity care as allowed by patient. Patient states today when prepared for discharge she would like to transfer to an inpatient [facility] program. MANAGEMENT PLAN: Continue Seroquel 300 mg po q hs and evaluate change to XR/ dose increase. Continue Depakote ER 500 mg po BID and evaluate dose increased post follow-up lab work scheduled for 12/07/15. Continue trazodone 50 mg po q hs PRN insomnia, Zydis 5 mg po q 4 hours PRN anxiety/agitation. Initiate clonidine 0.1 mg po q 8 hours PRN increased B/P/withdrawal symptoms Depakote level and liver profile ordered for 12/06/16 Maintain safety precautions Patient to attend groups and participate in unit programming to develop coping strategies Engage patient in discharge planning process and arrange meeting with support system to ensure safe discharge planning when appropriate Patient to follow up with PCM upon discharge TIME SPENT: 35 minutes Vital Signs Vital Signs Date Time Temp Pulse Resp B/P (MAP) Pulse Ox O2 Delivery O2 Flow Rate FiO2 12/05/16 08:30 88 139/82 12/05/16 06:32 97.9 20 12/01/16 02:14 97 Room Air Current Medications Current Medications Acetaminophen (Tylenol Tab) 650 mg Q6HP PRN PO HEADACHE or DISCOMFORT; Start at 03:30; Stop 12/31/16 at 03:29 Al Hydrox/Mg Hydrox/Simethicone (Mylanta) 30 ml Q4HP PRN PO HEARTBURN/ INDIGESTION; Start 12/01/16 at 03:30; Stop 12/31/16 at 03:29 Atorvastatin Calcium (Lipitor) 10 mg QHS PO Last administered on 12/04/16 21: 00; Start 12/01/16 at 21:00; Stop 12/31/16 at 20:59 Clonidine HCl (Catapres) 0.1 mg Q8H PRN PO HIGH BLOOD PRESSURE AND OPIATE WITHDRAWALS Last administered on 12/04/16 14:59; Start 12/02/16 at 11:00; Stop 01/01/17 at 10:59 Divalproex Sodium (Depakote Er) 500 mg BID PO Last administered on 12/05/16 08 :30; Start 12/01/16 at 21:00; Stop 12/31/16 at 20:59 Home Med (Med Rec Complete!) ASDIRECTED XX ; Start 12/01/16 at 01:30; Stop at 01:36; Status DC Magnesium Hydroxide (Milk Of Magnesia) 30 ml DAILYPRN PRN PO CONSTIPATION; Start 12/01/16 at 03:30; Stop 12/31/16 at 03:29 Meloxicam (Mobic) 7.5 mg BID PO Last administered on 12/05/16 08:30; Start at 09:00; Stop 12/31/16 at 08:59 Metoprolol Tartrate (Lopressor) 12.5 mg BID PO Last administered on 12/05/16 08:30; Start 12/01/16 at 09:00; Stop 12/31/16 at 08:59 Olanzapine (ZyPREXA ZYDIS) 5 mg Q4HP PRN PO ANXIETY/AGITATION Last administered on 12/04/16 21:09; Start 12/01/16 at 19:45; Stop 12/31/16 at 19:44 Olanzapine (ZyPREXA ZYDIS) 10 mg Q4HP PRN PO ANXIETY/AGITATION; Start 12/01 at 18:00; Stop 12/01/16 at 19:38; Status DC Omeprazole (PriLOSEC) 40 mg BID PO Last administered on 12/05/16 08:29; Start 12/01/16 at 09:00; Stop 12/31/16 at 08:59 Oxybutynin Chloride (Ditropan) 5 mg BID PO Last administered on 12/05/16 08:29 ; Start 12/01/16 at 09:00; Stop 12/31/16 at 08:59 Polyethylene Glycol (Miralax) 1 pkt DAILY PRN PO CONSTIPATION Last administered on 12/04/16 21:09; Start 12/01/16 at 09:00; Stop 12/31/16 at 08:59 Quetiapine Fumarate (SEROquel) 100 mg QHSP PRN PO INSOMNIA; Start 12/01/16 at 03:30; Stop 12/01/16 at 19:19; Status DC Quetiapine Fumarate (SEROquel) 300 mg QHS PO Last administered on 12/04/16 21: 01; Start 12/01/16 at 21:00; Stop 12/31/16 at 03:29 Trazodone HCl (Desyrel) 50 mg QHSP PRN PO INSOMNIA Last administered on 21:00; Start 12/01/16 at 19:45; Stop 12/31/16 at 19:44 Triamcinolone Acetonide (Kenalog 0.025% Cream) 1 dose BID PRN TOP REDNESS/ IRRITATION Last administered on 12/04/16 08:31; Start 12/01/16 at 09:00; Stop 12/31/16 at 08:59 Allergies Coded Allergies: Codeine (Unverified Adverse Reaction, Mild, N/V,SWELLING,ITCH,SWEATS, 2/3/ ) Propoxyphene (Unverified Adverse Reaction, Mild, N/V,SWELLING,ITCH,SWEATS , 2/3/) Chichi Schultz Dec 05, 2016 09:02
[2016-12-05] MEDS: TRIAMCINOLONE ACETONIDE 0.025 % 80 GM CREAM TOP PRN ×2 (09:15→20:59)
[2016-12-05] MEDS: cloNIDine 0.1 MG TAB PO PRN (11:12)
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
[2016-12-05 18:34] VITALS: BP 138/84
[2016-12-05] MEDS: ATORVASTATIN 10 MG TAB PO SCH (20:58)
[2016-12-05] MEDS: QUEtiapine FUMARATE 100 MG TAB PO SCH (20:58)
[2016-12-06 06:28] VITALS: BP 159/78
[2016-12-06 08:14] LABS: ALBUMIN 3.3 GM/DL (3.2-5.2); ALKALINE PHOSPHATASE 58 U/L (45-117); ALT/SGPT 20 U/L (12-78); AST/SGOT 9 U/L (15-37); BILIRUBIN,DIRECT < 0.1 MG/DL (0.0-0.2); BILIRUBIN,TOTAL 0.3 MG/DL (0.2-1.0); TOTAL PROTEIN 6.6 GM/DL (6.4-8.2)
[2016-12-06] MEDS: OMEPRAZOLE 20 MG CAP PO SCH ×2 (08:55→21:48)
[2016-12-06] MEDS: MELOXICAM (MOBIC) 7.5 MG TAB PO SCH ×2 (08:55→21:48)
[2016-12-06] MEDS: METOPROLOL TART 12.5 MG PER 1/2 TAB PO SCH ×2 (08:55→21:48)
[2016-12-06] MEDS: DIVALPROEX 500MG *ER* TAB PO SCH ×2 (08:55→21:48)
[2016-12-06] MEDS: oxyBUTYnin 5 MG TAB PO SCH ×2 (08:55→21:48)
[2016-12-06] MEDS: TRIAMCINOLONE ACETONIDE 0.025 % 80 GM CREAM TOP PRN (08:56)
[2016-12-06] MEDS: OLANZapine ORAL DISINTEGRATING TAB 5MG PO PRN (15:32)
--- NOTE | 2016-12-06 18:17 | MHIPNPDOC ---
[facility] Progress Note Progress Note DATE OF SERVICE: 12/06/16 HISTORY OF THE PRESENT ILLNESS: Patient is a 45-year-old female who indicated admission she was recently discharged from [facility], indicates she brought herself to the emergency room due to experiencing suicidal ideation , paranoia, delusional thinking and racing thoughts. While in the emergency room patient expressed suicidal ideation stating "I know it's coming," though she denied having plan or intent. Patient was discharged last month from [facility] inpatient treatment, has had multiple other psychiatric admissions, notes she was also hospitalized at [facility] since last [facility] hospitalization. [employer]ola Man met with patient today to assess treatment progress on inpatient unit. Patient remains more engageable, is less irritable, continues to exhibit symptoms of paranoia, is less tangential. 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 Patient reiterates today she feels her thinking is clear, however, remains fixated on delusional belief system, is generally redirectable. She makes requests for clonidine to be prescribed as it was at time of last discharge from the hospital (BID) to address symptoms of anxiety and withdrawal, indicates she is agreeable to Seroquel dose increase in effort to further reduce symptoms of delusional thinking. Patient indicates Depakote at current dose is effective in helping to stabilize mood, reports medication side effect of dry mouth and strategies to mitigate side effects were discussed with patient who indicates side effect is manageable. Patient states she has been medication compliant and denies all other medication side effects. Patient makes requests for discharge tomorrow, was receptive to being informed that she is not yet stabilized on medications and, due to patient now stating she will not attend inpatient substance abuse treatment, outpatient services will need to be arranged to ensure substance abuse and ongoing behavioral health treatment. Patient indicates she continues to sleep well, states appetite and energy level are stable, and exhibits improvement to energy level and concentration and focus. Patient denies experiencing physical pain at time of interaction and presents with no signs of acute distress. Addendum: Patient agreed to sign an ROIs to request background information from [facility] which was received today. Patient was discharged on 11/08/16 from [facility] after an attempted overdose on Depakote and benzodiazepines, was treated for acute toxic encephalopathy. 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 Nursing has been asked to ensure the PA as evaluated patient and lab results MEDICAL/SURGICAL HISTORY: Hyperlipidemia, hypertension, GERD, osteoarthritis left knee, history of MRSA, edentulous, history of hep C, status post treatment , chronic constipation, OAB, eczema to hands. Patient denies history of seizure or head injury. Surgical history includes , left breast cyst removal, left groin cyst removal. Labs on admission indicated low AGR and elevated WBCs, leukocytosis, patient is afebrile and asymptomatic, PA is aware. HCG negative UDS positive for methadone, suspected use of kratom 12/01/16 EKG sinus rhythm minimal ST elevation noted, secondary to early repolarization last tracing on 10/05/16, no significant changes. Clinical consultation sought, follow-up with outpatient provider 12/02/[address]able CT examination of the brain. 12/02/16 Depakote level 56.8 12/06/16 Depakote level 88. 7 MENTAL STATUS EXAMINATION: General appearance: Patient is a 45-year old female, who is less irritable today , cooperative, makes improved eye contact, displays adequate personal hygiene and is dressed in own clothing, ambulates with steady gait, and appears stated age. Speech: Less pressured, normal volume, normal rhythm, less tangential, more spontaneous, coherent. Thought processes: Predominantly logical, less tangential, remains paranoid, less disorganized Thought content: Predominantly rational, remains irrational at times, less tangential, remains paranoid, mildly grandiose, maintains persecutory delusions , fixated on the belief that director of diagnostic imaging is attempting to have her arrested Abstract reasoning and computation: Impaired, some improvement noted. Description of associations: Intact at times, at other times loose, noticeably less tangential Description of abnormal or psychotic thoughts: Denies suicidal or homicidal ideation, denies auditory or visual hallucinations, does not appear to be responding to internal stimuli, endorses bizarre and paranoid ideation, denies preoccupation with violence. Judgment: Poor, some improvement noted Insight: Poor, some improvement noted Orientation: A and O 3. Recent and remote memory: Impaired. Attention span and concentration: Impaired. Fund of knowledge: Impaired. Mood: "Okay, but I feel better if I was being discharged today." Patient appears anxious, somewhat depressed, less mood lability noted Affect: Blunted but brightens at times, congruent with mood DIAGNOSES: Unspecified psychotic disorder, opioid use disorder, polysubstance use disorder, rule out bipolar disorder with psychotic features, mixed, rule out depressive disorder with psychotic features, rule out substance-induced mood disorder, rule out borderline personality disorder ASSESSMENT: Patient is adjusting to unit, has been able to maintain behavioral control, is visible and has been able to attend groups without being disruptive , is cooperative with staff. At time of admission patient denied medication noncompliance, however, was evasive and provided contradictory information regarding her medications and how often she was taking them. Patient has been restarted on medication regimen verified by RN for medication reconciliation purposes, appears to be responding positively, and denies medication side effects. Discharge medication information was received from [facility] today, assistance coordinator continues to attempt to access outpatient treatment information from [facility]. Patient is requesting to have clonidine changed to BID dosing and is agreeable to Seroquel dose increase in effort to reduce symptoms of psychosis. Patient denies intolerable medication side effects, continues to utilize Zydis PRN with good effect. Patient denies current suicidal or homicidal ideation and is able to verbalize awareness of how to access supportive services on unit if needed. Will continue to monitor patient's response to medication regimen restart and will monitor need for further dosing adjustments. Will continue to evaluate patient safety, resolution of suicidal ideation, paranoia, and delusional thinking, mood lability, and discharge/transfer readiness. transaction coordinator will continue to pursue information from recent providers for continuity care as allowed by patient. Patient today indicates she no longer wants to go to inpatient [facility] treatment program, is also refusing case management services, indicates she is on list for methadone program and now wants to attend outpatient [facility] program and receive medication management services through [facility]. Patient states today when prepared for discharge she would like to transfer to an inpatient [facility] program. MANAGEMENT PLAN: Increase Seroquel to 200 mg po BID. change clonidine 0.1 mg po to BID. Continue Depakote ER 500 mg po BID, trazodone 50 mg po q hs PRN insomnia , Zydis 5 mg po q 4 hours PRN anxiety/agitation. Repeat Depakote level ordered for 12/09/16 Maintain safety precautions Patient to attend groups and participate in unit programming to develop coping strategies Engage patient in discharge planning process and arrange meeting with support system to ensure safe discharge planning when appropriate Patient to follow up with PCM upon discharge TIME SPENT: 35 minutes Vital Signs Vital Signs Date Time Temp Pulse Resp B/P (MAP) Pulse Ox O2 Delivery O2 Flow Rate FiO2 12/06/16 08:55 80 138/82 12/06/16 06:28 98.1 18 12/01/16 02:14 97 Room Air Laboratory Data 24H Labs Laboratory Tests 2 12/06/16 07:29: Aspartate Amino Transf (AST/SGOT) 9L, Alanine Aminotransferase (ALT/SGPT) 20, Alkaline Phosphatase 58, Total Bilirubin 0.3, Direct Bilirubin < 0.1, Total Protein 6.6, Albumin 3.3, Albumin/Globulin Ratio 1.00, Valproic Acid (Depakene) Level 88.7 Current Medications Current Medications Acetaminophen (Tylenol Tab) 650 mg Q6HP PRN PO HEADACHE or DISCOMFORT; Start at 03:30; Stop 12/31/16 at 03:29 Al Hydrox/Mg Hydrox/Simethicone (Mylanta) 30 ml Q4HP PRN PO HEARTBURN/ INDIGESTION; Start 12/01/16 at 03:30; Stop 12/31/16 at 03:29 Atorvastatin Calcium (Lipitor) 10 mg QHS PO Last administered on 12/05/16t 20: 58; Start 12/01/16 at 21:00; Stop 12/31/16 at 20:59 Clonidine HCl (Catapres) 0.1 mg BID PO ; Start 12/06/16 at 21:00; Stop 01/05/17 at 20:59 Clonidine HCl (Catapres) 0.1 mg Q8H PRN PO HIGH BLOOD PRESSURE AND OPIATE WITHDRAWALS Last administered on 12/05/16 11:12; Start 12/02/16 at 11:00; Stop 12/06/16 at 15:35; Status DC Divalproex Sodium (Depakote Er) 500 mg BID PO Last administered on 12/06/16 08 :55; Start 12/01/16 at 21:00; Stop 12/31/16 at 20:59 Home Med (Med Rec Complete!) ASDIRECTED XX ; Start 12/01/16 at 01:30; Stop at 01:36; Status DC Magnesium Hydroxide (Milk Of Magnesia) 30 ml DAILYPRN PRN PO CONSTIPATION; Start 12/01/16 at 03:30; Stop 12/31/16 at 03:29 Meloxicam (Mobic) 7.5 mg BID PO Last administered on 12/06/16 08:55; Start at 09:00; Stop 12/31/16 at 08:59 Metoprolol Tartrate (Lopressor) 12.5 mg BID PO Last administered on 12/06/16 08:55; Start 12/01/16 at 09:00; Stop 12/31/16 at 08:59 Olanzapine (ZyPREXA ZYDIS) 5 mg Q4HP PRN PO ANXIETY/AGITATION Last administered on 12/06/16 15:32; Start 12/01/16 at 19:45; Stop 12/31/16 at 19:44 Olanzapine (ZyPREXA ZYDIS) 10 mg Q4HP PRN PO ANXIETY/AGITATION; Start 12/01 at 18:00; Stop 12/01/16 at 19:38; Status DC Omeprazole (PriLOSEC) 40 mg BID PO Last administered on 12/06/16 08:55; Start 12/01/16 at 09:00; Stop 12/31/16 at 08:59 Oxybutynin Chloride (Ditropan) 5 mg BID PO Last administered on 12/06/16 08:55 ; Start 12/01/16 at 09:00; Stop 12/31/16 at 08:59 Polyethylene Glycol (Miralax) 1 pkt DAILY PRN PO CONSTIPATION Last administered on 12/04/16 21:09; Start 12/01/16 at 09:00; Stop 12/31/16 at 08:59 Quetiapine Fumarate (SEROquel) 100 mg QHSP PRN PO INSOMNIA; Start 12/01/16 at 03:30; Stop 12/01/16 at 19:19; Status DC Quetiapine Fumarate (SEROquel) 200 mg BID PO ; Start 12/06/16 at 21:00; Stop at 03:29 Quetiapine Fumarate (SEROquel) 300 mg QHS PO Last administered on 12/05/16 20: 58; Start 12/01/16 at 21:00; Stop 12/06/16 at 17:37; Status DC Trazodone HCl (Desyrel) 50 mg QHSP PRN PO INSOMNIA Last administered on 21:00; Start 12/01/16 at 19:45; Stop 12/31/16 at 19:44 Triamcinolone Acetonide (Kenalog 0.025% Cream) 1 dose BID PRN TOP REDNESS/ IRRITATION Last administered on 12/06/16 08:56; Start 12/01/16 at 09:00; Stop 12/31/16 at 08:59 Allergies Coded Allergies: Codeine (Unverified Adverse Reaction, Mild, N/V,SWELLING,ITCH,SWEATS, 2/3/ ) Propoxyphene (Unverified Adverse Reaction, Mild, N/V,SWELLING,ITCH,SWEATS , 2/3/) Chichi Schultz Dec 06, 2016 18:17
[2016-12-06 18:22] VITALS: BP 140/74
[2016-12-06] MEDS: ATORVASTATIN 10 MG TAB PO SCH (21:48)
[2016-12-06] MEDS: cloNIDine 0.1 MG TAB PO SCH (21:49)
[2016-12-06] MEDS: QUEtiapine FUMARATE 200 MG TAB PO SCH (22:15)
[2016-12-07 06:31] VITALS: BP 150/85
[2016-12-07] MEDS: DIVALPROEX 500MG *ER* TAB PO SCH ×2 (08:32→21:28)
[2016-12-07] MEDS: MELOXICAM (MOBIC) 7.5 MG TAB PO SCH ×2 (08:32→21:28)
[2016-12-07] MEDS: oxyBUTYnin 5 MG TAB PO SCH ×2 (08:32→21:30)
[2016-12-07] MEDS: METOPROLOL TART 12.5 MG PER 1/2 TAB PO SCH ×2 (08:32→21:30)
[2016-12-07] MEDS: OMEPRAZOLE 20 MG CAP PO SCH ×2 (08:32→21:28)
[2016-12-07] MEDS: cloNIDine 0.1 MG TAB PO SCH ×2 (08:32→21:28)
[2016-12-07] MEDS: QUEtiapine FUMARATE 200 MG TAB PO SCH (08:34)
[2016-12-07] MEDS ORDERED: **PENDING PPD ENTRY XX SCH (09:00)
--- NOTE | 2016-12-07 09:13 | MHIPNPDOC ---
[facility] Progress Note Progress Note DATE OF SERVICE: 12/07/16 HISTORY OF THE PRESENT ILLNESS: Patient is a 45-year-old female who indicated admission she was recently discharged from [facility], indicates she brought herself to the emergency room due to experiencing suicidal ideation , paranoia, delusional thinking and racing thoughts. While in the emergency room patient expressed suicidal ideation stating "I know it's coming," though she denied having plan or intent. Patient was discharged last month from [facility] inpatient treatment, has had multiple other psychiatric admissions, notes she was also hospitalized at [facility] since last [facility] hospitalization. Vice President Marketing & Development met with patient today to assess treatment progress on inpatient unit. Patient refused to take a.m. dose of Seroquel this morning and states to contract writer , "I'm not going to take any Seroquel in the morning, it will slow me down." Patient is irritable but engageable, continues to exhibit symptoms of paranoia, is less tangential. 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 Vice President Marketing & Development informed patient that [facility] is evaluating whether they feel they can take her back into their program and that they have indicated they do not feel she is appropriate for group therapy setting. Patient became argumentative, admitted that she had made second overdose attempt just prior to being admitted to [facility], is able to verbalize understanding of provider concerns due to multiple recent psychiatric admissions and 2 recent overdose attempts. Patient rates current anxiety level as 2/10, depression 3/10, denies suicidal or homicidal ideation, denies auditory or visual hallucinations, denies urge to engage in self- injurious behavior. Patient denies need for Seroquel dose increase but is agreeable to taking Seroquel XR at night, indicates she will not consider taking Seroquel during the day in effort to address symptoms of psychosis. Patient last utilized zydis PRN yesterday, has not been utilizing trazodone for sleep. Patient indicates balance of medication regimen remains effective and she denies medication side effects, including symptoms of dry mouth reported yesterday. Patient indicates she is been sleeping adequately, reports improvement to energy level, concentration and focus, states appetite has improved. Patient makes requests for discharge tomorrow, is aware she has meeting scheduled today at 13:00 with friend, is currently declining inpatient psychiatric/substance abuse treatment and states she wants to participate in [facility] outpatient treatment. Patient denies experiencing physical pain at time of interaction and presents with no signs of acute distress. Patient is today agreeing to sign an SIMON to permit communication with her son. Addendum: Patient agreed to sign an ROIs to request background information from [facility] which was received 12/06/16. Patient was discharged on 11/08/16 from [facility] after an attempted overdose on Depakote and benzodiazepines, was treated for acute toxic encephalopathy. When patient was released from [facility] she was discharged on the following medication regimen: BuSpar 5 mg 3 times a day - patient indicates medication was ineffective Clonidine 0.1 mg twice a day - patient indicates medication was effective Depakote 500 mg twice a day - patient indicates was effective Seroquel 300 mg at night - patient states medication was effective Trazodone 50 mg at night - patient states medication was effective Patient informs contract writer she has also taken hydroxyzine in the past with poor effect VITALS: See below NEW TEST RESULTS: 12/02/16 lab results indicated low RBC, Hgb, HCT, and elevated RDW. Nursing has been asked to ensure the PA as evaluated patient and lab results MEDICAL/SURGICAL HISTORY: Hyperlipidemia, hypertension, GERD, osteoarthritis left knee, history of MRSA, edentulous, history of hep C, status post treatment , chronic constipation, OAB, eczema to hands. Patient denies history of seizure or head injury. Surgical history includes , left breast cyst removal, left groin cyst removal. Labs on admission indicated low AGR and elevated WBCs, leukocytosis, patient is afebrile and asymptomatic, PA is aware. HCG negative UDS positive for methadone, suspected use of kratom 12/01/16 EKG sinus rhythm minimal ST elevation noted, secondary to early repolarization last tracing on 10/05/16, no significant changes. Clinical consultation sought, follow-up with outpatient provider 12/02/[address]able CT examination of the brain. 12/02/16 Depakote level 56.8 12/06/16 Depakote level 88. 7 MENTAL STATUS EXAMINATION: General appearance: Patient is a 45-year old female, who is irritable today, cooperative, makes improved eye contact, displays adequate personal hygiene and is dressed in own clothing, ambulates with steady gait, and appears stated age. Speech: Less pressured, normal volume, normal rhythm, less tangential, more spontaneous, coherent. Thought processes: Predominantly logical, less tangential, remains paranoid, less disorganized Thought content: Predominantly rational, remains irrational at times, less tangential, remains paranoid, mildly grandiose, maintains persecutory delusions , fixated on the belief that distribution center associate is attempting to have her arrested Abstract reasoning and computation: Impaired, some improvement noted. Description of associations: Intact at times, at other times loose, noticeably less tangential Description of abnormal or psychotic thoughts: Denies suicidal or homicidal ideation, denies auditory or visual hallucinations, does not appear to be responding to internal stimuli, endorses bizarre and paranoid ideation, denies preoccupation with violence. Judgment: Poor, some improvement noted Insight: Poor, some improvement noted Orientation: A and O 3. Recent and remote memory: Impaired. Attention span and concentration: Impaired. Fund of knowledge: Impaired. Mood: "Okay, but I I want to be discharged tomorrow to go to outpatient treatment, I don't want to go to inpatient treatment, I have things to do." Patient appears anxious, less depressed, some mood lability noted Affect: Blunted, no brightening today, congruent with mood DIAGNOSES: Unspecified psychotic disorder, opioid use disorder, polysubstance use disorder, rule out bipolar disorder with psychotic features, mixed, rule out depressive disorder with psychotic features, rule out substance-induced mood disorder, rule out borderline personality disorder ASSESSMENT: Patient continues to adjust to unit, has been able to maintain behavioral control, is visible and has been able to attend groups without being disruptive, is cooperative with staff. Patient and contract writer spoke at length today regarding [facility] informing business support coordinator that they will be evaluating whether patient can return for treatment, have indicated they do not feel she is appropriate for AIP program. Patient refused to take her a.m. Seroquel dose this morning but has agreed to take increased hs dose of Seroquel XR in effort to more effectively address symptoms of psychosis. Patient appears to be responding positively to medication regimen and denies medication side effects. Patient denies current suicidal or homicidal ideation and is able to verbalize awareness of how to access supportive services on unit if needed. Will continue to monitor patient's response to medication regimen restart and will monitor need for further dosing adjustments. Will continue to evaluate patient safety, resolution of suicidal ideation, paranoia, and delusional thinking, mood lability, and discharge/transfer readiness. patient resource coordinator will continue to work with patient on discharge options. Patient reiterates today that she is no longer willing to go to inpatient [place] treatment program, is also refusing case management services, indicates she is on list for methadone program and now wants to attend outpatient [facility] program and receive medication management services through [facility]. [facility] process initiated date of entry due to patient's history of 2 recent overdoses on prescribed medications, substance abuse, multiple psychiatric hospitalizations, and refusal to participate in inpatient treatment. MANAGEMENT PLAN: Change Seroquel to XR 400 mg po hs. Continue clonidine 0.1 mg po to BID, Depakote ER 500 mg po BID, Zydis 5 mg po q 4 hours PRN anxiety/ agitation. Repeat Depakote level ordered for 12/09/16 Maintain safety precautions Patient to attend groups and participate in unit programming to develop coping strategies Engage patient in discharge planning process and arrange meeting with support system to ensure safe discharge planning when appropriate Patient to follow up with PCM upon discharge TIME SPENT: 35 minutes Vital Signs Vital Signs Vital Signs Date Time Temp Pulse Resp B/P (MAP) Pulse Ox O2 Delivery O2 Flow Rate FiO2 12/07/16 08:32 140/90 12/07/16 08:32 62 12/07/16 06:31 96.7 18 12/01/16 02:14 97 Room Air Current Medications Current Medications Acetaminophen (Tylenol Tab) 650 mg Q6HP PRN PO HEADACHE or DISCOMFORT; Start at 03:30; Stop 12/31/16 at 03:29 Al Hydrox/Mg Hydrox/Simethicone (Mylanta) 30 ml Q4HP PRN PO HEARTBURN/ INDIGESTION; Start 12/01/16 at 03:30; Stop 12/31/16 at 03:29 Atorvastatin Calcium (Lipitor) 10 mg QHS PO Last administered on 12/06/16t 21: 48; Start 12/01/16 at 21:00; Stop 12/31/16 at 20:59 Clonidine HCl (Catapres) 0.1 mg BID PO Last administered on 12/07/16 08:32; Start 12/06/16 at 21:00; Stop 01/05/17 at 20:59 Clonidine HCl (Catapres) 0.1 mg Q8H PRN PO HIGH BLOOD PRESSURE AND OPIATE WITHDRAWALS Last administered on 12/05/16 11:12; Start 12/02/16 at 11:00; Stop 12/06/16 at 15:35; Status DC Divalproex Sodium (Depakote Er) 500 mg BID PO Last administered on 12/07/16 08 :32; Start 12/01/16 at 21:00; Stop 12/31/16 at 20:59 Home Med (Med Rec Complete!) ASDIRECTED XX ; Start 12/01/16 at 01:30; Stop at 01:36; Status DC Magnesium Hydroxide (Milk Of Magnesia) 30 ml DAILYPRN PRN PO CONSTIPATION; Start 12/01/16 at 03:30; Stop 12/31/16 at 03:29 Meloxicam (Mobic) 7.5 mg BID PO Last administered on 12/07/16 08:32; Start at 09:00; Stop 12/31/16 at 08:59 Metoprolol Tartrate (Lopressor) 12.5 mg BID PO Last administered on 12/07/16 08:32; Start 12/01/16 at 09:00; Stop 12/31/16 at 08:59 Olanzapine (ZyPREXA ZYDIS) 5 mg Q4HP PRN PO ANXIETY/AGITATION Last administered on 12/06/16 15:32; Start 12/01/16 at 19:45; Stop 12/31/16 at 19:44 Olanzapine (ZyPREXA ZYDIS) 10 mg Q4HP PRN PO ANXIETY/AGITATION; Start 12/01 at 18:00; Stop 12/01/16 at 19:38; Status DC Omeprazole (PriLOSEC) 40 mg BID PO Last administered on 12/07/16 08:32; Start 12/01/16 at 09:00; Stop 12/31/16 at 08:59 Oxybutynin Chloride (Ditropan) 5 mg BID PO Last administered on 12/07/16 08:32 ; Start 12/01/16 at 09:00; Stop 12/31/16 at 08:59 Polyethylene Glycol (Miralax) 1 pkt DAILY PRN PO CONSTIPATION Last administered on 12/04/16 21:09; Start 12/01/16 at 09:00; Stop 12/31/16 at 08:59 Quetiapine Fumarate (SEROquel) 100 mg QHSP PRN PO INSOMNIA; Start 12/01/16 at 03:30; Stop 12/01/16 at 19:19; Status DC Quetiapine Fumarate (SEROquel) 200 mg BID PO Last administered on 12/06/16 22: 15; Start 12/06/16 at 21:00; Stop 12/31/16 at 03:29 Quetiapine Fumarate (SEROquel) 300 mg QHS PO Last administered on 12/05/16 20: 58; Start 12/01/16 at 21:00; Stop 12/06/16 at 17:37; Status DC Trazodone HCl (Desyrel) 50 mg QHSP PRN PO INSOMNIA Last administered on 21:00; Start 12/01/16 at 19:45; Stop 12/31/16 at 19:44 Triamcinolone Acetonide (Kenalog 0.025% Cream) 1 dose BID PRN TOP REDNESS/ IRRITATION Last administered on 12/06/16 08:56; Start 12/01/16 at 09:00; Stop 12/31/16 at 08:59 Allergies Coded Allergies: Codeine (Unverified Adverse Reaction, Mild, N/V,SWELLING,ITCH,SWEATS, 2/3/ ) Propoxyphene (Unverified Adverse Reaction, Mild, N/V,SWELLING,ITCH,SWEATS , 2/3/) Chichi Schultz Dec 07, 2016 09:13
[2016-12-07] MEDS ORDERED: TUBERCULIN PPD 5 UNITS/0.1 ML ID SCH (13:00)
[2016-12-07 18:17] VITALS: BP 134/67
[2016-12-07] MEDS: ATORVASTATIN 10 MG TAB PO SCH (21:28)
[2016-12-07] MEDS: QUEtiapine FUMARATE **XR** 200MG TABLET PO SCH (21:29)
[2016-12-08 06:51] VITALS: BP 139/73
[2016-12-08] MEDS: MELOXICAM (MOBIC) 7.5 MG TAB PO SCH ×2 (08:29→21:55)
[2016-12-08] MEDS: OMEPRAZOLE 20 MG CAP PO SCH ×2 (08:29→21:55)
[2016-12-08] MEDS: DIVALPROEX 500MG *ER* TAB PO SCH ×2 (08:30→21:55)
[2016-12-08] MEDS: oxyBUTYnin 5 MG TAB PO SCH ×2 (08:30→21:55)
[2016-12-08] MEDS: METOPROLOL TART 12.5 MG PER 1/2 TAB PO SCH ×2 (08:31→21:55)
[2016-12-08] MEDS: TRIAMCINOLONE ACETONIDE 0.025 % 80 GM CREAM TOP PRN (08:31)
[2016-12-08] MEDS: cloNIDine 0.1 MG TAB PO SCH ×2 (08:31→21:55)
--- NOTE | 2016-12-08 08:58 | MHIPNPDOC ---
[facility] Progress Note Progress Note DATE OF SERVICE: 12/08/16 HISTORY OF THE PRESENT ILLNESS: Patient is a 45-year-old female who indicated admission she was recently discharged from [facility], indicates she brought herself to the emergency room due to experiencing suicidal ideation , paranoia, delusional thinking and racing thoughts. While in the emergency room patient expressed suicidal ideation stating "I know it's coming," though she denied having plan or intent. Patient was discharged last month from [facility] inpatient treatment, has had multiple other psychiatric admissions, notes she was also hospitalized at [facility] since last [facility] hospitalization. Ham Rolling Machine Operator met with patient today to assess treatment progress on inpatient unit. Patient was medication compliant last night and took increased dose of Seroquel , reiterates she will not take Seroquel during the day and notes she will likely not be medication compliant after discharge. Patient states, "I have heroin cravings, I always end up using if I'm not in a controlled environment and I know it's can happen again." Ham Rolling Machine Operator again attempted to discuss inpatient treatment for patient who continues to state she does not want to go to inpatient treatment, wants to discharge to home noting, "I have too many things to do and I have bills to pay, I just want to be in an outpatient methadone program." In effort to encourage inpatient treatment, content writer attempted to discuss patient's history of failure to show up at outpatient treatment and failure to be medication compliant, patient responded by blaming previous providers and outpatient programs, and began speaking over content writer, disagreeing, then changing the subject and noting, "I don't feel like discussing this anymore." Patient continues to make reference to belief that people are conspiring against her and that she has "charges out against me for 25 years to life." Patient expresses insight today related to need to participate in substance abuse treatment and inability to remain drug-free when living in community. Patient confirms multiple recent suicide attempts and multiple recent psychiatric hospitalizations, however, minimizes events and declines to talk with content writer regarding the subject. Patient is aware that [facility] is currently evaluating whether they accept her back into their program and they have indicated they do not feel she is appropriate for the group therapy setting , therefore making the AIP not an option. Patient rates current anxiety level as 3/10, depression 2/10, denies suicidal or homicidal ideation, denies auditory or visual hallucinations, denies urge to engage in self-injurious behavior. Patient indicates current medication regimen is helping to control symptoms of anxiety, depression, and psychosis, expresses concerns about feeling "overmedicated, I fell asleep in group yesterday morning," she was reminded that yesterday morning she refused to take her morning medication dose and had taken a smaller dose of Seroquel the night before in preparation for changing dosing to BID. Patient denies feeling overly medicated or sedated this morning, was reminded that last night her Seroquel dose was increased; patient does not appear sedated. Patient expresses concerns related to "I'm eating more and I'm gaining weight," attributes to medications, then states, "Well, maybe it's not the medication so much causing me to eat, maybe I'm just bored." Patient informs content writer she has a history of fluctuating weight which preexists psychotropic medication trials. Ham Rolling Machine Operator provided education on portion control and other ways to mitigate symptoms of weight gain, also recommended labs to be completed on fasting cholesterol and A1c to evaluate appropriateness of addition of metformin. Patient refused labs but agreed to allow to have them completed with next Depakote drawn, however, informed content writer that she will be permitting the addition of no more medications. Patient describes sleep as " very good," reports general improvement to energy level, and notes concentration and energy levels have improved. Patient denies experiencing physical pain at time of interaction and presents with no signs of acute distress. Patient is today agreeing to sign an SIMON to permit communication with her son. Addendum: Patient agreed to sign ROIs to request background information from [facility] which was received 12/06/16. Patient was discharged on 11/08/16 from [facility] after an attempted overdose on Depakote and benzodiazepines, was treated for acute toxic encephalopathy. When patient was released from [facility] she was discharged on the following medication regimen: BuSpar 5 mg 3 times a day - patient indicates medication was ineffective Clonidine 0.1 mg twice a day - patient indicates medication was effective Depakote 500 mg twice a day - patient indicates was effective Seroquel 300 mg at night - patient states medication was effective Trazodone 50 mg at night - patient states medication was effective Patient informs content writer she has also taken hydroxyzine in the past with poor effect VITALS: See below NEW TEST RESULTS: 12/02/16 lab results indicated low RBC, Hgb, HCT, and elevated RDW. Nursing has been asked to ensure the PA as evaluated patient and lab results MEDICAL/SURGICAL HISTORY: Hyperlipidemia, hypertension, GERD, osteoarthritis left knee, history of MRSA, edentulous, history of hep C, status post treatment , chronic constipation, OAB, eczema to hands. Patient denies history of seizure or head injury. Surgical history includes , left breast cyst removal, left groin cyst removal. Labs on admission indicated low AGR and elevated WBCs, leukocytosis, patient is afebrile and asymptomatic, PA is aware. HCG negative UDS positive for methadone, suspected use of kratom 12/01/16 EKG sinus rhythm minimal ST elevation noted, secondary to early repolarization last tracing on 10/05/16, no significant changes. Clinical consultation sought, follow-up with outpatient provider 12/02/[address]able CT examination of the brain. 12/02/16 Depakote level 56.8 12/06/16 Depakote level 88. 7 MENTAL STATUS EXAMINATION: General appearance: Patient is a 45-year old female, who is irritable today, cooperative, makes improved eye contact, displays adequate personal hygiene and is dressed in own clothing, ambulates with steady gait, and appears stated age. Speech: Less pressured, normal volume, normal rhythm, less tangential, more spontaneous, coherent. Thought processes: Predominantly logical, less tangential, remains paranoid, less disorganized Thought content: Predominantly rational, remains irrational at times, less tangential, appears less paranoid today, less grandiose, maintains persecutory delusions, fixated on the belief that photolithographic stripper is attempting to have her arrested but delusions are noticeably less intrusive and less firmly held Abstract reasoning and computation: Impaired, some improvement noted. Description of associations: Intact at times, at other times loose, noticeably less tangential Description of abnormal or psychotic thoughts: Denies suicidal or homicidal ideation, denies auditory or visual hallucinations, does not appear to be responding to internal stimuli, endorses bizarre and paranoid ideation, denies preoccupation with violence. Judgment: Poor, some improvement noted Insight: Poor, some improvement noted Orientation: A and O 3. Recent and remote memory: Impaired. Attention span and concentration: Impaired. Fund of knowledge: Impaired. Mood: "Okay, but I want to go to a methadone maintenance program, not to inpatient treatment." Patient appears less anxious, less depressed, some mood lability noted Affect: Blunted, brightens at times, congruent with mood DIAGNOSES: Unspecified psychotic disorder, opioid use disorder, polysubstance use disorder, rule out bipolar disorder with psychotic features, mixed, rule out depressive disorder with psychotic features, rule out substance-induced mood disorder, rule out borderline personality disorder ASSESSMENT: Patient continues to adjust to unit, has been able to maintain behavioral control, is visible and has been able to attend groups without being disruptive, is cooperative with staff. Patient and content writer spoke at length today regarding [facility] informing educational resource coordinator that they will be evaluating whether patient can return for treatment, have indicated they do not feel she is appropriate for AIP program. Patient has been medication compliant last night and this morning and appears to be responding positively to medication regimen and denies medication side effects. Patient denies current suicidal or homicidal ideation and is able to verbalize awareness of how to access supportive services on unit if needed. Will continue to monitor patient's response to medication regimen restart and will monitor need for further dosing adjustments. Will continue to evaluate patient safety, resolution of suicidal ideation, paranoia, and delusional thinking, mood lability, and discharge/ transfer readiness. sales service coordinator will continue to work with patient on discharge options. Patient reiterates today that she is no longer willing to go to inpatient treatment program, is also refusing case management services, indicates she is on list for methadone program and [facility] and receive medication management services through [facility]. [facility] process has been initiated due to patient's history of two recent overdoses on prescribed medications, substance abuse, multiple psychiatric hospitalizations, failure to show up for/comply with outpatient substance abuse treatment, and refusal to participate in inpatient treatment. MANAGEMENT PLAN: Continue Seroquel XR 400 mg po hs, clonidine 0.1 mg po to BID, Depakote ER 500 mg po BID, and Zydis 5 mg po q 4 hours PRN anxiety/agitation. Repeat Depakote level ordered for 12/11/16, also evaluate fasting cholesterol and A1c Maintain safety precautions Patient to attend groups and participate in unit programming to develop coping strategies Engage patient in discharge planning process and arrange meeting with support system to ensure safe discharge planning when appropriate Patient to follow up with PCM to address recent EKG results and any other health concerns upon discharge TIME SPENT: 35 minutes Vital Signs Vital Signs Date Time Temp Pulse Resp B/P (MAP) Pulse Ox O2 Delivery O2 Flow Rate FiO2 12/08/16 08:31 139/73 12/08/16 08:31 75 12/08/16 06:51 98.2 20 Current Medications Current Medications Acetaminophen (Tylenol Tab) 650 mg Q6HP PRN PO HEADACHE or DISCOMFORT; Start at 03:30; Stop 12/31/16 at 03:29 Al Hydrox/Mg Hydrox/Simethicone (Mylanta) 30 ml Q4HP PRN PO HEARTBURN/ INDIGESTION; Start 12/01/16 at 03:30; Stop 12/31/16 at 03:29 Atorvastatin Calcium (Lipitor) 10 mg QHS PO Last administered on 12/07/16 21: 28; Start 12/01/16 at 21:00; Stop 12/31/16 at 20:59 Clonidine HCl (Catapres) 0.1 mg BID PO Last administered on 12/08/16 08:31; Start 12/06/16 at 21:00; Stop 01/05/17 at 20:59 Clonidine HCl (Catapres) 0.1 mg Q8H PRN PO HIGH BLOOD PRESSURE AND OPIATE WITHDRAWALS Last administered on 12/05/16 11:12; Start 12/02/16 at 11:00; Stop 12/06/16 at 15:35; Status DC Divalproex Sodium (Depakote Er) 500 mg BID PO Last administered on 12/08/16 08 :30; Start 12/01/16 at 21:00; Stop 12/31/16 at 20:59 Home Med (Med Rec Complete!) ASDIRECTED XX ; Start 12/01/16 at 01:30; Stop at 01:36; Status DC Magnesium Hydroxide (Milk Of Magnesia) 30 ml DAILYPRN PRN PO CONSTIPATION; Start 12/01/16 at 03:30; Stop 12/31/16 at 03:29 Meloxicam (Mobic) 7.5 mg BID PO Last administered on 12/08/16 08:29; Start at 09:00; Stop 12/31/16 at 08:59 Metoprolol Tartrate (Lopressor) 12.5 mg BID PO Last administered on 12/08/16 08:31; Start 12/01/16 at 09:00; Stop 12/31/16 at 08:59 Non-Formulary Medication ( See Comment Field Below ) SEE COMMENTS SECTION 1T @10 XX ; Start 12/09/16 at 10:00; Stop 12/09/16 at 10:00; Status DC Non-Formulary Medication ( See Comment Field Below ) SEE LABEL COMMENTS DAILY XX ; Start 12/07/16 at 09:00; Stop 12/07/16 at 11:51; Status DC Non-Formulary Medication ( See Comment Field Below ) SEE LABEL COMMENTS SECTION 1T@10 XX ; Start 12/09/16 at 13:00; Stop 12/09/16 at 13:01 Olanzapine (ZyPREXA ZYDIS) 5 mg Q4HP PRN PO ANXIETY/AGITATION Last administered on 12/06/16 15:32; Start 12/01/16 at 19:45; Stop 12/31/16 at 19:44 Olanzapine (ZyPREXA ZYDIS) 10 mg Q4HP PRN PO ANXIETY/AGITATION; Start 12/01 at 18:00; Stop 12/01/16 at 19:38; Status DC Omeprazole (PriLOSEC) 40 mg BID PO Last administered on 12/08/16 08:29; Start 12/01/16 at 09:00; Stop 12/31/16 at 08:59 Oxybutynin Chloride (Ditropan) 5 mg BID PO Last administered on 12/08/16 08:30 ; Start 12/01/16 at 09:00; Stop 12/31/16 at 08:59 Polyethylene Glycol (Miralax) 1 pkt DAILY PRN PO CONSTIPATION Last administered on 12/04/16 21:09; Start 12/01/16 at 09:00; Stop 12/31/16 at 08:59 Quetiapine Fumarate (SEROquel XR) 400 mg QHS PO Last administered on 21:29; Start 12/07/16 at 21:00; Stop 01/06/17 at 20:59 Quetiapine Fumarate (SEROquel) 100 mg QHSP PRN PO INSOMNIA; Start 12/01/16 at 03:30; Stop 12/01/16 at 19:19; Status DC Quetiapine Fumarate (SEROquel) 200 mg BID PO Last administered on 12/06/16 22: 15; Start 12/06/16 at 21:00; Stop 12/07/16 at 17:39; Status DC Quetiapine Fumarate (SEROquel) 300 mg QHS PO Last administered on 12/05/16 20: 58; Start 12/01/16 at 21:00; Stop 12/06/16 at 17:37; Status DC Trazodone HCl (Desyrel) 50 mg QHSP PRN PO INSOMNIA Last administered on 21:00; Start 12/01/16 at 19:45; Stop 12/07/16 at 17:39; Status DC Triamcinolone Acetonide (Kenalog 0.025% Cream) 1 dose BID PRN TOP REDNESS/ IRRITATION Last administered on 12/08/16 08:31; Start 12/01/16 at 09:00; Stop 12/31/16 at 08:59 Tuberculin PPD (Aplisol, Ppd) 5 units 1T@10 ID Last administered on 12/07/16 12:59; Start 12/07/16 at 13:00; Stop 12/07/16 at 13:01; Status DC Allergies Coded Allergies: Codeine (Unverified Adverse Reaction, Mild, N/V,SWELLING,ITCH,SWEATS, 2/3/ ) Propoxyphene (Unverified Adverse Reaction, Mild, N/V,SWELLING,ITCH,SWEATS , 2) Chichi Schultz Dec 08, 2016 08:58
[2016-12-08] MEDS ORDERED: TUBERCULIN PPD 5 UNITS/0.1 ML ID ONE (10:00)
[2016-12-08 18:00] VITALS: BP 150/76
[2016-12-08] MEDS: ATORVASTATIN 10 MG TAB PO SCH (21:55)
[2016-12-08] MEDS: QUEtiapine FUMARATE **XR** 200MG TABLET PO SCH (21:56)
[2016-12-09 06:00] VITALS: BP 133/65
--- NOTE | 2016-12-09 08:18 | MHIPNPDOC ---
[facility] Progress Note Progress Note DATE OF SERVICE: 12/09/16 HISTORY OF THE PRESENT ILLNESS: Patient is a 45-year-old female who indicated admission she was recently discharged from [facility], indicates she brought herself to the emergency room due to experiencing suicidal ideation , paranoia, delusional thinking and racing thoughts. While in the emergency room patient expressed suicidal ideation stating "I know it's coming," though she denied having plan or intent. Patient was discharged last month from [facility] inpatient treatment, has had multiple other psychiatric admissions, notes she was also hospitalized at [facility] since last [facility] hospitalization. Jack Setter met with patient today to assess treatment progress on inpatient unit. Patient was medication compliant again last night, again states she will not take daytime Seroquel, indicates she is experiencing symptoms of sedation due to Seroquel XR, indicates symptoms are manageable and verbalizes understanding of symptoms generally remit. Patient again indicates she does not want to go to inpatient treatment and music writer and patient again discussed patient's history of failure to show up at outpatient treatment and failure to be medication compliant, 2 recent overdoses on prescribed medications, presenting to treatment under the influence/actively withdrawing from substance abuse, multiple recent hospitalizations, and patient's own report of inability to control drug use if not in a "controlled setting." Patient is more receptive to inpatient treatment today, states she will consider if she is allowed to take care of bills and get clothing first. Patient makes minimal reference today to believe that people are conspiring against her and believes that she has "charges out against me for 25 years to life." Patient continues to express insight today related to need to participate in substance abuse treatment and inability to remain drug-free when living in community. Patient confirms multiple recent suicide attempts and multiple recent psychiatric hospitalizations, however, continues to minimize events. Patient remains aware that [facility] is currently evaluating whether they accept her back into their program and they have indicated they do not feel she is appropriate for the group therapy setting, therefore making the AIP not an option. Patient rates current anxiety level as 3/10, depression 2/10, denies suicidal or homicidal ideation, denies auditory or visual hallucinations, denies urge to engage in self-injurious behavior. Patient indicates current medication regimen is helping to control symptoms of anxiety, depression, and psychosis, reports side effect of fatigue but no longer believe she is overmedicated, is today agreeable to lab work to evaluate addition of metformin stating, "I know I should take a look at that, my doctor told me I was prediabetic." Patient is aware labs at been scheduled for 12/11/16. Patient indicates sleep remains "good, " reports general improvement to energy level, and notes concentration and energy levels have improved. Patient denies experiencing physical pain at time of interaction and presents with no signs of acute distress. Addendum: Patient agreed to sign ROIs to request background information from [facility] which was received 12/06/16. Patient was discharged on 11/08/16 from [facility] after an attempted overdose on Depakote and benzodiazepines, was treated for acute toxic encephalopathy. When patient was released from [facility] she was discharged on the following medication regimen: BuSpar 5 mg 3 times a day - patient indicates medication was ineffective Clonidine 0.1 mg twice a day - patient indicates medication was effective Depakote 500 mg twice a day - patient indicates was effective Seroquel 300 mg at night - patient states medication was effective Trazodone 50 mg at night - patient states medication was effective Patient informs music writer she has also taken hydroxyzine in the past with poor effect VITALS: See below. Elevated this a.m. but within normal range on follow up, nursing has been asked to monitor and to have PA evaluate if elevated. Patient placed on vitals QID. NEW TEST RESULTS: 12/02/16 lab results indicated low RBC, Hgb, HCT, and elevated RDW. Nursing has been asked to ensure the PA as evaluated patient and lab results MEDICAL/SURGICAL HISTORY: Hyperlipidemia, hypertension, GERD, osteoarthritis left knee, history of MRSA, edentulous, history of hep C, status post treatment , chronic constipation, OAB, eczema to hands. Patient denies history of seizure or head injury. Surgical history includes , left breast cyst removal, left groin cyst removal. Labs on admission indicated low AGR and elevated WBCs, leukocytosis, patient is afebrile and asymptomatic, PA is aware. HCG negative. Patient does not utilize control and has been educated on potential risks of psychotropic medications to unborn child should she become while taking psychotropic medications. Patient has been strongly encouraged to utilize control regularly when sexually active, patient has verbalized understanding. UDS positive for methadone, suspected use of kratom 12/01/16 EKG sinus rhythm minimal ST elevation noted, secondary to early repolarization last tracing on 10/05/16, no significant changes. Patient is asymptomatic, clinical consultation sought with recommendation made for follow- up with outpatient provider 12/02/[address] un[address]able CT examination of the brain. 12/02/16 Depakote level 56.8 12/06/16 Depakote level 88. 7 MENTAL STATUS EXAMINATION: General appearance: Patient is a 45-year old female, who is less irritable today , generally cooperative, makes improved eye contact, displays adequate personal hygiene and is dressed in own clothing, ambulates with steady gait, and appears stated age. Speech: Less pressured, normal volume, normal rhythm, less tangential, more spontaneous, coherent. Thought processes: Predominantly logical, less tangential, remains paranoid, less disorganized Thought content: Predominantly rational, remains irrational at times, less tangential, appears less paranoid today, less grandiose, maintains persecutory delusions, fixated on the belief that gun mechanic is attempting to have her arrested but delusions are noticeably less intrusive and less firmly held Abstract reasoning and computation: Impaired, some improvement noted. Description of associations: Intact at times, at other times loose, noticeably less tangential Description of abnormal or psychotic thoughts: Denies suicidal or homicidal ideation, denies auditory or visual hallucinations, does not appear to be responding to internal stimuli, endorses bizarre and paranoid ideation, denies preoccupation with violence. Judgment: Poor, some improvement noted Insight: Poor, some improvement noted Orientation: A and O 3. Recent and remote memory: Impaired, some improvement noted. Attention span and concentration: Impaired, some improvement noted Fund of knowledge: Impaired. Mood: "I'm okay but I'm only to go to inpatient treatment if I can pay my bills and get some close before I go, but I'll go." Patient appears less anxious, less depressed, less mood lability noted Affect: Blunted, brightens at times, congruent with mood DIAGNOSES: Unspecified psychotic disorder, opioid use disorder, polysubstance use disorder, rule out bipolar disorder with psychotic features, mixed, rule out depressive disorder with psychotic features, rule out substance-induced mood disorder, rule out borderline personality disorder ASSESSMENT: Patient continues to adjust to unit, has been able to maintain behavioral control, is visible and has been able to attend groups without being disruptive, is cooperative with staff. Patient and music writer spoke at length today regarding [facility] informing milieu coordinator that they will be evaluating whether patient can return for treatment, have indicated they do not feel she is appropriate for [facility] program. Patient has been medication compliant, appears to be responding positively to medication regimen and denies medication side effects, has not needed to utilize Zyprexa PRN 2 days. Patient denies current suicidal or homicidal ideation and is able to verbalize awareness of how to access supportive services on unit if needed. Will continue to monitor patient' s response to medication regimen and will monitor need for further dosing adjustments. Will continue to evaluate patient safety, resolution of suicidal ideation, paranoia, and delusional thinking, mood lability, and discharge/ transfer readiness. continuous improvement coordinator will continue to work with patient on discharge/transfer to inpatient substance abuse and/or long-term psychiatric treatment. Patient indicates today she is willing to go to inpatient treatment program, continues to refuse case management services, indicates she is on list for methadone program and wants to attend outpatient [facility] AIP program and receive medication management services through [facility]. 2PC process has been initiated due to patient's history of two recent overdoses on prescribed medications, substance abuse, multiple psychiatric hospitalizations, failure to show up for/comply with outpatient substance abuse treatment, and refusal to participate in inpatient treatment. MANAGEMENT PLAN: Continue Seroquel XR 400 mg po hs, clonidine 0.1 mg po to BID, Depakote ER 500 mg po BID, and Zydis 5 mg po q 4 hours PRN anxiety/agitation. Repeat Depakote level ordered for 12/11/16, also evaluate fasting cholesterol and A1c. Patient is aware of impending labs and has agreed to allow lab draw Vitals QID Maintain safety precautions Patient to attend groups and participate in unit programming to develop coping strategies Engage patient in discharge planning process and arrange meeting with support system to ensure safe discharge planning when appropriate Patient to follow up with PCM to address recent EKG results and any other health concerns upon discharge TIME SPENT: 35 minutes Vital Signs Vital Signs Date Time Temp Pulse Resp B/P (MAP) Pulse Ox O2 Delivery O2 Flow Rate FiO2 12/09/16 06:00 97.9 65 18 133/65 (87) Current Medications Current Medications Acetaminophen (Tylenol Tab) 650 mg Q6HP PRN PO HEADACHE or DISCOMFORT; Start at 03:30; Stop 12/31/16 at 03:29 Al Hydrox/Mg Hydrox/Simethicone (Mylanta) 30 ml Q4HP PRN PO HEARTBURN/ INDIGESTION; Start 12/01/16 at 03:30; Stop 12/31/16 at 03:29 Atorvastatin Calcium (Lipitor) 10 mg QHS PO Last administered on 12/08/16 21: 55; Start 12/01/16 at 21:00; Stop 12/31/16 at 20:59 Clonidine HCl (Catapres) 0.1 mg BID PO Last administered on 12/08/16 21:55; Start 12/06/16 at 21:00; Stop 01/05/17 at 20:59 Clonidine HCl (Catapres) 0.1 mg Q8H PRN PO HIGH BLOOD PRESSURE AND OPIATE WITHDRAWALS Last administered on 12/05/16 11:12; Start 12/02/16 at 11:00; Stop 12/06/16 at 15:35; Status DC Divalproex Sodium (Depakote Er) 500 mg BID PO Last administered on 12/08/16 21 :55; Start 12/01/16 at 21:00; Stop 12/31/16 at 20:59 Home Med (Med Rec Complete!) ASDIRECTED XX ; Start 12/01/16 at 01:30; Stop at 01:36; Status DC Magnesium Hydroxide (Milk Of Magnesia) 30 ml DAILYPRN PRN PO CONSTIPATION; Start 12/01/16 at 03:30; Stop 12/31/16 at 03:29 Meloxicam (Mobic) 7.5 mg BID PO Last administered on 12/08/16 21:55; Start at 09:00; Stop 12/31/16 at 08:59 Metoprolol Tartrate (Lopressor) 12.5 mg BID PO Last administered on 12/08/16 21:55; Start 12/01/16 at 09:00; Stop 12/31/16 at 08:59 Non-Formulary Medication ( See Comment Field Below ) SEE COMMENTS SECTION 1T @10 XX ; Start 12/09/16 at 10:00; Stop 12/09/16 at 10:00; Status DC Non-Formulary Medication ( See Comment Field Below ) SEE LABEL COMMENTS DAILY XX ; Start 12/07/16 at 09:00; Stop 12/07/16 at 11:51; Status DC Non-Formulary Medication ( See Comment Field Below ) SEE LABEL COMMENTS SECTION 1T@10 XX ; Start 12/09/16 at 13:00; Stop 12/09/16 at 13:01 Olanzapine (ZyPREXA ZYDIS) 5 mg Q4HP PRN PO ANXIETY/AGITATION Last administered on 12/06/16 15:32; Start 12/01/16 at 19:45; Stop 12/31/16 at 19:44 Olanzapine (ZyPREXA ZYDIS) 10 mg Q4HP PRN PO ANXIETY/AGITATION; Start 12/01 at 18:00; Stop 12/01/16 at 19:38; Status DC Omeprazole (PriLOSEC) 40 mg BID PO Last administered on 12/08/16 21:55; Start 12/01/16 at 09:00; Stop 12/31/16 at 08:59 Oxybutynin Chloride (Ditropan) 5 mg BID PO Last administered on 12/08/16 21:55 ; Start 12/01/16 at 09:00; Stop 12/31/16 at 08:59 Polyethylene Glycol (Miralax) 1 pkt DAILY PRN PO CONSTIPATION Last administered on 12/04/16 21:09; Start 12/01/16 at 09:00; Stop 12/31/16 at 08:59 Quetiapine Fumarate (SEROquel XR) 400 mg QHS PO Last administered on 21:56; Start 12/07/16 at 21:00; Stop 01/06/17 at 20:59 Quetiapine Fumarate (SEROquel) 100 mg QHSP PRN PO INSOMNIA; Start 12/01/16 at 03:30; Stop 12/01/16 at 19:19; Status DC Quetiapine Fumarate (SEROquel) 200 mg BID PO Last administered on 12/06/16 22: 15; Start 12/06/16 at 21:00; Stop 12/07/16 at 17:39; Status DC Quetiapine Fumarate (SEROquel) 300 mg QHS PO Last administered on 12/05/16 20: 58; Start 12/01/16 at 21:00; Stop 12/06/16 at 17:37; Status DC Trazodone HCl (Desyrel) 50 mg QHSP PRN PO INSOMNIA Last administered on 21:00; Start 12/01/16 at 19:45; Stop 12/07/16 at 17:39; Status DC Triamcinolone Acetonide (Kenalog 0.025% Cream) 1 dose BID PRN TOP REDNESS/ IRRITATION Last administered on 12/08/16 08:31; Start 12/01/16 at 09:00; Stop 12/31/16 at 08:59 Tuberculin PPD (Aplisol, Ppd) 5 units 1T@10 ID Last administered on 12/07/16 12:59; Start 12/07/16 at 13:00; Stop 12/07/16 at 13:01; Status DC Allergies Coded Allergies: Codeine (Unverified Adverse Reaction, Mild, N/V,SWELLING,ITCH,SWEATS, 2) Propoxyphene (Unverified Adverse Reaction, Mild, N/V,SWELLING,ITCH,SWEATS , 2) Chichi Schultz Dec 09, 2016 08:17
[2016-12-09] MEDS: oxyBUTYnin 5 MG TAB PO SCH ×2 (09:12→20:59)
[2016-12-09] MEDS: cloNIDine 0.1 MG TAB PO SCH ×2 (09:12→20:59)
[2016-12-09] MEDS: DIVALPROEX 500MG *ER* TAB PO SCH ×2 (09:12→20:59)
[2016-12-09] MEDS: MELOXICAM (MOBIC) 7.5 MG TAB PO SCH ×2 (09:12→20:59)
[2016-12-09] MEDS: METOPROLOL TART 12.5 MG PER 1/2 TAB PO SCH ×2 (09:12→21:00)
[2016-12-09] MEDS: OMEPRAZOLE 20 MG CAP PO SCH ×2 (09:12→20:59)
[2016-12-09] MEDS ORDERED: PPD DOCUMENTATION ENTRY MISC XX SCH ×2 (10:00→13:00)
[2016-12-09 12:43] VITALS: BP 118/68
[2016-12-09 18:30] VITALS: BP 128/69
[2016-12-09] MEDS: ATORVASTATIN 10 MG TAB PO SCH (20:59)
[2016-12-09] MEDS: QUEtiapine FUMARATE **XR** 200MG TABLET PO SCH (20:59)
[2016-12-10 06:25] VITALS: BP 136/72
[2016-12-10] MEDS: cloNIDine 0.1 MG TAB PO SCH ×2 (08:36→21:24)
[2016-12-10] MEDS: DIVALPROEX 500MG *ER* TAB PO SCH ×2 (08:36→21:25)
[2016-12-10] MEDS: METOPROLOL TART 12.5 MG PER 1/2 TAB PO SCH ×2 (08:36→21:25)
[2016-12-10] MEDS: oxyBUTYnin 5 MG TAB PO SCH ×2 (08:36→21:25)
[2016-12-10] MEDS: OMEPRAZOLE 20 MG CAP PO SCH ×2 (08:36→21:24)
[2016-12-10] MEDS: MELOXICAM (MOBIC) 7.5 MG TAB PO SCH ×2 (08:36→21:25)
[2016-12-10 12:07] VITALS: BP 132/63
[2016-12-10 18:00] VITALS: BP 135/71
[2016-12-10] MEDS: ATORVASTATIN 10 MG TAB PO SCH (21:24)
[2016-12-10] MEDS: QUEtiapine FUMARATE **XR** 200MG TABLET PO SCH (21:25)
[2016-12-11 06:12] VITALS: BP 132/82
[2016-12-11] MEDS: DIVALPROEX 500MG *ER* TAB PO SCH ×2 (08:40→20:27)
[2016-12-11] MEDS: cloNIDine 0.1 MG TAB PO SCH ×2 (08:40→20:28)
[2016-12-11] MEDS: METOPROLOL TART 12.5 MG PER 1/2 TAB PO SCH ×2 (08:40→20:29)
[2016-12-11] MEDS: MELOXICAM (MOBIC) 7.5 MG TAB PO SCH ×2 (08:40→20:28)
[2016-12-11] MEDS: oxyBUTYnin 5 MG TAB PO SCH ×2 (08:40→20:29)
[2016-12-11] MEDS: OMEPRAZOLE 20 MG CAP PO SCH ×2 (08:40→20:27)
[2016-12-11 11:57] VITALS: BP 133/81
[2016-12-11 18:44] VITALS: BP 140/76
[2016-12-11] MEDS: ATORVASTATIN 10 MG TAB PO SCH (20:28)
[2016-12-11] MEDS: QUEtiapine FUMARATE **XR** 200MG TABLET PO SCH (21:51)
[2016-12-12 06:33] VITALS: BP 168/79
[2016-12-12] MEDS: oxyBUTYnin 5 MG TAB PO SCH ×2 (08:29→21:17)
[2016-12-12] MEDS: MELOXICAM (MOBIC) 7.5 MG TAB PO SCH ×2 (08:29→21:18)
[2016-12-12] MEDS: METOPROLOL TART 12.5 MG PER 1/2 TAB PO SCH ×2 (08:29→21:18)
[2016-12-12] MEDS: DIVALPROEX 500MG *ER* TAB PO SCH ×2 (08:30→21:19)
[2016-12-12] MEDS: cloNIDine 0.1 MG TAB PO SCH ×2 (08:30→21:19)
[2016-12-12] MEDS: OMEPRAZOLE 20 MG CAP PO SCH ×2 (08:30→21:18)
--- NOTE | 2016-12-12 09:05 | MHIPNPDOC ---
[facility] Progress Note Progress Note DATE OF SERVICE: 12/12/16 HISTORY OF THE PRESENT ILLNESS: Patient is a 45-year-old female who indicated admission she was recently discharged from [facility], indicates she brought herself to the emergency room due to experiencing suicidal ideation , paranoia, delusional thinking and racing thoughts. While in the emergency room patient expressed suicidal ideation stating "I know it's coming," though she denied having plan or intent. Patient was discharged last month from [facility] inpatient treatment, has had multiple other psychiatric admissions, notes she was also hospitalized at [facility] since last [facility] hospitalization. Iron Erector met with patient today to assess treatment progress on inpatient unit. Patient remains medication compliant, reiterates she will not take daytime Seroquel, indicates she is experiencing symptoms of sedation but attributes to not sleeping well last night. Patient states she did not sleep well last night due to"worrying about my bills and debit card, not because of the medication, usually I've been sleeping fine." Patient today is agreeable to going to inpatient/SHELL treatment, verbalizes insight into degree of substance abuse and inability to cease substance abuse in outpatient environment noting, "I've lost a lot of due to my drug use, knowing trying to focus on recovery." Patient makes minimal reference today to belief that people are conspiring against her, notes she now doubts that she has charges against her, indicated patient scheduling coordinator. Fight online and states she feels comfortable with knowing that there are no pending charges. Patient was informed that [facility] has determined she may not return for outpatient group therapy/substance abuse this time Patient rates current anxiety level as 3/10, depression 3/10, denies suicidal or homicidal ideation, denies auditory or visual hallucinations, denies urge to engage in self-injurious behavior. Patient indicates current medication regimen is effective and continues to report improvement to symptoms of anxiety, depression, and psychosis. Patient today denies side effects but reiterates she has experienced weight gain during her stay, notes has history of vacillating weight which predates psychotropic education trials. Labs were recently completed and nursing has been asked to ensure the PA evaluates blood pressure medication and appropriateness for addition of metformin. Patient reports improvement to energy level, and notes concentration and energy levels have improved. Patient denies experiencing physical pain at time of interaction and presents with no signs of acute distress. Addendum: Patient agreed to sign ROIs to request background information from [facility] which was received 12/06/16. Patient was discharged on 11/08/16 from [facility] after an attempted overdose on Depakote and benzodiazepines, was treated for acute toxic encephalopathy. When patient was released from [facility] she was discharged on the following medication regimen: BuSpar 5 mg 3 times a day - patient indicates medication was ineffective Clonidine 0.1 mg twice a day - patient indicates medication was effective Depakote 500 mg twice a day - patient indicates was effective Seroquel 300 mg at night - patient states medication was effective Trazodone 50 mg at night - patient states medication was effective Patient informs sign writer hand she has also taken hydroxyzine in the past with poor effect VITALS: See below. Generally stable over weekend, elevated this morning, nursing has again been asked to monitor and to have PA evaluate if elevated. Patient placed on vitals QID. NEW TEST RESULTS: 12/11/16 cholesterol 179, glucose 103, A1c 5.2 MEDICAL/SURGICAL HISTORY: Hyperlipidemia, hypertension, GERD, osteoarthritis left knee, history of MRSA, edentulous, history of hep C, status post treatment , chronic constipation, OAB, eczema to hands. Patient denies history of seizure or head injury. Surgical history includes , left breast cyst removal, left groin cyst removal. Labs on admission indicated low AGR and elevated WBCs, leukocytosis, patient is afebrile and asymptomatic, PA was made aware. 12/02/16 lab results indicated low RBC, Hgb, HCT, and elevated RDW. Nursing has been asked to ensure the PA has evaluated patient and lab results HCG negative. Patient does not utilize control and has been educated on potential risks of psychotropic medications to unborn child should she become while taking psychotropic medications. Patient has been strongly encouraged to utilize control regularly when sexually active, patient has verbalized understanding. UDS positive for methadone, suspected use of kratom 12/01/16 EKG sinus rhythm minimal ST elevation noted, secondary to early repolarization last tracing on 10/05/16, no significant changes. Patient is asymptomatic, clinical consultation sought with recommendation made for follow- up with outpatient provider 12/02/[address] un[address]able CT examination of the brain. 12/02/16 Depakote level 56.8 12/06/16 Depakote level 88. 7 12/11/16 Depakote level 76.4 Clinical consultation completed with recommendation made for PA to evaluate patient's blood pressure, dosing change to blood pressure medication, and if addition of metformin would be safe and appropriate. Nursing has been asked to ensure the patient is evaluated by PA date of entry. MENTAL STATUS EXAMINATION: General appearance: Patient is a 45-year old female, who is less irritable today , generally cooperative, makes improved eye contact, displays adequate personal hygiene and is dressed in own clothing, ambulates with steady gait, and appears stated age. Speech: Less pressured, normal volume, normal rhythm, less tangential, more spontaneous, coherent. Thought processes: Generally logical, less tangential, less paranoid, less disorganized Thought content: Generally rational, less tangential, appears less paranoid today, less grandiose, less persecutory delusional thinking expressed, reduced fixation on belief that worm packer is attempting to have her arrested but delusions are noticeably less intrusive and less firmly held Abstract reasoning and computation: Impaired, continues to improve Description of associations: Intact at times, at other times loose, noticeably less tangential Description of abnormal or psychotic thoughts: Denies suicidal or homicidal ideation, denies auditory or visual hallucinations, does not appear to be responding to internal stimuli, endorses bizarre and paranoid ideation, denies preoccupation with violence. Judgment: Poor, some improvement noted Insight: Limited, some improvement noted Orientation: A and O 3. Recent and remote memory: Impaired, some improvement noted. Attention span and concentration: Impaired, some improvement noted Fund of knowledge: Impaired. Mood: "I'm okay, I know I need treatment and unwilling to go I just need to take care of my bills." Patient appears less anxious, less depressed, less mood lability noted Affect: Blunted, some brightening, congruent with mood DIAGNOSES: Unspecified mood disorder, opioid use disorder, polysubstance use disorder, rule out bipolar disorder with psychotic features, mixed, rule out depressive disorder with psychotic features, rule out substance-induced mood disorder, rule out borderline personality disorder ASSESSMENT: Patient continues to adjust to unit, has been able to maintain behavioral control, is visible and has been able to attend groups without being disruptive, is cooperative with staff. Patient and sign writer hand spoke at length today regarding [facility] informing patient scheduling coordinator that they do not feel they're currently able to provide level of care to patient which patient is requesting. Patient indicates she understands and would like to go to SHELL program, is agreeable to inpatient. Patient has been medication compliant, appears to be responding positively to medication regimen and denies medication side effects, has not needed to utilize Zyprexa PRN for several days. Education was provided to patient today on the risks of psychotropic medications to unborn child should she become while taking medication, patient was strongly encouraged to consider utilizing control if she chooses to become sexually active while taking psychotropic medications. Atient denies current suicidal or homicidal ideation and is able to verbalize awareness of how to access supportive services on unit if needed. Will continue to monitor patient' s response to medication regimen and will monitor need for further dosing adjustments. Will continue to evaluate patient safety, resolution of suicidal ideation, paranoia, and delusional thinking, mood lability, and discharge/ transfer readiness. esthetician/spa coordinator will continue to work with patient on discharge/transfer to inpatient substance abuse and/or long-term psychiatric treatment. Patient indicates today she is willing to go to inpatient treatment program, continues to refuse case management services, reiterates she is on list for methadone program. 2PC process has been initiated due to patient's history of two recent overdoses on prescribed medications, substance abuse, multiple psychiatric hospitalizations, failure to show up for/comply with outpatient substance abuse treatment, and refusal to participate in inpatient treatment. MANAGEMENT PLAN: Continue Seroquel XR 400 mg po hs, clonidine 0.1 mg po to BID, Depakote ER 500 mg po BID, and Zydis 5 mg po q 4 hours PRN anxiety/agitation. Vitals QID Maintain safety precautions Patient to attend groups and participate in unit programming to develop coping strategies Engage patient in discharge planning process and arrange meeting with support system to ensure safe discharge planning when appropriate Patient to follow up with PCM to address recent EKG results and any other health concerns upon discharge TIME SPENT: 35 minutes Vital Signs Vital Signs Date Time Temp Pulse Resp B/P (MAP) Pulse Ox O2 Delivery O2 Flow Rate FiO2 12/12/16 08:30 168/79 12/12/16 08:29 72 12/12/16 06:33 98.1 16 Current Medications Current Medications Acetaminophen (Tylenol Tab) 650 mg Q6HP PRN PO HEADACHE or DISCOMFORT; Start at 03:30; Stop 12/31/16 at 03:29 Al Hydrox/Mg Hydrox/Simethicone (Mylanta) 30 ml Q4HP PRN PO HEARTBURN/ INDIGESTION; Start 12/01/16 at 03:30; Stop 12/31/16 at 03:29 Atorvastatin Calcium (Lipitor) 10 mg QHS PO Last administered on 12/11/16 20:28 ; Start 12/01/16 at 21:00; Stop 12/31/16 at 20:59 Clonidine HCl (Catapres) 0.1 mg BID PO Last administered on 12/12/16 08:30; Start 12/06/16 at 21:00; Stop 01/05/17 at 20:59 Clonidine HCl (Catapres) 0.1 mg Q8H PRN PO HIGH BLOOD PRESSURE AND OPIATE WITHDRAWALS Last administered on 12/05/16 11:12; Start 12/02/16 at 11:00; Stop 12/06/16 at 15:35; Status DC Divalproex Sodium (Depakote Er) 500 mg BID PO Last administered on 12/12/16 08: 30; Start 12/01/16 at 21:00; Stop 12/31/16 at 20:59 Home Med (Med Rec Complete!) ASDIRECTED XX ; Start 12/01/16 at 01:30; Stop at 01:36; Status DC Magnesium Hydroxide (Milk Of Magnesia) 30 ml DAILYPRN PRN PO CONSTIPATION; Start 12/01/16 at 03:30; Stop 12/31/16 at 03:29 Meloxicam (Mobic) 7.5 mg BID PO Last administered on 12/12/16 08:29; Start at 09:00; Stop 12/31/16 at 08:59 Metoprolol Tartrate (Lopressor) 12.5 mg BID PO Last administered on 12/12/16 08 :29; Start 12/01/16 at 09:00; Stop 12/31/16 at 08:59 Non-Formulary Medication ( See Comment Field Below ) SEE COMMENTS SECTION 1T @10 XX ; Start 12/09/16 at 10:00; Stop 12/09/16 at 10:00; Status DC Non-Formulary Medication ( See Comment Field Below ) SEE LABEL COMMENTS DAILY XX ; Start 12/07/16 at 09:00; Stop 12/07/16 at 11:51; Status DC Non-Formulary Medication ( See Comment Field Below ) SEE LABEL COMMENTS SECTION 1T@10 XX Last administered on 12/09/16 13:00; Start 12/09/16 at 13:00 ; Stop 12/09/16 at 13:01; Status DC Olanzapine (ZyPREXA ZYDIS) 5 mg Q4HP PRN PO ANXIETY/AGITATION Last administered on 12/06/16 15:32; Start 12/01/16 at 19:45; Stop 12/31/16 at 19:44 Olanzapine (ZyPREXA ZYDIS) 10 mg Q4HP PRN PO ANXIETY/AGITATION; Start 12/01 at 18:00; Stop 12/01/16 at 19:38; Status DC Omeprazole (PriLOSEC) 40 mg BID PO Last administered on 12/12/16 08:30; Start 12/01/16 at 09:00; Stop 12/31/16 at 08:59 Oxybutynin Chloride (Ditropan) 5 mg BID PO Last administered on 12/12/16 08:29 ; Start 12/01/16 at 09:00; Stop 12/31/16 at 08:59 Polyethylene Glycol (Miralax) 1 pkt DAILY PRN PO CONSTIPATION Last administered on 12/04/16 21:09; Start 12/01/16 at 09:00; Stop 12/31/16 at 08:59 Quetiapine Fumarate (SEROquel XR) 400 mg QHS PO Last administered on 21:51; Start 12/07/16 at 21:00; Stop 01/06/17 at 20:59 Quetiapine Fumarate (SEROquel) 100 mg QHSP PRN PO INSOMNIA; Start 12/01/16 at 03:30; Stop 12/01/16 at 19:19; Status DC Quetiapine Fumarate (SEROquel) 200 mg BID PO Last administered on 12/06/16 22: 15; Start 12/06/16 at 21:00; Stop 12/07/16 at 17:39; Status DC Quetiapine Fumarate (SEROquel) 300 mg QHS PO Last administered on 12/05/16 20: 58; Start 12/01/16 at 21:00; Stop 12/06/16 at 17:37; Status DC Trazodone HCl (Desyrel) 50 mg QHSP PRN PO INSOMNIA Last administered on 21:00; Start 12/01/16 at 19:45; Stop 12/07/16 at 17:39; Status DC Triamcinolone Acetonide (Kenalog 0.025% Cream) 1 dose BID PRN TOP REDNESS/ IRRITATION Last administered on 12/08/16 08:31; Start 12/01/16 at 09:00; Stop 12/31/16 at 08:59 Tuberculin PPD (Aplisol, Ppd) 5 units 1T@10 ID Last administered on 12/07/16 12:59; Start 12/07/16 at 13:00; Stop 12/07/16 at 13:01; Status DC Allergies Coded Allergies: Codeine (Unverified Adverse Reaction, Mild, N/V,SWELLING,ITCH,SWEATS, ) Propoxyphene (Unverified Adverse Reaction, Mild, N/V,SWELLING,ITCH,SWEATS , 07/15/16) Chichi Schultz Dec 12, 2016 09:05
[2016-12-12 11:26] VITALS: BP 137/68
[2016-12-12 18:13] VITALS: BP 149/81
[2016-12-12] MEDS ORDERED: LISINOPRIL 5 MG TAB PO ONE (19:15)
[2016-12-12] MEDS: ATORVASTATIN 10 MG TAB PO SCH (21:18)
[2016-12-12] MEDS: QUEtiapine FUMARATE **XR** 200MG TABLET PO SCH (21:18)
[2016-12-12] MEDS: LISINOPRIL 5 MG TAB PO SCH (21:53)
[2016-12-13 06:22] VITALS: BP 130/77
[2016-12-13] MEDS: OMEPRAZOLE 20 MG CAP PO SCH ×2 (08:27→20:34)
[2016-12-13] MEDS: oxyBUTYnin 5 MG TAB PO SCH ×2 (08:28→20:33)
[2016-12-13] MEDS: cloNIDine 0.1 MG TAB PO SCH ×2 (08:28→20:34)
[2016-12-13] MEDS: MELOXICAM (MOBIC) 7.5 MG TAB PO SCH ×2 (08:28→20:34)
[2016-12-13] MEDS: LISINOPRIL 5 MG TAB PO SCH (08:28)
[2016-12-13] MEDS: METOPROLOL TART 12.5 MG PER 1/2 TAB PO SCH ×2 (08:28→20:33)
[2016-12-13] MEDS: TRIAMCINOLONE ACETONIDE 0.025 % 80 GM CREAM TOP PRN (08:29)
[2016-12-13] MEDS: DIVALPROEX 500MG *ER* TAB PO SCH ×2 (08:29→20:34)
--- NOTE | 2016-12-13 08:51 | MHIPNPDOC ---
[facility] Progress Note Progress Note DATE OF SERVICE: 12/13/16 Admissions Specialist met with patient today to assess treatment progress on inpatient unit. Patient remains medication compliant, states she slept well last night, remains agreeable to going to inpatient/[facility] treatment, verbalizes insight into degree of substance abuse and inability to cease substance abuse in outpatient environment. Patient makes minimal reference today to belief that people are conspiring against her. Patient was informed that [facility] has determined she may not return for outpatient group therapy/substance abuse this time Patient rates current anxiety level as 2/10, depression 1/10, reports improvement to symptoms related to "I bills are all taking care of and I was able to pay my rent for 2 months so I'm feeling better about that." Patient denies suicidal or homicidal ideation , denies auditory or visual hallucinations, denies urge to engage in self- injurious behavior. Patient indicates current medication regimen is effective and continues to report improvement to symptoms of anxiety, depression, and psychosis. Patient today denies side effects but reiterates she has experienced weight gain during her stay, notes has history of vacillating weight which predates psychotropic education trials. Labs were recently completed and PA has apparently evaluated blood pressure medication and appropriateness of metformin , no notes found in chart date of entry. Patient reports improvement to energy level, and notes concentration and energy levels have improved. Patient denies experiencing physical pain at time of interaction and presents with no signs of acute distress. Addendum: Patient agreed to sign ROIs to request background information from [facility] which was received 12/06/16. Patient was discharged on 11/08/16 from [facility] after an attempted overdose on Depakote and benzodiazepines, was treated for acute toxic encephalopathy. 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 Generally stable over weekend, elevated this morning, nursing has again been asked to monitor and to have PA evaluate if elevated. Patient placed on vitals QID. NEW TEST RESULTS: 12/11/16 cholesterol 179, glucose 103, A1c 5.2 MEDICAL/SURGICAL HISTORY: Hyperlipidemia, hypertension, GERD, osteoarthritis left knee, history of MRSA, edentulous, history of hep C, status post treatment , chronic constipation, OAB, eczema to hands. Patient denies history of seizure or head injury. Surgical history includes , left breast cyst removal, left groin cyst removal. Labs on admission indicated low AGR and elevated WBCs, leukocytosis, patient is afebrile and asymptomatic, PA was made aware. 12/02/16 lab results indicated low RBC, Hgb, HCT, and elevated RDW. Nursing has been asked to ensure the PA has evaluated patient and lab results HCG negative. Patient does not utilize control and has been educated on potential risks of psychotropic medications to unborn child should she become while taking psychotropic medications. Patient has been strongly encouraged to utilize control regularly when sexually active, patient has verbalized understanding. UDS positive for methadone, suspected use of kratom 12/01/16 EKG sinus rhythm minimal ST elevation noted, secondary to early repolarization last tracing on 10/05/16, no significant changes. Patient is asymptomatic, clinical consultation sought with recommendation made for follow- up with outpatient provider 12/02/[address]able CT examination of the brain. 12/02/16 Depakote level 56.8 12/06/16 Depakote level 88. 7 12/11/16 Depakote level 76.4 Clinical consultation completed with recommendation made for PA to evaluate patient's blood pressure, dosing change to blood pressure medication, and if addition of metformin would be safe and appropriate. PA apparently evaluated patient, no note found in chart date of entry. Admissions Specialist attempted to follow up with PA to discuss. MENTAL STATUS EXAMINATION: General appearance: Patient is a 45-year old female, who is less irritable today , generally cooperative, makes improved eye contact, displays adequate personal hygiene and is dressed in own clothing, ambulates with steady gait, and appears stated age. Speech: Less pressured, normal volume, normal rhythm, less tangential, more spontaneous, coherent. Thought processes: Generally logical, less tangential, less paranoid, less disorganized Thought content: Generally rational, less tangential, appears less paranoid today, less grandiose, less persecutory delusional thinking expressed, reduced fixation on belief that television cameraman is attempting to have her arrested but delusions are noticeably less intrusive and less firmly held Abstract reasoning and computation: Impaired, continues to improve Description of associations: Intact at times, at other times loose, noticeably less tangential Description of abnormal or psychotic thoughts: Denies suicidal or homicidal ideation, denies auditory or visual hallucinations, does not appear to be responding to internal stimuli, endorses bizarre and paranoid ideation, denies preoccupation with violence. Judgment: Poor, some improvement noted Insight: Limited, some improvement noted Orientation: A and O 3. Recent and remote memory: Impaired, some improvement noted. Attention span and concentration: Impaired, some improvement noted Fund of knowledge: Impaired. Mood: "I'm okay, better today because I was able to take care of my bills." Patient appears less anxious, less depressed, less mood lability noted Affect: Blunted, some brightening, congruent with mood DIAGNOSES: Unspecified mood disorder, opioid use disorder, polysubstance use disorder, rule out bipolar disorder with psychotic features, mixed, rule out depressive disorder with psychotic features, rule out substance-induced mood disorder, rule out borderline personality disorder ASSESSMENT: Patient continues to adjust to unit, has been able to maintain behavioral control, is visible and has been able to attend groups without being disruptive, is cooperative with staff. Patient remains agreeable to going to [facility], is agreeable to inpatient. Patient has been medication compliant, appears to be responding positively to medication regimen and denies medication side effects, has not needed to utilize Zyprexa PRN for several days. Education was provided to patient today on the risks of psychotropic medications to unborn child should she become while taking medication, patient was strongly encouraged to consider utilizing control if she chooses to become sexually active while taking psychotropic medications. Patient denies current suicidal or homicidal ideation and is able to verbalize awareness of how to access supportive services on unit if needed. Will continue to monitor patient's response to medication regimen and will monitor need for further dosing adjustments. Will continue to evaluate patient safety, resolution of suicidal ideation, paranoia, and delusional thinking, mood lability, and discharge/transfer readiness. warranty coordinator will continue to work with patient on discharge/transfer to inpatient substance abuse and/or long-term psychiatric treatment. Patient indicates today she is willing to go to inpatient treatment program, continues to refuse case management services, reiterates she is on list for methadone program. 2PC process has been initiated due to patient's history of two recent overdoses on prescribed medications, substance abuse, multiple psychiatric hospitalizations, failure to show up for/ comply with outpatient substance abuse treatment, and refusal to participate in inpatient treatment. MANAGEMENT PLAN: Continue Seroquel XR 400 mg po hs, clonidine 0.1 mg po to BID, Depakote ER 500 mg po BID, and Zydis 5 mg po q 4 hours PRN anxiety/agitation. Vitals QID Maintain safety precautions Patient to attend groups and participate in unit programming to develop coping strategies Engage patient in discharge planning process and arrange meeting with support system to ensure safe discharge planning when appropriate Patient to follow up with PCM to address recent EKG results and any other health concerns upon discharge TIME SPENT: 25 minutes Vital Signs Vital Signs Date Time Temp Pulse Resp B/P (MAP) Pulse Ox O2 Delivery O2 Flow Rate FiO2 12/13/16 08:28 130/77 12/13/16 08:28 78 12/13/16 06:22 98.2 73 16 Current Medications Current Medications Acetaminophen (Tylenol Tab) 650 mg Q6HP PRN PO HEADACHE or DISCOMFORT; Start at 03:30; Stop 12/31/16 at 03:29 Al Hydrox/Mg Hydrox/Simethicone (Mylanta) 30 ml Q4HP PRN PO HEARTBURN/ INDIGESTION; Start 12/01/16 at 03:30; Stop 12/31/16 at 03:29 Atorvastatin Calcium (Lipitor) 10 mg QHS PO Last administered on 12/12/16 21:18 ; Start 12/01/16 at 21:00; Stop 12/31/16 at 20:59 Clonidine HCl (Catapres) 0.1 mg BID PO Last administered on 12/13/16 08:28; Start 12/06/16 at 21:00; Stop 01/05/17 at 20:59 Clonidine HCl (Catapres) 0.1 mg Q8H PRN PO HIGH BLOOD PRESSURE AND OPIATE WITHDRAWALS Last administered on 12/05/16 11:12; Start 12/02/16 at 11:00; Stop 12/06/16 at 15:35; Status DC Divalproex Sodium (Depakote Er) 500 mg BID PO Last administered on 12/13/16 08: 29; Start 12/01/16 at 21:00; Stop 12/31/16 at 20:59 Home Med (Med Rec Complete!) ASDIRECTED XX ; Start 12/01/16 at 01:30; Stop at 01:36; Status DC Lisinopril (Prinivil) 5 mg DAILY PO Last administered on 12/13/16 08:28; Start 12/12/16 at 09:00; Stop 01/11/17 at 08:59 Magnesium Hydroxide (Milk Of Magnesia) 30 ml DAILYPRN PRN PO CONSTIPATION; Start 12/01/16 at 03:30; Stop 12/31/16 at 03:29 Meloxicam (Mobic) 7.5 mg BID PO Last administered on 12/13/16 08:28; Start at 09:00; Stop 12/31/16 at 08:59 Metoprolol Tartrate (Lopressor) 12.5 mg BID PO Last administered on 12/13/16 08 :28; Start 12/01/16 at 09:00; Stop 12/31/16 at 08:59 Non-Formulary Medication ( See Comment Field Below ) SEE COMMENTS SECTION 1T @10 XX ; Start 12/09/16 at 10:00; Stop 12/09/16 at 10:00; Status DC Non-Formulary Medication ( See Comment Field Below ) SEE LABEL COMMENTS DAILY XX ; Start 12/07/16 at 09:00; Stop 12/07/16 at 11:51; Status DC Non-Formulary Medication ( See Comment Field Below ) SEE LABEL COMMENTS SECTION 1T@10 XX Last administered on 12/09/16 13:00; Start 12/09/16 at 13:00 ; Stop 12/09/16 at 13:01; Status DC Olanzapine (ZyPREXA ZYDIS) 5 mg Q4HP PRN PO ANXIETY/AGITATION Last administered on 12/06/16 15:32; Start 12/01/16 at 19:45; Stop 12/31/16 at 19:44 Olanzapine (ZyPREXA ZYDIS) 10 mg Q4HP PRN PO ANXIETY/AGITATION; Start 12/01 at 18:00; Stop 12/01/16 at 19:38; Status DC Omeprazole (PriLOSEC) 40 mg BID PO Last administered on 12/13/16 08:27; Start 12/01/16 at 09:00; Stop 12/31/16 at 08:59 Oxybutynin Chloride (Ditropan) 5 mg BID PO Last administered on 12/13/16 08:28 ; Start 12/01/16 at 09:00; Stop 12/31/16 at 08:59 Polyethylene Glycol (Miralax) 1 pkt DAILY PRN PO CONSTIPATION Last administered on 12/04/16 21:09; Start 12/01/16 at 09:00; Stop 12/31/16 at 08:59 Quetiapine Fumarate (SEROquel XR) 400 mg QHS PO Last administered on 21:18; Start 12/07/16 at 21:00; Stop 01/06/17 at 20:59 Quetiapine Fumarate (SEROquel) 100 mg QHSP PRN PO INSOMNIA; Start 12/01/16 at 03:30; Stop 12/01/16 at 19:19; Status DC Quetiapine Fumarate (SEROquel) 200 mg BID PO Last administered on 12/06/16 22: 15; Start 12/06/16 at 21:00; Stop 12/07/16 at 17:39; Status DC Quetiapine Fumarate (SEROquel) 300 mg QHS PO Last administered on 12/05/16 20: 58; Start 12/01/16 at 21:00; Stop 12/06/16 at 17:37; Status DC Trazodone HCl (Desyrel) 50 mg QHSP PRN PO INSOMNIA Last administered on 21:00; Start 12/01/16 at 19:45; Stop 12/07/16 at 17:39; Status DC Triamcinolone Acetonide (Kenalog 0.025% Cream) 1 dose BID PRN TOP REDNESS/ IRRITATION Last administered on 12/13/16 08:29; Start 12/01/16 at 09:00; Stop at 08:59 Tuberculin PPD (Aplisol, Ppd) 5 units 1T@10 ID Last administered on 12/07/16 12:59; Start 12/07/16 at 13:00; Stop 12/07/16 at 13:01; Status DC Allergies Coded Allergies: Codeine (Unverified Adverse Reaction, Mild, N/V,SWELLING,ITCH,SWEATS, ) Propoxyphene (Unverified Adverse Reaction, Mild, N/V,SWELLING,ITCH,SWEATS , 07/15/16) Chichi Schultz Dec 13, 2016 08:51
[2016-12-13 10:41] VITALS: BP 118/73
[2016-12-13 18:00] VITALS: BP 150/78
[2016-12-13] MEDS: ATORVASTATIN 10 MG TAB PO SCH (20:34)
[2016-12-13] MEDS: QUEtiapine FUMARATE **XR** 200MG TABLET PO SCH (21:49)
[2016-12-14 07:10] VITALS: BP 162/74
[2016-12-14] MEDS: METOPROLOL TART 12.5 MG PER 1/2 TAB PO SCH (08:06)
[2016-12-14] MEDS: OMEPRAZOLE 20 MG CAP PO SCH ×2 (08:06→21:18)
[2016-12-14] MEDS: LISINOPRIL 5 MG TAB PO SCH ×2 (08:06→21:20)
[2016-12-14] MEDS: oxyBUTYnin 5 MG TAB PO SCH ×2 (08:06→21:18)
[2016-12-14] MEDS: DIVALPROEX 500MG *ER* TAB PO SCH ×2 (08:06→21:18)
[2016-12-14] MEDS: MELOXICAM (MOBIC) 7.5 MG TAB PO SCH ×2 (08:07→21:18)
[2016-12-14] MEDS: cloNIDine 0.1 MG TAB PO SCH ×2 (08:07→21:19)
--- NOTE | 2016-12-14 09:03 | MHIPNPDOC ---
[facility] Progress Note Progress Note DATE OF SERVICE: 12/14/16 HISTORY: Professional Bass Fisherman met with patient today to assess treatment progress on inpatient unit. Patient remains medication compliant, states she slept well last night, remains agreeable to going to inpatient/SHELL treatment, verbalizes insight into degree of substance abuse and inability to cease substance abuse in outpatient environment. Patient makes minimal reference today to belief that people are conspiring against her. Patient remains aware that [facility] has determined she may not return for outpatient group therapy/substance abuse this time. Patient rates current anxiety level as 3/10, depression 1/10, attributes symptoms to "my depression is pretty good but I have anxiety related to getting my clothes and stuff I need to sign, but my bills are paid." Patient denies suicidal or homicidal ideation, denies auditory or visual hallucinations, and denies urge to engage in self-injurious behavior. Patient indicates current medication regimen is effective and continues to report improvement to symptoms of anxiety, depression, and psychosis. Patient denies medication side effects but reiterates interest in trialing metformin to address weight gain and sensation of "puffiness," reiterates has history of vacillating weight which predates psychotropic education trials. Patient reports improvement to energy level, and notes concentration and energy levels have improved. Patient denies experiencing physical pain at time of interaction and presents with no signs of acute distress, however, indicates she used to much fixodent to adhere dentures , states she is addressing with nursing. Addendum: Patient agreed to sign ROIs to request background information from [facility] which was received 12/06/16. Patient was discharged on 11/08/16 from [facility] after an attempted overdose on Depakote and benzodiazepines, was treated for acute toxic encephalopathy. When patient was released from [facility] she was discharged on the following medication regimen: BuSpar 5 mg 3 times a day - patient indicates medication was ineffective Clonidine 0.1 mg twice a day - patient indicates medication was effective Depakote 500 mg twice a day - patient indicates was effective Seroquel 300 mg at night - patient states medication was effective Trazodone 50 mg at night - patient states medication was effective Patient informs ad writer she has also taken hydroxyzine in the past with poor effect VITALS: See below. Generally stable over weekend, elevated this morning, nursing has again been asked to monitor and to have PA evaluate if elevated. Patient placed on vitals QID. NEW TEST RESULTS: 12/11/16 cholesterol 179, glucose 103, A1c 5.2 MEDICAL/SURGICAL HISTORY: Hyperlipidemia, hypertension, GERD, osteoarthritis left knee, history of MRSA, edentulous, history of hep C, status post treatment , chronic constipation, OAB, eczema to hands. Patient denies history of seizure or head injury. Surgical history includes , left breast cyst removal, left groin cyst removal. Labs on admission indicated low AGR and elevated WBCs, leukocytosis, patient is afebrile and asymptomatic, PA was made aware. 12/02/16 lab results indicated low RBC, Hgb, HCT, and elevated RDW. Nursing has been asked to ensure the PA has evaluated patient and lab results HCG negative. Patient does not utilize control and has been educated on potential risks of psychotropic medications to unborn child should she become while taking psychotropic medications. Patient has been strongly encouraged to utilize control regularly when sexually active, patient has verbalized understanding. UDS positive for methadone, suspected use of kratom 12/01/16 EKG sinus rhythm minimal ST elevation noted, secondary to early repolarization last tracing on 10/05/16, no significant changes. Patient is asymptomatic, clinical consultation sought with recommendation made for follow- up with outpatient provider 12/02/[address] unremarkable CT examination of the brain. 12/02/16 Depakote level 56.8 12/06/16 Depakote level 88. 7 12/11/16 Depakote level 76.4 Clinical consultation completed with recommendation made for PA to evaluate patient's blood pressure, dosing change to blood pressure medication, and if addition of metformin would be safe and appropriate. PA apparently evaluated patient, no note found in chart date of entry. Professional Bass Fisherman attempted to follow up with PA to discuss. Attending has reevaluated and made medication adjustment in effort to address elevated blood pressure and patient's sensation of "puffiness " and patient has been instructed to ambulate in hallways. MENTAL STATUS EXAMINATION: General appearance: Patient is a 45-year old female, who is less irritable today , generally cooperative, makes improved eye contact, displays adequate personal hygiene and is dressed in own clothing, ambulates with steady gait, and appears stated age. Speech: More pressured than yesterday, normal volume, normal rhythm, some tangentiality noted today, more spontaneous, coherent. Thought processes: Generally logical, less tangential, less paranoid, less disorganized Thought content: Generally rational, less tangential, appears less paranoid today, less grandiose, less persecutory delusional thinking expressed, reduced fixation on belief that band cutter is attempting to have her arrested but delusions are noticeably less intrusive and less firmly held Abstract reasoning and computation: Impaired, continues to improve Description of associations: Intact at times, at other times loose, noticeably less tangential Description of abnormal or psychotic thoughts: Denies suicidal or homicidal ideation, denies auditory or visual hallucinations, does not appear to be responding to internal stimuli, endorses bizarre and paranoid ideation, denies preoccupation with violence. Judgment: Poor, some improvement noted Insight: Limited, some improvement noted Orientation: A and O 3. Recent and remote memory: Impaired, some improvement noted. Attention span and concentration: Impaired, some improvement noted Fund of knowledge: Impaired. Mood: "I'm okay, I feel little better this my bills are paid but now I need my clothes." Patient appears less anxious, less depressed, less mood lability noted Affect: Blunted, some brightening, congruent with mood DIAGNOSES: Unspecified mood disorder, opioid use disorder, polysubstance use disorder, rule out bipolar disorder with psychotic features, mixed, rule out depressive disorder with psychotic features, rule out substance-induced mood disorder, rule out borderline personality disorder ASSESSMENT: Patient continues to adjust to unit, has been able to maintain behavioral control, is visible and has been able to attend groups without being disruptive, is cooperative with staff. Patient remains agreeable to going to SHELL program, is agreeable to inpatient also. Patient states she remains medication compliant, however, appears slightly more tangential and speech is more pressured today. Patient generally appears to be continuing to respond positively to medication regimen and denies medication side effects, has not needed to utilize Zyprexa PRN for several days. Education has been provided to patient today on the risks of psychotropic medications to unborn child should she become while taking medication, patient was strongly encouraged to consider utilizing control if she chooses to become sexually active while taking psychotropic medications. Patient denies current suicidal or homicidal ideation and is able to verbalize awareness of how to access supportive services on unit if needed. Will continue to monitor patient's response to medication regimen and will monitor need for further dosing adjustments. Will continue to evaluate patient safety, resolution of suicidal ideation, paranoia, and delusional thinking, mood lability, and discharge/transfer readiness. business process coordinator continues to work with patient on discharge/transfer to inpatient substance abuse and/or long-term psychiatric treatment. Patient indicates today she is willing to go to inpatient treatment program, reiterates she is on list for methadone program. 2PC process has been initiated due to patient's history of two known recent overdoses on prescribed medications, substance abuse, multiple psychiatric hospitalizations, failure to show up for/ comply with outpatient substance abuse treatment, and refusal to participate in inpatient treatment. MANAGEMENT PLAN: Continue Seroquel XR 400 mg po hs, clonidine 0.1 mg po to BID, Depakote ER 500 mg po BID, and Zydis 5 mg po q 4 hours PRN anxiety/agitation. Vitals QID Maintain safety precautions Patient to attend groups and participate in unit programming to develop coping strategies Engage patient in discharge planning process and arrange meeting with support system to ensure safe discharge planning when appropriate Patient to follow up with PCM to address recent EKG results and any other health concerns upon discharge TIME SPENT: 35 minutes Vital Signs Vital Signs Date Time Temp Pulse Resp B/P (MAP) Pulse Ox O2 Delivery O2 Flow Rate FiO2 12/14/16 08:07 162/74 12/14/16 08:06 64 12/14/16 07:10 99.1 16 Room Air 12/13/16 06:22 16 Current Medications Current Medications Acetaminophen (Tylenol Tab) 650 mg Q6HP PRN PO HEADACHE or DISCOMFORT; Start at 03:30; Stop 12/31/16 at 03:29 Al Hydrox/Mg Hydrox/Simethicone (Mylanta) 30 ml Q4HP PRN PO HEARTBURN/ INDIGESTION; Start 12/01/16 at 03:30; Stop 12/31/16 at 03:29 Atorvastatin Calcium (Lipitor) 10 mg QHS PO Last administered on 12/13/16 20:34 ; Start 12/01/16 at 21:00; Stop 12/31/16 at 20:59 Clonidine HCl (Catapres) 0.1 mg BID PO Last administered on 12/14/16 08:07; Start 12/06/16 at 21:00; Stop 01/05/17 at 20:59 Clonidine HCl (Catapres) 0.1 mg Q8H PRN PO HIGH BLOOD PRESSURE AND OPIATE WITHDRAWALS Last administered on 12/05/16 11:12; Start 12/02/16 at 11:00; Stop 12/06/16 at 15:35; Status DC Divalproex Sodium (Depakote Er) 500 mg BID PO Last administered on 12/14/16 08: 06; Start 12/01/16 at 21:00; Stop 12/31/16 at 20:59 Home Med (Med Rec Complete!) ASDIRECTED XX ; Start 12/01/16 at 01:30; Stop at 01:36; Status DC Lisinopril (Prinivil) 5 mg DAILY PO Last administered on 12/14/16 08:06; Start 12/12/16 at 09:00; Stop 01/11/17 at 08:59 Magnesium Hydroxide (Milk Of Magnesia) 30 ml DAILYPRN PRN PO CONSTIPATION; Start 12/01/16 at 03:30; Stop 12/31/16 at 03:29 Meloxicam (Mobic) 7.5 mg BID PO Last administered on 12/14/16 08:07; Start at 09:00; Stop 12/31/16 at 08:59 Metoprolol Tartrate (Lopressor) 12.5 mg BID PO Last administered on 12/14/16 08 :06; Start 12/01/16 at 09:00; Stop 12/31/16 at 08:59 Non-Formulary Medication ( See Comment Field Below ) SEE COMMENTS SECTION 1T @10 XX ; Start 12/09/16 at 10:00; Stop 12/09/16 at 10:00; Status DC Non-Formulary Medication ( See Comment Field Below ) SEE LABEL COMMENTS DAILY XX ; Start 12/07/16 at 09:00; Stop 12/07/16 at 11:51; Status DC Non-Formulary Medication ( See Comment Field Below ) SEE LABEL COMMENTS SECTION 1T@10 XX Last administered on 12/09/16 13:00; Start 12/09/16 at 13:00 ; Stop 12/09/16 at 13:01; Status DC Olanzapine (ZyPREXA ZYDIS) 5 mg Q4HP PRN PO ANXIETY/AGITATION Last administered on 12/06/16 15:32; Start 12/01/16 at 19:45; Stop 12/31/16 at 19:44 Olanzapine (ZyPREXA ZYDIS) 10 mg Q4HP PRN PO ANXIETY/AGITATION; Start 12/01 at 18:00; Stop 12/01/16 at 19:38; Status DC Omeprazole (PriLOSEC) 40 mg BID PO Last administered on 12/14/16 08:06; Start 12/01/16 at 09:00; Stop 12/31/16 at 08:59 Oxybutynin Chloride (Ditropan) 5 mg BID PO Last administered on 12/14/16 08:06 ; Start 12/01/16 at 09:00; Stop 12/31/16 at 08:59 Polyethylene Glycol (Miralax) 1 pkt DAILY PRN PO CONSTIPATION Last administered on 12/04/16 21:09; Start 12/01/16 at 09:00; Stop 12/31/16 at 08:59 Quetiapine Fumarate (SEROquel XR) 400 mg QHS PO Last administered on 21:49; Start 12/07/16 at 21:00; Stop 01/06/17 at 20:59 Quetiapine Fumarate (SEROquel) 100 mg QHSP PRN PO INSOMNIA; Start 12/01/16 at 03:30; Stop 12/01/16 at 19:19; Status DC Quetiapine Fumarate (SEROquel) 200 mg BID PO Last administered on 12/06/16 22: 15; Start 12/06/16 at 21:00; Stop 12/07/16 at 17:39; Status DC Quetiapine Fumarate (SEROquel) 300 mg QHS PO Last administered on 12/05/16 20: 58; Start 12/01/16 at 21:00; Stop 12/06/16 at 17:37; Status DC Trazodone HCl (Desyrel) 50 mg QHSP PRN PO INSOMNIA Last administered on 21:00; Start 12/01/16 at 19:45; Stop 12/07/16 at 17:39; Status DC Triamcinolone Acetonide (Kenalog 0.025% Cream) 1 dose BID PRN TOP REDNESS/ IRRITATION Last administered on 12/13/16 08:29; Start 12/01/16 at 09:00; Stop at 08:59 Tuberculin PPD (Aplisol, Ppd) 5 units 1T@10 ID Last administered on 12/07/16 12:59; Start 12/07/16 at 13:00; Stop 12/07/16 at 13:01; Status DC Allergies Coded Allergies: Codeine (Unverified Adverse Reaction, Mild, N/V,SWELLING,ITCH,SWEATS, ) Propoxyphene (Unverified Adverse Reaction, Mild, N/V,SWELLING,ITCH,SWEATS , 07/15/16) Chichi Schultz Dec 14, 2016 09:03
[2016-12-14 10:24] VITALS: BP 134/82
[2016-12-14] MEDS: hydroCHLOROthiazide 25 MG TAB PO SCH (10:24)
[2016-12-14] MEDS ORDERED: hydroCHLOROthiazide 25 MG TAB PO ONE (10:30)
[2016-12-14 12:00] VITALS: BP 137/81
[2016-12-14] MEDS ORDERED: amLODIPine 5 MG TAB PO ONE (12:30)
[2016-12-14 18:00] VITALS: BP 141/77
[2016-12-14] MEDS: ATORVASTATIN 10 MG TAB PO SCH (21:17)
[2016-12-14] MEDS: QUEtiapine FUMARATE **XR** 200MG TABLET PO SCH (21:20)
[2016-12-15 06:27] VITALS: BP 144/89
[2016-12-15] MEDS: MELOXICAM (MOBIC) 7.5 MG TAB PO SCH ×2 (09:03→20:57)
[2016-12-15] MEDS: cloNIDine 0.1 MG TAB PO SCH ×2 (09:03→20:57)
[2016-12-15] MEDS: LISINOPRIL 5 MG TAB PO SCH ×2 (09:03→20:58)
[2016-12-15] MEDS: oxyBUTYnin 5 MG TAB PO SCH ×2 (09:03→20:57)
[2016-12-15] MEDS: DIVALPROEX 500MG *ER* TAB PO SCH ×2 (09:04→20:56)
[2016-12-15] MEDS: OMEPRAZOLE 20 MG CAP PO SCH ×2 (09:04→20:57)
[2016-12-15] MEDS: hydroCHLOROthiazide 25 MG TAB PO SCH (09:04)
--- NOTE | 2016-12-15 09:20 | MHIPNPDOC ---
[facility] Progress Note Progress Note DATE OF SERVICE: 12/15/16 HISTORY: Fiber Drier Operator met with patient today to assess treatment progress on inpatient unit. Patient remains medication compliant, states she slept well last night, remains agreeable to going to inpatient/SHELL treatment, verbalizes insight into degree of substance abuse and inability to cease substance abuse in outpatient environment. Patient makes minimal reference today to belief that people are conspiring against her. Patient rates current anxiety level as 3/10, depression 3/10, attributes symptoms to "I just found out I been here for 15 days and that's kind of depressing to me." Patient denies suicidal or homicidal ideation, denies auditory or visual hallucinations, and denies urge to engage in self-injurious behavior. Patient indicates current medication regimen is effective and continues to report improvement to symptoms of anxiety, depression , and psychosis. Patient denies medication side effects, indicates she feels somewhat better with recent changes to cardiac medications, however, indicates she is concerned about "all the co-pays" after she is discharged from inpatient treatment. Patient reports reduced sensation of"puffiness," reiterates has history of vacillating weight which predates psychotropic education trials. Patient indicates energy level, concentration and focus levels are stable, feels appetite is "leveling off," informs marketing writer she had difficulty sleeping last night due to, just worrying about discharge," denies need or changes to medications or for sleep aid addition. Patient denies experiencing physical pain at time of interaction and presents with no signs of acute distress. Addendum: Patient agreed to sign ROIs to request background information from [facility] which was received 12/06/16. Patient was discharged on 11/08/16 from [facility] after an attempted overdose on Depakote and benzodiazepines, was treated for acute toxic encephalopathy. When patient was released from [facility] she was discharged on the following medication regimen: BuSpar 5 mg 3 times a day - patient indicates medication was ineffective Clonidine 0.1 mg twice a day - patient indicates medication was effective Depakote 500 mg twice a day - patient indicates was effective Seroquel 300 mg at night - patient states medication was effective Trazodone 50 mg at night - patient states medication was effective Patient informs marketing writer she has also taken hydroxyzine in the past with poor effect VITALS: See below. Generally stable over weekend, elevated this morning, nursing has again been asked to monitor and to have PA evaluate if elevated. Patient placed on vitals QID. NEW TEST RESULTS: 12/11/16 cholesterol 179, glucose 103, A1c 5.2 MEDICAL/SURGICAL HISTORY: Hyperlipidemia, hypertension, GERD, osteoarthritis left knee, history of MRSA, edentulous, history of hep C, status post treatment , chronic constipation, OAB, eczema to hands. Patient denies history of seizure or head injury. Surgical history includes , left breast cyst removal, left groin cyst removal. Labs on admission indicated low AGR and elevated WBCs, leukocytosis, patient is afebrile and asymptomatic, PA was made aware. 12/02/16 lab results indicated low RBC, Hgb, HCT, and elevated RDW. Nursing has been asked to ensure the PA has evaluated patient and lab results HCG negative. Patient does not utilize control and has been educated on potential risks of psychotropic medications to unborn child should she become while taking psychotropic medications. Patient has been strongly encouraged to utilize control regularly when sexually active, patient has verbalized understanding. UDS positive for methadone, suspected use of kratom 12/01/16 EKG sinus rhythm minimal ST elevation noted, secondary to early repolarization last tracing on 10/05/16, no significant changes. Patient is asymptomatic, clinical consultation sought with recommendation made for follow- up with outpatient provider 12/02/[address] unremarkable CT examination of the brain. 12/02/16 Depakote level 56.8 12/06/16 Depakote level 88. 7 12/11/16 Depakote level 76.4 Clinical consultation completed with recommendation made for PA to evaluate patient's blood pressure, dosing change to blood pressure medication, and if addition of metformin would be safe and appropriate. PA apparently evaluated patient, no note found in chart date of entry. Fiber Drier Operator attempted to follow up with PA to discuss. Attending has reevaluated and made medication adjustment in effort to address elevated blood pressure and patient's sensation of "puffiness " and patient has been instructed to ambulate in hallways. MENTAL STATUS EXAMINATION: General appearance: Patient is a 45-year old female, who is less irritable today , generally cooperative, makes improved eye contact, displays adequate personal hygiene and is dressed in own clothing, ambulates with steady gait, and appears stated age. Speech: Less pressured, normal volume, normal rhythm, some tangentiality noted today, more spontaneous, coherent. Thought processes: Generally logical, less tangential, less paranoid, less disorganized Thought content: Generally rational, less tangential, appears less paranoid today, less grandiose, less persecutory delusional thinking expressed, reduced fixation on belief that patient accounting representative is attempting to have her arrested but delusions are noticeably less intrusive and less firmly held Abstract reasoning and computation: Impaired, continues to improve Description of associations: Intact at times, at other times loose, noticeably less tangential Description of abnormal or psychotic thoughts: Denies suicidal or homicidal ideation, denies auditory or visual hallucinations, does not appear to be responding to internal stimuli, endorses bizarre and paranoid ideation, denies preoccupation with violence. Judgment: Poor, some improvement noted Insight: Limited, some improvement noted Orientation: A and O 3. Recent and remote memory: Impaired, some improvement noted. Attention span and concentration: Impaired, some improvement noted Fund of knowledge: Impaired. Mood: "I'm okay, just really want to get out fo here but I kow i need rehab." Patient appears less anxious, less depressed, less mood lability noted Affect: Blunted, some brightening, congruent with mood DIAGNOSES: Unspecified mood disorder, opioid use disorder, polysubstance use disorder, rule out bipolar disorder with psychotic features, mixed, rule out depressive disorder with psychotic features, rule out substance-induced mood disorder, rule out borderline personality disorder ASSESSMENT: Patient continues to adjust to unit, has been able to maintain behavioral control, is visible and has been able to attend groups without being disruptive, is cooperative with staff. Patient remains agreeable to going to SHELL program, is agreeable to inpatient also. Patient states she remains medication compliant, appears less tangential and speech is less pressured than yesterday. Patient generally appears to be continuing to respond positively to medication regimen and denies medication side effects, has not needed to utilize Zyprexa PRN for several days. Education has been provided to patient today on the risks of psychotropic medications to unborn child should she become while taking medication, patient was strongly encouraged to consider utilizing control if she chooses to become sexually active while taking psychotropic medications, patient verbalizes understanding. Patient denies current suicidal or homicidal ideation and is able to verbalize awareness of how to access supportive services on unit if needed. Will continue to monitor patient's response to medication regimen and will monitor need for further dosing adjustments. Will continue to evaluate patient safety, resolution of suicidal ideation, paranoia, and delusional thinking, mood lability, and discharge/transfer readiness. patient financial services coordinator continues to work with patient on discharge/transfer to inpatient substance abuse and/or long -term psychiatric treatment. Patient reiterates today she is willing to go to inpatient treatment program. 2PC process has been initiated due to patient's history of two known recent overdoses on prescribed medications, substance abuse , multiple psychiatric hospitalizations, failure to show up for/comply with outpatient substance abuse treatment, and refusal to participate in inpatient treatment. MANAGEMENT PLAN: Continue Seroquel XR 400 mg po hs, clonidine 0.1 mg po to BID, Depakote ER 500 mg po BID, and Zydis 5 mg po q 4 hours PRN anxiety/agitation. Vitals QID Maintain safety precautions Patient to attend groups and participate in unit programming to develop coping strategies Engage patient in discharge planning process and arrange meeting with support system to ensure safe discharge planning when appropriate Patient to follow up with PCM to address recent EKG results and any other health concerns upon discharge TIME SPENT: 25 minutes Vital Signs Vital Signs Date Time Temp Pulse Resp B/P (MAP) Pulse Ox O2 Delivery O2 Flow Rate FiO2 12/15/16 09:03 121/65 12/15/16 06:27 97.4 81 16 12/14/16 07:10 Room Air 12/13/16 06:22 16 Current Medications Current Medications Acetaminophen (Tylenol Tab) 650 mg Q6HP PRN PO HEADACHE or DISCOMFORT; Start at 03:30; Stop 12/31/16 at 03:29 Al Hydrox/Mg Hydrox/Simethicone (Mylanta) 30 ml Q4HP PRN PO HEARTBURN/ INDIGESTION; Start 12/01/16 at 03:30; Stop 12/31/16 at 03:29 Atorvastatin Calcium (Lipitor) 10 mg QHS PO Last administered on 12/14/16 21:17 ; Start 12/01/16 at 21:00; Stop 12/31/16 at 20:59 Clonidine HCl (Catapres) 0.1 mg BID PO Last administered on 12/15/16 09:03; Start 12/06/16 at 21:00; Stop 01/05/17 at 20:59 Clonidine HCl (Catapres) 0.1 mg Q8H PRN PO HIGH BLOOD PRESSURE AND OPIATE WITHDRAWALS Last administered on 12/05/16 11:12; Start 12/02/16 at 11:00; Stop 12/06/16 at 15:35; Status DC Divalproex Sodium (Depakote Er) 500 mg BID PO Last administered on 12/15/16 09: 04; Start 12/01/16 at 21:00; Stop 12/31/16 at 20:59 Home Med (Med Rec Complete!) ASDIRECTED XX ; Start 12/01/16 at 01:30; Stop at 01:36; Status DC Hydrochlorothiazide (Hydrodiuril) 25 mg DAILY PO Last administered on 12/15/16 09:04; Start 12/14/16 at 09:00; Stop 01/13/17 at 08:59 Lisinopril (Prinivil) 5 mg BID PO Last administered on 12/15/16 09:03; Start at 21:00; Stop 01/11/17 at 08:59 Lisinopril (Prinivil) 5 mg DAILY PO Last administered on 12/14/16 08:06; Start 12/12/16 at 09:00; Stop 12/14/16 at 10:18; Status DC Magnesium Hydroxide (Milk Of Magnesia) 30 ml DAILYPRN PRN PO CONSTIPATION; Start 12/01/16 at 03:30; Stop 12/31/16 at 03:29 Meloxicam (Mobic) 7.5 mg BID PO Last administered on 12/15/16 09:03; Start at 09:00; Stop 12/31/16 at 08:59 Metoprolol Tartrate (Lopressor) 12.5 mg BID PO Last administered on 12/14/16 08 :06; Start 12/01/16 at 09:00; Stop 12/14/16 at 12:27; Status DC Non-Formulary Medication ( See Comment Field Below ) SEE COMMENTS SECTION 1T @10 XX ; Start 12/09/16 at 10:00; Stop 12/09/16 at 10:00; Status DC Non-Formulary Medication ( See Comment Field Below ) SEE LABEL COMMENTS DAILY XX ; Start 12/07/16 at 09:00; Stop 12/07/16 at 11:51; Status DC Non-Formulary Medication ( See Comment Field Below ) SEE LABEL COMMENTS SECTION 1T@10 XX Last administered on 12/09/16 13:00; Start 12/09/16 at 13:00 ; Stop 12/09/16 at 13:01; Status DC Olanzapine (ZyPREXA ZYDIS) 5 mg Q4HP PRN PO ANXIETY/AGITATION Last administered on 12/06/16 15:32; Start 12/01/16 at 19:45; Stop 12/31/16 at 19:44 Olanzapine (ZyPREXA ZYDIS) 10 mg Q4HP PRN PO ANXIETY/AGITATION; Start 12/01 at 18:00; Stop 12/01/16 at 19:38; Status DC Omeprazole (PriLOSEC) 40 mg BID PO Last administered on 12/15/16 09:04; Start 12/01/16 at 09:00; Stop 12/31/16 at 08:59 Oxybutynin Chloride (Ditropan) 5 mg BID PO Last administered on 12/15/16 09:03 ; Start 12/01/16 at 09:00; Stop 12/31/16 at 08:59 Polyethylene Glycol (Miralax) 1 pkt DAILY PRN PO CONSTIPATION Last administered on 12/04/16 21:09; Start 12/01/16 at 09:00; Stop 12/31/16 at 08:59 Quetiapine Fumarate (SEROquel XR) 400 mg QHS PO Last administered on 21:20; Start 12/07/16 at 21:00; Stop 01/06/17 at 20:59 Quetiapine Fumarate (SEROquel) 100 mg QHSP PRN PO INSOMNIA; Start 12/01/16 at 03:30; Stop 12/01/16 at 19:19; Status DC Quetiapine Fumarate (SEROquel) 200 mg BID PO Last administered on 12/06/16 22: 15; Start 12/06/16 at 21:00; Stop 12/07/16 at 17:39; Status DC Quetiapine Fumarate (SEROquel) 300 mg QHS PO Last administered on 12/05/16 20: 58; Start 12/01/16 at 21:00; Stop 12/06/16 at 17:37; Status DC Trazodone HCl (Desyrel) 50 mg QHSP PRN PO INSOMNIA Last administered on 21:00; Start 12/01/16 at 19:45; Stop 12/07/16 at 17:39; Status DC Triamcinolone Acetonide (Kenalog 0.025% Cream) 1 dose BID PRN TOP REDNESS/ IRRITATION Last administered on 12/13/16 08:29; Start 12/01/16 at 09:00; Stop at 08:59 Tuberculin PPD (Aplisol, Ppd) 5 units 1T@10 ID Last administered on 12/07/16 12:59; Start 12/07/16 at 13:00; Stop 12/07/16 at 13:01; Status DC Allergies Coded Allergies: Codeine (Unverified Adverse Reaction, Mild, N/V,SWELLING,ITCH,SWEATS, 2) Propoxyphene (Unverified Adverse Reaction, Mild, N/V,SWELLING,ITCH,SWEATS , 07/15/16) Chichi Schultz Dec 15, 2016 09:20
[2016-12-15 11:45] VITALS: BP 110/65
[2016-12-15 18:19] VITALS: BP 134/77
[2016-12-15] MEDS: ATORVASTATIN 10 MG TAB PO SCH (20:57)
[2016-12-15] MEDS: QUEtiapine FUMARATE **XR** 200MG TABLET PO SCH (21:47)
[2016-12-16] MEDS: MELOXICAM (MOBIC) 7.5 MG TAB PO SCH ×2 (08:24→20:52)
[2016-12-16] MEDS: oxyBUTYnin 5 MG TAB PO SCH ×2 (08:24→20:52)
[2016-12-16] MEDS: cloNIDine 0.1 MG TAB PO SCH ×2 (08:25→20:53)
[2016-12-16] MEDS: LISINOPRIL 5 MG TAB PO SCH ×2 (08:25→20:54)
[2016-12-16] MEDS: hydroCHLOROthiazide 25 MG TAB PO SCH (08:25)
[2016-12-16] MEDS: OMEPRAZOLE 20 MG CAP PO SCH ×2 (08:25→20:52)
[2016-12-16] MEDS: DIVALPROEX 500MG *ER* TAB PO SCH ×2 (08:25→20:52)
[2016-12-16] MEDS: TRIAMCINOLONE ACETONIDE 0.025 % 80 GM CREAM TOP PRN (08:25)
--- NOTE | 2016-12-16 11:18 | MHIPNPDOC ---
[facility] Progress Note Progress Note DATE OF SERVICE: 12/16/16 HISTORY: Life Skills Coordinator met with patient today to assess treatment progress on inpatient unit. Patient remains medication compliant, states she slept well last night, remains agreeable to going to inpatient/[facility] treatment, states she does not want to go to [facility]. Patient verbalizes limited insight into degree of substance abuse and inability to cease substance abuse in outpatient environment , is able to verbalize pattern of substance abuse relapse and mental health decompensation when not in "controlled environment." Patient makes minimal reference today to belief that people are conspiring against her. Patient rates current anxiety level as 3/10, depression 2/10, denies suicidal or homicidal ideation, denies auditory or visual hallucinations, and denies urge to engage in self-injurious behavior. Patient indicates current medication regimen is effective and continues to report improvement to symptoms of anxiety, depression , and psychosis. Patient denies medication side effects, indicates she continues to feel some improvement with recent changes to cardiac medications, remains concerned about cost of co-pays for medications after completing inpatient treatment. Patient indicates energy level, concentration and focus levels are stable, states appetite is stable, reports improvement to sleep and denies nightmare symptoms. Patient again denies need for changes to medications or for sleep aid addition. Patient denies experiencing physical pain at time of interaction and presents with no signs of acute distress. Addendum: Patient agreed to sign ROIs to request background information from [facility] which was received 12/06/16. Patient was discharged on 11/08/16 from [facility] after an attempted overdose on Depakote and benzodiazepines, was treated for acute toxic encephalopathy. 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 Generally stable over weekend, elevated this morning, nursing has again been asked to monitor and to have PA evaluate if elevated. Patient placed on vitals QID. NEW TEST RESULTS: 12/11/16 cholesterol 179, glucose 103, A1c 5.2 MEDICAL/SURGICAL HISTORY: Hyperlipidemia, hypertension, GERD, osteoarthritis left knee, history of MRSA, edentulous, history of hep C, status post treatment , chronic constipation, OAB, eczema to hands. Patient denies history of seizure or head injury. Surgical history includes , left breast cyst removal, left groin cyst removal. Labs on admission indicated low AGR and elevated WBCs, leukocytosis, patient is afebrile and asymptomatic, PA was made aware. 12/02/16 lab results indicated low RBC, Hgb, HCT, and elevated RDW. Nursing has been asked to ensure the PA has evaluated patient and lab results HCG negative. Patient does not utilize control and has been educated on potential risks of psychotropic medications to unborn child should she become while taking psychotropic medications. Patient has been strongly encouraged to utilize control regularly when sexually active, patient has verbalized understanding. UDS positive for methadone, suspected use of kratom 12/01/16 EKG sinus rhythm minimal ST elevation noted, secondary to early repolarization last tracing on 10/05/16, no significant changes. Patient is asymptomatic, clinical consultation sought with recommendation made for follow- up with outpatient provider 12/02/[address] unremarkable CT examination of the brain. 12/02/16 Depakote level 56.8 12/06/16 Depakote level 88. 7 12/11/16 Depakote level 76.4 Clinical consultation completed with recommendation made for PA to evaluate patient's blood pressure, dosing change to blood pressure medication, and if addition of metformin would be safe and appropriate. PA apparently evaluated patient, no note found in chart date of entry. Life Skills Coordinator attempted to follow up with PA to discuss. Attending has reevaluated and made medication adjustment in effort to address elevated blood pressure and patient's sensation of "puffiness " and patient has been instructed to ambulate in hallways. MENTAL STATUS EXAMINATION: General appearance: Patient is a 45-year old female, who is moderately irritable today, generally cooperative, makes improved eye contact, displays adequate personal hygiene and is dressed in own clothing, ambulates with steady gait, and appears stated age. Speech: Less pressured, normal volume, normal rhythm, some tangentiality noted today, more spontaneous, coherent. Thought processes: Generally logical, less tangential, less paranoid, less disorganized Thought content: Generally rational, less tangential, appears less paranoid today, less grandiose, less persecutory delusional thinking expressed, reduced fixation on belief that aircraft detail draftsperson is attempting to have her arrested but delusions are noticeably less intrusive and less firmly held Abstract reasoning and computation: Impaired, continues to improve Description of associations: Intact at times, at other times loose, noticeably less tangential Description of abnormal or psychotic thoughts: Denies suicidal or homicidal ideation, denies auditory or visual hallucinations, does not appear to be responding to internal stimuli, endorses bizarre and paranoid ideation, denies preoccupation with violence. Judgment: Poor, some improvement noted Insight: Limited, some improvement noted Orientation: A and O 3. Recent and remote memory: Impaired, some improvement noted. Attention span and concentration: Impaired, some improvement noted Fund of knowledge: Impaired. Mood: "I'm okay, but I don't want to go to [facility] I want to go to a SHE[facility] program." Patient appears less anxious, less depressed, less mood lability noted Affect: Blunted, some brightening, congruent with mood DIAGNOSES: Unspecified mood disorder, opioid use disorder, polysubstance use disorder, rule out bipolar disorder with psychotic features, mixed, rule out depressive disorder with psychotic features, rule out substance-induced mood disorder, rule out borderline personality disorder ASSESSMENT: Patient continues to adjust to unit, has been able to maintain behavioral control, is visible and has been able to attend groups without being disruptive, is cooperative with staff. Patient remains agreeable to going to [facility] program, is agreeable to inpatient also. Patient states she remains medication compliant, appears less tangential and speech is less pressured than yesterday. Patient appears to be continuing to respond positively to medication regimen and denies medication side effects, has not needed to utilize Zyprexa PRN for several days. Education has been provided to patient on the risks of psychotropic medications to unborn child should she become while taking medication, patient was strongly encouraged to consider utilizing control if she chooses to become sexually active while taking psychotropic medications, patient verbalizes understanding. Patient denies current suicidal or homicidal ideation and is able to verbalize awareness of how to access supportive services on unit if needed. Will continue to monitor patient's response to medication regimen and will monitor need for further dosing adjustments. Will continue to evaluate patient safety, resolution of suicidal ideation, paranoia, and delusional thinking, mood lability, and transfer readiness. business development coordinator continues to work with patient on transfer to inpatient substance abuse and/or long-term psychiatric treatment. Patient reiterates today she is willing to go to inpatient substance abuse treatment/ inpatient treatment program. 2PC process has been initiated due to patient's history of two known recent overdoses on prescribed medications, substance abuse , multiple psychiatric hospitalizations, failure to show up for/comply with outpatient substance abuse treatment, and refusal to participate in inpatient treatment. MANAGEMENT PLAN: Continue Seroquel XR 400 mg po hs, clonidine 0.1 mg po to BID, Depakote ER 500 mg po BID, and Zydis 5 mg po q 4 hours PRN anxiety/agitation. Vitals QID Maintain safety precautions Patient to attend groups and participate in unit programming to develop coping strategies Engage patient in discharge planning process and arrange meeting with support system to ensure safe discharge planning when appropriate Patient to follow up with PCM to address recent EKG results and any other health concerns upon discharge TIME SPENT: 35 minutes Vital Signs Vital Signs Date Time Temp Pulse Resp B/P (MAP) Pulse Ox O2 Delivery O2 Flow Rate FiO2 12/16/16 08:25 147/73 12/16/16 06:18 98.3 59 18 Room Air 12/13/16 06:22 16 Current Medications Current Medications Acetaminophen (Tylenol Tab) 650 mg Q6HP PRN PO HEADACHE or DISCOMFORT; Start at 03:30; Stop 12/31/16 at 03:29 Al Hydrox/Mg Hydrox/Simethicone (Mylanta) 30 ml Q4HP PRN PO HEARTBURN/ INDIGESTION; Start 12/01/16 at 03:30; Stop 12/31/16 at 03:29 Atorvastatin Calcium (Lipitor) 10 mg QHS PO Last administered on 12/15/16 20:57 ; Start 12/01/16 at 21:00; Stop 12/31/16 at 20:59 Clonidine HCl (Catapres) 0.1 mg BID PO Last administered on 12/16/16 08:25; Start 12/06/16 at 21:00; Stop 01/05/17 at 20:59 Clonidine HCl (Catapres) 0.1 mg Q8H PRN PO HIGH BLOOD PRESSURE AND OPIATE WITHDRAWALS Last administered on 12/05/16 11:12; Start 12/02/16 at 11:00; Stop 12/06/16 at 15:35; Status DC Divalproex Sodium (Depakote Er) 500 mg BID PO Last administered on 12/16/16 08: 25; Start 12/01/16 at 21:00; Stop 12/31/16 at 20:59 Home Med (Med Rec Complete!) ASDIRECTED XX ; Start 12/01/16 at 01:30; Stop at 01:36; Status DC Hydrochlorothiazide (Hydrodiuril) 25 mg DAILY PO Last administered on 12/16/16 08:25; Start 12/14/16 at 09:00; Stop 01/13/17 at 08:59 Lisinopril (Prinivil) 5 mg BID PO Last administered on 12/16/16 08:25; Start at 21:00; Stop 01/11/17 at 08:59 Lisinopril (Prinivil) 5 mg DAILY PO Last administered on 12/14/16 08:06; Start 12/12/16 at 09:00; Stop 12/14/16 at 10:18; Status DC Magnesium Hydroxide (Milk Of Magnesia) 30 ml DAILYPRN PRN PO CONSTIPATION; Start 12/01/16 at 03:30; Stop 12/31/16 at 03:29 Meloxicam (Mobic) 7.5 mg BID PO Last administered on 12/16/16 08:24; Start at 09:00; Stop 12/31/16 at 08:59 Metoprolol Tartrate (Lopressor) 12.5 mg BID PO Last administered on 12/14/16 08 :06; Start 12/01/16 at 09:00; Stop 12/14/16 at 12:27; Status DC Non-Formulary Medication ( See Comment Field Below ) SEE COMMENTS SECTION 1T @10 XX ; Start 12/09/16 at 10:00; Stop 12/09/16 at 10:00; Status DC Non-Formulary Medication ( See Comment Field Below ) SEE LABEL COMMENTS DAILY XX ; Start 12/07/16 at 09:00; Stop 12/07/16 at 11:51; Status DC Non-Formulary Medication ( See Comment Field Below ) SEE LABEL COMMENTS SECTION 1T@10 XX Last administered on 12/09/16 13:00; Start 12/09/16 at 13:00 ; Stop 12/09/16 at 13:01; Status DC Olanzapine (ZyPREXA ZYDIS) 5 mg Q4HP PRN PO ANXIETY/AGITATION Last administered on 12/06/16 15:32; Start 12/01/16 at 19:45; Stop 12/31/16 at 19:44 Olanzapine (ZyPREXA ZYDIS) 10 mg Q4HP PRN PO ANXIETY/AGITATION; Start 12/01 at 18:00; Stop 12/01/16 at 19:38; Status DC Omeprazole (PriLOSEC) 40 mg BID PO Last administered on 12/16/16 08:25; Start 12/01/16 at 09:00; Stop 12/31/16 at 08:59 Oxybutynin Chloride (Ditropan) 5 mg BID PO Last administered on 12/16/16 08:24 ; Start 12/01/16 at 09:00; Stop 12/31/16 at 08:59 Polyethylene Glycol (Miralax) 1 pkt DAILY PRN PO CONSTIPATION Last administered on 12/04/16 21:09; Start 12/01/16 at 09:00; Stop 12/31/16 at 08:59 Quetiapine Fumarate (SEROquel XR) 400 mg QHS PO Last administered on 21:47; Start 12/07/16 at 21:00; Stop 01/06/17 at 20:59 Quetiapine Fumarate (SEROquel) 100 mg QHSP PRN PO INSOMNIA; Start 12/01/16 at 03:30; Stop 12/01/16 at 19:19; Status DC Quetiapine Fumarate (SEROquel) 200 mg BID PO Last administered on 12/06/16 22: 15; Start 12/06/16 at 21:00; Stop 12/07/16 at 17:39; Status DC Quetiapine Fumarate (SEROquel) 300 mg QHS PO Last administered on 12/05/16 20: 58; Start 12/01/16 at 21:00; Stop 12/06/16 at 17:37; Status DC Trazodone HCl (Desyrel) 50 mg QHSP PRN PO INSOMNIA Last administered on 21:00; Start 12/01/16 at 19:45; Stop 12/07/16 at 17:39; Status DC Triamcinolone Acetonide (Kenalog 0.025% Cream) 1 dose BID PRN TOP REDNESS/ IRRITATION Last administered on 12/16/16 08:25; Start 12/01/16 at 09:00; Stop at 08:59 Tuberculin PPD (Aplisol, Ppd) 5 units 1T@10 ID Last administered on 12/07/16 12:59; Start 12/07/16 at 13:00; Stop 12/07/16 at 13:01; Status DC Allergies Coded Allergies: Codeine (Unverified Adverse Reaction, Mild, N/V,SWELLING,ITCH,SWEATS, ) Propoxyphene (Unverified Adverse Reaction, Mild, N/V,SWELLING,ITCH,SWEATS , 07/15/16) Chichi Schultz Dec 16, 2016 11:18
[2016-12-16 12:01] VITALS: BP 140/80
[2016-12-16 18:00] VITALS: BP 135/75
[2016-12-16] MEDS: ATORVASTATIN 10 MG TAB PO SCH (20:52)
[2016-12-16] MEDS: QUEtiapine FUMARATE **XR** 200MG TABLET PO SCH (22:34)
[2016-12-17 06:33] VITALS: BP 137/87
[2016-12-17] MEDS: MELOXICAM (MOBIC) 7.5 MG TAB PO SCH ×2 (08:31→21:06)
[2016-12-17] MEDS: DIVALPROEX 500MG *ER* TAB PO SCH ×2 (08:31→21:06)
[2016-12-17] MEDS: LISINOPRIL 5 MG TAB PO SCH ×2 (08:31→21:06)
[2016-12-17] MEDS: oxyBUTYnin 5 MG TAB PO SCH ×2 (08:31→21:06)
[2016-12-17] MEDS: OMEPRAZOLE 20 MG CAP PO SCH ×2 (08:31→21:06)
[2016-12-17] MEDS: cloNIDine 0.1 MG TAB PO SCH ×2 (08:32→21:06)
[2016-12-17] MEDS: hydroCHLOROthiazide 25 MG TAB PO SCH (08:32)
[2016-12-17] MEDS: OLANZapine ORAL DISINTEGRATING TAB 5MG PO PRN (08:32)
[2016-12-17 12:00] VITALS: BP 125/67
[2016-12-17 18:00] VITALS: BP 147/91
[2016-12-17] MEDS: ATORVASTATIN 10 MG TAB PO SCH (21:06)
[2016-12-17 21:08] VITALS: BP 135/87
[2016-12-17] MEDS: QUEtiapine FUMARATE **XR** 200MG TABLET PO SCH (22:33)
[2016-12-18] MEDS: LISINOPRIL 5 MG TAB PO SCH ×2 (09:15→21:12)
[2016-12-18] MEDS: oxyBUTYnin 5 MG TAB PO SCH ×2 (09:15→21:11)
[2016-12-18] MEDS: MELOXICAM (MOBIC) 7.5 MG TAB PO SCH ×2 (09:15→21:11)
[2016-12-18] MEDS: OMEPRAZOLE 20 MG CAP PO SCH ×2 (09:16→21:11)
[2016-12-18] MEDS: cloNIDine 0.1 MG TAB PO SCH ×2 (09:16→21:12)
[2016-12-18] MEDS: DIVALPROEX 500MG *ER* TAB PO SCH ×2 (09:16→21:12)
[2016-12-18] MEDS: hydroCHLOROthiazide 25 MG TAB PO SCH (09:16)
[2016-12-18] MEDS: ACETAMINOPHEN TAB 650MG DOSE (2X325MG) PO PRN (09:17)
[2016-12-18 10:25] VITALS: BP 117/82
[2016-12-18 18:00] VITALS: BP 138/85
[2016-12-18 21:10] VITALS: BP 138/85
[2016-12-18] MEDS: ATORVASTATIN 10 MG TAB PO SCH (21:11)
[2016-12-18] MEDS: QUEtiapine FUMARATE **XR** 200MG TABLET PO SCH (21:36)
[2016-12-19 06:43] VITALS: BP 145/70
[2016-12-19] MEDS: DIVALPROEX 500MG *ER* TAB PO SCH ×2 (08:32→21:17)
[2016-12-19] MEDS: OMEPRAZOLE 20 MG CAP PO SCH ×2 (08:33→21:16)
[2016-12-19] MEDS: hydroCHLOROthiazide 25 MG TAB PO SCH (08:33)
[2016-12-19] MEDS: oxyBUTYnin 5 MG TAB PO SCH ×2 (08:33→21:17)
[2016-12-19] MEDS: LISINOPRIL 5 MG TAB PO SCH ×2 (08:33→21:17)
[2016-12-19] MEDS: MELOXICAM (MOBIC) 7.5 MG TAB PO SCH ×2 (08:33→21:17)
[2016-12-19] MEDS: cloNIDine 0.1 MG TAB PO SCH ×2 (08:33→21:17)
[2016-12-19 11:36] VITALS: BP 139/71
[2016-12-19 18:00] VITALS: BP 114/71
[2016-12-19] MEDS: ATORVASTATIN 10 MG TAB PO SCH (21:17)
[2016-12-19] MEDS: QUEtiapine FUMARATE **XR** 200MG TABLET PO SCH (21:59)
--- NOTE | 2016-12-20 08:27 | MHIPNPDOC ---
[facility] Progress Note Progress Note DATE OF SERVICE: 12/20/16/Late entry for coverage on 12/19/16 in the absence of usual DATABASE SECURITY EXPERT. HISTORY: day 19 of admission. Patient is a 45-year-old female who indicated admission she was recently discharged from [facility], indicates she brought herself to the emergency room due to experiencing suicidal ideation , paranoia, delusional thinking and racing thoughts. While in the emergency room patient expressed suicidal ideation stating "I know it's coming," though she denied having plan or intent. Patient was discharged last month from [facility] treatment, has had multiple other psychiatric admissions, notes she was also hospitalized at [facility] since last [facility] hospitalization. VITAL SIGNS: See below. NEW TEST RESULTS: na. CURRENT MEDICATIONS: See below. MENTAL STATUS EXAMINATION: Patient is a 45-year old female, who is petite in stature, wearing street clothes, sitting on her bed in her room, making fair eye contact. Speech: Is rapid, non-pressured, over-productive Language skills are intact Thought processes including: circumstantial and goal directed Thought content: discharge planning Abstract reasoning, and computation: fair. Description of associations: fair. Description of abnormal or psychotic thoughts: paranoid component to her conversation, suspects other's are deliberately trying to "make me think I'm crazy". Denies perceptual disturbances. You Andrade, Judgment: poor Insight: poor. Orientation: oriented in all spheres. Recent and remote memory:intact but may not be accurate in recall. Recall suits her desired outcome. Attention span and concentration: fair. Fund of knowledge: Impaired. Mood: anxious, agitated. Affect: congruent. DIAGNOSES: Unspecified mood disorder, opioid use disorder, polysubstance use disorder, rule out bipolar disorder with psychotic features, mixed, rule out depressive disorder with psychotic features, rule out substance-induced mood disorder, rule out borderline personality disorder ASSESSMENT:met with pt today in the absence of her usual provider who had PTO. Ro talked exclusively about the pending transfer to [facility]. She is opposed to going. She states she called 4 agencies today to inquire about the number of inpatient bed days she has available on her insurance. She states she has a "lifetime supply" and will not run out. She is hoping her transfer can be to [place] or [facility] for SHELL treatment. We discussed her right to request a hearing to contest the transfer. She states the erisa attorney is away for a week. I explained that they will send someone in her place to represent her. I explained to her about how to appeal the decision if it goes against her. Pt was advised that proposal lead writer would have the media planner speak to her about her remaining inpatient bed days. Pt further talked about outpatient treatment but proposal lead writer did not encourage this discussion. She was reminded of her numerous admissions over the past year, her persistent drug use and her suicidal mentality. She was encouraged to only consider additional inpatient treatment as she has not been at all successful as an outpatient. She did not dispute this. Ro is taking care of hygiene needs. She is visible on the unit but is often loud and negative in her comments and this is upsetting to her peers. Several have complained about it but realize she is in need of more help than some others. Pt was encouraged to continue to communicate her needs and desires to her treatment team and to remain open to the options presented to her. She does not realize that transfer to [facility] is the usual protocol when a bed cannot be found elsewhere and the patient needs ongoing inpatient care. Ramon understanding of things is often one sided as she continues to think people are against her. MANAGEMENT PLAN: continue close observation, continue medications, monitor sleep and encourage appropriate social interaction. Continue to monitor valproic acid level. TIME SPENT: 15 minutes. Vital Signs Vital Signs Date Time Temp Pulse Resp B/P (MAP) Pulse Ox O2 Delivery O2 Flow Rate FiO2 12/19/16 21: 134/66 12/19/16 18:00 98.8 90 16 12/16/16 06:18 Room Air Current Medications Current Medications Acetaminophen (Tylenol Tab) 650 mg Q6HP PRN PO HEADACHE or DISCOMFORT Last administered on 12/18/16 09:17; Start 12/01/16 at 03:30; Stop 12/31/16 at 03:29 Al Hydrox/Mg Hydrox/Simethicone (Mylanta) 30 ml Q4HP PRN PO HEARTBURN/ INDIGESTION; Start 12/01/16 at 03:30; Stop 12/31/16 at 03:29 Atorvastatin Calcium (Lipitor) 10 mg QHS PO Last administered on 12/19/16 21: 17; Start 12/01/16 at 21:00; Stop 12/31/16 at 20:59 Clonidine HCl (Catapres) 0.1 mg BID PO Last administered on 12/19/16 21:17; Start 12/06/16 at 21:00; Stop 01/05/17 at 20:59 Clonidine HCl (Catapres) 0.1 mg Q8H PRN PO HIGH BLOOD PRESSURE AND OPIATE WITHDRAWALS Last administered on 12/05/16 11:12; Start 12/02/16 at 11:00; Stop 12/06/16 at 15:35; Status DC Divalproex Sodium (Depakote Er) 500 mg BID PO Last administered on 12/19/16 21 :17; Start 12/01/16 at 21:00; Stop 12/31/16 at 20:59 Home Med (Med Rec Complete!) ASDIRECTED XX ; Start 12/01/16 at 01:30; Stop at 01:36; Status DC Hydrochlorothiazide (Hydrodiuril) 25 mg DAILY PO Last administered on 08:33; Start 12/14/16 at 09:00; Stop 01/13/17 at 08:59 Lisinopril (Prinivil) 5 mg BID PO Last administered on 12/19/16 21:17; Start 12/14/16 at 21:00; Stop 01/11/17 at 08:59 Lisinopril (Prinivil) 5 mg DAILY PO Last administered on 12/14/16 08:06; Start 12/12/16 at 09:00; Stop 12/14/16 at 10:18; Status DC Magnesium Hydroxide (Milk Of Magnesia) 30 ml DAILYPRN PRN PO CONSTIPATION; Start 12/01/16 at 03:30; Stop 12/31/16 at 03:29 Meloxicam (Mobic) 7.5 mg BID PO Last administered on 12/19/16 21:17; Start at 09:00; Stop 12/31/16 at 08:59 Metoprolol Tartrate (Lopressor) 12.5 mg BID PO Last administered on 12/14/16 08 :06; Start 12/01/16 at 09:00; Stop 12/14/16 at 12:27; Status DC Non-Formulary Medication ( See Comment Field Below ) SEE COMMENTS SECTION 1T @10 XX ; Start 12/09/16 at 10:00; Stop 12/09/16 at 10:00; Status DC Non-Formulary Medication ( See Comment Field Below ) SEE LABEL COMMENTS DAILY XX ; Start 12/07/16 at 09:00; Stop 12/07/16 at 11:51; Status DC Non-Formulary Medication ( See Comment Field Below ) SEE LABEL COMMENTS SECTION 1T@10 XX Last administered on 12/09/16 13:00; Start 12/09/16 at 13:00 ; Stop 12/09/16 at 13:01; Status DC Olanzapine (ZyPREXA ZYDIS) 5 mg Q4HP PRN PO ANXIETY/AGITATION Last administered on 12/17/16 08:32; Start 12/01/16 at 19:45; Stop 12/31/16 at 19:44 Olanzapine (ZyPREXA ZYDIS) 10 mg Q4HP PRN PO ANXIETY/AGITATION; Start 12/01 at 18:00; Stop 12/01/16 at 19:38; Status DC Omeprazole (PriLOSEC) 40 mg BID PO Last administered on 12/19/16 21:16; Start 12/01/16 at 09:00; Stop 12/31/16 at 08:59 Oxybutynin Chloride (Ditropan) 5 mg BID PO Last administered on 12/19/16 21:17 ; Start 12/01/16 at 09:00; Stop 12/31/16 at 08:59 Polyethylene Glycol (Miralax) 1 pkt DAILY PRN PO CONSTIPATION Last administered on 12/04/16 21:09; Start 12/01/16 at 09:00; Stop 12/31/16 at 08:59 Quetiapine Fumarate (SEROquel XR) 400 mg QHS PO Last administered on 21:59; Start 12/07/16 at 21:00; Stop 01/06/17 at 20:59 Quetiapine Fumarate (SEROquel) 100 mg QHSP PRN PO INSOMNIA; Start 12/01/16 at 03:30; Stop 12/01/16 at 19:19; Status DC Quetiapine Fumarate (SEROquel) 200 mg BID PO Last administered on 12/06/16 22: 15; Start 12/06/16 at 21:00; Stop 12/07/16 at 17:39; Status DC Quetiapine Fumarate (SEROquel) 300 mg QHS PO Last administered on 12/05/16 20: 58; Start 12/01/16 at 21:00; Stop 12/06/16 at 17:37; Status DC Trazodone HCl (Desyrel) 50 mg QHSP PRN PO INSOMNIA Last administered on 21:00; Start 12/01/16 at 19:45; Stop 12/07/16 at 17:39; Status DC Triamcinolone Acetonide (Kenalog 0.025% Cream) 1 dose BID PRN TOP REDNESS/ IRRITATION Last administered on 12/16/16 08:25; Start 12/01/16 at 09:00; Stop at 08:59 Tuberculin PPD (Aplisol, Ppd) 5 units 1T@10 ID Last administered on 12/07/16 12:59; Start 12/07/16 at 13:00; Stop 12/07/16 at 13:01; Status DC Allergies Coded Allergies: Codeine (Unverified Adverse Reaction, Mild, N/V,SWELLING,ITCH,SWEATS, 2/) Propoxyphene (Unverified Adverse Reaction, Mild, N/V,SWELLING,ITCH,SWEATS , 2) Jaye Davenport Dec 20, 2016 08:27
[2016-12-20] MEDS: DIVALPROEX 500MG *ER* TAB PO SCH ×2 (08:49→20:00)
[2016-12-20] MEDS: OMEPRAZOLE 20 MG CAP PO SCH ×2 (08:50→20:00)
[2016-12-20] MEDS: cloNIDine 0.1 MG TAB PO SCH ×2 (08:50→20:01)
[2016-12-20] MEDS: LISINOPRIL 5 MG TAB PO SCH ×2 (08:50→20:02)
[2016-12-20] MEDS: hydroCHLOROthiazide 25 MG TAB PO SCH (08:50)
[2016-12-20] MEDS: oxyBUTYnin 5 MG TAB PO SCH ×2 (08:50→20:01)
[2016-12-20] MEDS: MELOXICAM (MOBIC) 7.5 MG TAB PO SCH ×2 (08:50→20:02)
[2016-12-20 12:10] VITALS: BP 133/74
[2016-12-20 18:00] VITALS: BP 131/84
--- NOTE | 2016-12-20 18:01 | MHIPNPDOC ---
[facility] Progress Note Progress Note DATE OF SERVICE: 12/20/16 HISTORY: Jewel Hole Cornerer met with patient today to assess treatment progress on inpatient unit. Patient remains medication compliant, states she slept well last night, denies nightmare symptoms. Patient spent duration of today's assessment time focused on [facility], verbalizes constraints in terms of insurance coverage for [facility] program, states she is ambivalent as to whether or not to go to [facility]. Jewel Hole Cornerer reviewed with patient why transfer to [facility] is being pursued in light of patient's inability to transfer to [facility] treatment to include, but not limited to, the following: UDS positive for methadone on admission, 6 hospitalizations since July, 2 known attempted overdoses on prescribed medications, no-show or late show for treatment appointment after last discharge , showing up under the influence/actively withdrawing when presenting for treatment, patient verbalization of inability control substance abuse if not in control setting, and history of substance abuse relapse with mental health decompensation when not in controlled environment.. Patient does not dispute the aforementioned factors, states she will discuss the matter with her legal representation tomorrow prior to administrative hearing. Patient rates current anxiety level 5/10 related to going to [facility], depression 2/10, denies suicidal or homicidal ideation, denies auditory or visual hallucinations, and denies urge to engage in self-injurious behavior. Patient expresses concern regarding "people being against me," however, states medications are effective and continues to feel some improvement with recent changes to cardiac medications. Patient indicates current medication regimen is effective. Patient indicates energy level, concentration and focus levels are stable, states appetite has increased during stay, states she is sleeping well. Patient denies experiencing physical pain at time of interaction and presents with no signs of acute distress. Addendum: Patient agreed to sign ROIs to request background information from [facility] which was received 12/06/16. Patient was discharged on 11/08/16 from [facility] after an attempted overdose on Depakote and benzodiazepines, was treated for acute toxic encephalopathy. 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 Generally stable over weekend, elevated this morning, nursing has again been asked to monitor and to have PA evaluate if elevated. Patient placed on vitals QID. NEW TEST RESULTS: 12/11/16 cholesterol 179, glucose 103, A1c 5.2 MEDICAL/SURGICAL HISTORY: Hyperlipidemia, hypertension, GERD, osteoarthritis left knee, history of MRSA, edentulous, history of hep C, status post treatment , chronic constipation, OAB, eczema to hands. Patient denies history of seizure or head injury. Surgical history includes , left breast cyst removal, left groin cyst removal. Labs on admission indicated low AGR and elevated WBCs, leukocytosis, patient is afebrile and asymptomatic, PA was made aware. 12/02/16 lab results indicated low RBC, Hgb, HCT, and elevated RDW. Nursing has been asked to ensure the PA has evaluated patient and lab results HCG negative. Patient does not utilize control and has been educated on potential risks of psychotropic medications to unborn child should she become while taking psychotropic medications. Patient has been strongly encouraged to utilize control regularly when sexually active, patient has verbalized understanding. UDS positive for methadone, suspected use of kratom 12/01/16 EKG sinus rhythm minimal ST elevation noted, secondary to early repolarization last tracing on 10/05/16, no significant changes. Patient is asymptomatic, clinical consultation sought with recommendation made for follow- up with outpatient provider 12/02/[address] unremarkable CT examination of the brain. 12/02/16 Depakote level 56.8 12/06/16 Depakote level 88. 7 12/11/16 Depakote level 76.4 Clinical consultation completed with recommendation made for PA to evaluate patient's blood pressure, dosing change to blood pressure medication, and if addition of metformin would be safe and appropriate. PA apparently evaluated patient, no note found in chart date of entry. Jewel Hole Cornerer attempted to follow up with PA to discuss. Attending has reevaluated and made medication adjustment in effort to address elevated blood pressure and patient's sensation of "puffiness " and patient has been instructed to ambulate in hallways. MENTAL STATUS EXAMINATION: General appearance: Patient is a 45-year old female, who is less irritable today , generally cooperative, makes improved eye contact, displays adequate personal hygiene and is dressed in own clothing, ambulates with steady gait, and appears stated age. Speech: Remains pressured, generally normal volume, loud at times, normal rhythm , some tangentiality noted today, more spontaneous, coherent. Thought processes: Generally logical, less tangential, less paranoid, less disorganized Thought content: Generally rational, less tangential, appears less paranoid today, less grandiose, less persecutory delusional thinking expressed, reduced fixation on belief that cook pie is attempting to have her arrested but delusions are noticeably less intrusive and less firmly held Abstract reasoning and computation: Impaired, continues to improve Description of associations: Intact at times, at other times loose, noticeably less tangential Description of abnormal or psychotic thoughts: Denies suicidal or homicidal ideation, denies auditory or visual hallucinations, does not appear to be responding to internal stimuli, endorses bizarre and paranoid ideation, denies preoccupation with violence. Judgment: Poor, some improvement noted Insight: Limited, some improvement noted Orientation: A and O 3. Recent and remote memory: Impaired, some improvement noted. Attention span and concentration: Impaired, some improvement noted Fund of knowledge: Impaired. Mood: "I'm okay, but I don't want to go to [facility]." Patient appears generally less anxious and less depressed, less mood lability noted Affect: Blunted, some brightening, congruent with mood DIAGNOSES: Unspecified mood disorder, opioid use disorder, polysubstance use disorder, rule out bipolar disorder with psychotic features, mixed, rule out depressive disorder with psychotic features, rule out substance-induced mood disorder, rule out borderline personality disorder ASSESSMENT: Patient continues to adjust to unit, has been able to maintain behavioral control, is visible and has been able to attend groups without being disruptive, is cooperative with staff. Patient has been informed by medical review coordinator due to insurance constraints discharge plan is now or patient to transfer to [facility] as patient will have sizable co-pay if transferred to [facility] program. Patient is aware administrative hearing is tomorrow afternoon, states she does not want to go to [facility] but also indicates she feels it would be in her best interest. Patient states she remains medication compliant, appears less tangential and speech is less pressured than yesterday. Patient appears to be continuing to respond positively to medication regimen and denies medication side effects, utilized Zyprexa PRN 12 days ago with good effect reported. Education has been provided to patient on the risks of psychotropic medications to unborn child should she become while taking medication, patient was strongly encouraged to consider utilizing control if she chooses to become sexually active while taking psychotropic medications, patient verbalizes understanding. Patient denies current suicidal or homicidal ideation and is able to verbalize awareness of how to access supportive services on unit if needed. Will continue to monitor patient's response to medication regimen and will monitor need for further dosing adjustments. Will continue to evaluate patient safety, resolution of suicidal ideation, paranoia, and delusional thinking, mood lability, and transfer readiness. resident care coordinator continues to work with patient and 2PC process has been initiated due to patient 's history of two known recent overdoses on prescribed medications, substance abuse, multiple psychiatric hospitalizations, failure to show up for/comply with outpatient substance abuse treatment, and refusal to participate in inpatient treatment. MANAGEMENT PLAN: Continue Seroquel XR 400 mg po hs, clonidine 0.1 mg po to BID, Depakote ER 500 mg po BID, and Zydis 5 mg po q 4 hours PRN anxiety/agitation. Vitals QID Maintain safety precautions Patient to attend groups and participate in unit programming to develop coping strategies Engage patient in discharge planning process and arrange meeting with support system to ensure safe discharge planning when appropriate Patient to follow up with PCM to address recent EKG results and any other health concerns upon discharge TIME SPENT: 35 minutes Vital Signs Vital Signs Date Time Temp Pulse Resp B/P (MAP) Pulse Ox O2 Delivery O2 Flow Rate FiO2 12/20/16 12:10 99.0 76 18 133/74 (93) 12/16/16 06:18 Room Air Current Medications Current Medications Acetaminophen (Tylenol Tab) 650 mg Q6HP PRN PO HEADACHE or DISCOMFORT Last administered on 12/18/16 09:17; Start 12/01/16 at 03:30; Stop 12/31/16 at 03:29 Al Hydrox/Mg Hydrox/Simethicone (Mylanta) 30 ml Q4HP PRN PO HEARTBURN/ INDIGESTION; Start 12/01/16 at 03:30; Stop 12/31/16 at 03:29 Atorvastatin Calcium (Lipitor) 10 mg QHS PO Last administered on 12/19/16 21: 17; Start 12/01/16 at 21:00; Stop 12/31/16 at 20:59 Clonidine HCl (Catapres) 0.1 mg BID PO Last administered on 12/20/16 08:50; Start 12/06/16 at 21:00; Stop 01/05/17 at 20:59 Clonidine HCl (Catapres) 0.1 mg Q8H PRN PO HIGH BLOOD PRESSURE AND OPIATE WITHDRAWALS Last administered on 12/05/16 11:12; Start 12/02/16 at 11:00; Stop 12/06/16 at 15:35; Status DC Divalproex Sodium (Depakote Er) 500 mg BID PO Last administered on 12/20/16 08 :49; Start 12/01/16 at 21:00; Stop 12/31/16 at 20:59 Home Med (Med Rec Complete!) ASDIRECTED XX ; Start 12/01/16 at 01:30; Stop at 01:36; Status DC Hydrochlorothiazide (Hydrodiuril) 25 mg DAILY PO Last administered on 08:50; Start 12/14/16 at 09:00; Stop 01/13/17 at 08:59 Lisinopril (Prinivil) 5 mg BID PO Last administered on 12/20/16 08:50; Start 12/14/16 at 21:00; Stop 01/11/17 at 08:59 Lisinopril (Prinivil) 5 mg DAILY PO Last administered on 12/14/16 08:06; Start 12/12/16 at 09:00; Stop 12/14/16 at 10:18; Status DC Magnesium Hydroxide (Milk Of Magnesia) 30 ml DAILYPRN PRN PO CONSTIPATION; Start 12/01/16 at 03:30; Stop 12/31/16 at 03:29 Meloxicam (Mobic) 7.5 mg BID PO Last administered on 12/20/16 08:50; Start at 09:00; Stop 12/31/16 at 08:59 Metoprolol Tartrate (Lopressor) 12.5 mg BID PO Last administered on 12/14/16 08 :06; Start 12/01/16 at 09:00; Stop 12/14/16 at 12:27; Status DC Non-Formulary Medication ( See Comment Field Below ) SEE COMMENTS SECTION 1T @10 XX ; Start 12/09/16 at 10:00; Stop 12/09/16 at 10:00; Status DC Non-Formulary Medication ( See Comment Field Below ) SEE LABEL COMMENTS DAILY XX ; Start 12/07/16 at 09:00; Stop 12/07/16 at 11:51; Status DC Non-Formulary Medication ( See Comment Field Below ) SEE LABEL COMMENTS SECTION 1T@10 XX Last administered on 12/09/16 13:00; Start 12/09/16 at 13:00 ; Stop 12/09/16 at 13:01; Status DC Olanzapine (ZyPREXA ZYDIS) 5 mg Q4HP PRN PO ANXIETY/AGITATION Last administered on 12/17/16 08:32; Start 12/01/16 at 19:45; Stop 12/31/16 at 19:44 Olanzapine (ZyPREXA ZYDIS) 10 mg Q4HP PRN PO ANXIETY/AGITATION; Start 12/01 at 18:00; Stop 12/01/16 at 19:38; Status DC Omeprazole (PriLOSEC) 40 mg BID PO Last administered on 12/20/16 08:50; Start 12/01/16 at 09:00; Stop 12/31/16 at 08:59 Oxybutynin Chloride (Ditropan) 5 mg BID PO Last administered on 12/20/16 08:50 ; Start 12/01/16 at 09:00; Stop 12/31/16 at 08:59 Polyethylene Glycol (Miralax) 1 pkt DAILY PRN PO CONSTIPATION Last administered on 12/04/16 21:09; Start 12/01/16 at 09:00; Stop 12/31/16 at 08:59 Quetiapine Fumarate (SEROquel XR) 400 mg QHS PO Last administered on 21:59; Start 12/07/16 at 21:00; Stop 01/06/17 at 20:59 Quetiapine Fumarate (SEROquel) 100 mg QHSP PRN PO INSOMNIA; Start 12/01/16 at 03:30; Stop 12/01/16 at 19:19; Status DC Quetiapine Fumarate (SEROquel) 200 mg BID PO Last administered on 12/06/16 22: 15; Start 12/06/16 at 21:00; Stop 12/07/16 at 17:39; Status DC Quetiapine Fumarate (SEROquel) 300 mg QHS PO Last administered on 12/05/16 20: 58; Start 12/01/16 at 21:00; Stop 12/06/16 at 17:37; Status DC Trazodone HCl (Desyrel) 50 mg QHSP PRN PO INSOMNIA Last administered on 21:00; Start 12/01/16 at 19:45; Stop 12/07/16 at 17:39; Status DC Triamcinolone Acetonide (Kenalog 0.025% Cream) 1 dose BID PRN TOP REDNESS/ IRRITATION Last administered on 12/16/16 08:25; Start 12/01/16 at 09:00; Stop at 08:59 Tuberculin PPD (Aplisol, Ppd) 5 units 1T@10 ID Last administered on 12/07/16 12:59; Start 12/07/16 at 13:00; Stop 12/07/16 at 13:01; Status DC Allergies Coded Allergies: Codeine (Unverified Adverse Reaction, Mild, N/V,SWELLING,ITCH,SWEATS, 2) Propoxyphene (Unverified Adverse Reaction, Mild, N/V,SWELLING,ITCH,SWEATS , 2) Chichi Schultz Dec 20, 2016 18:01
[2016-12-20] MEDS: ATORVASTATIN 10 MG TAB PO SCH (20:01)
[2016-12-20] MEDS: QUEtiapine FUMARATE **XR** 200MG TABLET PO SCH (21:31)
[2016-12-21 06:23] VITALS: BP 124/60
[2016-12-21] MEDS: OMEPRAZOLE 20 MG CAP PO SCH ×2 (08:55→21:39)
[2016-12-21] MEDS: oxyBUTYnin 5 MG TAB PO SCH ×2 (08:56→21:41)
[2016-12-21] MEDS: DIVALPROEX 500MG *ER* TAB PO SCH ×2 (08:56→21:39)
[2016-12-21] MEDS: LISINOPRIL 5 MG TAB PO SCH ×2 (08:56→21:41)
[2016-12-21] MEDS: MELOXICAM (MOBIC) 7.5 MG TAB PO SCH ×2 (08:56→21:41)
[2016-12-21] MEDS: cloNIDine 0.1 MG TAB PO SCH ×2 (08:56→21:41)
[2016-12-21] MEDS: hydroCHLOROthiazide 25 MG TAB PO SCH (08:57)
--- NOTE | 2016-12-21 09:29 | MHIPNPDOC ---
[facility] Progress Note Progress Note DATE OF SERVICE: 12/21/16 HISTORY: Chief Operating Officer met with patient today to assess treatment progress on inpatient unit. Patient remains medication compliant, states she slept well last night, denies nightmare symptoms. Patient spent duration of today's assessment time focused on preparing for administrative hearing for [facility], verbalizes constraints in terms of insurance coverage for [facility], states she is ambivalent as to whether or not to go to [facility]. Patient does not dispute the need for longer term inpatient treatment, states she will discuss the matter with her legal representation prior to administrative hearing. Patient rates current anxiety level 5/10 related to administrative hearing to determine whether or not she will be transferring to [facility], depression /10, denies suicidal or homicidal ideation, denies auditory or visual hallucinations, and denies urge to engage in self-injurious behavior. Patient verbalizes some paranoia and some tangentiality, is generally redirectable. Patient indicates she believes current medication regimen is effective and continues to feel some improvement with recent changes to cardiac medications. Patient denies medication side effects. Patient indicates energy level, concentration and focus levels are stable, states appetite has increased during stay, states she is sleeping well. Patient denies experiencing physical pain at time of interaction and presents with no signs of acute distress. Addendum: Patient agreed to sign ROIs to request background information from [facility] which was received 12/06/16. Patient was discharged on 11/08/16 from [facility] after an attempted overdose on Depakote and benzodiazepines, was treated for acute toxic encephalopathy. 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 Patient placed on vitals QID. NEW TEST RESULTS: 12/11/16 cholesterol 179, glucose 103, A1c 5.2 MEDICAL/SURGICAL HISTORY: Hyperlipidemia, hypertension, GERD, osteoarthritis left knee, history of MRSA, edentulous, history of hep C, status post treatment , chronic constipation, OAB, eczema to hands. Patient denies history of seizure or head injury. Surgical history includes , left breast cyst removal, left groin cyst removal. Labs on admission indicated low AGR and elevated WBCs, leukocytosis, patient is afebrile and asymptomatic, PA was made aware. 12/02/16 lab results indicated low RBC, Hgb, HCT, and elevated RDW. Nursing has been asked to ensure the PA has evaluated patient and lab results HCG negative. Patient does not utilize control and has been educated on potential risks of psychotropic medications to unborn child should she become while taking psychotropic medications. Patient has been strongly encouraged to utilize control regularly when sexually active, patient has verbalized understanding. UDS positive for methadone, suspected use of kratom 12/01/16 EKG sinus rhythm minimal ST elevation noted, secondary to early repolarization last tracing on 10/05/16, no significant changes. Patient is asymptomatic, clinical consultation sought with recommendation made for follow- up with outpatient provider 12/02/[address] unremarkable CT examination of the brain. 12/02/16 Depakote level 56.8 12/06/16 Depakote level 88. 7 12/11/16 Depakote level 76.4 Clinical consultation completed with recommendation made for PA to evaluate patient's blood pressure, dosing change to blood pressure medication, and if addition of metformin would be safe and appropriate. PA apparently evaluated patient, no note found in chart date of entry. Chief Operating Officer attempted to follow up with PA to discuss. Attending has reevaluated and made medication adjustment in effort to address elevated blood pressure and patient's sensation of "puffiness " and patient has been instructed to ambulate in hallways. MENTAL STATUS EXAMINATION: General appearance: Patient is a 45-year old female, who is less irritable today , generally cooperative, makes improved eye contact, displays adequate personal hygiene and is dressed in own clothing, ambulates with steady gait, and appears stated age. Speech: Remains pressured, generally normal volume, loud at times, normal rhythm , some tangentiality noted today, more spontaneous, coherent. Thought processes: Generally logical, less tangential, less paranoid, less disorganized Thought content: Generally rational, less tangential, appears less paranoid today, less grandiose, less persecutory delusional thinking expressed, reduced fixation on belief that deli/bakery associate is attempting to have her arrested but delusions are noticeably less intrusive and less firmly held Abstract reasoning and computation: Impaired, continues to improve Description of associations: Intact at times, at other times loose, noticeably less tangential Description of abnormal or psychotic thoughts: Denies suicidal or homicidal ideation, denies auditory or visual hallucinations, does not appear to be responding to internal stimuli, endorses bizarre and paranoid ideation, denies preoccupation with violence. Judgment: Poor, some improvement noted Insight: Limited, some improvement noted Orientation: A and O 3. Recent and remote memory: Impaired, some improvement noted. Attention span and concentration: Impaired, some improvement noted Fund of knowledge: Impaired. Mood: "I'm okay, I'm just a little nervous about the administrative hearing, you know I don't want to go to [facility]." Patient appears generally less anxious and less depressed, less mood lability noted Affect: Blunted, some brightening, congruent with mood DIAGNOSES: Unspecified mood disorder, opioid use disorder, polysubstance use disorder, rule out bipolar disorder with psychotic features, mixed, rule out depressive disorder with psychotic features, rule out substance-induced mood disorder, rule out borderline personality disorder ASSESSMENT: Patient continues to adjust to unit, has been able to maintain behavioral control, is visible and has been able to attend groups without being disruptive, is cooperative with staff. Patient has been informed by merchandise coordinator due to insurance constraints discharge plan is now or patient to transfer to [facility] as patient will have sizable co-pay if transferred to [facility]. Patient is aware administrative hearing is scheduled for this afternoon , states she does not want to go to [facility] but remains able to verbalize that longer term treatment is in her best interest. Patient states she remains medication compliant, appears somewhat more tangential today with some increase in pressured speech, attributes to anxiety related to impending administrative hearing. Patient appears to be continuing to generally respond positively to medication regimen and denies medication side effects, utilized Zyprexa PRN 2 days ago with good effect reported. Education has been provided to patient on the potential risks of psychotropic medications to unborn child should she become while taking medication and patient was strongly encouraged to consider utilizing control if she chooses to become sexually active while taking psychotropic medications. Patient denies current suicidal or homicidal ideation and is able to verbalize awareness of how to access supportive services on unit if needed. Will continue to monitor patient's response to medication regimen and will monitor need for further dosing adjustments. Will continue to evaluate patient safety, resolution of suicidal ideation, paranoia, and delusional thinking, mood lability, and transfer readiness. cooperative education coordinator continues to work with patient and 2PC process has been initiated due to patient's history of two known recent overdoses on prescribed medications , substance abuse, multiple psychiatric hospitalizations, failure to show up for /comply with outpatient substance abuse treatment, and refusal to participate in inpatient treatment. MANAGEMENT PLAN: Continue Seroquel XR 400 mg po hs, clonidine 0.1 mg po to BID, Depakote ER 500 mg po BID, and Zydis 5 mg po q 4 hours PRN anxiety/agitation. Vitals QID Maintain safety precautions Patient to attend groups and participate in unit programming to develop coping strategies Engage patient in discharge planning process and arrange meeting with support system to ensure safe discharge planning when appropriate Patient to follow up with PCM to address recent EKG results and any other health concerns upon discharge TIME SPENT: 35 minutes Vital Signs Vital Signs Date Time Temp Pulse Resp B/P (MAP) Pulse Ox O2 Delivery O2 Flow Rate FiO2 12/21/16 08:56 136/85 12/21/16 06:23 98.2 52 18 12/16/16 06:18 Room Air Current Medications Current Medications Acetaminophen (Tylenol Tab) 650 mg Q6HP PRN PO HEADACHE or DISCOMFORT Last administered on 12/18/16 09:17; Start 12/01/16 at 03:30; Stop 12/31/16 at 03:29 Al Hydrox/Mg Hydrox/Simethicone (Mylanta) 30 ml Q4HP PRN PO HEARTBURN/ INDIGESTION; Start 12/01/16 at 03:30; Stop 12/31/16 at 03:29 Atorvastatin Calcium (Lipitor) 10 mg QHS PO Last administered on 12/20/16 20: 01; Start 12/01/16 at 21:00; Stop 12/31/16 at 20:59 Clonidine HCl (Catapres) 0.1 mg BID PO Last administered on 12/21/16 08:56; Start 12/06/16 at 21:00; Stop 01/05/17 at 20:59 Clonidine HCl (Catapres) 0.1 mg Q8H PRN PO HIGH BLOOD PRESSURE AND OPIATE WITHDRAWALS Last administered on 12/05/16 11:12; Start 12/02/16 at 11:00; Stop 12/06/16 at 15:35; Status DC Divalproex Sodium (Depakote Er) 500 mg BID PO Last administered on 12/21/16 08 :56; Start 12/01/16 at 21:00; Stop 12/31/16 at 20:59 Home Med (Med Rec Complete!) ASDIRECTED XX ; Start 12/01/16 at 01:30; Stop at 01:36; Status DC Hydrochlorothiazide (Hydrodiuril) 25 mg DAILY PO Last administered on 08:57; Start 12/14/16 at 09:00; Stop 01/13/17 at 08:59 Lisinopril (Prinivil) 5 mg BID PO Last administered on 12/21/16 08:56; Start 12/14/16 at 21:00; Stop 01/11/17 at 08:59 Lisinopril (Prinivil) 5 mg DAILY PO Last administered on 12/14/16 08:06; Start 12/12/16 at 09:00; Stop 12/14/16 at 10:18; Status DC Magnesium Hydroxide (Milk Of Magnesia) 30 ml DAILYPRN PRN PO CONSTIPATION; Start 12/01/16 at 03:30; Stop 12/31/16 at 03:29 Meloxicam (Mobic) 7.5 mg BID PO Last administered on 12/21/16 08:56; Start at 09:00; Stop 12/31/16 at 08:59 Metoprolol Tartrate (Lopressor) 12.5 mg BID PO Last administered on 12/14/16 08 :06; Start 12/01/16 at 09:00; Stop 12/14/16 at 12:27; Status DC Non-Formulary Medication ( See Comment Field Below ) SEE COMMENTS SECTION 1T @10 XX ; Start 12/09/16 at 10:00; Stop 12/09/16 at 10:00; Status DC Non-Formulary Medication ( See Comment Field Below ) SEE LABEL COMMENTS DAILY XX ; Start 12/07/16 at 09:00; Stop 12/07/16 at 11:51; Status DC Non-Formulary Medication ( See Comment Field Below ) SEE LABEL COMMENTS SECTION 1T@10 XX Last administered on 12/09/16 13:00; Start 12/09/16 at 13:00 ; Stop 12/09/16 at 13:01; Status DC Olanzapine (ZyPREXA ZYDIS) 5 mg Q4HP PRN PO ANXIETY/AGITATION Last administered on 12/17/16 08:32; Start 12/01/16 at 19:45; Stop 12/31/16 at 19:44 Olanzapine (ZyPREXA ZYDIS) 10 mg Q4HP PRN PO ANXIETY/AGITATION; Start 12/01 at 18:00; Stop 12/01/16 at 19:38; Status DC Omeprazole (PriLOSEC) 40 mg BID PO Last administered on 12/21/16 08:55; Start 12/01/16 at 09:00; Stop 12/31/16 at 08:59 Oxybutynin Chloride (Ditropan) 5 mg BID PO Last administered on 12/21/16 08:56 ; Start 12/01/16 at 09:00; Stop 12/31/16 at 08:59 Polyethylene Glycol (Miralax) 1 pkt DAILY PRN PO CONSTIPATION Last administered on 12/04/16 21:09; Start 12/01/16 at 09:00; Stop 12/31/16 at 08:59 Quetiapine Fumarate (SEROquel XR) 400 mg QHS PO Last administered on 21:31; Start 12/07/16 at 21:00; Stop 01/06/17 at 20:59 Quetiapine Fumarate (SEROquel) 100 mg QHSP PRN PO INSOMNIA; Start 12/01/16 at 03:30; Stop 12/01/16 at 19:19; Status DC Quetiapine Fumarate (SEROquel) 200 mg BID PO Last administered on 12/06/16 22: 15; Start 12/06/16 at 21:00; Stop 12/07/16 at 17:39; Status DC Quetiapine Fumarate (SEROquel) 300 mg QHS PO Last administered on 12/05/16 20: 58; Start 12/01/16 at 21:00; Stop 12/06/16 at 17:37; Status DC Trazodone HCl (Desyrel) 50 mg QHSP PRN PO INSOMNIA Last administered on 21:00; Start 12/01/16 at 19:45; Stop 12/07/16 at 17:39; Status DC Triamcinolone Acetonide (Kenalog 0.025% Cream) 1 dose BID PRN TOP REDNESS/ IRRITATION Last administered on 12/16/16 08:25; Start 12/01/16 at 09:00; Stop at 08:59 Tuberculin PPD (Aplisol, Ppd) 5 units 1T@10 ID Last administered on 12/07/16 12:59; Start 12/07/16 at 13:00; Stop 12/07/16 at 13:01; Status DC Allergies Coded Allergies: Codeine (Unverified Adverse Reaction, Mild, N/V,SWELLING,ITCH,SWEATS, 2) Propoxyphene (Unverified Adverse Reaction, Mild, N/V,SWELLING,ITCH,SWEATS , 07/15/16) Chichi Schultz Dec 21, 2016 09:29
[2016-12-21 11:35] VITALS: BP 136/79
[2016-12-21 18:00] VITALS: BP 141/84
[2016-12-21 21:00] VITALS: BP 138/80
[2016-12-21] MEDS: ATORVASTATIN 10 MG TAB PO SCH (21:41)
[2016-12-21] MEDS: QUEtiapine FUMARATE **XR** 200MG TABLET PO SCH (21:41)
[2016-12-22 06:53] VITALS: BP 132/75
[2016-12-22] MEDS: LISINOPRIL 5 MG TAB PO SCH ×2 (08:42→21:04)
[2016-12-22] MEDS: cloNIDine 0.1 MG TAB PO SCH ×2 (08:42→21:02)
[2016-12-22] MEDS: oxyBUTYnin 5 MG TAB PO SCH ×2 (08:42→21:02)
[2016-12-22] MEDS: MELOXICAM (MOBIC) 7.5 MG TAB PO SCH ×2 (08:42→21:02)
[2016-12-22] MEDS: OMEPRAZOLE 20 MG CAP PO SCH ×2 (08:43→21:02)
[2016-12-22] MEDS: hydroCHLOROthiazide 25 MG TAB PO SCH (08:43)
[2016-12-22] MEDS: DIVALPROEX 500MG *ER* TAB PO SCH ×2 (08:43→21:02)
--- NOTE | 2016-12-22 09:03 | MHIPNPDOC ---
[facility] Progress Note Progress Note DATE OF SERVICE: 12/22/16 HISTORY: Stock Shipper met with patient today to assess treatment progress on inpatient unit. Patient remains medication compliant, reports current anxiety level of 5/10 related to discharge planning, rates depression 2/10, denies suicidal and homicidal ideation, denies auditory or visual hallucinations, denies urge to engage in self-injurious behavior. Patient denies experiencing symptoms of paranoia but does indicate she believes some patients on unit are talking about her behind her back and expresses concern that certain staff are not pursuing her best discharge interests, adds she feels she is not being given the same opportunities as other individuals with regard to discharge planning and that providers are not listening to her needs. Patient reiterates today that her insurance company is telling her she does have coverage for [facility] and that would be her first choice in discharge options, verbalizes awareness that she has been informed of sizable co-pay, states she will address again with real estate marketing coordinator. Patient indicates reduced sleep last night which she attributes to discharge related anxiety, denies nightmare symptoms, makes request for trazodone PRN. Stock Shipper informs patient trazodone has been discontinued due to potential for QTC prolongation and abnormal EKG. Other sleep aid options were discussed with patient who declines, indicates she wants trazodone, verbalizes understanding of risks and agrees to utilize only as needed. 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 Patient verbalizes some paranoia and some tangentiality, is redirectable. Patient indicates she believes current medication regimen is effective, denies medication side effects other than previously addressed weight gain. Patient is again encouraged to get exercise by walking in hallways, declines noting she prefers to walk at home where she can be outdoors. Patient indicates energy level, concentration and focus levels are stable, states appetite has increased during stay, states she is sleeping well. Patient denies experiencing physical pain at time of interaction and presents with no signs of acute distress. Addendum: Patient agreed to sign ROIs to request background information from [facility] which was received 12/06/16. Patient was discharged on 11/08/16 from [facility] after an attempted overdose on Depakote and benzodiazepines, was treated for acute toxic encephalopathy. When patient was released from [facility] she was discharged on the following medication regimen: BuSpar 5 mg 3 times a day - patient indicates medication was ineffective Clonidine 0.1 mg twice a day - patient indicates medication was effective Depakote 500 mg twice a day - patient indicates was effective Seroquel 300 mg at night - patient states medication was effective Trazodone 50 mg at night - patient states medication was effective Patient informs parts data writer she has also taken hydroxyzine in the past with poor effect VITALS: See below. Patient placed on vitals QID. NEW TEST RESULTS: 12/11/16 cholesterol 179, glucose 103, A1c 5.2 MEDICAL/SURGICAL HISTORY: Hyperlipidemia, hypertension, GERD, osteoarthritis left knee, history of MRSA, edentulous, history of hep C, status post treatment , chronic constipation, OAB, eczema to hands. Patient denies history of seizure or head injury. Surgical history includes , left breast cyst removal, left groin cyst removal. Labs on admission indicated low AGR and elevated WBCs, leukocytosis, patient is afebrile and asymptomatic, PA was made aware. 12/02/16 lab results indicated low RBC, Hgb, HCT, and elevated RDW. Nursing has been asked to ensure the PA has evaluated patient and lab results HCG negative. Patient does not utilize control and has been educated on potential risks of psychotropic medications to unborn child should she become while taking psychotropic medications. Patient has been strongly encouraged to utilize control regularly when sexually active, patient has verbalized understanding. UDS positive for methadone, suspected use of kratom 12/01/16 EKG sinus rhythm minimal ST elevation noted, secondary to early repolarization last tracing on 10/05/16, no significant changes. Patient is asymptomatic, clinical consultation sought with recommendation made for follow- up with outpatient provider 12/02/[address] unremarkable CT examination of the brain. 12/02/16 Depakote level 56.8 12/06/16 Depakote level 88. 7 12/11/16 Depakote level 76.4 Clinical consultation completed with recommendation made for PA to evaluate patient's blood pressure, dosing change to blood pressure medication, and if addition of metformin would be safe and appropriate. PA apparently evaluated patient, no note found in chart date of entry. Stock Shipper attempted to follow up with PA to discuss. Attending has reevaluated and made medication adjustment in effort to address elevated blood pressure and patient's sensation of "puffiness " and patient has been instructed to ambulate in hallways. MENTAL STATUS EXAMINATION: General appearance: Patient is a 45-year old female, who is less irritable today , cooperative, makes improved eye contact, displays adequate personal hygiene and is dressed in own clothing, ambulates with steady gait, and appears stated age. Speech: Remains pressured, rapid at times, generally normal volume but loud at times, some tangentiality noted today, more spontaneous, coherent. Thought processes: Generally logical, less tangential, less paranoid, less disorganized Thought content: Generally rational, less tangential, appears less paranoid today, less grandiose, some persecutory delusional thinking expressed, reduced fixation on belief that culinary arts instructor is attempting to have her arrested, delusions are noticeably less intrusive and less firmly held Abstract reasoning and computation: Impaired, continues to improve Description of associations: Intact at times, at other times loose, noticeably less tangential Description of abnormal or psychotic thoughts: Denies suicidal or homicidal ideation, denies auditory or visual hallucinations, does not appear to be responding to internal stimuli, denies bizarre but exhibits paranoid ideation at times, denies preoccupation with violence. Judgment: Poor, some improvement noted Insight: Limited, some improvement noted Orientation: A and O 3. Recent and remote memory: Impaired, some improvement noted. Attention span and concentration: Impaired, some improvement noted Fund of knowledge: Impaired. Mood: "I'm okay, I'm just worried about going to [place], you know I don't feel I think given a fair chance like everyone else." Patient appears generally less anxious and less depressed, less mood lability noted Affect: Blunted, some brightening, congruent with mood DIAGNOSES: Unspecified mood disorder, opioid use disorder, polysubstance use disorder, rule out bipolar disorder with psychotic features, mixed, rule out depressive disorder with psychotic features, rule out substance-induced mood disorder, rule out borderline personality disorder ASSESSMENT: Patient continues to adjust to unit, has been able to maintain behavioral control, is visible and has been able to attend groups without being disruptive, is cooperative with staff. Patient has been informed by real estate marketing coordinator due to insurance constraints discharge plan is now or patient to transfer [place] [facility] [place] patient will have sizable co-pay if transferred to [facility], and no concrete response has been received from [facility] indicating patient would be accepted due to extent of behavioral health symptoms. Patient states she remains medication compliant, remains somewhat tangential today, continues to exhibit increase in pressured speech, attributes to anxiety to impending discharge. Patient was able to maintain composure and express her thoughts and feelings cogently during administrative hearing yesterday, appears to be making concerted effort to cope with increased stress related conundrum associated with her simultaneous need for substance abuse and behavioral health treatment. Patient appears to be continuing to generally respond positively to medication regimen and denies medication side effects other than weight gain which she has stated she struggled with prior to psychotropic medication initiation. Patient has not needed to utilize Zyprexa when necessary for several days. Patient makes requests today for restart of trazodone PRN for sleep, has declined other sleep medication options and has been informed of potential risks associated with utilization of trazodone with other medications, patient verbalizes understanding. Will restart low-dose trazodone to be used to address sleep challenges PRN. Education has been provided to patient on the potential risks of psychotropic medications to unborn child should she become while taking medication and patient was strongly encouraged to consider utilizing control if she chooses to become sexually active while taking psychotropic medications. Patient denies current suicidal or homicidal ideation and is able to verbalize awareness of how to access supportive services on unit if needed. Will continue to monitor patient's response to medication regimen and will monitor need for further dosing adjustments or changes. Will also continue to evaluate patient safety, resolution of suicidal ideation, paranoia, and transfer readiness. direct mail coordinator continues to work with patient and 2PC process has been initiated due to patient's history of two known recent overdoses on prescribed medications , substance abuse, multiple psychiatric hospitalizations, failure to show up for /comply with outpatient substance abuse treatment, and refusal to participate in inpatient treatment. MANAGEMENT PLAN: Restart trazodone 50 mg po hs PRN insomnia. Continue Seroquel XR 400 mg po hs, clonidine 0.1 mg po to BID, Depakote ER 500 mg po BID, and Zydis 5 mg po q 4 hours PRN anxiety/agitation. Repeat Depakote level and liver profile on 12/26/17 Vitals QID Maintain safety precautions Patient to attend groups and participate in unit programming to develop coping strategies Engage patient in discharge planning process and arrange meeting with support system to ensure safe discharge planning when appropriate Patient to follow up with PCM to address recent EKG results and any other health concerns upon discharge TIME SPENT: 35 minutes Vital Signs Vital Signs Date Time Temp Pulse Resp B/P (MAP) Pulse Ox O2 Delivery O2 Flow Rate FiO2 12/22/16 08:42 132/75 12/22/16 06:53 98.8 72 18 12/16/16 06:18 Room Air Current Medications Current Medications Acetaminophen (Tylenol Tab) 650 mg Q6HP PRN PO HEADACHE or DISCOMFORT Last administered on 12/18/16 09:17; Start 12/01/16 at 03:30; Stop 12/31/16 at 03:29 Al Hydrox/Mg Hydrox/Simethicone (Mylanta) 30 ml Q4HP PRN PO HEARTBURN/ INDIGESTION; Start 12/01/16 at 03:30; Stop 12/31/16 at 03:29 Atorvastatin Calcium (Lipitor) 10 mg QHS PO Last administered on 12/21/16 21: 41; Start 12/01/16 at 21:00; Stop 12/31/16 at 20:59 Clonidine HCl (Catapres) 0.1 mg BID PO Last administered on 12/22/16 08:42; Start 12/06/16 at 21:00; Stop 01/05/17 at 20:59 Clonidine HCl (Catapres) 0.1 mg Q8H PRN PO HIGH BLOOD PRESSURE AND OPIATE WITHDRAWALS Last administered on 12/05/16 11:12; Start 12/02/16 at 11:00; Stop 12/06/16 at 15:35; Status DC Divalproex Sodium (Depakote Er) 500 mg BID PO Last administered on 12/22/16 08 :43; Start 12/01/16 at 21:00; Stop 12/31/16 at 20:59 Home Med (Med Rec Complete!) ASDIRECTED XX ; Start 12/01/16 at 01:30; Stop at 01:36; Status DC Hydrochlorothiazide (Hydrodiuril) 25 mg DAILY PO Last administered on 08:43; Start 12/14/16 at 09:00; Stop 01/13/17 at 08:59 Lisinopril (Prinivil) 5 mg BID PO Last administered on 12/22/16 08:42; Start 12/14/16 at 21:00; Stop 01/11/17 at 08:59 Lisinopril (Prinivil) 5 mg DAILY PO Last administered on 12/14/16 08:06; Start 12/12/16 at 09:00; Stop 12/14/16 at 10:18; Status DC Magnesium Hydroxide (Milk Of Magnesia) 30 ml DAILYPRN PRN PO CONSTIPATION; Start 12/01/16 at 03:30; Stop 12/31/16 at 03:29 Meloxicam (Mobic) 7.5 mg BID PO Last administered on 12/22/16 08:42; Start at 09:00; Stop 12/31/16 at 08:59 Metoprolol Tartrate (Lopressor) 12.5 mg BID PO Last administered on 12/14/16 08 :06; Start 12/01/16 at 09:00; Stop 12/14/16 at 12:27; Status DC Non-Formulary Medication ( See Comment Field Below ) SEE COMMENTS SECTION 1T @10 XX ; Start 12/09/16 at 10:00; Stop 12/09/16 at 10:00; Status DC Non-Formulary Medication ( See Comment Field Below ) SEE LABEL COMMENTS DAILY XX ; Start 12/07/16 at 09:00; Stop 12/07/16 at 11:51; Status DC Non-Formulary Medication ( See Comment Field Below ) SEE LABEL COMMENTS SECTION 1T@10 XX Last administered on 12/09/16 13:00; Start 12/09/16 at 13:00 ; Stop 12/09/16 at 13:01; Status DC Olanzapine (ZyPREXA ZYDIS) 5 mg Q4HP PRN PO ANXIETY/AGITATION Last administered on 12/17/16 08:32; Start 12/01/16 at 19:45; Stop 12/31/16 at 19:44 Olanzapine (ZyPREXA ZYDIS) 10 mg Q4HP PRN PO ANXIETY/AGITATION; Start 12/01 at 18:00; Stop 12/01/16 at 19:38; Status DC Omeprazole (PriLOSEC) 40 mg BID PO Last administered on 12/22/16 08:43; Start 12/01/16 at 09:00; Stop 12/31/16 at 08:59 Oxybutynin Chloride (Ditropan) 5 mg BID PO Last administered on 12/22/16 08:42 ; Start 12/01/16 at 09:00; Stop 12/31/16 at 08:59 Polyethylene Glycol (Miralax) 1 pkt DAILY PRN PO CONSTIPATION Last administered on 12/04/16 21:09; Start 12/01/16 at 09:00; Stop 12/31/16 at 08:59 Quetiapine Fumarate (SEROquel XR) 400 mg QHS PO Last administered on 21:41; Start 12/07/16 at 21:00; Stop 01/06/17 at 20:59 Quetiapine Fumarate (SEROquel) 100 mg QHSP PRN PO INSOMNIA; Start 12/01/16 at 03:30; Stop 12/01/16 at 19:19; Status DC Quetiapine Fumarate (SEROquel) 200 mg BID PO Last administered on 12/06/16 22: 15; Start 12/06/16 at 21:00; Stop 12/07/16 at 17:39; Status DC Quetiapine Fumarate (SEROquel) 300 mg QHS PO Last administered on 12/05/16 20: 58; Start 12/01/16 at 21:00; Stop 12/06/16 at 17:37; Status DC Trazodone HCl (Desyrel) 50 mg QHSP PRN PO INSOMNIA Last administered on 21:00; Start 12/01/16 at 19:45; Stop 12/07/16 at 17:39; Status DC Triamcinolone Acetonide (Kenalog 0.025% Cream) 1 dose BID PRN TOP REDNESS/ IRRITATION Last administered on 12/16/16 08:25; Start 12/01/16 at 09:00; Stop at 08:59 Tuberculin PPD (Aplisol, Ppd) 5 units 1T@10 ID Last administered on 12/07/16 12:59; Start 12/07/16 at 13:00; Stop 12/07/16 at 13:01; Status DC Allergies Coded Allergies: Codeine (Unverified Adverse Reaction, Mild, N/V,SWELLING,ITCH,SWEATS, ) Propoxyphene (Unverified Adverse Reaction, Mild, N/V,SWELLING,ITCH,SWEATS , 07/15/16) Chichi Schultz Dec 22, 2016 09:03
[2016-12-22 12:37] VITALS: BP 142/72
[2016-12-22 18:00] VITALS: BP 124/64
[2016-12-22] MEDS ORDERED: traZODone 50 MG TAB PO PRN (19:30)
[2016-12-22] MEDS: ATORVASTATIN 10 MG TAB PO SCH (21:02)
[2016-12-22] MEDS: QUEtiapine FUMARATE **XR** 200MG TABLET PO SCH (21:37)
[2016-12-23 07:27] VITALS: BP 147/71
[2016-12-23] MEDS: OMEPRAZOLE 20 MG CAP PO SCH ×2 (08:23→22:23)
[2016-12-23] MEDS: MELOXICAM (MOBIC) 7.5 MG TAB PO SCH ×2 (08:23→22:23)
[2016-12-23] MEDS: DIVALPROEX 500MG *ER* TAB PO SCH ×2 (08:23→22:26)
[2016-12-23] MEDS: hydroCHLOROthiazide 25 MG TAB PO SCH (08:23)
[2016-12-23] MEDS: cloNIDine 0.1 MG TAB PO SCH ×2 (08:23→22:26)
[2016-12-23] MEDS: oxyBUTYnin 5 MG TAB PO SCH ×2 (08:24→22:23)
[2016-12-23] MEDS: LISINOPRIL 5 MG TAB PO SCH ×2 (08:24→22:27)
--- NOTE | 2016-12-23 09:07 | MHIPNPDOC ---
[facility] Progress Note Progress Note DATE OF SERVICE: 12/23/16 HISTORY: Wildlife Manager met with patient today to assess treatment progress on inpatient unit. Patient remains medication compliant, reports current anxiety level of 2/10 related to discharge planning, rates depression 3/10, denies suicidal and homicidal ideation, denies auditory or visual hallucinations, denies urge to engage in self-injurious behavior. Patient denies experiencing symptoms of paranoia but does indicate she continues to believe that some patients on unit are talking about her and continues to express concern that she is being slighted and discharged to [facility] in lieu of [facility] discharge, reiterates she believes she is not being given the same opportunities as other individuals for treatment. Patient reports improved sleep last night without use of trazodone, denies nightmare symptoms. Patient and comic writer again discussed at length plan to transfer to [facility], patient does not dispute need for longer- term inpatient treatment, indicates she remains ambivalent but is agreeable to going. Patient was informed that [facility] has indicated they will have a bed on Monday. Patient verbalizes some paranoia and some tangentiality, is redirectable. Patient indicates she believes current medication regimen is effective, denies medication side effects other than previously addressed weight gain. Patient is again encouraged to get exercise by walking in hallways , again declines. Patient indicates energy level, concentration and focus levels are stable, states appetite has increased during stay but is stabilizing , states she is sleeping well. Patient denies experiencing physical pain at time of interaction and presents with no signs of acute distress. Addendum: Patient agreed to sign ROIs to request background information from [facility] which was received 12/06/16. Patient was discharged on 11/08/16 from [facility] after an attempted overdose on Depakote and benzodiazepines, was treated for acute toxic encephalopathy. When patient was released from [facility] she was discharged on the following medication regimen: BuSpar 5 mg 3 times a day - patient indicates medication was ineffective Clonidine 0.1 mg twice a day - patient indicates medication was effective Depakote 500 mg twice a day - patient indicates was effective Seroquel 300 mg at night - patient states medication was effective Trazodone 50 mg at night - patient states medication was effective Patient informs comic writer she has also taken hydroxyzine in the past with poor effect VITALS: See below. Patient placed on vitals QID. NEW TEST RESULTS: 12/11/16 cholesterol 179, glucose 103, A1c 5.2 MEDICAL/SURGICAL HISTORY: Hyperlipidemia, hypertension, GERD, osteoarthritis left knee, history of MRSA, edentulous, history of hep C, status post treatment , chronic constipation, OAB, eczema to hands. Patient denies history of seizure or head injury. Surgical history includes , left breast cyst removal, left groin cyst removal. Labs on admission indicated low AGR and elevated WBCs, leukocytosis, patient is afebrile and asymptomatic, PA was made aware. 12/02/16 lab results indicated low RBC, Hgb, HCT, and elevated RDW. Nursing has been asked to ensure the PA has evaluated patient and lab results HCG negative. Patient does not utilize control and has been educated on potential risks of psychotropic medications to unborn child should she become while taking psychotropic medications. Patient has been strongly encouraged to utilize control regularly when sexually active, patient has verbalized understanding. UDS positive for methadone, suspected use of kratom 12/01/16 EKG sinus rhythm minimal ST elevation noted, secondary to early repolarization last tracing on 10/05/16, no significant changes. Patient is asymptomatic, clinical consultation sought with recommendation made for follow- up with outpatient provider. Patient was informed of EKG results and instructed to follow-up with PCM upon discharge/transfer. 12/02/[address] Essentially unremarkable CT examination of the brain. 12/02/16 Depakote level 56.8 12/06/16 Depakote level 88. 7 12/11/16 Depakote level 76.4 Clinical consultation completed with recommendation made for PA to evaluate patient's blood pressure, dosing change to blood pressure medication, and if addition of metformin would be safe and appropriate. PA apparently evaluated patient, no note found in chart date of entry. Wildlife Manager attempted to follow up with PA to discuss. Attending has reevaluated and made medication adjustment in effort to address elevated blood pressure and patient's sensation of "puffiness " and patient has been instructed to ambulate in hallways. MENTAL STATUS EXAMINATION: General appearance: Patient is a 45-year old female, who is less irritable today , cooperative, makes improved eye contact, displays adequate personal hygiene and is dressed in own clothing, ambulates with steady gait, and appears stated age. Speech: Remains pressured, rapid at times, generally normal volume but loud at times, some tangentiality noted today, more spontaneous, coherent. Thought processes: Generally logical, less tangential, less paranoid, less disorganized Thought content: Generally rational, less tangential, appears less paranoid today, less grandiose, some persecutory delusional thinking expressed, reduced fixation on belief that aircraft life support fitter is attempting to have her arrested, delusions are noticeably less intrusive and less firmly held Abstract reasoning and computation: Impaired, continues to improve Description of associations: Intact at times, at other times loose, noticeably less tangential Description of abnormal or psychotic thoughts: Denies suicidal or homicidal ideation, denies auditory or visual hallucinations, does not appear to be responding to internal stimuli, denies bizarre but exhibits paranoid ideation at times, denies preoccupation with violence. Judgment: Poor, some improvement noted Insight: Limited, some improvement noted Orientation: A and O 3. Recent and remote memory: Impaired, some improvement noted. Attention span and concentration: Impaired, some improvement noted Fund of knowledge: Impaired. Mood: "I'm feeling okay, I'm just worried about going to [place]." Patient appears generally less anxious and less depressed, less mood lability noted Affect: Blunted, some brightening, congruent with mood DIAGNOSES: Unspecified mood disorder, opioid use disorder, polysubstance use disorder, rule out bipolar disorder with psychotic features, mixed, rule out depressive disorder with psychotic features, rule out substance-induced mood disorder, rule out borderline personality disorder ASSESSMENT: Patient continues to adjust to unit, has been able to maintain behavioral control, is visible and has been able to attend groups without being disruptive, is cooperative with staff. Patient has been informed by regional sales coordinator due to insurance constraints discharge plan is now or patient to transfer to [facility] as patient will have sizable co-pay if transferred to [facility] program, and no concrete response has been received from [facility] program indicating patient would be accepted due to extent of behavioral health symptoms. Patient has been made aware of bed availability at [facility] next Monday. Patient states she remains medication compliant, remains somewhat tangential, exhibits reduced pressured speech, attributes to anxiety to impending discharge. Patient continues to respond positively to medication regimen and denies medication side effects other than weight gain which she has stated she struggled with prior to psychotropic medication initiation. Patient has not needed to utilize Zyprexa when necessary for several days. Patient requested trazodone PRN restart yesterday, states she did not need to take sleep aid last night, has declined other sleep medication options and has been informed of potential risks associated with utilization of trazodone with other medications , patient verbalizes understanding. Education has been provided to patient on the potential risks of psychotropic medications to unborn child should she become while taking medication and patient was strongly encouraged to utilize control if she chooses to become sexually active while taking psychotropic medications. Patient denies current suicidal or homicidal ideation and is able to verbalize awareness of how to access supportive services on unit if needed. Will continue to monitor patient's response to medication regimen and will monitor need for further dosing adjustments or changes. Will also continue to evaluate patient safety, resolution of suicidal ideation, paranoia, and transfer readiness. recreation coordinator continues to work with patient, 2PC process has been initiated due to patient's history of two known recent overdoses on prescribed medications, substance abuse, multiple psychiatric hospitalizations, failure to show up for/comply with outpatient substance abuse treatment, and refusal to participate in inpatient treatment. Patient is slated for transfer to [facility] next Monday. MANAGEMENT PLAN: Restart trazodone 50 mg po hs PRN insomnia. Continue Seroquel XR 400 mg po hs, clonidine 0.1 mg po to BID, Depakote ER 500 mg po BID, and Zydis 5 mg po q 4 hours PRN anxiety/agitation. Repeat Depakote level and liver profile on 12/26/17 Vitals QID Maintain safety precautions Patient to attend groups and participate in unit programming to develop coping strategies Engage patient in discharge planning process and arrange meeting with support system to ensure safe discharge planning when appropriate Patient to follow up with PCM to address recent EKG results and any other health concerns upon discharge TIME SPENT: 35 minutes Vital Signs Vital Signs Date Time Temp Pulse Resp B/P (MAP) Pulse Ox O2 Delivery O2 Flow Rate FiO2 12/23/16 08:24 147/71 12/23/16 07:27 98.3 75 18 Room Air Current Medications Current Medications Acetaminophen (Tylenol Tab) 650 mg Q6HP PRN PO HEADACHE or DISCOMFORT Last administered on 12/18/16t 09:17; Start 12/01/16 at 03:30; Stop 12/31/16 at 03:29 Al Hydrox/Mg Hydrox/Simethicone (Mylanta) 30 ml Q4HP PRN PO HEARTBURN/ INDIGESTION; Start 12/01/16 at 03:30; Stop 12/31/16 at 03:29 Atorvastatin Calcium (Lipitor) 10 mg QHS PO Last administered on 12/22/16 21: 02; Start 12/01/16 at 21:00; Stop 12/31/16 at 20:59 Clonidine HCl (Catapres) 0.1 mg BID PO Last administered on 12/23/16 08:23; Start 12/06/16 at 21:00; Stop 01/05/17 at 20:59 Clonidine HCl (Catapres) 0.1 mg Q8H PRN PO HIGH BLOOD PRESSURE AND OPIATE WITHDRAWALS Last administered on 12/05/16 11:12; Start 12/02/16 at 11:00; Stop 12/06/16 at 15:35; Status DC Divalproex Sodium (Depakote Er) 500 mg BID PO Last administered on 12/23/16 08 :23; Start 12/01/16 at 21:00; Stop 12/31/16 at 20:59 Home Med (Med Rec Complete!) ASDIRECTED XX ; Start 12/01/16 at 01:30; Stop at 01:36; Status DC Hydrochlorothiazide (Hydrodiuril) 25 mg DAILY PO Last administered on 08:23; Start 12/14/16 at 09:00; Stop 01/13/17 at 08:59 Lisinopril (Prinivil) 5 mg BID PO Last administered on 12/23/16 08:24; Start 12/14/16 at 21:00; Stop 01/11/17 at 08:59 Lisinopril (Prinivil) 5 mg DAILY PO Last administered on 12/14/16 08:06; Start 12/12/16 at 09:00; Stop 12/14/16 at 10:18; Status DC Magnesium Hydroxide (Milk Of Magnesia) 30 ml DAILYPRN PRN PO CONSTIPATION; Start 12/01/16 at 03:30; Stop 12/31/16 at 03:29 Meloxicam (Mobic) 7.5 mg BID PO Last administered on 12/23/16 08:23; Start at 09:00; Stop 12/31/16 at 08:59 Metoprolol Tartrate (Lopressor) 12.5 mg BID PO Last administered on 12/14/16 08 :06; Start 12/01/16 at 09:00; Stop 12/14/16 at 12:27; Status DC Non-Formulary Medication ( See Comment Field Below ) SEE COMMENTS SECTION 1T @10 XX ; Start 12/09/16 at 10:00; Stop 12/09/16 at 10:00; Status DC Non-Formulary Medication ( See Comment Field Below ) SEE LABEL COMMENTS DAILY XX ; Start 12/07/16 at 09:00; Stop 12/07/16 at 11:51; Status DC Non-Formulary Medication ( See Comment Field Below ) SEE LABEL COMMENTS SECTION 1T@10 XX Last administered on 12/09/16 13:00; Start 12/09/16 at 13:00 ; Stop 12/09/16 at 13:01; Status DC Olanzapine (ZyPREXA ZYDIS) 5 mg Q4HP PRN PO ANXIETY/AGITATION Last administered on 12/17/16 08:32; Start 12/01/16 at 19:45; Stop 12/31/16 at 19:44 Olanzapine (ZyPREXA ZYDIS) 10 mg Q4HP PRN PO ANXIETY/AGITATION; Start 12/01 at 18:00; Stop 12/01/16 at 19:38; Status DC Omeprazole (PriLOSEC) 40 mg BID PO Last administered on 12/23/16 08:23; Start 12/01/16 at 09:00; Stop 12/31/16 at 08:59 Oxybutynin Chloride (Ditropan) 5 mg BID PO Last administered on 12/23/16 08:24 ; Start 12/01/16 at 09:00; Stop 12/31/16 at 08:59 Polyethylene Glycol (Miralax) 1 pkt DAILY PRN PO CONSTIPATION Last administered on 12/04/16 21:09; Start 12/01/16 at 09:00; Stop 12/31/16 at 08:59 Quetiapine Fumarate (SEROquel XR) 400 mg QHS PO Last administered on 21:37; Start 12/07/16 at 21:00; Stop 01/06/17 at 20:59 Quetiapine Fumarate (SEROquel) 100 mg QHSP PRN PO INSOMNIA; Start 12/01/16 at 03:30; Stop 12/01/16 at 19:19; Status DC Quetiapine Fumarate (SEROquel) 200 mg BID PO Last administered on 12/06/16 22: 15; Start 12/06/16 at 21:00; Stop 12/07/16 at 17:39; Status DC Quetiapine Fumarate (SEROquel) 300 mg QHS PO Last administered on 12/05/16 20: 58; Start 12/01/16 at 21:00; Stop 12/06/16 at 17:37; Status DC Trazodone HCl (Desyrel) 50 mg QHSP PRN PO INSOMNIA Last administered on 21:00; Start 12/01/16 at 19:45; Stop 12/07/16 at 17:39; Status DC Trazodone HCl (Desyrel) 50 mg QHSP PRN PO INSOMNIA; Start 12/22/16 at 19:30; Stop 01/21/17 at 19:29 Triamcinolone Acetonide (Kenalog 0.025% Cream) 1 dose BID PRN TOP REDNESS/ IRRITATION Last administered on 12/16/16 08:25; Start 12/01/16 at 09:00; Stop at 08:59 Tuberculin PPD (Aplisol, Ppd) 5 units 1T@10 ID Last administered on 12/07/16 12:59; Start 12/07/16 at 13:00; Stop 12/07/16 at 13:01; Status DC Allergies Coded Allergies: Codeine (Unverified Adverse Reaction, Mild, N/V,SWELLING,ITCH,SWEATS, 2/3) Propoxyphene (Unverified Adverse Reaction, Mild, N/V,SWELLING,ITCH,SWEATS , 2) Chichi Schultz Dec 23, 2016 09:07
[2016-12-23 18:00] VITALS: BP 142/84
[2016-12-23] MEDS: ATORVASTATIN 10 MG TAB PO SCH (22:26)
[2016-12-23] MEDS: QUEtiapine FUMARATE **XR** 200MG TABLET PO SCH (22:26)
[2016-12-24 06:43] VITALS: BP 138/90
[2016-12-24] MEDS: MELOXICAM (MOBIC) 7.5 MG TAB PO SCH ×2 (08:13→22:17)
[2016-12-24] MEDS: hydroCHLOROthiazide 25 MG TAB PO SCH (08:13)
[2016-12-24] MEDS: oxyBUTYnin 5 MG TAB PO SCH ×2 (08:13→22:16)
[2016-12-24] MEDS: OMEPRAZOLE 20 MG CAP PO SCH ×2 (08:13→22:17)
[2016-12-24] MEDS: cloNIDine 0.1 MG TAB PO SCH ×2 (08:13→22:17)
[2016-12-24] MEDS: DIVALPROEX 500MG *ER* TAB PO SCH ×2 (08:13→22:16)
[2016-12-24] MEDS: LISINOPRIL 5 MG TAB PO SCH ×2 (08:13→22:17)
[2016-12-24 18:00] VITALS: BP 148/90
[2016-12-24] MEDS: ATORVASTATIN 10 MG TAB PO SCH (22:17)
[2016-12-24] MEDS: QUEtiapine FUMARATE **XR** 200MG TABLET PO SCH (22:45)
[2016-12-25 06:25] VITALS: BP 153/70
[2016-12-25] MEDS: oxyBUTYnin 5 MG TAB PO SCH ×2 (09:04→21:34)
[2016-12-25] MEDS: hydroCHLOROthiazide 25 MG TAB PO SCH (09:04)
[2016-12-25] MEDS: MELOXICAM (MOBIC) 7.5 MG TAB PO SCH ×2 (09:04→21:33)
[2016-12-25] MEDS: LISINOPRIL 5 MG TAB PO SCH ×2 (09:04→21:33)
[2016-12-25] MEDS: cloNIDine 0.1 MG TAB PO SCH ×2 (09:05→21:33)
[2016-12-25] MEDS: ACETAMINOPHEN TAB 650MG DOSE (2X325MG) PO PRN (09:05)
[2016-12-25] MEDS: OMEPRAZOLE 20 MG CAP PO SCH ×2 (09:05→21:32)
[2016-12-25] MEDS: DIVALPROEX 500MG *ER* TAB PO SCH ×2 (09:06→21:34)
[2016-12-25 14:51] VITALS: BP 131/87
[2016-12-25 18:00] VITALS: BP 127/75
[2016-12-25] MEDS: QUEtiapine FUMARATE **XR** 200MG TABLET PO SCH (21:32)
[2016-12-25] MEDS: ATORVASTATIN 10 MG TAB PO SCH (21:34)
[2016-12-26 06:00] VITALS: BP 162/72
[2016-12-26] MEDS: OMEPRAZOLE 20 MG CAP PO SCH ×2 (08:17→21:30)
[2016-12-26] MEDS: hydroCHLOROthiazide 25 MG TAB PO SCH (08:17)
[2016-12-26] MEDS: MELOXICAM (MOBIC) 7.5 MG TAB PO SCH ×2 (08:18→21:29)
[2016-12-26] MEDS: oxyBUTYnin 5 MG TAB PO SCH ×2 (08:18→21:29)
[2016-12-26] MEDS: DIVALPROEX 500MG *ER* TAB PO SCH ×2 (08:18→21:30)
[2016-12-26] MEDS: LISINOPRIL 5 MG TAB PO SCH ×2 (08:19→21:31)
[2016-12-26] MEDS: cloNIDine 0.1 MG TAB PO SCH ×2 (08:20→21:31)
--- NOTE | 2016-12-26 09:05 | MHIPNPDOC ---
[facility] Progress Note Progress Note DATE OF SERVICE: 12/26/16 HISTORY: Campus Ambassador met with patient today to assess treatment progress on inpatient unit. Patient remains medication compliant, reports current anxiety level of 4/10, depression 3/10, attributes symptoms to plan transfer to [facility] tomorrow. Patient denies suicidal and homicidal ideation, denies auditory or visual hallucinations, denies urge to engage in self-injurious behavior. Patient denies experiencing symptoms of paranoia but remains fixated on believing that staff have not done what they can to help her access [facility] treatment program, informs expert medical writer today that her rejection from the [facility] program was based on a "conflict of interest, not because I was disruptive in group." Patient reports improved sleep without use of trazodone, denies nightmare symptoms. Patient and expert medical writer again discussed impending transfer to [facility], patient does not dispute need for longer-term inpatient treatment, is agreeing to transfer tomorrow morning. Patient informed expert medical writer of the following new physical health concerns: Small blisters to hand which patient is secondary to eczema and informs expert medical writer she has cream available to her, mild pain in her right lower abdominal region and informs expert medical writer she just began her period, and pre-existing hemorrhoidal discomfort, denies current constipation. Patient was encouraged to speak with nursing regarding physical health concerns so that PA evaluation may be arranged if desired, patient verbalizes understanding. Patient declined to complete lab work which was scheduled for this morning. Patient verbalizes some paranoia and some tangentiality, remains redirectable. Patient has not needed to utilize PRN anxiolytic, indicates current medication regimen is effective, denies medication side effects other than previously addressed weight gain. Patient is again encouraged to get exercise by walking in hallways, again declines. Patient indicates energy level, concentration and focus levels are stable, states appetite has increased during stay but is stabilizing, states she is sleeping well. Patient denies experiencing physical pain at time of interaction and presents with no signs of acute distress. Addendum: Patient agreed to sign ROIs to request background information from [email or web address] which was received 12/06/16. Patient was discharged on 11/08/16 from [facility] [email or web address] after an attempted overdose on Depakote and benzodiazepines, was treated for acute toxic encephalopathy. When patient was released from [facility] [email or web address] she was discharged on the following medication regimen: BuSpar 5 mg 3 times a day - patient indicates medication was ineffective Clonidine 0.1 mg twice a day - patient indicates medication was effective Depakote 500 mg twice a day - patient indicates was effective Seroquel 300 mg at night - patient states medication was effective Trazodone 50 mg at night - patient states medication was effective Patient informs expert medical writer she has also taken hydroxyzine in the past with poor effect VITALS: See below. Patient placed on vitals QID. Elevated this morning, vitals recheck requested and on recheck B/P 119/71, P 75 NEW TEST RESULTS: 12/11/16 cholesterol 179, glucose 103, A1c 5.2 MEDICAL/SURGICAL HISTORY: Hyperlipidemia, hypertension, GERD, osteoarthritis left knee, history of MRSA, edentulous, history of hep C, status post treatment , chronic constipation, OAB, eczema to hands. Patient denies history of seizure or head injury. Surgical history includes , left breast cyst removal, left groin cyst removal. Labs on admission indicated low AGR and elevated WBCs, leukocytosis, patient is afebrile and asymptomatic, PA was made aware. 12/02/16 lab results indicated low RBC, Hgb, HCT, and elevated RDW. Nursing has been asked to ensure the PA has evaluated patient and lab results HCG negative. Patient does not utilize control and has been educated on potential risks of psychotropic medications to unborn child should she become while taking psychotropic medications. Patient has been strongly encouraged to utilize control regularly when sexually active, patient has verbalized understanding. UDS positive for methadone, suspected use of kratom 12/01/16 EKG sinus rhythm minimal ST elevation noted, secondary to early repolarization last tracing on 10/05/16, no significant changes. Patient is asymptomatic, clinical consultation sought with recommendation made for follow- up with outpatient provider. Patient was informed of EKG results and instructed to follow-up with PCM upon discharge/transfer. 12/02/[address] Essentially unremarkable CT examination of the brain. 12/02/16 Depakote level 56.8 12/06/16 Depakote level 88. 7 12/11/16 Depakote level 76.4 Clinical consultation completed with recommendation made for PA to evaluate patient's blood pressure, dosing change to blood pressure medication, and if addition of metformin would be safe and appropriate. PA apparently evaluated patient, no note found in chart date of entry. Campus Ambassador attempted to follow up with PA to discuss. Attending has reevaluated and made medication adjustment in effort to address elevated blood pressure and patient's sensation of "puffiness " and patient has been instructed to ambulate in hallways. 12/26/16 - labs for Depakote level and liver function ordered, patient declined MENTAL STATUS EXAMINATION: General appearance: Patient is a 45-year old female, who is less irritable today , cooperative, makes good eye contact, displays adequate personal hygiene and is dressed in own clothing, ambulates with steady gait, and appears stated age. Speech: Remains pressured, rapid at times, generally normal volume but loud at times, some tangentiality noted today, more spontaneous, coherent. Thought processes: Generally logical, less tangential, less paranoid, no disorganization noted Thought content: Generally rational, less tangential, appears less paranoid today, less grandiose, some persecutory delusional thinking expressed but much less intrusive and less firmly held Abstract reasoning and computation: Impaired, continues to improve Description of associations: Intact at times, at other times loose, noticeably less tangential Description of abnormal or psychotic thoughts: Denies suicidal or homicidal ideation, denies auditory or visual hallucinations, does not appear to be responding to internal stimuli, denies bizarre but exhibits paranoid ideation at times, denies preoccupation with violence. Judgment: Limited, some improvement noted Insight: Limited, some improvement noted Orientation: A and O 3. Recent and remote memory: Some impairment, some improvement noted. Attention span and concentration: Impaired, some improvement noted Fund of knowledge: Within normal limits Mood: "I'm okay, is nervous about going to [facility] tomorrow." Patient appears generally less anxious and less depressed, less mood lability noted Affect: Blunted, some brightening, congruent with mood DIAGNOSES: Unspecified mood disorder, opioid use disorder, polysubstance use disorder, rule out bipolar disorder with psychotic features, mixed, rule out depressive disorder with psychotic features, rule out substance-induced mood disorder, rule out borderline personality disorder ASSESSMENT: Patient continues to adjust to unit, has been able to maintain behavioral control, is visible and has been able to attend groups without being disruptive, is cooperative with staff. Patient has been informed by service coordinator due to insurance constraints discharge plan is now or patient to transfer to [facility] as patient will have sizable co-pay if transferred to [facility], and no concrete response has been received from [facility] program indicating patient would be accepted due to extent of behavioral health symptoms. Patient has been made aware of bed availability at [facility] and plan to transfer patient tomorrow. Patient states she remains medication compliant, remains somewhat tangential, exhibits reduced pressured speech, attributes to anxiety to impending discharge. Patient continues to respond positively to medication regimen and denies medication side effects other than weight gain which she has stated she struggled with prior to psychotropic medication initiation. Patient has not needed to utilize Zyprexa PRN for several days. Patient requested trazodone PRN restart last week, has not needed to utilize, has declined other sleep medication options and has been informed of potential risks associated with utilization of trazodone with other medications, patient verbalizes understanding. Education has been provided to patient on the potential risks of psychotropic medications to unborn child should she become while taking medication and patient was strongly encouraged to utilize control if she chooses to become sexually active while taking psychotropic medications. Patient denies current suicidal or homicidal ideation and is able to verbalize awareness of how to access supportive services on unit if needed. Will continue to monitor patient's response to medication regimen and will prepare patient for transfer to [facility] in morning due to patient's history of two known recent overdoses on prescribed medications, substance abuse, multiple psychiatric hospitalizations, failure to show up for/comply with outpatient substance abuse treatment, and refusal to participate in inpatient treatment. MANAGEMENT PLAN: Continue trazodone 50 mg po hs PRN insomnia. Continue Seroquel XR 400 mg po hs, clonidine 0.1 mg po to BID, Depakote ER 500 mg po BID, and Zydis 5 mg po q 4 hours PRN anxiety/agitation. Repeat Depakote level and liver profile on 12/26/17 - patient refused Vitals QID Maintain safety precautions Patient to attend groups and participate in unit programming to develop coping strategies Engage patient in discharge planning process and arrange meeting with support system to ensure safe discharge planning when appropriate Patient to follow up with PCM to address recent EKG results and any other health concerns upon discharge TIME SPENT: 35 minutes Vital Signs Vital Signs Date Time Temp Pulse Resp B/P (MAP) Pulse Ox O2 Delivery O2 Flow Rate FiO2 12/26/16 08:20 164/86 12/26/16 06:00 97.3 68 18 12/23/16 18:00 Room Air Current Medications Current Medications Acetaminophen (Tylenol Tab) 650 mg Q6HP PRN PO HEADACHE or DISCOMFORT Last administered on 12/25/16 09:05; Start 12/01/16 at 03:30; Stop 12/31/16 at 03:29 Al Hydrox/Mg Hydrox/Simethicone (Mylanta) 30 ml Q4HP PRN PO HEARTBURN/ INDIGESTION; Start 12/01/16 at 03:30; Stop 12/31/16 at 03:29 Atorvastatin Calcium (Lipitor) 10 mg QHS PO Last administered on 12/25/16 21: 34; Start 12/01/16 at 21:00; Stop 12/31/16 at 20:59 Clonidine HCl (Catapres) 0.1 mg BID PO Last administered on 12/26/16 08:20; Start 12/06/16 at 21:00; Stop 01/05/17 at 20:59 Clonidine HCl (Catapres) 0.1 mg Q8H PRN PO HIGH BLOOD PRESSURE AND OPIATE WITHDRAWALS Last administered on 12/05/16 11:12; Start 12/02/16 at 11:00; Stop 12/06/16 at 15:35; Status DC Divalproex Sodium (Depakote Er) 500 mg BID PO Last administered on 12/26/16 08 :18; Start 12/01/16 at 21:00; Stop 12/31/16 at 20:59 Home Med (Med Rec Complete!) ASDIRECTED XX ; Start 12/01/16 at 01:30; Stop at 01:36; Status DC Hydrochlorothiazide (Hydrodiuril) 25 mg DAILY PO Last administered on 08:17; Start 12/14/16 at 09:00; Stop 01/13/17 at 08:59 Lisinopril (Prinivil) 5 mg BID PO Last administered on 12/26/16 08:19; Start 12/14/16 at 21:00; Stop 01/11/17 at 08:59 Lisinopril (Prinivil) 5 mg DAILY PO Last administered on 12/14/16 08:06; Start 12/12/16 at 09:00; Stop 12/14/16 at 10:18; Status DC Magnesium Hydroxide (Milk Of Magnesia) 30 ml DAILYPRN PRN PO CONSTIPATION; Start 12/01/16 at 03:30; Stop 12/31/16 at 03:29 Meloxicam (Mobic) 7.5 mg BID PO Last administered on 12/26/16 08:18; Start at 09:00; Stop 12/31/16 at 08:59 Metoprolol Tartrate (Lopressor) 12.5 mg BID PO Last administered on 12/14/16 08 :06; Start 12/01/16 at 09:00; Stop 12/14/16 at 12:27; Status DC Non-Formulary Medication ( See Comment Field Below ) SEE COMMENTS SECTION 1T @10 XX ; Start 12/09/16 at 10:00; Stop 12/09/16 at 10:00; Status DC Non-Formulary Medication ( See Comment Field Below ) SEE LABEL COMMENTS DAILY XX ; Start 12/07/16 at 09:00; Stop 12/07/16 at 11:51; Status DC Non-Formulary Medication ( See Comment Field Below ) SEE LABEL COMMENTS SECTION 1T@10 XX Last administered on 12/09/16 13:00; Start 12/09/16 at 13:00 ; Stop 12/09/16 at 13:01; Status DC Olanzapine (ZyPREXA ZYDIS) 5 mg Q4HP PRN PO ANXIETY/AGITATION Last administered on 12/17/16 08:32; Start 12/01/16 at 19:45; Stop 12/31/16 at 19:44 Olanzapine (ZyPREXA ZYDIS) 10 mg Q4HP PRN PO ANXIETY/AGITATION; Start 12/01 at 18:00; Stop 12/01/16 at 19:38; Status DC Omeprazole (PriLOSEC) 40 mg BID PO Last administered on 12/26/16 08:17; Start 12/01/16 at 09:00; Stop 12/31/16 at 08:59 Oxybutynin Chloride (Ditropan) 5 mg BID PO Last administered on 12/26/16 08:18 ; Start 12/01/16 at 09:00; Stop 12/31/16 at 08:59 Polyethylene Glycol (Miralax) 1 pkt DAILY PRN PO CONSTIPATION Last administered on 12/04/16 21:09; Start 12/01/16 at 09:00; Stop 12/31/16 at 08:59 Quetiapine Fumarate (SEROquel XR) 400 mg QHS PO Last administered on 21:32; Start 12/07/16 at 21:00; Stop 01/06/17 at 20:59 Quetiapine Fumarate (SEROquel) 100 mg QHSP PRN PO INSOMNIA; Start 12/01/16 at 03:30; Stop 12/01/16 at 19:19; Status DC Quetiapine Fumarate (SEROquel) 200 mg BID PO Last administered on 12/06/16 22: 15; Start 12/06/16 at 21:00; Stop 12/07/16 at 17:39; Status DC Quetiapine Fumarate (SEROquel) 300 mg QHS PO Last administered on 12/05/16 20: 58; Start 12/01/16 at 21:00; Stop 12/06/16 at 17:37; Status DC Trazodone HCl (Desyrel) 50 mg QHSP PRN PO INSOMNIA Last administered on 21:00; Start 12/01/16 at 19:45; Stop 12/07/16 at 17:39; Status DC Trazodone HCl (Desyrel) 50 mg QHSP PRN PO INSOMNIA; Start 12/22/16 at 19:30; Stop 01/21/17 at 19:29 Triamcinolone Acetonide (Kenalog 0.025% Cream) 1 dose BID PRN TOP REDNESS/ IRRITATION Last administered on 12/16/16 08:25; Start 12/01/16 at 09:00; Stop at 08:59 Tuberculin PPD (Aplisol, Ppd) 5 units 1T@10 ID Last administered on 12/07/16 12:59; Start 12/07/16 at 13:00; Stop 12/07/16 at 13:01; Status DC Allergies Coded Allergies: Codeine (Unverified Adverse Reaction, Mild, N/V,SWELLING,ITCH,SWEATS, ) Propoxyphene (Unverified Adverse Reaction, Mild, N/V,SWELLING,ITCH,SWEATS , 07/15/16) Chichi Schultz Dec 26, 2016 09:05
[2016-12-26] MEDS ORDERED: TRAZO50TA PO (17:21)
[2016-12-26] MEDS ORDERED: QUET20XRTB PO (17:21)
[2016-12-26] MEDS ORDERED: OLAN5ZYD PO (17:21)
[2016-12-26] MEDS ORDERED: DEPA500T2 PO (17:21)
[2016-12-26] MEDS ORDERED: CLONI1TA PO (17:21)
[2016-12-26 18:00] VITALS: BP 119/71
[2016-12-26] MEDS: ATORVASTATIN 10 MG TAB PO SCH (21:28)
[2016-12-26] MEDS: QUEtiapine FUMARATE **XR** 200MG TABLET PO SCH (21:29)
[2016-12-26] MEDS: TRIAMCINOLONE ACETONIDE 0.025 % 80 GM CREAM TOP PRN (21:30)
[2016-12-27 06:35] VITALS: BP 138/83
[2016-12-27 08:39] VITALS: BP 122/83
[2016-12-27] MEDS: MELOXICAM (MOBIC) 7.5 MG TAB PO SCH (08:39)
[2016-12-27] MEDS: hydroCHLOROthiazide 25 MG TAB PO SCH (08:39)
[2016-12-27] MEDS: DIVALPROEX 500MG *ER* TAB PO SCH (08:39)
[2016-12-27] MEDS: oxyBUTYnin 5 MG TAB PO SCH (08:39)
[2016-12-27] MEDS: cloNIDine 0.1 MG TAB PO SCH (08:39)
[2016-12-27] MEDS: OMEPRAZOLE 20 MG CAP PO SCH (08:39)
[2016-12-27] MEDS: LISINOPRIL 5 MG TAB PO SCH (08:39)
[2016-12-27] MEDS: TRIAMCINOLONE ACETONIDE 0.025 % 80 GM CREAM TOP PRN (08:39)
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
[2016-12-27] MEDS ORDERED: LISI-542 PO (09:04)
[2016-12-27] MEDS ORDERED: HYDR25TAB PO (09:04)
[2017-03-24] MEDS ORDERED: BENGEL TOP (14:42)
[2017-03-24] MEDS ORDERED: PRAZ1CAP PO (14:42)
[2017-03-24] MEDS ORDERED: PROAAER10 INH (14:42)
[2017-03-24] MEDS ORDERED: OXYB5TAB10 PO (14:42)
[2017-03-24] MEDS ORDERED: DOK100TA PO (14:42)
[2017-03-24] MEDS ORDERED: LATU20TA PO (14:42)
[2017-03-24] MEDS ORDERED: METH10CO PO (14:42)
[2017-03-24] MEDS ORDERED: ATOR40TA75 PO (14:42)
[2017-03-24] MEDS ORDERED: SERO1TAB PO (14:43)
[2017-03-24] MEDS ORDERED: SERO400T PO (16:56)
[2017-03-24] MEDS ORDERED: VALT1TAB PO (16:56)
[2017-03-24] MEDS ORDERED: METH10CO6 PO (16:56)
[2017-03-24] MEDS ORDERED: PRAZ2CAP PO (16:56)
[2017-03-24] MEDS ORDERED: VITACRE10 TOP (16:56)
== END 2016-12-27 11:30 | disposition home or self-care (01) | DRG 885 ==
LOC: M ED 12-01 01:11 → M ED INP 12-01 03:27 → M PSY 12-01 04:15
PROVIDERS: ADMIT Psychiatry & Neurology Psychiatry; ATTEND Psychiatry & Neurology Psychiatry
DX: F31.64 Bipolar disorder, current episode mixed, severe, with psychotic features (principal); R45.851 Suicidal ideations; F11.10 Opioid abuse, uncomplicated; F60.3 Borderline personality disorder; N32.81 Overactive bladder; F19.94 Other psychoactive substance use, unspecified with psychoactive substance-induced mood disorder; L23.5 Allergic contact dermatitis due to other chemical products; F17.210 Nicotine dependence, cigarettes, uncomplicated; E78.5 Hyperlipidemia, unspecified; I10 Essential (primary) hypertension; M19.90 Unspecified osteoarthritis, unspecified site; K59.09 Other constipation; K21.9 Gastro-esophageal reflux disease without esophagitis; Z88.8 Allergy status to other drugs, medicaments and biological substances; Z88.5 Allergy status to narcotic agent; Z79.899 Other long term (current) drug therapy

== ENCOUNTER → 2017-09-12 | Outpatient (CLI) | payer MEDICARE, MEDICAID ==
[2017-09-12 17:36] LABS: HEMATOCRIT 40.8 % (36.0-47.0); HEMOGLOBIN 13.4 g/dl (12.0-15.5); MEAN CORPUSCULAR HEMOGLOBIN 27.1 pg (27.0-33.0); MEAN CORPUSCULAR HGB CONC 32.8 g/dl (32.0-36.5); MEAN CORPUSCULAR VOLUME 82.6 fl (80.0-96.0); PLATELET COUNT, AUTOMATED 262 10^3/uL (150-450); RED BLOOD COUNT 4.94 10^6/uL (4.00-5.40); RED CELL DISTRIBUTION WIDTH 13.8 % (11.5-14.5); WHITE BLOOD COUNT 13.5 10^3/uL (4.0-10.0)
[2017-09-12 19:36] LABS: ALBUMIN 3.9 GM/DL (3.2-5.2); ALBUMIN/GLOBULIN RATIO 1.03 (1.00-1.93); ALKALINE PHOSPHATASE 127 U/L (45-117); ALT/SGPT 60 U/L (12-78); ANION GAP 8 MEQ/L (8-16); AST/SGOT 24 U/L (7-37); BILIRUBIN,TOTAL 0.4 MG/DL (0.2-1.0); BLOOD UREA NITROGEN 9 MG/DL (7-18); CALCIUM LEVEL 8.9 MG/DL (8.5-10.1); CARBON DIOXIDE LEVEL 24 MEQ/L (21-32); CHLORIDE LEVEL 108 MEQ/L (98-107); CREATININE FOR GFR 0.73 MG/DL (0.55-1.30); GLOMERULAR FILTRATION RATE > 60.0 (>58); GLUCOSE, FASTING 89 MG/DL (70-100); POTASSIUM SERUM 4.1 MEQ/L (3.5-5.1); SODIUM LEVEL 140 MEQ/L (136-145); TOTAL PROTEIN 7.7 GM/DL (6.4-8.2)
[2017-09-12 20:55] LABS: CONTROL LINE HCG INT CTR LINE PRESENT; HCG, SERUM QUALITATIVE NEGATIVE (NEGATIVE)
[2017-09-12 23:11] LABS: CHLAMYDIA DNA AMPLIFICATION NEGATIVE (NEGATIVE); GC DNA AMPLIFICATION NEGATIVE (NEGATIVE)
[2017-09-13 10:45] LABS: HEPATITIS B SURFACE ANTIGEN NEGATIVE (NEGATIVE)
[2017-09-13 11:10] LABS: HIV 1&2 SCREEN CENTAUR NEGATIVE (NEGATIVE)
[2017-09-13 11:17] LABS: HEPATITIS C VIRUS ABY INDEX > 11.0 INDEX (<0.8)
== END ==
LOC: M LAB 15:34
DX: F11.20 Opioid dependence, uncomplicated (principal); Z79.899 Other long term (current) drug therapy
CPT/HCPCS: 93005

== ENCOUNTER → 2017-10-23 | Outpatient (REF) | payer MEDICARE, MEDICAID | LOC: M SFHCPLAZ 15:37 | DX: A49.02 Methicillin resistant Staphylococcus aureus infection, unspecified site (principal) | CPT/HCPCS: 87205 ==

== ENCOUNTER 2017-10-24 10:17 | Inpatient (IN) | payer MEDICARE, MEDICAID ==
[2017-10-24] MEDS: IPRATROPIUM 0.5MG/ALBUTEROL 2.5MG INH SOL UD 3ML (DUONEB)(J7620) NEB ×6 (10:33→23:55)
[2017-10-24] MEDS: ALBUTEROL SULFATE 2.5 MG/0.5 ML INH NEB SOLN INH ×2 (10:33→12:58)
[2017-10-24 11:04] LABS: BASO # 0.1 10^3/uL (0.0-0.2); BASO % 0.6 % (0.0-1.0); EOS # 0.5 10^3/uL (0.0-0.50); EOS % 3.6 % (0.0-3.0); HEMATOCRIT 36.3 % (36.0-47.0); HEMOGLOBIN 11.9 g/dl (12.0-15.5); IMMATURE GRANULOCYTE % 1.3 % (0-3.0); LYMPH # 2.6 10^3/uL (1.5-4.5); LYMPH % 20.7 % (24.0-44.0); MEAN CORPUSCULAR HEMOGLOBIN 27.4 pg (27.0-33.0); MEAN CORPUSCULAR HGB CONC 32.8 g/dl (32.0-36.5); MEAN CORPUSCULAR VOLUME 83.6 fl (80.0-96.0); MONO # 0.8 10^3/uL (0.0-0.8); MONO % 6.1 % (0.0-5.0); NEUTROPHILS # 8.5 10^3/uL (1.8-7.7); NEUTROPHILS % 67.7 % (36.0-66.0); PLATELET COUNT, AUTOMATED 183 10^3/uL (150-450); RED BLOOD COUNT 4.34 10^6/uL (4.00-5.40); RED CELL DISTRIBUTION WIDTH 13.9 % (11.5-14.5); WHITE BLOOD COUNT 12.6 10^3/uL (4.0-10.0)
[2017-10-24 11:08] LABS: POS COUNT POS FLAG
[2017-10-24] MEDS: methylPREDNISolone INJ 125 MG/2 ML VIAL (J2930) IV ×2 (11:14→19:26)
[2017-10-24 11:21] LABS: ALBUMIN 3.1 GM/DL (3.2-5.2); ALBUMIN/GLOBULIN RATIO 0.86 (1.00-1.93); ALKALINE PHOSPHATASE 134 U/L (45-117); ALT/SGPT 76 U/L (12-78); ANION GAP 9 MEQ/L (8-16); AST/SGOT 76 U/L (7-37); BILIRUBIN,DIRECT 0.2 MG/DL (0.0-0.2); BILIRUBIN,TOTAL 0.8 MG/DL (0.2-1.0); BLOOD UREA NITROGEN 6 MG/DL (7-18); CALCIUM LEVEL 8.3 MG/DL (8.5-10.1); CARBON DIOXIDE LEVEL 23 MEQ/L (21-32); CHLORIDE LEVEL 110 MEQ/L (98-107); CPK CREATINE PHOSPHOKINASE 179 U/L (26-192); CREATININE FOR GFR 0.67 MG/DL (0.55-1.30); GLOMERULAR FILTRATION RATE > 60.0 (>58); GLUCOSE, FASTING 118 MG/DL (70-100); POTASSIUM SERUM 4.1 MEQ/L (3.5-5.1); SODIUM LEVEL 142 MEQ/L (136-145); TOTAL PROTEIN 6.7 GM/DL (6.4-8.2); TROPONIN I < 0.02 NG/ML (< 0.10)
[2017-10-24 11:24] LABS: CONTROL LINE HCG INT CTR LINE PRESENT; HCG, SERUM QUALITATIVE NEGATIVE (NEGATIVE)
[2017-10-24 11:27] LABS: CK-MB VALUE MASS 1.4 NG/ML (<3.6); MB/CK RELATIVE INDEX 0.78 (< OR =4); NT-PRO BNP 311 PG/ML (<125); THYROID STIMULATING HORMONE 0.596 uIU/ML (0.358-3.740); THYROXINE (T4) 9.3 UG/DL (4.5-12.0)
[2017-10-24] MEDS: NS 1,000 ML IV (11:45)
[2017-10-24] MEDS ORDERED: ISOVUE-370 76% 100ML VIAL (Q9967) As Ordered (11:46)
[2017-10-24] MEDS ORDERED: diphenhydrAMINE INJ 50MG/ML VIAL (J1200) As Ordered (12:11)
[2017-10-24] MEDS: diphenhydrAMINE INJ 50MG/ML VIAL (J1200) IV (12:20)
[2017-10-24] MEDS ORDERED: PROPOFOL 1,000 MG/100 ML VIAL As Ordered ×3 (12:28→20:01)
[2017-10-24] MEDS: ETOMIDATE INJ 20MG/10ML VIAL IV (12:30)
[2017-10-24] MEDS: SUCCINYLCHOLINE INJ 200 MG/10 ML VIAL (J0330) IV (12:31)
[2017-10-24] MEDS: PROPOFOL 200 MG/20 ML VIAL IV (12:35)
[2017-10-24] MEDS: PROPOFOL 1,000 MG in APPROPRIATE DILUENT 1 EA IV ×5 (12:38→23:37)
[2017-10-24] MEDS: fentaNYL 100 MCG/2 ML INJECTION (J3010) IV (12:54)
[2017-10-24] MEDS: FAMOTIDINE IV BAG 20 MG in APPROPRIATE DILUENT 1 EA IV (12:55)
[2017-10-24 13:17] LABS: ABG BASE EXCESS -8.9 (-2.0-2.0); ABG O2 SATURATION 98.3 % (95.0-99.0); ABG PARTIAL PRESSURE O2 143.2 mmHg (75.0-100.0); ABG STANDARD HCO3 17.4 MEQ/L (22.0-26.0); ABG TOTAL CO2 22.9 MEQ/L (22.0-29.0)
[2017-10-24 13:18] LABS: ABG PARTIAL PRESSURE CO2 63.6 mmHg (35.0-45.0); ABG pH (ARTERIAL) 7.136 UNITS (7.350-7.450)
[2017-10-24] MEDS ORDERED: MIDAZOLAM INJ 2 MG/2 ML VIAL (J2250) As Ordered (13:38)
[2017-10-24] MEDS: MIDAZOLAM INJ 2 MG/2 ML VIAL (J2250) IV ×6 (13:45→22:19)
[2017-10-24] MEDS ORDERED: ALBUTEROL SULFATE 2.5 MG/0.5 ML INH NEB SOLN NEB (13:45)
[2017-10-24] MEDS ORDERED: MORPHINE 4 MG/ML 1ML VIAL/SYRINGE (J2270) IV (13:45)
[2017-10-24 16:13] LABS: ABG BASE EXCESS -3.7 (-2.0-2.0); ABG HCO3 22.8 MEQ/L (22.0-26.0); ABG O2 SATURATION 97.2 % (95.0-99.0); ABG PARTIAL PRESSURE CO2 47.5 mmHg (35.0-45.0); ABG PARTIAL PRESSURE O2 98.7 mmHg (75.0-100.0); ABG STANDARD HCO3 21.4 MEQ/L (22.0-26.0); ABG TOTAL CO2 24.3 MEQ/L (22.0-29.0)
[2017-10-24] MEDS: HEPARIN SOD (PORCINE) 5000 UNITS/ML VIAL SC ×2 (16:33→22:14)
[2017-10-24] MEDS: KCL 20MEQ IN D5/0.45NS 1000ML 1,000 ML IV ×2 (16:33→22:16)
[2017-10-24] MEDS: LevoFLOXacin IV 500 MG in APPROPRIATE DILUENT 1 EA IV (16:33)
[2017-10-24] MEDS ORDERED: SUCCINYLCHOLINE 100 MG/5 ML SYRINGE (J0330) (17:10)
[2017-10-24] MEDS ORDERED: PROPOFOL 200 MG/20 ML VIAL (17:10)
[2017-10-24] MEDS ORDERED: ETOMIDATE INJ 20MG/10ML VIAL (17:10)
[2017-10-24] MEDS: PANTOPRAZOLE 40MG INJ (PROTONIX) (C9113) IV (17:57)
[2017-10-24 20:30] LABS: ALBUMIN/GLOBULIN RATIO 0.83 (1.00-1.93); ALKALINE PHOSPHATASE 126 U/L (45-117); ALT/SGPT 75 U/L (12-78); ANION GAP 9 MEQ/L (8-16); AST/SGOT 55 U/L (7-37); BILIRUBIN,TOTAL 0.8 MG/DL (0.2-1.0); BLOOD UREA NITROGEN 7 MG/DL (7-18); CALCIUM LEVEL 8.2 MG/DL (8.5-10.1); CARBON DIOXIDE LEVEL 24 MEQ/L (21-32); CHLORIDE LEVEL 108 MEQ/L (98-107); CHOLESTEROL LEVEL 135 MG/DL (< 200); CK-MB VALUE MASS 4.3 NG/ML (<3.6); GLOMERULAR FILTRATION RATE > 60.0 (>58); GLUCOSE, FASTING 169 MG/DL (70-100); LDH LACTATE DEHYDROGENASE 343 U/L (84-246); PHOSPHORUS LEVEL 2.3 MG/DL (2.5-4.9); POTASSIUM SERUM 4.4 MEQ/L (3.5-5.1); SODIUM LEVEL 141 MEQ/L (136-145); TOTAL PROTEIN 6.6 GM/DL (6.4-8.2); TRIGLYCERIDES LEVEL 166 MG/DL (<150)
[2017-10-24 20:39] LABS: LACTIC ACID SEPSIS PROTOCOL 3.2 MMOL/L (0.4-2.0)
[2017-10-24 20:45] LABS: CPK CREATINE PHOSPHOKINASE 857 U/L (26-192)
[2017-10-24] MEDS: CHLORHEXIDINE ORAL RINSE 0.12%/15ML 120ML BOTTLE MT (22:14)
[2017-10-25] MEDS: MIDAZOLAM INJ 2 MG/2 ML VIAL (J2250) IV ×7 (00:05→07:38)
[2017-10-25] MEDS: methylPREDNISolone INJ 125 MG/2 ML VIAL (J2930) IV ×4 (02:19→20:12)
[2017-10-25] MEDS: KCL 20MEQ IN D5/0.45NS 1000ML 1,000 ML IV ×2 (02:20→14:23)
[2017-10-25] MEDS: PROPOFOL 1,000 MG in APPROPRIATE DILUENT 1 EA IV ×3 (02:32→07:40)
[2017-10-25 04:59] LABS: BASO % 0.2 % (0.0-1.0); HEMATOCRIT 35.5 % (36.0-47.0); HEMOGLOBIN 11.5 g/dl (12.0-15.5); IMMATURE GRANULOCYTE % 1.2 % (0-3.0); LYMPH # 1.3 10^3/uL (1.5-4.5); MEAN CORPUSCULAR HEMOGLOBIN 27.5 pg (27.0-33.0); MEAN CORPUSCULAR HGB CONC 32.4 g/dl (32.0-36.5); MEAN CORPUSCULAR VOLUME 84.9 fl (80.0-96.0); MONO # 0.5 10^3/uL (0.0-0.8); MONO % 3.1 % (0.0-5.0); NEUTROPHILS # 14.3 10^3/uL (1.8-7.7); NEUTROPHILS % 87.5 % (36.0-66.0); PLATELET COUNT, AUTOMATED 233 10^3/uL (150-450); RED BLOOD COUNT 4.18 10^6/uL (4.00-5.40); RED CELL DISTRIBUTION WIDTH 14.2 % (11.5-14.5); WHITE BLOOD COUNT 16.3 10^3/uL (4.0-10.0)
[2017-10-25 05:24] LABS: ALBUMIN 2.8 GM/DL (3.2-5.2); ALBUMIN/GLOBULIN RATIO 0.78 (1.00-1.93); ALKALINE PHOSPHATASE 110 U/L (45-117); ALT/SGPT 62 U/L (12-78); ANION GAP 7 MEQ/L (8-16); AST/SGOT 45 U/L (7-37); BILIRUBIN,TOTAL 0.5 MG/DL (0.2-1.0); BLOOD UREA NITROGEN 10 MG/DL (7-18); CALCIUM LEVEL 8.2 MG/DL (8.5-10.1); CARBON DIOXIDE LEVEL 24 MEQ/L (21-32); CHLORIDE LEVEL 109 MEQ/L (98-107); CHOLESTEROL LEVEL 132 MG/DL (< 200); CPK CREATINE PHOSPHOKINASE 832 U/L (26-192); CREATININE FOR GFR 0.96 MG/DL (0.55-1.30); GLOMERULAR FILTRATION RATE > 60.0 (>58); GLUCOSE, FASTING 180 MG/DL (70-100); LDH LACTATE DEHYDROGENASE 336 U/L (84-246); PHOSPHORUS LEVEL 2.1 MG/DL (2.5-4.9); POTASSIUM SERUM 4.4 MEQ/L (3.5-5.1); SODIUM LEVEL 140 MEQ/L (136-145); TOTAL PROTEIN 6.4 GM/DL (6.4-8.2); TRIGLYCERIDES LEVEL 291 MG/DL (<150); TROPONIN I 0.51 NG/ML (< 0.10)
[2017-10-25] MEDS: IPRATROPIUM 0.5MG/ALBUTEROL 2.5MG INH SOL UD 3ML (DUONEB)(J7620) NEB ×5 (06:04→20:00)
[2017-10-25 06:08] LABS: ABG BASE EXCESS -2.8 (-2.0-2.0); ABG HCO3 21.3 MEQ/L (22.0-26.0); ABG O2 SATURATION 96.1 % (95.0-99.0); ABG PARTIAL PRESSURE CO2 34.7 mmHg (35.0-45.0); ABG PARTIAL PRESSURE O2 78.6 mmHg (75.0-100.0); ABG STANDARD HCO3 22.1 MEQ/L (22.0-26.0); ABG TOTAL CO2 22.4 MEQ/L (22.0-29.0); ABG pH (ARTERIAL) 7.406 UNITS (7.350-7.450)
[2017-10-25] MEDS: HEPARIN SOD (PORCINE) 5000 UNITS/ML VIAL SC ×3 (06:29→22:35)
[2017-10-25] MEDS: PANTOPRAZOLE 40MG INJ (PROTONIX) (C9113) IV (07:38)
[2017-10-25] MEDS: CHLORHEXIDINE ORAL RINSE 0.12%/15ML 120ML BOTTLE MT (08:45)
[2017-10-25] MEDS: FUROSEMIDE 20 MG/2 ML VIAL (J1940) IV (08:45)
[2017-10-25] MEDS: ASPIRIN 325 MG TAB NG (08:45)
[2017-10-25] MEDS: ADVAIR HFA 115/21MCG INHALER INH ×2 (09:00→20:19)
[2017-10-25] MEDS: NICOTINE 21MG/24HR 1 EA TRANSDERMAL TD (11:39)
[2017-10-25] MEDS: LevoFLOXacin IV 500 MG in APPROPRIATE DILUENT 1 EA IV (14:21)
[2017-10-25] MEDS: ACETAMINOPHEN TAB 650MG DOSE (2X325MG) PO (16:42)
[2017-10-25] MEDS ORDERED: SLF 3 ML SYR IV (16:45)
[2017-10-25] MEDS: QUEtiapine FUMARATE 200 MG TAB PO (22:34)
[2017-10-25] MEDS: SLF 3 ML SYR IV (22:35)
[2017-10-26] MEDS: methylPREDNISolone INJ 125 MG/2 ML VIAL (J2930) IV ×4 (01:30→21:09)
[2017-10-26] MEDS: IPRATROPIUM 0.5MG/ALBUTEROL 2.5MG INH SOL UD 3ML (DUONEB)(J7620) NEB ×6 (04:00→20:00)
[2017-10-26] MEDS: SLF 3 ML SYR IV ×3 (05:39→21:10)
[2017-10-26] MEDS: HEPARIN SOD (PORCINE) 5000 UNITS/ML VIAL SC ×3 (05:39→21:10)
[2017-10-26 07:21] LABS: BASO % 0.1 % (0.0-1.0); HEMATOCRIT 34.4 % (36.0-47.0); HEMOGLOBIN 11.1 g/dl (12.0-15.5); LYMPH # 1.9 10^3/uL (1.5-4.5); MEAN CORPUSCULAR HEMOGLOBIN 27.1 pg (27.0-33.0); MEAN CORPUSCULAR HGB CONC 32.3 g/dl (32.0-36.5); MEAN CORPUSCULAR VOLUME 83.9 fl (80.0-96.0); MONO # 0.9 10^3/uL (0.0-0.8); NEUTROPHILS # 13.8 10^3/uL (1.8-7.7); NEUTROPHILS % 81.9 % (36.0-66.0); PLATELET COUNT, AUTOMATED 224 10^3/uL (150-450); RED CELL DISTRIBUTION WIDTH 14.6 % (11.5-14.5); WHITE BLOOD COUNT 16.9 10^3/uL (4.0-10.0)
[2017-10-26 07:45] LABS: ALBUMIN 2.9 GM/DL (3.2-5.2); ALBUMIN/GLOBULIN RATIO 0.78 (1.00-1.93); ALKALINE PHOSPHATASE 90 U/L (45-117); ALT/SGPT 53 U/L (12-78); ANION GAP 7 MEQ/L (8-16); AST/SGOT 26 U/L (7-37); BILIRUBIN,TOTAL 0.4 MG/DL (0.2-1.0); BLOOD UREA NITROGEN 21 MG/DL (7-18); CALCIUM LEVEL 8.4 MG/DL (8.5-10.1); CARBON DIOXIDE LEVEL 26 MEQ/L (21-32); CHLORIDE LEVEL 108 MEQ/L (98-107); CHOLESTEROL LEVEL 158 MG/DL (< 200); CPK CREATINE PHOSPHOKINASE 411 U/L (26-192); CREATININE FOR GFR 0.72 MG/DL (0.55-1.30); GLOMERULAR FILTRATION RATE > 60.0 (>58); GLUCOSE, FASTING 165 MG/DL (70-100); LDH LACTATE DEHYDROGENASE 236 U/L (84-246); POTASSIUM SERUM 4.2 MEQ/L (3.5-5.1); SODIUM LEVEL 141 MEQ/L (136-145); TOTAL PROTEIN 6.6 GM/DL (6.4-8.2); TRIGLYCERIDES LEVEL 300 MG/DL (<150)
[2017-10-26] MEDS: ADVAIR HFA 115/21MCG INHALER INH ×2 (09:00→21:27)
[2017-10-26] MEDS: NICOTINE 21MG/24HR 1 EA TRANSDERMAL TD (09:00)
[2017-10-26] MEDS: ASPIRIN 325 MG TAB NG (09:03)
[2017-10-26] MEDS: PANTOPRAZOLE 40MG TAB (PROTONIX) PO (09:03)
[2017-10-26] MEDS: LISINOPRIL 5 MG TAB PO (09:03)
[2017-10-26] MEDS ORDERED: MIRALAX *UNIT DOSE* 17GM PACKET PO (09:30)
[2017-10-26] MEDS: METHADONE 10 MG TAB (S0109) PO ×2 (09:31→21:12)
[2017-10-26] MEDS: oxyBUTYnin 5 MG TAB PO ×2 (11:56→21:11)
[2017-10-26] MEDS: LevoFLOXacin IV 500 MG in APPROPRIATE DILUENT 1 EA IV (15:30)
[2017-10-26] MEDS: ATORVASTATIN 20 MG TAB PO (21:11)
[2017-10-26] MEDS: PRAMIPEXOLE 0.25 MG TAB PO (21:11)
[2017-10-26] MEDS: PRAZOSIN 1 MG CAP PO (21:11)
[2017-10-26] MEDS: QUEtiapine FUMARATE 200 MG TAB PO (21:12)
[2017-10-27] MEDS: IPRATROPIUM 0.5MG/ALBUTEROL 2.5MG INH SOL UD 3ML (DUONEB)(J7620) NEB ×6 (04:00→20:00)
[2017-10-27] MEDS: HEPARIN SOD (PORCINE) 5000 UNITS/ML VIAL SC ×3 (05:05→21:19)
[2017-10-27] MEDS: LevoFLOXacin 500 MG TABLET PO (05:05)
[2017-10-27] MEDS: SLF 3 ML SYR IV ×3 (05:05→21:19)
[2017-10-27 05:50] LABS: BASO % 0.1 % (0.0-1.0); EOS % 0.1 % (0.0-3.0); HEMATOCRIT 33.8 % (36.0-47.0); HEMOGLOBIN 10.8 g/dl (12.0-15.5); IMMATURE GRANULOCYTE % 4.7 % (0-3.0); LYMPH # 1.7 10^3/uL (1.5-4.5); LYMPH % 12.4 % (24.0-44.0); MEAN CORPUSCULAR HEMOGLOBIN 27.3 pg (27.0-33.0); MEAN CORPUSCULAR VOLUME 85.6 fl (80.0-96.0); MONO % 7.1 % (0.0-5.0); NEUTROPHILS # 10.3 10^3/uL (1.8-7.7); NEUTROPHILS % 75.6 % (36.0-66.0); PLATELET COUNT, AUTOMATED 202 10^3/uL (150-450); RED BLOOD COUNT 3.95 10^6/uL (4.00-5.40); RED CELL DISTRIBUTION WIDTH 14.6 % (11.5-14.5); WHITE BLOOD COUNT 13.7 10^3/uL (4.0-10.0)
[2017-10-27 06:20] LABS: ALBUMIN 2.9 GM/DL (3.2-5.2); ALBUMIN/GLOBULIN RATIO 0.81 (1.00-1.93); ALKALINE PHOSPHATASE 79 U/L (45-117); ALT/SGPT 42 U/L (12-78); ANION GAP 8 MEQ/L (8-16); AST/SGOT 16 U/L (7-37); BILIRUBIN,TOTAL 0.3 MG/DL (0.2-1.0); BLOOD UREA NITROGEN 23 MG/DL (7-18); CALCIUM LEVEL 8.1 MG/DL (8.5-10.1); CARBON DIOXIDE LEVEL 26 MEQ/L (21-32); CHLORIDE LEVEL 109 MEQ/L (98-107); CHOLESTEROL LEVEL 159 MG/DL (< 200); CPK CREATINE PHOSPHOKINASE 118 U/L (26-192); CREATININE FOR GFR 0.81 MG/DL (0.55-1.30); GLOMERULAR FILTRATION RATE > 60.0 (>58); GLUCOSE, FASTING 192 MG/DL (70-100); LDH LACTATE DEHYDROGENASE 198 U/L (84-246); POTASSIUM SERUM 4.2 MEQ/L (3.5-5.1); SODIUM LEVEL 143 MEQ/L (136-145); TOTAL PROTEIN 6.5 GM/DL (6.4-8.2); TRIGLYCERIDES LEVEL 249 MG/DL (<150)
[2017-10-27] MEDS: PANTOPRAZOLE 40MG TAB (PROTONIX) PO (08:39)
[2017-10-27] MEDS: LISINOPRIL 20 MG TAB PO (08:39)
[2017-10-27] MEDS: METHADONE 10 MG TAB (S0109) PO ×2 (08:39→21:19)
[2017-10-27] MEDS: oxyBUTYnin 5 MG TAB PO ×2 (08:40→21:17)
[2017-10-27] MEDS: ASPIRIN 325 MG TAB NG (08:40)
[2017-10-27] MEDS: NICOTINE 21MG/24HR 1 EA TRANSDERMAL TD (08:40)
[2017-10-27] MEDS: predniSONE 20 MG TAB PO (08:40)
[2017-10-27] MEDS: ADVAIR HFA 115/21MCG INHALER INH ×2 (09:00→20:40)
[2017-10-27] MEDS: PRAMIPEXOLE 0.25 MG TAB PO (21:17)
[2017-10-27] MEDS: ATORVASTATIN 20 MG TAB PO (21:17)
[2017-10-27] MEDS: PRAZOSIN 1 MG CAP PO (21:18)
[2017-10-27] MEDS: QUEtiapine FUMARATE 200 MG TAB PO (21:19)
[2017-10-28] MEDS: IPRATROPIUM 0.5MG/ALBUTEROL 2.5MG INH SOL UD 3ML (DUONEB)(J7620) NEB ×7 (03:32→23:40)
[2017-10-28] MEDS: LevoFLOXacin 500 MG TABLET PO (06:06)
[2017-10-28] MEDS: HEPARIN SOD (PORCINE) 5000 UNITS/ML VIAL SC ×3 (06:07→21:02)
[2017-10-28] MEDS: SLF 3 ML SYR IV ×3 (06:07→21:02)
[2017-10-28] MEDS: ADVAIR HFA 115/21MCG INHALER INH ×2 (07:15→21:00)
[2017-10-28] MEDS: predniSONE 20 MG TAB PO (08:57)
[2017-10-28] MEDS: ASPIRIN 325 MG TAB NG (08:57)
[2017-10-28] MEDS: LISINOPRIL 20 MG TAB PO (08:57)
[2017-10-28] MEDS: oxyBUTYnin 5 MG TAB PO ×2 (08:57→21:00)
[2017-10-28] MEDS: PANTOPRAZOLE 40MG TAB (PROTONIX) PO (08:57)
[2017-10-28] MEDS: METHADONE 10 MG TAB (S0109) PO ×2 (08:58→21:01)
[2017-10-28] MEDS: NICOTINE 21MG/24HR 1 EA TRANSDERMAL TD (08:59)
[2017-10-28] MEDS: ATORVASTATIN 20 MG TAB PO (21:00)
[2017-10-28] MEDS: PRAMIPEXOLE 0.25 MG TAB PO (21:01)
[2017-10-28] MEDS: QUEtiapine FUMARATE 200 MG TAB PO (21:02)
[2017-10-28] MEDS: PRAZOSIN 1 MG CAP PO (21:02)
[2017-10-29] MEDS: IPRATROPIUM 0.5MG/ALBUTEROL 2.5MG INH SOL UD 3ML (DUONEB)(J7620) NEB ×5 (04:00→20:00)
[2017-10-29] MEDS: LevoFLOXacin 500 MG TABLET PO (06:29)
[2017-10-29] MEDS: SLF 3 ML SYR IV ×3 (06:29→21:23)
[2017-10-29] MEDS: HEPARIN SOD (PORCINE) 5000 UNITS/ML VIAL SC ×3 (06:29→21:22)
[2017-10-29] MEDS: NICOTINE 21MG/24HR 1 EA TRANSDERMAL TD (09:00)
[2017-10-29] MEDS: ADVAIR HFA 115/21MCG INHALER INH ×2 (09:00→21:00)
[2017-10-29] MEDS: METHADONE 10 MG TAB (S0109) PO ×2 (09:08→21:21)
[2017-10-29] MEDS: LISINOPRIL 20 MG TAB PO (09:08)
[2017-10-29] MEDS: PANTOPRAZOLE 40MG TAB (PROTONIX) PO (09:08)
[2017-10-29] MEDS: ASPIRIN 325 MG TAB NG (09:08)
[2017-10-29] MEDS: oxyBUTYnin 5 MG TAB PO ×2 (09:08→21:20)
[2017-10-29] MEDS: predniSONE 20 MG TAB PO (09:09)
[2017-10-29] MEDS: QUEtiapine FUMARATE 200 MG TAB PO (21:20)
[2017-10-29] MEDS: ATORVASTATIN 20 MG TAB PO (21:21)
[2017-10-29] MEDS: PRAMIPEXOLE 0.25 MG TAB PO (21:21)
[2017-10-29] MEDS: PRAZOSIN 1 MG CAP PO (21:22)
[2017-10-30] MEDS: IPRATROPIUM 0.5MG/ALBUTEROL 2.5MG INH SOL UD 3ML (DUONEB)(J7620) NEB ×2 (04:00)
[2017-10-30] MEDS: LevoFLOXacin 500 MG TABLET PO (05:49)
[2017-10-30] MEDS: HEPARIN SOD (PORCINE) 5000 UNITS/ML VIAL SC (05:50)
[2017-10-30] MEDS: SLF 3 ML SYR IV (05:50)
[2017-10-30] MEDS: ASPIRIN 325 MG TAB NG (08:47)
[2017-10-30] MEDS: oxyBUTYnin 5 MG TAB PO (08:47)
[2017-10-30] MEDS: predniSONE 20 MG TAB PO (08:47)
[2017-10-30] MEDS: LISINOPRIL 20 MG TAB PO (08:48)
[2017-10-30] MEDS: amLODIPine 5 MG TAB PO (08:49)
[2017-10-30] MEDS: PANTOPRAZOLE 40MG TAB (PROTONIX) PO (08:49)
[2017-10-30] MEDS: METHADONE 10 MG TAB (S0109) PO (08:49)
== END 2017-10-30 09:53 | disposition left against medical advice (07) | DRG 208 ==
LOC: M PCU 10-25 22:12 → M ED 10:17 → M ED INP 13:38 → M ICU 15:13
PROC: 5A1935Z Respiratory Ventilation, Less than 24 Consecutive Hours (ICD-10-PCS; principal; 2017-10-24)
DX: J96.01 Acute respiratory failure with hypoxia (principal); I51.81 Takotsubo syndrome; I50.40 Unspecified combined systolic (congestive) and diastolic (congestive) heart failure; Z91.19 Patient's noncompliance with other medical treatment and regimen; F17.200 Nicotine dependence, unspecified, uncomplicated; Z79.899 Other long term (current) drug therapy; Z79.82 Long term (current) use of aspirin; Z88.5 Allergy status to narcotic agent; Z88.8 Allergy status to other drugs, medicaments and biological substances; B18.2 Chronic viral hepatitis C; F31.9 Bipolar disorder, unspecified; J96.02 Acute respiratory failure with hypercapnia; E66.01 Morbid (severe) obesity due to excess calories; K21.9 Gastro-esophageal reflux disease without esophagitis; M19.90 Unspecified osteoarthritis, unspecified site; I11.0 Hypertensive heart disease with heart failure

== ENCOUNTER 2017-11-07 17:42 | Emergency (ER) | payer MEDICARE, MEDICAID ==
[2017-11-07 20:43] LABS: AMPHETAMINES LEVEL URINE NEGATIVE (NEGATIVE); BARBITURATES URINE NEGATIVE (NEGATIVE); BENZODIAZEPINES URINE POSITIVE (NEGATIVE); CANNABINOIDS URINE NEGATIVE (NEGATIVE); COCAINE METABOLITE URINE NEGATIVE (NEGATIVE); METHADONE URINE POSITIVE (NEGATIVE); OPIATES URINE NEGATIVE (NEGATIVE); PHENCYCLIDINE URINE NEGATIVE (NEGATIVE)
[2017-11-07] MEDS: hydrOXYzine 50 MG TAB PO (21:10)
== END 2017-11-07 21:30 | disposition home or self-care (01) ==
LOC: M ED 17:42
DX: F41.9 Anxiety disorder, unspecified (principal); F19.10 Other psychoactive substance abuse, uncomplicated; I10 Essential (primary) hypertension; K21.9 Gastro-esophageal reflux disease without esophagitis; B19.20 Unspecified viral hepatitis C without hepatic coma; Z79.899 Other long term (current) drug therapy; Z79.82 Long term (current) use of aspirin
CPT/HCPCS: 80307

== ENCOUNTER 2018-01-20 21:21 | Emergency (ER) | payer MEDICARE, MEDICAID ==
[2018-01-20 23:40] LABS: HEMATOCRIT 35.3 % (36.0-47.0); HEMOGLOBIN 11.5 g/dl (12.0-15.5); MEAN CORPUSCULAR HEMOGLOBIN 27.6 pg (27.0-33.0); MEAN CORPUSCULAR HGB CONC 32.6 g/dl (32.0-36.5); MEAN CORPUSCULAR VOLUME 84.7 fl (80.0-96.0); PLATELET COUNT, AUTOMATED 275 10^3/uL (150-450); RED BLOOD COUNT 4.17 10^6/uL (4.00-5.40); RED CELL DISTRIBUTION WIDTH 14.2 % (11.5-14.5)
[2018-01-20 23:55] LABS: CONTROL LINE HCG INT CTR LINE PRESENT; HCG, SERUM QUALITATIVE NEGATIVE (NEGATIVE)
[2018-01-21 00:02] LABS: AMPHETAMINES LEVEL URINE NEGATIVE (NEGATIVE); BARBITURATES URINE NEGATIVE (NEGATIVE); BENZODIAZEPINES URINE POSITIVE (NEGATIVE); CANNABINOIDS URINE NEGATIVE (NEGATIVE); COCAINE METABOLITE URINE NEGATIVE (NEGATIVE); METHADONE URINE POSITIVE (NEGATIVE); OPIATES URINE NEGATIVE (NEGATIVE); PHENCYCLIDINE URINE NEGATIVE (NEGATIVE)
[2018-01-21 00:11] LABS: ACETAMINOPHEN LEVEL < 2.0 UG/ML (10.0-30.0); ALBUMIN 3.3 GM/DL (3.2-5.2); ALBUMIN/GLOBULIN RATIO 0.89 (1.00-1.93); ALKALINE PHOSPHATASE 132 U/L (45-117); ALT/SGPT 49 U/L (12-78); ANION GAP 8 MEQ/L (8-16); AST/SGOT 24 U/L (7-37); BILIRUBIN,DIRECT < 0.1 MG/DL (0.0-0.2); BILIRUBIN,TOTAL 0.4 MG/DL (0.2-1.0); BLOOD UREA NITROGEN 10 MG/DL (7-18); CALCIUM LEVEL 8.5 MG/DL (8.5-10.1); CARBON DIOXIDE LEVEL 27 MEQ/L (21-32); CHLORIDE LEVEL 109 MEQ/L (98-107); CPK CREATINE PHOSPHOKINASE 110 U/L (26-192); CREATININE FOR GFR 0.92 MG/DL (0.55-1.30); ETHYL ALCOHOL (ETHANOL) 0.004 % (0.000-0.010); GLOMERULAR FILTRATION RATE > 60.0 (>58); GLUCOSE, FASTING 100 MG/DL (70-100); SALICYLATE LEVEL 5.5 MG/DL (5.0-30.0); SODIUM LEVEL 144 MEQ/L (136-145)
== END 2018-01-21 01:16 | disposition home or self-care (01) ==
LOC: M ED 21:21
DX: F41.1 Generalized anxiety disorder (principal); I50.9 Heart failure, unspecified; I10 Essential (primary) hypertension; Z72.0 Tobacco use; Z79.82 Long term (current) use of aspirin; Z79.899 Other long term (current) drug therapy; Z88.5 Allergy status to narcotic agent; Z88.8 Allergy status to other drugs, medicaments and biological substances
CPT/HCPCS: G0480

== ENCOUNTER 2018-01-25 10:31 | Observation (INO) | payer MEDICARE, MEDICAID ==
[2018-01-25 11:22] LABS: HEMATOCRIT 37.4 % (36.0-47.0); HEMOGLOBIN 12.3 g/dl (12.0-15.5); MEAN CORPUSCULAR HEMOGLOBIN 27.5 pg (27.0-33.0); MEAN CORPUSCULAR HGB CONC 32.9 g/dl (32.0-36.5); MEAN CORPUSCULAR VOLUME 83.7 fl (80.0-96.0); PLATELET COUNT, AUTOMATED 239 10^3/uL (150-450); RED BLOOD COUNT 4.47 10^6/uL (4.00-5.40); RED CELL DISTRIBUTION WIDTH 14.2 % (11.5-14.5); WHITE BLOOD COUNT 12.6 10^3/uL (4.0-10.0)
[2018-01-25 11:30] LABS: BEDSIDE GLUCOSE 117 MG/DL (70-105)
[2018-01-25] MEDS: NS 1,000 ML IV ×2 (11:30→13:30)
[2018-01-25 11:42] LABS: ALBUMIN 3.6 GM/DL (3.2-5.2); ALBUMIN/GLOBULIN RATIO 0.95 (1.00-1.93); ALKALINE PHOSPHATASE 127 U/L (45-117); ALT/SGPT 49 U/L (12-78); ANION GAP 10 MEQ/L (8-16); AST/SGOT 30 U/L (7-37); BILIRUBIN,DIRECT < 0.1 MG/DL (0.0-0.2); BILIRUBIN,TOTAL 0.5 MG/DL (0.2-1.0); BLOOD UREA NITROGEN 15 MG/DL (7-18); CALCIUM LEVEL 8.9 MG/DL (8.5-10.1); CARBON DIOXIDE LEVEL 26 MEQ/L (21-32); CHLORIDE LEVEL 104 MEQ/L (98-107); CREATININE FOR GFR 0.76 MG/DL (0.55-1.30); ETHYL ALCOHOL (ETHANOL) 0.004 % (0.000-0.010); GLOMERULAR FILTRATION RATE > 60.0 (>58); GLUCOSE, FASTING 113 MG/DL (70-100); POTASSIUM SERUM 4.3 MEQ/L (3.5-5.1); SALICYLATE LEVEL 4.6 MG/DL (5.0-30.0); SODIUM LEVEL 140 MEQ/L (136-145); TOTAL PROTEIN 7.4 GM/DL (6.4-8.2)
[2018-01-25 11:53] LABS: ABG BASE EXCESS 0.8 (-2.0-2.0); ABG HCO3 26.3 MEQ/L (22.0-26.0); ABG O2 SATURATION 93.6 % (95.0-99.0); ABG PARTIAL PRESSURE CO2 45.7 mmHg (35.0-45.0); ABG PARTIAL PRESSURE O2 70.1 mmHg (75.0-100.0); ABG STANDARD HCO3 25.1 MEQ/L (22.0-26.0); ABG TOTAL CO2 27.7 MEQ/L (22.0-29.0); ABG pH (ARTERIAL) 7.378 UNITS (7.350-7.450)
[2018-01-25 11:54] LABS: ACETAMINOPHEN LEVEL < 2.0 UG/ML (10.0-30.0)
[2018-01-25 13:51] LABS: CONTROL LINE HCG INT CTR LINE PRESENT; HCG, SERUM QUALITATIVE NEGATIVE (NEGATIVE)
[2018-01-25 14:52] LABS: AMPHETAMINES LEVEL URINE NEGATIVE (NEGATIVE); BARBITURATES URINE NEGATIVE (NEGATIVE); BENZODIAZEPINES URINE POSITIVE (NEGATIVE); CANNABINOIDS URINE NEGATIVE (NEGATIVE); COCAINE METABOLITE URINE NEGATIVE (NEGATIVE); METHADONE URINE POSITIVE (NEGATIVE); OPIATES URINE NEGATIVE (NEGATIVE); PHENCYCLIDINE URINE NEGATIVE (NEGATIVE)
[2018-01-25] MEDS ORDERED: ACETAMINOPHEN TAB 650MG DOSE (2X325MG) PO (15:00)
[2018-01-25] MEDS ORDERED: ONDANSETRON 4 MG TAB (S0181) PO ×2 (15:00→15:15)
[2018-01-25] MEDS ORDERED: BISACODYL 10 MG SUPP PR (15:00)
[2018-01-25] MEDS ORDERED: ALBUTEROL 90 MCG/ACT 8GM HFA INHALER INH (15:15)
[2018-01-25] MEDS ORDERED: MIRALAX *UNIT DOSE* 17GM PACKET PO (15:15)
[2018-01-25] MEDS: cloNIDine 0.2 MG TAB PO ×2 (17:06→21:50)
[2018-01-25] MEDS: GABAPENTIN 300 MG CAP PO ×2 (17:06→21:50)
[2018-01-25] MEDS: LURASIDONE 20 MG TAB (LATUDA) PO (17:57)
[2018-01-25] MEDS: QUEtiapine FUMARATE 200 MG TAB PO (21:00)
[2018-01-25] MEDS: ATORVASTATIN 20 MG TAB PO (21:49)
[2018-01-25] MEDS: OMEPRAZOLE 20 MG CAP PO (21:49)
[2018-01-25] MEDS: PRAZOSIN 1 MG CAP PO (21:50)
[2018-01-25] MEDS: METOPROLOL TART 25 MG TABLET PO (21:50)
[2018-01-25] MEDS: oxyBUTYnin 5 MG TAB PO (21:51)
[2018-01-26 06:07] LABS: HEMATOCRIT 34.9 % (36.0-47.0); HEMOGLOBIN 11.3 g/dl (12.0-15.5); MEAN CORPUSCULAR HEMOGLOBIN 27.3 pg (27.0-33.0); MEAN CORPUSCULAR HGB CONC 32.4 g/dl (32.0-36.5); MEAN CORPUSCULAR VOLUME 84.3 fl (80.0-96.0); PLATELET COUNT, AUTOMATED 272 10^3/uL (150-450); RED BLOOD COUNT 4.14 10^6/uL (4.00-5.40); RED CELL DISTRIBUTION WIDTH 14.4 % (11.5-14.5); WHITE BLOOD COUNT 9.4 10^3/uL (4.0-10.0)
[2018-01-26 06:24] LABS: ESTIMATED AVERAGE GLUCOSE 108 MG/DL (60-110); HEMOGLOBIN A1c 5.4 %
[2018-01-26 06:32] LABS: ALBUMIN 2.8 GM/DL (3.2-5.2); ALKALINE PHOSPHATASE 106 U/L (45-117); ALT/SGPT 44 U/L (12-78); ANION GAP 6 MEQ/L (8-16); AST/SGOT 26 U/L (7-37); BILIRUBIN,TOTAL 0.4 MG/DL (0.2-1.0); BLOOD UREA NITROGEN 14 MG/DL (7-18); CALCIUM LEVEL 8.3 MG/DL (8.5-10.1); CARBON DIOXIDE LEVEL 27 MEQ/L (21-32); CHLORIDE LEVEL 110 MEQ/L (98-107); CREATININE FOR GFR 0.71 MG/DL (0.55-1.30); GLOMERULAR FILTRATION RATE > 60.0 (>58); GLUCOSE, FASTING 104 MG/DL (70-100); SODIUM LEVEL 143 MEQ/L (136-145); TOTAL PROTEIN 6.3 GM/DL (6.4-8.2)
[2018-01-26] MEDS: ASPIRIN 325 MG TAB PO (10:15)
[2018-01-26] MEDS: GABAPENTIN 300 MG CAP PO ×2 (10:15→15:59)
[2018-01-26] MEDS: MULTIVITAMINS/MINERALS THERAP 1 TAB PO (10:16)
[2018-01-26] MEDS: METHADONE 10 MG TAB (S0109) PO (10:16)
[2018-01-26] MEDS: amLODIPine 5 MG TAB PO (10:16)
[2018-01-26] MEDS: OMEPRAZOLE 20 MG CAP PO (10:16)
[2018-01-26] MEDS: THIAMINE 100 MG TAB PO (10:16)
[2018-01-26] MEDS: LISINOPRIL 10 MG TAB PO (10:17)
[2018-01-26] MEDS: oxyBUTYnin 5 MG TAB PO (10:17)
[2018-01-26] MEDS: METOPROLOL TART 25 MG TABLET PO (10:17)
[2018-01-26] MEDS: FOLIC ACID 1 MG TAB PO (10:18)
[2018-01-26] MEDS: cloNIDine 0.2 MG TAB PO ×2 (10:18→15:59)
[2018-01-26] MEDS: FUROSEMIDE 20 MG TAB PO (10:18)
[2018-01-26] MEDS: ENOXAPARIN 40 MG/0.4 ML SYRINGE (J1650) SC (10:21)
== END 2018-01-26 17:33 ==
LOC: M ED 10:31 → M ED INP 14:47 → M PCU 16:24
DX: F11.20 Opioid dependence, uncomplicated (principal)

== ENCOUNTER 2018-01-26 16:47 | Inpatient (IN) | payer MEDICARE, MEDICAID ==
[2018-01-26] MEDS: NICOTINE 21MG/24HR 1 EA TRANSDERMAL TD (09:00)
[~2018-01-26 16:47] MED LIST changes: +ACETAMINOPHEN TAB 650MG DOSE (2X325MG) PO; -ATOR40TA75 PO; +BISACODYL 5 MG TAB PO; -CHLORSP MT; -COLA100C5 PO; -DEPA1TAB3 PO; -DEPA250T32 PO; -DIPH12.527 PO; -DIPH50CA PO; -DIVA250T PO; -DIVA500T3 PO; -DOCU100C16 PO; -DOXY100T2 PO; -EFFE75CA75 PO; +MAALOX 30 ML SUSP *UDC PO; -MELO7.5T7 PO; -METH5TA PO; -METO1TAB87 PO; -METO25TA4 PO; -MIRA33504 PO; +MIRALAX *UNIT DOSE* 17GM PACKET PO; -MOBI4TAB PO; +MOM 30ML SUSPENSION UDC PO; -MULT1TAB10 PO; -NICO21PAT TD; -NIGH25TA11 PO; -OMEP40CA2 PO; -ONDA4TAB5 PO; +ONDANSETRON 4 MG TAB (S0181) PO; -OXYB5TAB10 PO; -PATIENT COMMENT; -QUET30XR PO; -QUET5TAB PO; -RISP2TAB32 PO; -SENN1TAB10 PO; -SENO8.6T5 PO; -SERO50TA PO; -TRAZ-136 PO; -TRAZ10TA PO; -TRAZ50TA11 PO; -TRAZO50TA PO; -VALA500T2 PO; -VITA200015 PO; -VITA500C24 PO; -VITA500T88 PO; -VITMTA PO; -ZOFR20TA PO; -ditropan PO
[2018-01-26] MEDS: LURASIDONE 20 MG TAB (LATUDA) PO (18:05)
[2018-01-26] MEDS ORDERED: OLANZapine ORAL DISINTEGRATING TAB 5MG PO (18:30)
[2018-01-26] MEDS: GABAPENTIN 300 MG CAP PO (20:09)
[2018-01-26] MEDS: OMEPRAZOLE 20 MG CAP PO (20:09)
[2018-01-26] MEDS: oxyBUTYnin 5 MG TAB PO (20:10)
[2018-01-26] MEDS: QUEtiapine FUMARATE 200 MG TAB PO (20:10)
[2018-01-26] MEDS: ATORVASTATIN 20 MG TAB PO (20:11)
[2018-01-26] MEDS: METOPROLOL TART 25 MG TABLET PO (21:00)
[2018-01-26] MEDS: PRAZOSIN 1 MG CAP PO (21:00)
[2018-01-26] MEDS: cloNIDine 0.2 MG TAB PO (21:00)
[2018-01-27] MEDS: NICOTINE 21MG/24HR 1 EA TRANSDERMAL TD (09:00)
[2018-01-27] MEDS: METHADONE 10 MG TAB (S0109) PO (09:05)
[2018-01-27] MEDS: GABAPENTIN 300 MG CAP PO ×2 (09:06→15:47)
[2018-01-27] MEDS: OMEPRAZOLE 20 MG CAP PO (09:06)
[2018-01-27] MEDS: ASPIRIN 325 MG TAB PO (09:06)
[2018-01-27] MEDS: oxyBUTYnin 5 MG TAB PO (09:07)
[2018-01-27] MEDS: LISINOPRIL 10 MG TAB PO (09:07)
[2018-01-27] MEDS: FUROSEMIDE 20 MG TAB PO (09:07)
[2018-01-27] MEDS: amLODIPine 5 MG TAB PO (09:07)
[2018-01-27] MEDS: MULTIVITAMINS/MINERALS THERAP 1 TAB PO (09:07)
[2018-01-27] MEDS: cloNIDine 0.2 MG TAB PO ×2 (09:07→15:47)
[2018-01-27] MEDS: METOPROLOL TART 25 MG TABLET PO (09:08)
[2018-01-27] MEDS: FOLIC ACID 1 MG TAB PO (09:08)
[2018-01-27] MEDS: ALBUTEROL 90 MCG/ACT 8GM HFA INHALER INH (14:04)
[2018-01-27] MEDS: LURASIDONE 20 MG TAB (LATUDA) PO (17:42)
[2018-01-28] MEDS: oxyBUTYnin 5 MG TAB PO ×3 (01:00→20:58)
[2018-01-28] MEDS: QUEtiapine FUMARATE 200 MG TAB PO ×2 (01:01→20:58)
[2018-01-28] MEDS: cloNIDine 0.2 MG TAB PO ×4 (01:01→20:57)
[2018-01-28] MEDS: METOPROLOL TART 25 MG TABLET PO ×3 (01:02→20:58)
[2018-01-28] MEDS: OMEPRAZOLE 20 MG CAP PO ×3 (01:02→20:58)
[2018-01-28] MEDS: GABAPENTIN 300 MG CAP PO ×4 (01:02→20:58)
[2018-01-28] MEDS: ATORVASTATIN 20 MG TAB PO ×2 (01:02→20:58)
[2018-01-28] MEDS: PRAZOSIN 1 MG CAP PO ×2 (01:04→20:58)
[2018-01-28] MEDS: amLODIPine 5 MG TAB PO (09:00)
[2018-01-28] MEDS: LISINOPRIL 10 MG TAB PO (09:00)
[2018-01-28] MEDS: NICOTINE 21MG/24HR 1 EA TRANSDERMAL TD (09:00)
[2018-01-28] MEDS: ASPIRIN 325 MG TAB PO (09:42)
[2018-01-28] MEDS: METHADONE 10 MG TAB (S0109) PO (09:42)
[2018-01-28] MEDS: FUROSEMIDE 20 MG TAB PO (09:42)
[2018-01-28] MEDS: MULTIVITAMINS/MINERALS THERAP 1 TAB PO (09:42)
[2018-01-28] MEDS: FOLIC ACID 1 MG TAB PO (09:42)
[2018-01-28] MEDS: ALBUTEROL 90 MCG/ACT 8GM HFA INHALER INH (15:35)
[2018-01-28] MEDS: LURASIDONE 20 MG TAB (LATUDA) PO (17:38)
[2018-01-28] MEDS: traZODone 50 MG TAB PO (21:33)
[2018-01-29] MEDS: NICOTINE 21MG/24HR 1 EA TRANSDERMAL TD (09:00)
[2018-01-29] MEDS: MIRALAX *UNIT DOSE* 17GM PACKET PO (09:00)
[2018-01-29] MEDS: OMEPRAZOLE 20 MG CAP PO ×2 (09:18→21:09)
[2018-01-29] MEDS: GABAPENTIN 300 MG CAP PO ×3 (09:18→21:00)
[2018-01-29] MEDS: METHADONE 10 MG TAB (S0109) PO (09:19)
[2018-01-29] MEDS: ASPIRIN 325 MG TAB PO (09:19)
[2018-01-29] MEDS: LISINOPRIL 10 MG TAB PO (09:19)
[2018-01-29] MEDS: FUROSEMIDE 20 MG TAB PO (09:19)
[2018-01-29] MEDS: METOPROLOL TART 25 MG TABLET PO ×2 (09:20→21:09)
[2018-01-29] MEDS: cloNIDine 0.2 MG TAB PO ×3 (09:20→21:00)
[2018-01-29] MEDS: FOLIC ACID 1 MG TAB PO (09:20)
[2018-01-29] MEDS: oxyBUTYnin 5 MG TAB PO ×2 (09:20→21:09)
[2018-01-29] MEDS: amLODIPine 5 MG TAB PO (09:20)
[2018-01-29] MEDS: MULTIVITAMINS/MINERALS THERAP 1 TAB PO (09:20)
[2018-01-29] MEDS: LURASIDONE 20 MG TAB (LATUDA) PO (17:54)
[2018-01-29] MEDS: traZODone 50 MG TAB PO (21:08)
[2018-01-29] MEDS: PRAZOSIN 1 MG CAP PO (21:09)
[2018-01-29] MEDS: QUEtiapine FUMARATE 200 MG TAB PO (21:09)
[2018-01-29] MEDS: ATORVASTATIN 20 MG TAB PO (21:09)
[2018-01-30] MEDS: MIRALAX *UNIT DOSE* 17GM PACKET PO (08:31)
[2018-01-30] MEDS: cloNIDine 0.2 MG TAB PO (08:32)
[2018-01-30] MEDS: GABAPENTIN 300 MG CAP PO (08:32)
[2018-01-30] MEDS: NICOTINE 21MG/24HR 1 EA TRANSDERMAL TD (08:32)
[2018-01-30] MEDS: METHADONE 10 MG TAB (S0109) PO (08:40)
[2018-01-30] MEDS: LISINOPRIL 10 MG TAB PO (08:40)
[2018-01-30] MEDS: amLODIPine 5 MG TAB PO (08:41)
[2018-01-30] MEDS: ASPIRIN 325 MG TAB PO (08:41)
[2018-01-30] MEDS: FUROSEMIDE 20 MG TAB PO (08:41)
[2018-01-30] MEDS: FOLIC ACID 1 MG TAB PO (08:41)
[2018-01-30] MEDS: MULTIVITAMINS/MINERALS THERAP 1 TAB PO (08:41)
[2018-01-30] MEDS: METOPROLOL TART 25 MG TABLET PO (08:41)
[2018-01-30] MEDS: OMEPRAZOLE 20 MG CAP PO (08:41)
[2018-01-30] MEDS: oxyBUTYnin 5 MG TAB PO (08:42)
== END 2018-01-30 11:37 | disposition home or self-care (01) | DRG 885 ==
LOC: M PSY 01-29 08:54 → M ED INP 16:47 → M PSY 16:56
DX: F31.9 Bipolar disorder, unspecified (principal); F11.20 Opioid dependence, uncomplicated; F17.210 Nicotine dependence, cigarettes, uncomplicated; F60.3 Borderline personality disorder; I10 Essential (primary) hypertension; E78.5 Hyperlipidemia, unspecified; K21.9 Gastro-esophageal reflux disease without esophagitis; J45.909 Unspecified asthma, uncomplicated; Z79.82 Long term (current) use of aspirin; Z88.8 Allergy status to other drugs, medicaments and biological substances; Z79.899 Other long term (current) drug therapy; Z88.5 Allergy status to narcotic agent

== ENCOUNTER 2018-03-22 09:05 | Emergency (ER) | payer MEDICARE, MEDICAID ==
[2018-03-22 10:11] LABS: HEMATOCRIT 37.7 % (36.0-47.0); HEMOGLOBIN 12.4 g/dl (12.0-15.5); MEAN CORPUSCULAR HGB CONC 32.9 g/dl (32.0-36.5); PLATELET COUNT, AUTOMATED 298 10^3/uL (150-450); RED CELL DISTRIBUTION WIDTH 14.3 % (11.5-14.5); WHITE BLOOD COUNT 15.4 10^3/uL (4.0-10.0)
[2018-03-22 10:35] LABS: ACETAMINOPHEN LEVEL < 2.0 UG/ML (10.0-30.0); ALBUMIN/GLOBULIN RATIO 1.11 (1.00-1.93); ALKALINE PHOSPHATASE 148 U/L (45-117); ALT/SGPT 40 U/L (12-78); ANION GAP 10 MEQ/L (8-16); AST/SGOT 21 U/L (7-37); BILIRUBIN,DIRECT 0.2 MG/DL (0.0-0.2); BILIRUBIN,TOTAL 0.6 MG/DL (0.2-1.0); BLOOD UREA NITROGEN 11 MG/DL (7-18); CALCIUM LEVEL 8.9 MG/DL (8.5-10.1); CARBON DIOXIDE LEVEL 27 MEQ/L (21-32); CHLORIDE LEVEL 104 MEQ/L (98-107); ETHYL ALCOHOL (ETHANOL) < 0.003 % (0.000-0.010); GLOMERULAR FILTRATION RATE > 60.0 (>58); GLUCOSE, FASTING 107 MG/DL (70-100); POTASSIUM SERUM 3.8 MEQ/L (3.5-5.1); SALICYLATE LEVEL 6.7 MG/DL (5.0-30.0); SODIUM LEVEL 141 MEQ/L (136-145); TOTAL PROTEIN 7.6 GM/DL (6.4-8.2)
[2018-03-22 11:56] LABS: AMPHETAMINES LEVEL URINE NEGATIVE (NEGATIVE); BARBITURATES URINE NEGATIVE (NEGATIVE); BENZODIAZEPINES URINE NEGATIVE (NEGATIVE); CANNABINOIDS URINE NEGATIVE (NEGATIVE); COCAINE METABOLITE URINE NEGATIVE (NEGATIVE); METHADONE URINE POSITIVE (NEGATIVE); OPIATES URINE NEGATIVE (NEGATIVE); PHENCYCLIDINE URINE NEGATIVE (NEGATIVE)
[2018-03-22 12:46] LABS: BILIRUBIN, URINE MANUAL NEGATIVE (NEGATIVE); BLOOD URINE MANUAL RFX NEGATIVE (NEGATIVE); GLUCOSE, URINE (UA) MANUAL NEGATIVE (NEGATIVE); KETONE, URINE MANUAL NEGATIVE (NEGATIVE); NITRITE, URINE MANUAL RFX NEGATIVE (NEGATIVE); PROTEIN, URINE MANUAL REFLEX NEGATIVE (NEGATIVE); UROBILINOGEN, URINE MANUAL NORMAL (NORMAL)
[2018-03-22 12:47] LABS: MICROSCOPIC INDICATED? RFX NO (NO)
== END 2018-03-22 18:28 | disposition home or self-care (01) ==
LOC: M ED 09:05
DX: Z04.6 Encounter for general psychiatric examination, requested by authority (principal); F31.9 Bipolar disorder, unspecified; F19.10 Other psychoactive substance abuse, uncomplicated; I10 Essential (primary) hypertension; J45.909 Unspecified asthma, uncomplicated; K21.9 Gastro-esophageal reflux disease without esophagitis; Z88.5 Allergy status to narcotic agent; Z88.8 Allergy status to other drugs, medicaments and biological substances; Z79.899 Other long term (current) drug therapy
CPT/HCPCS: 93005

== ENCOUNTER 2018-03-29 11:20 | Inpatient (IN) | payer MEDICARE, MEDICAID ==
[2018-03-29 11:59] LABS: HEMATOCRIT 38.3 % (36.0-47.0); HEMOGLOBIN 12.3 g/dl (12.0-15.5); MEAN CORPUSCULAR HEMOGLOBIN 26.6 pg (27.0-33.0); MEAN CORPUSCULAR HGB CONC 32.1 g/dl (32.0-36.5); MEAN CORPUSCULAR VOLUME 82.9 fl (80.0-96.0); PLATELET COUNT, AUTOMATED 270 10^3/uL (150-450); RED BLOOD COUNT 4.62 10^6/uL (4.00-5.40); RED CELL DISTRIBUTION WIDTH 13.5 % (11.5-14.5); WHITE BLOOD COUNT 14.4 10^3/uL (4.0-10.0)
[2018-03-29 12:09] LABS: CONTROL LINE HCG INT CTR LINE PRESENT; HCG, SERUM QUALITATIVE NEGATIVE (NEGATIVE)
[2018-03-29 12:51] LABS: ACETAMINOPHEN LEVEL < 2.0 UG/ML (10.0-30.0); ALBUMIN 3.4 GM/DL (3.2-5.2); ALBUMIN/GLOBULIN RATIO 0.97 (1.00-1.93); ALKALINE PHOSPHATASE 143 U/L (45-117); ALT/SGPT 44 U/L (12-78); ANION GAP 5 MEQ/L (8-16); AST/SGOT 27 U/L (7-37); BILIRUBIN,DIRECT 0.1 MG/DL (0.0-0.2); BILIRUBIN,TOTAL 0.3 MG/DL (0.2-1.0); BLOOD UREA NITROGEN 8 MG/DL (7-18); CALCIUM LEVEL 8.4 MG/DL (8.5-10.1); CARBON DIOXIDE LEVEL 28 MEQ/L (21-32); CHLORIDE LEVEL 108 MEQ/L (98-107); CREATININE FOR GFR 0.76 MG/DL (0.55-1.30); ETHYL ALCOHOL (ETHANOL) < 0.003 % (0.000-0.010); GLOMERULAR FILTRATION RATE > 60.0 (>58); GLUCOSE, FASTING 85 MG/DL (70-100); POTASSIUM SERUM 4.2 MEQ/L (3.5-5.1); SALICYLATE LEVEL 4.5 MG/DL (5.0-30.0); SODIUM LEVEL 141 MEQ/L (136-145); TOTAL PROTEIN 6.9 GM/DL (6.4-8.2)
[2018-03-29 13:19] LABS: AMPHETAMINES LEVEL URINE NEGATIVE (NEGATIVE); BARBITURATES URINE NEGATIVE (NEGATIVE); BENZODIAZEPINES URINE POSITIVE (NEGATIVE); CANNABINOIDS URINE NEGATIVE (NEGATIVE); COCAINE METABOLITE URINE NEGATIVE (NEGATIVE); METHADONE URINE POSITIVE (NEGATIVE); OPIATES URINE NEGATIVE (NEGATIVE); PHENCYCLIDINE URINE NEGATIVE (NEGATIVE)
[2018-03-29] MEDS ORDERED: traZODone 50 MG TAB PO (15:00)
[2018-03-29] MEDS ORDERED: ACETAMINOPHEN TAB 650MG DOSE (2X325MG) PO (15:00)
[2018-03-29] MEDS ORDERED: MOM 30ML SUSPENSION UDC PO (15:00)
[2018-03-29] MEDS ORDERED: MAALOX 30 ML SUSP *UDC PO (15:00)
[2018-03-29] MEDS ORDERED: ALBUTEROL 90 MCG/ACT 8GM HFA INHALER INH (17:30)
[2018-03-29] MEDS ORDERED: ONDANSETRON 4 MG TAB (S0181) PO (17:30)
[2018-03-29] MEDS ORDERED: MIRALAX *UNIT DOSE* 17GM PACKET PO (17:30)
[2018-03-29] MEDS ORDERED: TRIAMCINOLONE ACET 0.1% CREAM 80 GM TOP (17:30)
[2018-03-29] MEDS: PRAZOSIN 1 MG CAP PO (20:12)
[2018-03-29] MEDS: zolPIDEM TARTRATE 10MG TAB PO (20:12)
[2018-03-29] MEDS: METOPROLOL TART 25 MG TABLET PO (20:13)
[2018-03-29] MEDS: LURASIDONE 20 MG TAB (LATUDA) PO (20:13)
[2018-03-29] MEDS: QUEtiapine FUMARATE 200 MG TAB PO (20:13)
[2018-03-29] MEDS: GABAPENTIN 300 MG CAP PO (20:13)
[2018-03-29] MEDS: OMEPRAZOLE 20 MG CAP PO (20:14)
[2018-03-29] MEDS: cloNIDine 0.2 MG TAB PO (20:14)
[2018-03-29] MEDS: ATORVASTATIN 20 MG TAB PO (20:14)
[2018-03-30] MEDS: GABAPENTIN 300 MG CAP PO ×3 (09:39→20:38)
[2018-03-30] MEDS: ASPIRIN 325 MG TAB PO (09:39)
[2018-03-30] MEDS: cloNIDine 0.2 MG TAB PO ×3 (09:40→20:39)
[2018-03-30] MEDS: LISINOPRIL 10 MG TAB PO (09:40)
[2018-03-30] MEDS: METOPROLOL TART 25 MG TABLET PO ×2 (09:40→20:39)
[2018-03-30] MEDS: amLODIPine 5 MG TAB PO (09:40)
[2018-03-30] MEDS: FUROSEMIDE 20 MG TAB PO (09:40)
[2018-03-30] MEDS: OMEPRAZOLE 20 MG CAP PO ×2 (09:40→20:38)
[2018-03-30] MEDS: METHADONE 10 MG TAB (S0109) PO (11:06)
[2018-03-30] MEDS: hydrOXYzine 50 MG TAB PO (13:28)
[2018-03-30] MEDS: ATORVASTATIN 20 MG TAB PO (20:38)
[2018-03-30] MEDS: LURASIDONE 20 MG TAB (LATUDA) PO (20:38)
[2018-03-30] MEDS: PRAZOSIN 1 MG CAP PO (20:40)
[2018-03-30] MEDS: QUEtiapine FUMARATE 200 MG TAB PO (20:40)
[2018-03-31 06:53] LABS: HEMATOCRIT 38.1 % (36.0-47.0); HEMOGLOBIN 12.3 g/dl (12.0-15.5); MEAN CORPUSCULAR HEMOGLOBIN 26.5 pg (27.0-33.0); MEAN CORPUSCULAR HGB CONC 32.3 g/dl (32.0-36.5); MEAN CORPUSCULAR VOLUME 82.1 fl (80.0-96.0); PLATELET COUNT, AUTOMATED 259 10^3/uL (150-450); RED BLOOD COUNT 4.64 10^6/uL (4.00-5.40); RED CELL DISTRIBUTION WIDTH 13.6 % (11.5-14.5); WHITE BLOOD COUNT 10.8 10^3/uL (4.0-10.0)
[2018-03-31] MEDS: ASPIRIN 325 MG TAB PO (09:16)
[2018-03-31] MEDS: GABAPENTIN 300 MG CAP PO ×3 (09:16→20:36)
[2018-03-31] MEDS: cloNIDine 0.2 MG TAB PO ×3 (09:16→20:34)
[2018-03-31] MEDS: amLODIPine 5 MG TAB PO (09:16)
[2018-03-31] MEDS: LISINOPRIL 10 MG TAB PO (09:17)
[2018-03-31] MEDS: OMEPRAZOLE 20 MG CAP PO ×2 (09:17→20:36)
[2018-03-31] MEDS: FUROSEMIDE 20 MG TAB PO (09:17)
[2018-03-31] MEDS: METHADONE 5 MG TAB (S0109) PO (09:17)
[2018-03-31] MEDS: METOPROLOL TART 25 MG TABLET PO ×2 (09:18→20:36)
[2018-03-31] MEDS: hydrOXYzine 50 MG TAB PO (20:34)
[2018-03-31] MEDS: LURASIDONE 20 MG TAB (LATUDA) PO (20:34)
[2018-03-31] MEDS: QUEtiapine FUMARATE 200 MG TAB PO (20:35)
[2018-03-31] MEDS: ATORVASTATIN 20 MG TAB PO (20:36)
[2018-03-31] MEDS: PRAZOSIN 1 MG CAP PO (20:36)
[2018-03-31] MEDS: traZODone 50 MG TAB PO (20:36)
[2018-03-31] MEDS: HALOPERIDOL 10 MG TAB PO (20:51)
[2018-03-31] MEDS: diphenhydrAMINE 50 MG CAP PO (20:51)
[2018-04-01] MEDS: METHADONE 5 MG TAB (S0109) PO (08:52)
[2018-04-01] MEDS: LISINOPRIL 10 MG TAB PO (08:52)
[2018-04-01] MEDS: ASPIRIN 325 MG TAB PO (08:53)
[2018-04-01] MEDS: FUROSEMIDE 20 MG TAB PO (08:53)
[2018-04-01] MEDS: cloNIDine 0.2 MG TAB PO ×3 (08:53→21:53)
[2018-04-01] MEDS: METOPROLOL TART 25 MG TABLET PO ×2 (08:53→21:52)
[2018-04-01] MEDS: amLODIPine 5 MG TAB PO (08:53)
[2018-04-01] MEDS: OMEPRAZOLE 20 MG CAP PO ×2 (08:54→21:53)
[2018-04-01] MEDS: GABAPENTIN 300 MG CAP PO ×3 (08:54→21:52)
[2018-04-01] MEDS: hydrOXYzine 50 MG TAB PO (17:17)
[2018-04-01] MEDS: OLANZapine ORAL DISINTEGRATING TAB 5MG PO (17:17)
[2018-04-01] MEDS: LURASIDONE 20 MG TAB (LATUDA) PO (21:51)
[2018-04-01] MEDS: PRAZOSIN 1 MG CAP PO (21:51)
[2018-04-01] MEDS: ATORVASTATIN 20 MG TAB PO (21:52)
[2018-04-01] MEDS: traZODone 50 MG TAB PO (21:52)
[2018-04-01] MEDS: QUEtiapine FUMARATE 200 MG TAB PO (21:53)
[2018-04-02] MEDS: OLANZapine ORAL DISINTEGRATING TAB 5MG PO (01:32)
[2018-04-02] MEDS: GABAPENTIN 300 MG CAP PO ×2 (09:33→14:39)
[2018-04-02] MEDS: LISINOPRIL 10 MG TAB PO (09:33)
[2018-04-02] MEDS: METHADONE 5 MG TAB (S0109) PO (09:33)
[2018-04-02] MEDS: OMEPRAZOLE 20 MG CAP PO (09:33)
[2018-04-02] MEDS: cloNIDine 0.2 MG TAB PO ×2 (09:34→14:39)
[2018-04-02] MEDS: METOPROLOL TART 25 MG TABLET PO (09:34)
[2018-04-02] MEDS: FUROSEMIDE 20 MG TAB PO (09:34)
[2018-04-02] MEDS: amLODIPine 5 MG TAB PO (09:35)
[2018-04-02] MEDS: ASPIRIN 325 MG TAB PO (09:35)
== END 2018-04-02 14:15 | disposition home or self-care (01) | DRG 881 ==
LOC: M ED 11:20 → M ED INP 14:54 → M PSY 16:22
DX: F32.9 Major depressive disorder, single episode, unspecified (principal); I50.32 Chronic diastolic (congestive) heart failure; F11.10 Opioid abuse, uncomplicated; I11.0 Hypertensive heart disease with heart failure; E78.5 Hyperlipidemia, unspecified; F41.9 Anxiety disorder, unspecified; I27.20 Pulmonary hypertension, unspecified; K21.9 Gastro-esophageal reflux disease without esophagitis; M17.12 Unilateral primary osteoarthritis, left knee; K59.09 Other constipation; G47.00 Insomnia, unspecified; N32.81 Overactive bladder; F17.210 Nicotine dependence, cigarettes, uncomplicated; Z79.82 Long term (current) use of aspirin; Z79.899 Other long term (current) drug therapy; Z88.5 Allergy status to narcotic agent; Z88.8 Allergy status to other drugs, medicaments and biological substances

== ENCOUNTER 2018-04-08 17:37 | Emergency (ER) | payer MEDICARE, MEDICAID ==
[2018-04-08] MEDS: NS 1,000 ML IV (18:10)
[2018-04-08 19:12] LABS: HEMATOCRIT 38.6 % (36.0-47.0); HEMOGLOBIN 12.4 g/dl (12.0-15.5); MEAN CORPUSCULAR HGB CONC 32.1 g/dl (32.0-36.5); MEAN CORPUSCULAR VOLUME 84.1 fl (80.0-96.0); PLATELET COUNT, AUTOMATED 302 10^3/uL (150-450); RED BLOOD COUNT 4.59 10^6/uL (4.00-5.40); RED CELL DISTRIBUTION WIDTH 14.1 % (11.5-14.5); WHITE BLOOD COUNT 13.7 10^3/uL (4.0-10.0)
[2018-04-08 19:14] LABS: ADD MANUAL DIFFER YES; DIFF SLIDE NUMBER 142; POSITIVE DIFF POS FLAG
[2018-04-08 19:31] LABS: CONTROL LINE HCG INT CTR LINE PRESENT; HCG, SERUM QUALITATIVE NEGATIVE (NEGATIVE)
[2018-04-08 19:37] LABS: LACTIC ACID SEPSIS PROTOCOL 1.7 MMOL/L (0.4-2.0)
[2018-04-08 19:46] LABS: ALKALINE PHOSPHATASE 147 U/L (45-117); ALT/SGPT 40 U/L (12-78); ANION GAP 7 MEQ/L (8-16); AST/SGOT 19 U/L (7-37); BLOOD UREA NITROGEN 12 MG/DL (7-18); CARBON DIOXIDE LEVEL 30 MEQ/L (21-32); CHLORIDE LEVEL 104 MEQ/L (98-107); CPK CREATINE PHOSPHOKINASE 72 U/L (26-192); CREATININE FOR GFR 0.79 MG/DL (0.55-1.30); GLOMERULAR FILTRATION RATE > 60.0 (>58); GLUCOSE, FASTING 108 MG/DL (70-100); POTASSIUM SERUM 4.3 MEQ/L (3.5-5.1); SODIUM LEVEL 141 MEQ/L (136-145)
[2018-04-08 19:47] LABS: ACETAMINOPHEN LEVEL < 2.0 UG/ML (10.0-30.0); ALBUMIN 3.5 GM/DL (3.2-5.2); ALBUMIN/GLOBULIN RATIO 0.95 (1.00-1.93); BILIRUBIN,DIRECT 0.1 MG/DL (0.0-0.2); BILIRUBIN,TOTAL 0.3 MG/DL (0.2-1.0); ETHYL ALCOHOL (ETHANOL) < 0.003 % (0.000-0.010); SALICYLATE LEVEL 2.8 MG/DL (5.0-30.0); THYROID STIMULATING HORMONE 0.876 uIU/ML (0.358-3.740); TOTAL PROTEIN 7.2 GM/DL (6.4-8.2)
[2018-04-08 19:50] LABS: ATYPICAL LYMPH 18 % (0-5); EOSINOPHILS 5 % (0-5); LYMPHOCYTES 15 % (16-52); MONOCYTES 5 % (0-8); NEUTROPHILS 57 % (35-75); PLATELET ESTIMATE NORMAL (NORMAL)
[2018-04-08] MEDS: diphenhydrAMINE INJ 50MG/ML VIAL (J1200) IM (20:45)
[2018-04-08] MEDS: HALOPERIDOL 5 MG/ML VIAL (J1630) IM (20:45)
[2018-04-08] MEDS ORDERED: HALOPERIDOL 5 MG/ML VIAL (J1630) As Ordered (20:47)
[2018-04-08 22:20] LABS: AMPHETAMINES LEVEL URINE NEGATIVE (NEGATIVE); BARBITURATES URINE NEGATIVE (NEGATIVE); BENZODIAZEPINES URINE POSITIVE (NEGATIVE); CANNABINOIDS URINE NEGATIVE (NEGATIVE); COCAINE METABOLITE URINE NEGATIVE (NEGATIVE); METHADONE URINE POSITIVE (NEGATIVE); OPIATES URINE NEGATIVE (NEGATIVE); PHENCYCLIDINE URINE NEGATIVE (NEGATIVE)
== END 2018-04-09 12:47 | disposition home or self-care (01) ==
LOC: M ED 17:37
DX: F31.9 Bipolar disorder, unspecified (principal); F19.10 Other psychoactive substance abuse, uncomplicated; F41.9 Anxiety disorder, unspecified; I11.0 Hypertensive heart disease with heart failure; I50.9 Heart failure, unspecified; E78.9 Disorder of lipoprotein metabolism, unspecified; K21.9 Gastro-esophageal reflux disease without esophagitis; J45.909 Unspecified asthma, uncomplicated; M54.9 Dorsalgia, unspecified; K76.9 Liver disease, unspecified; F17.200 Nicotine dependence, unspecified, uncomplicated; Z88.5 Allergy status to narcotic agent; Z88.8 Allergy status to other drugs, medicaments and biological substances; Z79.899 Other long term (current) drug therapy; Z79.82 Long term (current) use of aspirin
CPT/HCPCS: J1200